=== PATIENT | female | born 1955 | race Two or more races ===

== ENCOUNTER → 2017-05-13 | Outpatient (CLI) | payer OTHER ==
--- NOTE | 2017-05-13 14:44 | CT ---
EXAMINATION TYPE: CT lumbar spine wo con DATE OF EXAM: 05/13/2017 COMPARISON: NONE HISTORY: 61-year-old female with low back pain TECHNIQUE: Contiguous axial scanning of the lumbar spine without IV contrast. Coronal and sagittal re constructions performed. CT DLP: 939.45 mGycm Automated exposure control for dose reduction was used. FINDINGS: Moderate atherosclerotic calcifications within the abdominal aorta and iliac arteries with a fusiform dilatations but no significant ectasia or aneurysm. No prevertebral or paravertebral soft tissue abn ormality. There is mild multilevel degenerative disc disease with mild disc space narrowing and bulging discs. Hypertrophic facet arthropathy mid to lower lumbar spine with trace grade 1 anterolisthesis at L3-L4. Otherwise, alignment is maintained and vertebral body heights are preserved. At T12-L1, there is broad-based posterior disc bulge with left-sided ligamentum flavum thickening and calcification. This causes indentation of the left dorsal thecal sac without significant spinal neymar l or foraminal stenosis. At L1-L2 there are similar changes but this time resulting in mild spinal canal stenosis. Mild inferi or left neural foraminal stenosis. At L2-L3, there is diffuse disc bulge with facet degenerative change. This results in mild spinal can al stenosis and minimal inferior narrowing of the bilateral neuroforamina. At L3-L4, there is hypertrophic facet arthropathy with bulging disc and trace grade 1 anterolisthesis . There may be mild spinal canal stenosis and mild left neuroforaminal stenosis. At L4-L5, mild diffuse disc bulge with facet arthropathy. Changes result in [id number] left and mild right neuroforaminal stenosis without significant spinal canal stenosis. At L5-S1, there is left paracentral disc osteophyte complex which abuts the traversing left S1 nerve root with slight mass effect. Hypertrophic facet arthropathy is also present with moderate right grea ter than left neuroforaminal stenosis. No spinal canal stenosis. IMPRESSION: 1. MILD MULTILEVEL DEGENERATIVE DISC DISEASE. LEFT PARACENTRAL DISC OSTEOPHYTE COMPLEX AT L5-S1 ABUTS THE TRAVERSING LEFT S1 NERVE ROOT WITH SLIGHT MASS EFFECT. 2. VARIABLE MILD TO MODERATE NEUROFORAMINAL STENOSES OUTLINED ABOVE, GREATEST ON THE RIGHT AT L5-S 1. 3. HYPERTROPHIC FACET ARTHROPATHY MID TO LOWER LUMBAR SPINE WITH TRACE GRADE 1 ANTEROLISTHESIS AT L3- L4. 4. CHANGES CAUSE MILD NARROWING OF THE SPINAL CANAL FROM L1 THROUGH L4 LEVELS. NO DONAVON CANAL COMPROM ISE.
--- NOTE | 2017-05-13 15:00 | CT ---
EXAMINATION TYPE: CT cervical spine wo con DATE OF EXAM: 05/13/2017 COMPARISON: 07/03/2016 HISTORY: 61-year-old female with neck pain, cervicalgia TECHNIQUE: Contiguous axial scanning of the cervical spine without IV contrast. Coronal and sagittal reconstructions performed. CT DLP: 485.5 mGycm Automated exposure control for dose reduction was used. FINDINGS: No craniocervical junction abnormality, predental space widening, or prevertebral soft tissue swellin g. Moderate disc/endplate degenerative change at C5-C7 levels with endplate spondylosis and some disc va cuum anteriorly. Posterior disc osteophyte complexes are also present, particularly at C5-C6 causing a mild left paracentral spinal canal stenosis. Scattered facet arthropathy particularly towards the left lung the upper cervical spine. Alignment is maintained. No acute fracture identified. At C2-C3, no significant canal or foraminal stenosis. At C3-C4, there is mild posterior disc bulge, ligamentum flavum thickening, and hypertrophic left-jose ed facet arthropathy. Changes result in moderate to severe left neuroforaminal stenosis and mild spin al canal stenosis. At C4-C5, facet and uncovertebral joint arthropathy causing mild right greater than left neuroforamin al stenosis without significant spinal canal stenosis. At C5-C6, a large left paracentral disc osteophyte complex with contiguous uncovertebral joint arthro horacio is noted. This results in moderate to severe left neuroforaminal stenosis with mild left parace ntral spinal canal stenosis. There is likely abutment and indentation of the left ventral cord at thi s level. At C6-C7, there is uncovertebral joint arthropathy causing moderate left neuroforaminal stenosis. At C7-T1, assessment of the spinal canal is limited due to artifact from the patient's shoulders. No significant neuroforaminal stenosis. IMPRESSION: 1. MODERATE DEGENERATIVE DISC DISEASE FROM C5-C7 LEVELS. IN PARTICULAR, A LEFT PARACENTRAL DISC OSTEO PHYTE COMPLEX AT C5-C6 CAUSES MILD SPINAL CANAL STENOSIS AND PROBABLY SLIGHTLY INDENTS THE CORD. EMELIA TIONAL MILD SPINAL CANAL STENOSIS AT C3-C4 AND C6-C7. 2. SCATTERED FACET AND UNCOVERTEBRAL JOINT ARTHROPATHY. THIS RESULTS IN MODERATE TO SEVERE NEURAL FOR AMINAL STENOSIS ON THE LEFT AT C3-C4 AND C5-C6.
== END | disposition home or self-care (01) ==
LOC: RADCTMAIN 13:09
PROVIDERS: ATTEND Psychiatry & Neurology Neurology
DX: M50.222 Other cervical disc displacement at C5-C6 level (principal); M51.36 Other intervertebral disc degeneration, lumbar region; M43.16 Spondylolisthesis, lumbar region; M48.02 Spinal stenosis, cervical region; M48.06 Spinal stenosis, lumbar region; M46.92 Unspecified inflammatory spondylopathy, cervical region; M99.71 Connective tissue and disc stenosis of intervertebral foramina of cervical region; M99.73 Connective tissue and disc stenosis of intervertebral foramina of lumbar region; M47.817 Spondylosis without myelopathy or radiculopathy, lumbosacral region; Z88.0 Allergy status to penicillin; Z88.1 Allergy status to other antibiotic agents; Z88.2 Allergy status to sulfonamides; Z88.6 Allergy status to analgesic agent; Z88.8 Allergy status to other drugs, medicaments and biological substances
CPT/HCPCS: 72125; 72131

== ENCOUNTER → 2017-11-20 | Outpatient (CLI) | payer OTHER ==
--- NOTE | 2017-11-20 14:12 | BD ---
EXAMINATION TYPE: MG DEXA axial skeleton. DATE OF EXAM: 11/20/2017 COMPARISON: NONE CLINICAL HISTORY: Height: 62 IN Weight: 191 LBS FRAX RISK QUESTIONS: Alcohol (3 or more units per day): NO Family History (Parent hip fracture): NO Glucocorticoids (More than 3mos): NO (Ex: prednisone, prednisolone, methylprednisolone, dexamethasone, and hydrocortisone). History of Fracture in Adulthood: NO Secondary Osteoporosis: 1. Type 1 Diabetes: NO 2. Hyperthyroidism: NO 3. Menopause before 45: NO AGE 54 4. Malnutrition: NO 5. Chronic liver disease: NO Rheumatoid Arthritis: YES Current Tobacco Use: YES RISK FACTORS HISTORY OF: Active: LIMITED Diet low in dairy products/other sources of calcium: YES Postmenopausal woman: AGE 54 Lost more than 2 inches in height since high school: YES 4" Poor Health: YES MEDICATIONS: Additional Medications: CALCIUM, VIT D,CENTRUM SILVER, BIOTIN, FOLIC ACID, ALLOPURINOL, AMITRIPTYLINE , BACLOFEN, CHANTIX, ECOTRIN,LOFIBRA, METAMUCIL LAXATIVE, LASIX, MEVACOR, MS CONTIN,KLOR-CON, REMERON , REQUIP,XANAX EXAM MEASUREMENTS: Bone mineral densitometry was performed using the [employer] System. Bone mineral density as measured about the Lumbar spine is: ----- L1-L4(G/cm2): 1.295 T Score Values are as follows: ----- L2: 1.5 ----- L3: 1.4 ----- L4: 1.0 ----- L1-L4: 1.0 Bone mineral density BASELINE PT HAD STROKE ON LEFT SIDE IN 1992. Bone mineral density about the R hip (g/cm2): 0.847 Bone mineral density about the L hip (g/cm2): 0.843 T Score values are as follows: -----R Neck: -1.4 -----L Neck: -1.4 -----R Total: -0.8 -----L Total: -1.0 Bone mineral density BASELINE IMPRESSION: Osteopenia (T Score between -2.5 and -1 as noted by T score values at femoral neck level in both hips . There is slightly increased risk of fracture and the patient may be considered for treatment. Danilo shetty 2-5 years. NOTE: T-SCORE=SD OF THE YOUNG ADULT MEAN.
== END | disposition home or self-care (01) ==
LOC: RADBDWWP 12:58
PROVIDERS: ATTEND Orthopaedic Surgery
DX: Z01.818 Encounter for other preprocedural examination (principal); M85.852 Other specified disorders of bone density and structure, left thigh; M85.851 Other specified disorders of bone density and structure, right thigh
CPT/HCPCS: 77080

== ENCOUNTER → 2017-11-26 | Outpatient (CLI) | payer OTHER ==
--- NOTE | 2017-11-26 16:00 | CT ---
EXAMINATION TYPE: CT thoracic spine wo con DATE OF EXAM: 11/26/2017 COMPARISON: NONE HISTORY: Thoracic pain. CT DLP: 1365 mGycm Automated exposure control for dose reduction was used. FINDINGS: There is slight exaggeration of the thoracic kyphosis. Vertebral body heights appear preserved. Disc heights have mild narrowing throughout the thoracic spine. Spondylosis is present. No spinal canal stenosis is evident. No cord compression or displacement is identified. Focal disc herniation is not identified. IMPRESSION: 1. THORACIC KYPHOSIS. 2. DIFFUSE DEGENERATIVE DISC CHANGES.
--- NOTE | 2017-11-26 17:48 | MR ---
EXAMINATION TYPE: MR cspine/tspine wo con DATE OF EXAM: 11/26/2017 COMPARISON: NONE HISTORY: Pain and headaches CONTRAST: Performed utilizing 0 mL intravenous Gadavist gadolinium contrast. TECHNIQUE: Multiplanar multiecho imaging on a 3.0 Billie magnet is performed through the cervical spin e. FINDINGS: The craniovertebral junction is normal. Vertebral body alignment is normal. C7-T1: No focal disc herniation or significant disc bulge is evident. No spinal canal stenosis or n eural foraminal stenosis is present. C6-7: Minimal disc bulge has anterior thecal sac contact. Some cord contact may be present. No AP spi nal canal stenosis is present. Uncovertebral joint hypertrophy is present with mild bilateral foramin al narrowing.. C5-6: Disc bulge is present with anterior thecal sac contact. This has some cord contact. This is mor e focal into the left paracentral region compatible with subligamentous disc herniation. Correlate wi th left radicular symptoms at this level. Findings are complicated by endplate spurring.. C4-5: Right uncovertebral joint hypertrophy is foraminal narrowing. Mild endplate spurring has anteri or thecal sac contact. No spinal canal stenosis is present. C3-4: No focal disc herniation or significant disc bulge is evident. No spinal canal stenosis or prisca ral foraminal stenosis is present. C2-3: No focal disc herniation or significant disc bulge is evident. No spinal canal stenosis or prisca ral foraminal stenosis is present. IMPRESSIONS: 1. Left paracentral subligamentous disc herniation associated with some endplate spurring at C5-6 is moderate anterior thecal sac compression and exiting nerve root contact. Correlate with radicular sym ptoms. 2. Mild disc bulging C6-7 with cord contact without deformity. 3. Uncovertebral joint hypertrophy present C4-5 on the right with mild foraminal narrowing, and C6-7 with mild bilateral foraminal narrowing. EXAMINATION TYPE: MR cspine/tspine wo con DATE OF EXAM: 11/26/2017 COMPARISON: NONE HISTORY: Pain and headaches CONTRAST: Performed utilizing 0 mL intravenous Gadavist gadolinium contrast. TECHNIQUE: Multiplanar, multiecho imaging on a 3.0 Billie magnet is performed through the thoracic spi ne. Spinal cord maintains normal signal through its visualized course. Vertebral body alignment is normal. Vertebral body heights are preserved. Disc heights are preserved. Mild disc desiccation is present throughout the thoracic spine. No spinal canal stenosis is evident. IMPRESSIONS: 1. Mild disc desiccation through the thoracic spine.
== END | disposition home or self-care (01) ==
LOC: RADMRIMAIN 13:15
PROVIDERS: ATTEND Orthopaedic Surgery
DX: Z01.818 Encounter for other preprocedural examination (principal); M40.204 Unspecified kyphosis, thoracic region; M99.71 Connective tissue and disc stenosis of intervertebral foramina of cervical region; M50.222 Other cervical disc displacement at C5-C6 level; M47.814 Spondylosis without myelopathy or radiculopathy, thoracic region
CPT/HCPCS: 72128; 72141; 72146

== ENCOUNTER 2018-02-13 00:54 | Inpatient (IN) | payer OTHER ==
[2018-02-13 01:03] LABS: Glucose,Whole Blood 122 mg/dL (75-99)
[2018-02-13] MEDS ORDERED: SODIUM CHLORIDE 0.9% 1,000 ML IV STA (01:05)
--- NOTE | 2018-02-13 01:12 | ED ---
General Adult HPI - General Chief complaint: Weakness Stated complaint: poss stroke Time Seen by Provider: 02/13/18 00:57 Source: patient, RN notes reviewed Mode of arrival: EMS Limitations: no limitations - History of Present Illness Initial comments: Patient is a pleasant [age]-year-old female presenting to the emergency Department with right arm weakness. Onset was around 6 or 7 PM. Symptoms have been persistent since that time. Patient is having problems coordinating her arm. Patient states there may be some leg weakness as well. Patient does have a history of multiple previous strokes with chronic left-sided deficits. 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 Patient states there is approximately 8 coils present. Patient is having some discomfort of her chest and left upper back over the past hour or so as well. - Related Data Home Medications Medication Instructions Recorded Confirmed Albuterol Sulfate [Ventolin HFA] 2 puff INHALATION RT-QID PRN 05/24/14 07/03/16 Fenofibrate 160 mg PO AC-SUPPER 05/24/14 07/03/16 Folic Acid 1 mg PO DAILY 05/24/14 07/03/16 Furosemide [Lasix] 20 mg PO DAILY 05/24/14 07/03/16 Lovastatin [Mevacor] 40 mg PO HS 05/24/14 07/03/16 Metoprolol Tartrate [Lopressor] 50 mg PO BID 05/24/14 07/03/16 Potassium Chloride [Potassium 20 meq PO DAILY@1800 05/24/14 07/03/16 Chloride ER] Allopurinol [Zyloprim] 100 mg PO DAILY@1200 04/04/16 07/03/16 Amitriptyline HCl [Elavil] 75 mg PO HS 04/04/16 07/03/16 Cholecalciferol [Vitamin D3] 3,000 unit PO TID 04/04/16 07/03/16 EPINEPHrine (Auto Inject) [Epipen] 0.3 mg IM ONCE PRN 04/04/16 07/03/16 Polyethylene Glycol 3350 [Miralax] 17 gm PO DAILY 04/04/16 07/03/16 Varenicline [Chantix Continuing 1 mg PO BID 04/04/16 07/03/16 Pack] ALPRAZolam [Xanax] 0.5 mg PO BID@0600,1800 07/03/16 07/03/16 ALPRAZolam [Xanax] 1 mg PO DAILY@1200 07/03/16 07/03/16 cloNIDine HCL [Catapres] 0.1 mg PO HS 07/03/16 07/03/16 Previous Rx's Medication Instructions Recorded Aspirin 81 mg PO DAILY #1 chewable 07/05/16 Baclofen [Lioresal] 5 mg PO TID #60 tablet 07/05/16 Cefuroxime [Ceftin] 250 mg PO BID #6 tab 07/05/16 Allergies Allergy/AdvReac Type Severity Reaction Status Date / Time acetaminophen Allergy Unknown Verified 04/10/16 09:16 [From Darvocet-N 100] aspirin Allergy Unknown Verified 04/10/16 09:16 cefaclor [From Ceclor] Allergy Unknown Verified 04/10/16 09:26 divalproex sodium Allergy Unknown Verified 04/10/16 09:26 [From Depakote] Iodine and Iodide Containing Allergy Rash/Hives Verified 02/13/18 01:55 Produc ketorolac tromethamine Allergy Unknown Verified 04/10/16 09:16 [From Toradol] naproxen Allergy Unknown Verified 04/10/16 09:16 orphenadrine citrate Allergy Unknown Verified 04/10/16 09:16 [From Norgesic] Penicillins Allergy Unknown Verified 04/10/16 09:16 phenytoin sodium Allergy Unknown Verified 04/10/16 09:26 [From Dilantin] phenytoin sodium extended Allergy Unknown Verified 04/10/16 09:26 [From Dilantin] pregabalin [From Lyrica] Allergy Unknown Verified 04/10/16 09:26 propoxyphene HCl Allergy Unknown Verified 04/10/16 09:26 [From Darvon] propoxyphene napsylate Allergy Unknown Verified 04/10/16 09:26 [From Darvocet-N 100] Sulfa (Sulfonamide Allergy Unknown Verified 04/10/16 09:26 Antibiotics) trazodone Allergy Unknown Verified 04/10/16 09:26 venom-honey bee Allergy Unknown Verified 04/10/16 09:16 [bee venom (honey bee)] adhesive AdvReac Rash/Hives Verified 04/10/16 09:26 Review of Systems ROS Statement: Those systems with pertinent positive or pertinent negative responses have been documented in the HPI. ROS Other: All systems not noted in ROS Statement are negative. Constitutional: Denies: fever Eyes: Denies: eye pain ENT: Denies: ear pain Respiratory: Denies: cough Cardiovascular: Reports: chest pain Endocrine: Denies: fatigue Gastrointestinal: Denies: abdominal pain Genitourinary: Denies: dysuria Musculoskeletal: Denies: back pain Skin: Denies: rash Neurological: Reports: weakness. Denies: headache, confusion Past Medical History Past Medical History: COPD, CVA/TIA, Fibromyalgia, Hyperlipidemia, Hypertension , Osteoarthritis (OA), Renal Disease, Rheumatoid Arthritis (RA) Additional Past Medical History / Comment(s): stroke, hx brain aneurysm basal tip, renal disease stage 3, constipation, hemorrhoids, gout, History of Any Multi-Drug Resistant Organisms: MRSA Date of last positivie culture/infection: April 2013 MDRO Source:: bladder Past Surgical History: Bowel Resection, Breast Surgery, Section, Orthopedic Surgery, Tonsillectomy, Tubal Ligation Additional Past Surgical History / Comment(s): d&c, brain aneursym repair Past Anesthesia/Blood Transfusion Reactions: No Reported Reaction Past Psychological History: Anxiety, Depression Smoking Status: Former smoker Past Alcohol Use History: None Reported Past Drug Use History: Marijuana - Past Family History Mother Family Medical History: No Reported History General Exam Limitations: no limitations General appearance: alert, in no apparent distress Head exam: Present: atraumatic Eye exam: Present: normal appearance, PERRL, EOMI. Absent: nystagmus ENT exam: Present: normal oropharynx Neck exam: Present: normal inspection Respiratory exam: Present: normal lung sounds bilaterally. Absent: chest wall tenderness Cardiovascular Exam: Present: regular rate, normal rhythm Expanded Peripheral pulses: 2+: Radial (R), Radial (L), Dorsalis Pedis (R), Dorsalis Pedis (L) GI/Abdominal exam: Present: soft. Absent: distended, tenderness Extremities exam: Present: normal inspection Back exam: Present: tenderness (Tenderness left parathoracic region approximately T3 through T5.) Neurological exam: Present: alert, CN II-XII intact (Except decreased sensation left face and difficulty lifting left shoulder) Expanded Speech: Present: fluid speech Cranial nerves: EOM's Intact: Normal, Facial Sensation: Abnormal Left Cerebellar function: Finger to Nose: Abnormal Right, Abnormal Left Sensory exam: Upper Extremity Light Touch: Abnormal Left (Patient states chronic ), Lower Extremity Light Touch: Abnormal Left (Patient states chronic) Motor strength exam: RUE: 4, LUE: 2/1 (Patient states chronic), RLE: 4, LLE: 3 ( Patient states chronic) Eye Response: (4) open spontaneously Motor Response: (6) obeys commands Verbal Response: (5) oriented Psychiatric exam: Present: normal affect, normal mood Skin exam: Present: normal color Course Vital Signs 02/13/18 02/13/18 00:57 01:58 Temperature 98.4 F Pulse Rate 72 63 Respiratory 19 19 Rate Blood Pressure 158/70 132/66 O2 Sat by Pulse 99 100 Oximetry - Reevaluation(s) Reevaluation #1: 02/13/18 03:09 Patient was reevaluated and resting comfortably in bed. Dr. rodriguez has been paged for admission for Dr. Underwood. Patient was loaded in stroke robot for neural interventional list to review. EKG Findings - EKG Comments: EKG Findings:: Normal sinus rhythm 72. TN 168. QRS 80. QT 396. QTc 433. Left axis. Normal QRS. No acute ST change. Medical Decision Making - Lab Data Result diagrams: 02/13/18 00:59 02/13/18 00:59 Lab Results 02/13/18 02/13/18 02/13/18 Range/Units 00:57 00:59 00:59 WBC 6.6 (3.8-10.6) k/uL RBC 4.22 (3.80-5.40) m/uL Hgb 12.6 (11.4-16.0) gm/dL Hct 39.1 (34.0-46.0) % MCV 92.6 (80.0-100.0) fL MCH 29.7 (25.0-35.0) pg MCHC 32.1 (31.0-37.0) g/dL RDW 13.2 (11.5-15.5) % Plt Count 212 (150-450) k/uL Neutrophils % 59 % Lymphocytes % 33 % Monocytes % 5 % Eosinophils % 0 % Basophils % 1 % Neutrophils # 3.9 (1.3-7.7) k/uL Lymphocytes # 2.2 (1.0-4.8) k/uL Monocytes # 0.4 (0-1.0) k/uL Eosinophils # 0.0 (0-0.7) k/uL Basophils # 0.0 (0-0.2) k/uL PT (9.0-12.0) sec INR (<1.2) APTT (22.0-30.0) sec Sodium (137-145) mmol/L Potassium (3.5-5.1) mmol/L Chloride (98-107) mmol/L Carbon Dioxide (22-30) mmol/L Anion Gap mmol/L BUN (7-17) mg/dL Creatinine (0.52-1.04) mg/dL Est GFR (CKD-EPI)AfAm (>60 ml/min/1.73 sqM) Est GFR (CKD-EPI)NonAf (>60 ml/min/1.73 sqM) Glucose (74-99) mg/dL POC Glucose (mg/dL) 122 H (75-99) mg/dL POC Glu [employer] Operator ID [place] Calcium (8.4-10.2) mg/dL Total Bilirubin (0.2-1.3) mg/dL AST (14-36) U/L ALT (9-52) U/L Alkaline Phosphatase (38-126) U/L Total Creatine Kinase 73 (30-135) U/L CK-MB (CK-2) 1.3 (0.0-2.4) ng/mL CK-MB (CK-2) Rel Index 1.8 Troponin I <0.012 (0.000-0.034) ng/mL Total Protein (6.3-8.2) g/dL Albumin (3.5-5.0) g/dL 02/13/18 02/13/18 Range/Units 00:59 00:59 WBC (3.8-10.6) k/uL RBC (3.80-5.40) m/uL Hgb (11.4-16.0) gm/dL Hct (34.0-46.0) % MCV (80.0-100.0) fL MCH (25.0-35.0) pg MCHC (31.0-37.0) g/dL RDW (11.5-15.5) % Plt Count (150-450) k/uL Neutrophils % % Lymphocytes % % Monocytes % % Eosinophils % % Basophils % % Neutrophils # (1.3-7.7) k/uL Lymphocytes # (1.0-4.8) k/uL Monocytes # (0-1.0) k/uL Eosinophils # (0-0.7) k/uL Basophils # (0-0.2) k/uL PT 10.1 (9.0-12.0) sec INR 1.0 (<1.2) APTT 22.7 (22.0-30.0) sec Sodium 145 (137-145) mmol/L Potassium 3.8 (3.5-5.1) mmol/L Chloride 102 (98-107) mmol/L Carbon Dioxide 30 (22-30) mmol/L Anion Gap 13 mmol/L BUN 20 H (7-17) mg/dL Creatinine 1.10 H (0.52-1.04) mg/dL Est GFR (CKD-EPI)AfAm 61 (>60 ml/min/1.73 sqM) Est GFR (CKD-EPI)NonAf 53 (>60 ml/min/1.73 sqM) Glucose 121 H (74-99) mg/dL POC Glucose (mg/dL) (75-99) mg/dL POC Glu [employer] Operator ID Calcium 9.6 (8.4-10.2) mg/dL Total Bilirubin 0.6 (0.2-1.3) mg/dL AST 27 (14-36) U/L ALT 25 (9-52) U/L Alkaline Phosphatase 70 (38-126) U/L Total Creatine Kinase (30-135) U/L CK-MB (CK-2) (0.0-2.4) ng/mL CK-MB (CK-2) Rel Index Troponin I (0.000-0.034) ng/mL Total Protein 6.6 (6.3-8.2) g/dL Albumin 4.0 (3.5-5.0) g/dL - Radiology Data Radiology results: image reviewed (Two-view chest x-ray shows no active cardiopulmonary disease. Computed tomography scan of the brain shows old right temporal lobe infarct. No acute intercranial abnormality. Small old infarct left occipital lobe. Metal artifact from surgical clip posterior the [place] of Chen. CT angiogram of the head and neck shows thoracic aorta with mild erythematous change. No evidence of aneurysm or dissection at the arch. 75% stenosis origin left internal carotid artery. 50% stenosis right internal carotid artery. Metal artifact from aneurysmal clip.) Disposition Clinical Impression: CVA (cerebral vascular accident) Disposition: ADMITTED IP TO THIS HOSP Referrals: Harsh Underwood DO [Primary Care Provider] - 1-2 days Decision Time: 03:10
[2018-02-13 01:15] LABS: Basophils % (A) 1 %; Eosinophils % (A) 0 %; HCT 39.1 % (34.0-46.0); HGB 12.6 gm/dL (11.4-16.0); Lymphocytes # (A) 2.2 k/uL (1.0-4.8); Lymphocytes % (A) 33 %; MCH 29.7 pg (25.0-35.0); MCHC 32.1 g/dL (31.0-37.0); MCV 92.6 fL (80.0-100.0); Monocytes # (A) 0.4 k/uL (0-1.0); Monocytes % (A) 5 %; Neutrophils # (A) 3.9 k/uL (1.3-7.7); Neutrophils % (A) 59 %; Platelet Count 212 k/uL (150-450); RBC 4.22 m/uL (3.80-5.40); RDW 13.2 % (11.5-15.5); WBC 6.6 k/uL (3.8-10.6)
[2018-02-13 01:24] LABS: Calcium 9.6 mg/dL (8.4-10.2); Potassium 3.8 mmol/L (3.5-5.1); Total Bilirubin 0.6 mg/dL (0.2-1.3); Total Protein 6.6 g/dL (6.3-8.2)
[2018-02-13 01:27] LABS: Partial Thromboplastin Time 22.7 sec (22.0-30.0); Prothrombin Time 10.1 sec (9.0-12.0)
[2018-02-13] MEDS ORDERED: RX INFO: IV CONTRAST WAS GIVEN 1 EACH MISC MISCELLANE PRN (01:32)
--- NOTE | 2018-02-13 01:32 | CT ---
EXAMINATION TYPE: CT brain wo con DATE OF EXAM: 02/13/2018 COMPARISON: 07/03/2016 HISTORY: Possible stroke/Neuro Deficits CT DLP: 1011.50 mGycm Automated exposure control for dose reduction was used. FINDINGS: There is metal artifact from surgical clip at the posterior [place] of [place]. There is hypodensity in the right temporal lobe consistent with old encephalomalacia. There is no mass effect nor midline sh ift. There is no sign of intracranial hemorrhage. The calvarium is intact. There is some hypodensity in the most posterior cortex of the left occipital lobe. IMPRESSION: OLD RIGHT TEMPORAL LOBE INFARCT. NO ACUTE INTRACRANIAL ABNORMALITY. SMALL OLD INFARCT IN THE LEFT OCC IPITAL LOBE.
[2018-02-13 01:35] LABS: Creatine Kinase 73 U/L (30-135)
--- NOTE | 2018-02-13 01:35 | XR ---
EXAMINATION TYPE: XR chest 2V DATE OF EXAM: 02/13/2018 COMPARISON: 07/03/2016 HISTORY: Altered mental status TECHNIQUE: Frontal and lateral views of the chest are obtained. FINDINGS: There is relative poor inspiration. There is thoracic kyphotic posture. The head obscures the right upper lobe. There is no heart failure. Lungs appear clear of consolidation. There is no sig n of pleural effusion. IMPRESSION: No active cardiopulmonary disease. No change in the heart and lungs compared to old exam .
[2018-02-13] MEDS ORDERED: diphenhydrAMINE 50 MG/ML 1 ML VIAL IVP STA (01:45)
[2018-02-13] MEDS ORDERED: FAMOTIDINE 20 MG/2 ML VIAL IV STA (01:45)
[2018-02-13] MEDS ORDERED: methylPREDNISolone SOD SUCCI 125 MG/2 ML VIAL IV STA (01:45)
[2018-02-13 01:48] LABS: Creatine Kinase MB 1.3 ng/mL (0.0-2.4); Troponin I <0.012 ng/mL (0.000-0.034)
--- NOTE | 2018-02-13 02:45 | CT ---
EXAMINATION TYPE: CT angio head neck DATE OF EXAM: 02/13/2018 HISTORY: CTA caratid for neuro deficits andattention proximal aorta for pt. is c/o upper chest pain a lso. COMPARISON: NONE CT DLP: 378.90 mGycm. Automated Exposure Control for Dose Reduction was Utilized. TECHNIQUE: CTA scan of the neck and brain is performed with IV Contrast, patient injected with 65 mL of Isovue 370, axial images are obtained, coronal and sagittal reformatted images are reviewed. Thre e-D reconstructed images are created on an independent workstation and reviewed. FINDINGS: Thoracic aorta shows mild atheromatous change. There is no evidence of aneurysm or dissection at the aortic arch. There is normal branching pattern of the great vessels on the aortic arch. There is bila teral arterial flow in the vertebral arteries. There is bilateral arterial flow in the common carotid arteries. There is significant calcified plaqu e at the left carotid artery bifurcation. There is a short segment of stenosis at the origin of the l eft internal carotid artery that is probably more than 75% lumen narrowing. There is estimated 50% st enosis at the origin of the right internal carotid artery. There is bilateral arterial flow in the in ternal carotid arteries. There is metal artifact from aneurysm clip at the posterior [place] of [place] at the tip of the basilar artery. Detail in the intracranial arterial circulation is limited at the [place] of [place]. There is bilateral arterial flow in the anterior middle and posterior cerebral arteries. The basilar artery fills from the left and right vertebral artery. There is no mass effect. There is no evidence of intracranial aneurysm or neovascularity. Detail of the proximal posterior cerebral arteries is marino ited. There is normal contrast opacification of the venous sinuses. There is no evidence of carotid d issection. CONCLUSION: Atherosclerotic vascular disease. There is approximate 75% stenosis at the origin of the left interna l carotid artery. There is approximate 50% stenosis at the origin of the right internal carotid arter y. Basilar arteries appear fairly normal. Metal artifact from aneurysm surgery. No evidence of intracranial aneurysm or neovascularity. No evid ence of intracranial stenosis.
[2018-02-13] MEDS: SODIUM CHLORIDE 0.9% 1,000 ML IV SCH ×3 (03:54→21:14)
[2018-02-13] MEDS ORDERED: METOPROLOL TARTRATE 25 MG TAB PO STA (04:41)
[2018-02-13 05:37] VITALS: BMI 33.5
[2018-02-13] MEDS ORDERED: NYSTATIN 100,000UNIT/GM CREAM 30 GM TUBE TOPICAL PRN (10:27)
[2018-02-13] MEDS ORDERED: NON-FORMULARY DRUG (Biotin [Biotin] 5 MG) PO SCH (12:00)
[2018-02-13] MEDS ORDERED: BACLOFEN 10 MG TAB PO SCH ×2 (12:00→18:00)
[2018-02-13] MEDS: POLYETHYLENE GLYCOL 3350 17 GM POWD.PACK PO SCH (12:40)
[2018-02-13] MEDS: MORPHINE SULFATE ER 15 MG TABLET PO SCH ×2 (12:41→23:05)
[2018-02-13] MEDS: ALPRAZolam 0.5 MG TAB PO SCH (12:41)
[2018-02-13] MEDS: ALLOPURINOL 100 MG TAB PO SCH (12:42)
[2018-02-13] MEDS: ASPIRIN 325 MG TAB PO SCH (12:42)
[2018-02-13] MEDS: CHOLECALCIFEROL 1,000 UNIT TAB PO SCH (12:43)
[2018-02-13] MEDS: PSYLLIUM HUSK 100% 6 GM PACKET PO SCH (12:43)
[2018-02-13] MEDS: NICOTINE 14MG/24HR PATCH TRANSDERM SCH (15:35)
[2018-02-13] MEDS: ALPRAZolam 1 MG TAB PO SCH (17:11)
[2018-02-13] MEDS: CALCIUM CARBONATE 500 MG CHEWABLE PO SCH (17:11)
[2018-02-13] MEDS: VARENICLINE 1 MG TAB PO SCH (17:11)
[2018-02-13] MEDS: FENOFIBRATE 160 MG TAB PO SCH (17:12)
[2018-02-13] MEDS: POTASSIUM CHLORIDE ER 20 MEQ TAB.ER PO SCH (17:12)
[2018-02-13] MEDS: MULTIVITAMINS, THERA 1 EACH TAB PO SCH (17:12)
[2018-02-13] MEDS: FOLIC ACID 1 MG TAB PO SCH (17:12)
[2018-02-13] MEDS: BACLOFEN 10 MG TAB PO PRN (17:21)
--- NOTE | 2018-02-13 17:38 | HP ---
HISTORY AND PHYSICAL DATE OF ADMISSION: February 13, 2018. PRESENTING COMPLAINT: Right arm weakness. HISTORY OF PRESENTING COMPLAINT: This is a 62-year-old patient of Dr. Underwood. Also follows with Dr. King, neurologist. Chronic stable medical conditions include COPD, left-sided weakness from prior stroke, fibromyalgia, hyperlipidemia, osteoarthritis, chronic kidney disease, restless leg syndrome. The patient normally uses a walker to get about. Yesterday, late afternoon patient woke up with the right arm and right leg being weak. Speech was not affected. Vision was not affected. No trouble swallowing. The patient admitted with a stroke diagnosis. Slight improvement in the right arm. The patient is still a smoker. REVIEW OF SYSTEMS: CONSTITUTIONAL: None. HEENT none. Respiratory: Baseline occasional cough. CARDIOVASCULAR: None. GASTROINTESTINAL: None. GENITOURINARY: Urinary incontinence. Dermatological and hematologic, lymphatic none. Psychiatry anxiety. Neurological as above. 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 PAST SURGICAL HISTORY: Past surgical history bowel resection, breast surgery, , orthopedic surgery, tonsillectomy, tubal ligation, brain aneurysm repair. PSYCH HISTORY: Anxiety, depression. SOCIAL HISTORY: The patient has smoked a pack a day now close to over 45 years, down to about 5 cigarettes a day. Lives by herself. Uses a walker. The patient also does use marijuana. FAMILY HISTORY: Reviewed, noncontributory to presentation. HOME MEDICATIONS: 1. Chantix 1 mg p.o. b.i.d. 2. Vitamin D3 3000 units p.o. daily. 3. Nystatin 100,000 units topical daily p.r.n. 4. Requip 3 mg p.o. q.h.s. 5. Metamucil 0.4 mg p.o. daily at noon. 6. MS Contin 50 mg p.o. b.i.d. 7. Mirtazapine 60 mg q.h.s. 8. Lasix 20 mg p.o. daily. 9. Folic acid 1 mg p.o. daily. 10.Tricor 160 mg p.o. daily. 11.Aspirin 325 p.o. daily at noon. 12.Centrum Silver tab 1 tab p.o. daily. 13.Calcium 600 mg p.o. daily at noon. 14.Biotin 5 mg p.o. daily. 15.Baclofen 10 mg p.o. b.i.d. 16.Baclofen 20 mg at 6 pm. 17.Xanax 0.5 mg p.o. b.i.d. and 1 mg at 6 pm. 18.Potassium 20 mEq a day. 19.MiraLAX 17 g p.o. daily. 20.Mevacor 40 mg q.h.s. 21.EpiPen p.r.n. 22.Elavil 75 mg q.h.s. 23.Allopurinol 100 mg p.o. daily. ALLERGIES: LIST IS LONG INCLUDING DARVOCET-N 100, ASPIRIN, WELLBUTRIN, CECLOR, DEPAKOTE, DOXYCYCLINE, IODINE, TORADOL, ATIVAN, NAPROXEN, NORGESIC, PENICILLIN, PHENYTOIN, LYRICA, PROPOXYPHENE, SULFUR, TRAZODONE, ADHESIVES. PHYSICAL EXAMINATION: Temperature 98.4, pulse 59, respiration 16, blood pressure 102/55, pulse ox 93% on room air. General appearance: Well built, BMI 33.6, sitting up, tired appearing. Eyes: Pupils are equal. Conjunctivae normal. HEENT external appearance of nose and ears normal. Oral cavity normal. Neck JVD not raised. Mass not palpable. Respiratory effort normal. LUNGS: Diminished breath sounds. Cardiovascular: 1st and 2nd sounds normal. No edema. ABDOMEN: Soft, nontender. Liver and spleen not palpable. Lymphatics: No lymph nodes palpable in the neck and axilla. Psychiatry: Alert and oriented times three. Mood and affect slightly anxious-appearing. Neurological: Pupils equal. Cranial nerves showing some weakness of the left side of the face. NEUROLOGICAL: Power on the right arm is 3/5, in the left arm is about 3/5. Right leg power is 4/5. Left leg power is 4/5. Sensation grossly preserved. INVESTIGATIONS: Potassium 3.8, BUN 20, creatinine 1.10, troponin negative. EKG normal sinus rhythm. CT scan of the brain, old right temporal lobe infarct and old infarct in the left occipital lobe. CT angio foot shows metal artifact from aneurysm surgery. Left internal carotid arteries 75% stenosis. ASSESSMENT: 1. Acute stroke in the left middle cerebral artery area affecting the right side of the body in a right-handed patient with 75% left internal carotid artery stenosis. 2. Chronic left-sided weakness from old stroke. 3. Chronic obstructive pulmonary disease in a current smoker. 4. Chronic fibromyalgia. 5. Hyperlipidemia. 6. Primary osteoarthritis in multiple joints bilateral. 7. Chronic kidney disease stage 4 probably from nephrosclerosis. 8. Restless legs syndrome. 9. Chronic insomnia. 10.Anxiety, not otherwise specified. 11.Chronic rheumatoid arthritis. 12.Brain aneurysm with basal artery with a clip in place. PLAN: Continue with the patient on aspirin. Home medications. We will also put the patient on Lipitor. Neurology was consulted. Neuro checks will be done. The patient has no trouble swallowing. Speech is normal. Consult PT/OT. Smoking cessation counseling was done with the patient. Will be given a nicotine patch. I did tell how this is making things worse. More than 3 minutes was spent for the smoke counseling. Copy to Dr. Underwood. JUSTYN / COLIN: [id number] /
[2018-02-13] MEDS: ENOXAPARIN 40 MG/0.4 ML SYRINGE SQ SCH (19:21)
--- NOTE | 2018-02-13 20:13 | P.CNNES ---
History of Present Illness Consult date: 02/13/18 Reason for Consult: Patient with right arm weakness and history of old strokes. History of Present Illness: This patient is a 62-year-old right-handed white female who apparently was having difficulty yesterday evening with symptoms of acute onset of right arm weakness and numbness. Patient was able to contact her son who was able to come and check on her yesterday evening. Apparently the patient told the ER physician Dr. Moseley that her symptoms started at about 6 PM yesterday evening. The main feature was weakness in her right arm. Her son came to assist her later in the evening and noted that she was having some slurring of her speech and difficulty with her words finding. Her son who was at bedside stated that he felt she also had some facial weakness. For these reasons he decided to take her to the emergency room for further evaluation last night. She was seen in the ER by Dr. Moseley. She has a complex past medical history having been diagnosed with a basilar artery aneurysm which was treated with multiple coiling procedures several years ago. Patient states she was seen by Dr. brandon. Who performed coiling procedure to the basilar artery requiring 8-9 coils. She is subtotally done well and has not had any further recurrence in terms of the basilar artery aneurysm. She does take one full adult aspirin on a daily basis. This was a clear change according to the family with the right arm weakness. She also did experience some facial weakness and slurring of her speech. For these recent she was admitted hospital for possibility of TIA versus stroke. ER physician Dr. Moseley did send her for a computed tomography scan of the brain as well as a CTA angiogram. Computed tomography scan of the brain revealed evidence of an old right temporal lobe infarct. There was a small old left occipital lobe infarct noted as well. No evidence of acute hemorrhage. She underwent a CTA angiogram of the head and neck. This result indicated 75% stenosis of the left internal carotid artery and 50% stenosis of the right internal carotid artery. Dr. Moseley did contact the neural interventionalists at [facility]. Apparently she was not a candidate for any TPA. She was admitted to hospital for further stroke evaluation. Patient states her last stroke occurred several years ago. She has been doing fairly well and has been able to do most fine motor skills with both hands. She does have history of carpal tunnel syndrome which causes difficulty with the use of her left hand and arm. Apparently she is being treated for this condition with Botox. The patient states she has otherwise been doing fairly well up until this episode last night. She is now been admitted and neurology has been consulted for further evaluation and recommendations. Review of Systems Constitutional: Denies chills, Denies fever Eyes: denies blurred vision, denies pain Ears, nose, mouth and throat: Denies headache, Denies sore throat Cardiovascular: Denies chest pain, Denies shortness of breath Respiratory: Denies cough Gastrointestinal: Denies abdominal pain, Denies diarrhea, Denies nausea, Denies vomiting Genitourinary: Denies dysuria, Denies hematuria Musculoskeletal: Denies myalgias Integumentary: Denies pruritus, Denies rash Neurological: Reports change in speech, Reports confusion, Reports motor disturbance, Reports paresthesias, Reports sensory deficit, Reports tingling, Denies numbness, Denies weakness Psychiatric: Denies anxiety, Denies depression Endocrine: Denies fatigue, Denies weight change Past Medical History Past Medical History: COPD, CVA/TIA, Fibromyalgia, Hyperlipidemia, Hypertension , Osteoarthritis (OA), Renal Disease, Rheumatoid Arthritis (RA) Additional Past Medical History / Comment(s): stroke, hx brain aneurysm basal tip, renal disease stage 3, constipation, hemorrhoids, gout, History of Any Multi-Drug Resistant Organisms: MRSA Date of last positivie culture/infection: April 2013 MDRO Source:: bladder Past Surgical History: Bowel Resection, Breast Surgery, Section, Orthopedic Surgery, Tonsillectomy, Tubal Ligation Additional Past Surgical History / Comment(s): d&c, brain aneursym repair Past Anesthesia/Blood Transfusion Reactions: No Reported Reaction Past Psychological History: Anxiety, Depression Smoking Status: Current every day smoker Past Alcohol Use History: None Reported Additional Past Alcohol Use History / Comment(s): smoked since age 16 1ppd, smokes currently 5 cigarettes a day, does use marijuana Past Drug Use History: Marijuana - Past Family History Mother Family Medical History: No Reported History Medications and Allergies Home Medications Medication Instructions Recorded Confirmed Type Fenofibrate 160 mg PO DAILY@1800 05/24/14 02/13/18 History Folic Acid 1 mg PO DAILY@1800 05/24/14 02/13/18 History Lovastatin [Mevacor] 40 mg PO HS 05/24/14 02/13/18 History Potassium Chloride [Potassium 20 meq PO DAILY@1800 05/24/14 02/13/18 History Chloride ER] Allopurinol [Zyloprim] 100 mg PO DAILY@1200 04/04/16 02/13/18 History Amitriptyline HCl [Elavil] 75 mg PO HS 04/04/16 02/13/18 History Cholecalciferol [Vitamin D3] 3,000 unit PO DAILY@1200 04/04/16 02/13/18 History EPINEPHrine (Auto Inject) [Epipen] 0.3 mg IM ONCE PRN 04/04/16 02/13/18 History Polyethylene Glycol 3350 [Miralax] 17 gm PO DAILY 04/04/16 02/13/18 History Varenicline [Chantix Continuing 1 mg PO BID@0600,1800 04/04/16 02/13/18 History Pack] ALPRAZolam [Xanax] 0.5 mg PO BID@0600,1200 07/03/16 02/13/18 History ALPRAZolam [Xanax] 1 mg PO DAILY@1800 07/03/16 02/13/18 History Aspirin EC [Ecotrin] 325 mg PO DAILY@1200 02/13/18 02/13/18 History Baclofen 20 mg PO DAILY@1800 02/13/18 02/13/18 History Baclofen [Lioresal] 10 mg PO BID@0600,1200 02/13/18 02/13/18 History Biotin 5 mg PO DAILY@1200 02/13/18 02/13/18 History Calcium Carbonate [Calcium] 600 mg PO DAILY@1800 02/13/18 02/13/18 History Furosemide [Lasix] 20 mg PO DAILY@0600 02/13/18 02/13/18 History Mirtazapine 60 mg PO HS 02/13/18 02/13/18 History Morphine Sulfate ER [Ms Contin 15 mg PO BID@0000,1200 02/13/18 02/13/18 History 15Mg] Multivit-Min/FA/Lycopen/Lutein 1 tab PO DAILY@1800 02/13/18 02/13/18 History [Centrum Silver Tablet] Nystatin 100,000Unit/gm Cream 1 applic TOPICAL DAILY PRN 02/13/18 02/13/18 History [Mycostatin Cream] Psyllium Husk [Metamucil] 0.4 gm PO DAILY@1200 02/13/18 02/13/18 History rOPINIRole HCL [Requip] 3 mg PO HS 02/13/18 02/13/18 History Allergies Allergy/AdvReac Type Severity Reaction Status Date / Time acetaminophen Allergy Unknown Verified 04/10/16 09:16 [From Darvocet-N 100] aspirin Allergy Unknown Verified 02/13/18 08:33 bupropion [From Wellbutrin] Allergy Unknown Verified 02/13/18 08:33 cefaclor [From Ceclor] Allergy Unknown Verified 02/13/18 08:33 divalproex sodium Allergy Unknown Verified 02/13/18 08:33 [From Depakote] doxycycline Allergy Unknown Verified 02/13/18 08:33 Iodine and Iodide Containing Allergy Rash/Hives Verified 02/13/18 01:55 Produc ketorolac tromethamine Allergy Unknown Verified 02/13/18 08:33 [From Toradol] lorazepam [From Ativan] Allergy Unknown Verified 02/13/18 08:33 naproxen Allergy Unknown Verified 04/10/16 09:16 orphenadrine citrate Allergy Unknown Verified 02/13/18 08:33 [From Norgesic] Penicillins Allergy Unknown Verified 04/10/16 09:16 phenytoin sodium Allergy Unknown Verified 02/13/18 08:33 [From Dilantin] phenytoin sodium extended Allergy Unknown Verified 02/13/18 08:33 [From Dilantin] pregabalin [From Lyrica] Allergy Unknown Verified 02/13/18 08:33 propoxyphene HCl Allergy Unknown Verified 02/13/18 08:33 [From Darvon] propoxyphene napsylate Allergy Unknown Verified 02/13/18 08:33 [From Darvocet-N 100] Sulfa (Sulfonamide Allergy Unknown Verified 02/13/18 08:33 Antibiotics) trazodone Allergy Unknown Verified 02/13/18 08:33 venom-honey bee Allergy Unknown Verified 02/13/18 08:33 [bee venom (honey bee)] venom-wasp Allergy Unknown Verified 02/13/18 08:33 adhesive AdvReac Rash/Hives Verified 04/10/16 09:26 Physical Examination - Vital Signs Vital Signs: Vital Signs Temp Pulse Pulse Resp BP BP Pulse Ox 02/13/18 16:00 96 F L 83 17 118/56 94 L 02/13/18 15:55 83 02/13/18 12:00 98.4 F 59 L 16 102/55 93 L 02/13/18 08:15 59 L 18 02/13/18 07:43 98.1 F 59 L 18 114/56 98 02/13/18 05:10 97.8 F 65 18 132/63 99 02/13/18 04:00 62 16 120/62 96 02/13/18 03:15 60 16 110/59 97 02/13/18 03:10 57 L 16 110/59 98 02/13/18 01:58 63 19 132/66 100 02/13/18 00:57 98.4 F 72 19 158/70 99 Intake and Output 02/13/18 02/13/18 02/13/18 06:59 14:59 22:59 Intake Total 498 Balance 498 Intake: Oral 498 Other: Voiding Method Toilet # Voids 1 Weight 91.5 kg - Constitutional General appearance: average body habitus, cooperative - EENT EENT: PERRL, mucous membranes moist - Respiratory Respiratory: lungs clear, normal breath sounds - Cardiovascular Cardiovascular: regular rate, normal S1, normal S2 Extremities: no peripheral edema bilaterally - Gastrointestinal Gastrointestinal: normoactive bowel sounds - Integumentary Integumentary: normal - Neurologic Cranial nerve examination: anosmic, PERRL, EOMI, VFF, V1/V2/V3 grossly intact, face symmetric, intact, intact gag reflex, intact corneal reflex, normal palatal elevation Speech examination: intact Sensorimotor examination: intact Motor examination - right side: 2/5: biceps, triceps, wrist flexion, wrist extension, mold carpenter, 3/5: hip flexors, knee extensors, dorsiflexion, toe extension ( EHL), plantarflexion Motor examination - left side: 4/5: biceps, triceps, wrist flexion, wrist extension, mold carpenter, hip flexors, knee extensors, dorsiflexion, toe extension (EHL) , plantarflexion Detailed sensory examination: intact Reflex and gait examination: intact Reflexes: 1+: ankle, bicep, knee, tricep - Musculoskeletal Musculoskeletal: no pain - Psychiatric Psychiatric: mood/affect appropriate, cooperative Results - Laboratory Findings CBC and BMP: 02/13/18 00:59 02/13/18 00:59 Abnormal Lab Findings: Abnormal Labs 02/13/18 02/13/18 00:57 00:59 BUN 20 H Creatinine 1.10 H Glucose 121 H POC Glucose (mg/dL) 122 H Assessment and Plan (1) Left acute arterial ischemic stroke, MCA (middle cerebral artery) Current Visit: Yes Status: Acute Code(s): I63.512 - CEREB INFRC D/T UNSP OCCLS OR STENOS OF LEFT MID CEREB ART SNOMED Code(s): 825852337 (2) CVA (cerebral vascular accident) Current Visit: Yes Status: Acute Code(s): I63.9 - CEREBRAL INFARCTION, UNSPECIFIED SNOMED Code(s): 463314879 (3) Basilar artery aneurysm Current Visit: Yes Status: Acute Code(s): I72.5 - ANEURYSM OF OTHER PRECEREBRAL ARTERIES SNOMED Code(s): 505422193 (4) Carotid artery stenosis with cerebral infarction Current Visit: Yes Status: Acute Code(s): I63.239 - CEREB INFRC DUE TO UNSP OCCLS OR STENOS OF UNSP CAROTID ART SNOMED Code(s): 60271012 Plan: This patient is a 62-year-old female who was brought into the emergency room yesterday evening for evaluation of possible TIA versus stroke. Patient does have history of multiple strokes in the past. She also has a history of a basilar tip aneurysm which is treated by neuro-interventional is Dr. Alrfedo. She had to undergo coiling procedure and has 8 coils in the basilar artery. She had been treated for this many years ago and has been doing fine up until yesterday. She came to the emergency room with symptoms of right hand weakness and numbness. She underwent a computed tomography scan of the brain results which are noted above. She underwent a CTA angiogram of the head and neck results of which are noted above. She does have left ICA stenosis of 75%. ER physician Dr. Moseley contacted neuro-analog ic design engineer. She was not a candidate for TPA. She was admitted to hospital for further stroke evaluation. Neurological examination reveals her to have evidence of right hemiparesis in the upper extremity. She has no obvious facial droop on exam. Her clinical history suggesting an acute left MCA stroke. We recommend she undergo a MRI of the brain for further evaluation. CT angiogram of the head and neck reveals 75 % stenosis of the left ICA. Recommend vascular surgery consultation for further evaluation. Patient is to continue on aspirin therapy for secondary stroke prevention. Overall prognosis at this time remains very guarded. Case was discussed at length with the patient as well as her son and daughter at bedside. All their questions were answered. They're aware of her guarded condition. We will continue close neurological follow-up with the patient during this admission. Time with Patient: Greater than 30
[2018-02-13] MEDS: AMITRIPTYLINE HCL 25 MG TAB PO SCH (21:07)
[2018-02-13] MEDS: MIRTAZAPINE 15 MG TAB PO SCH (21:07)
[2018-02-13] MEDS: BACLOFEN 10 MG TAB PO SCH (21:08)
[2018-02-13] MEDS: ATORVASTATIN 10 MG TAB PO SCH (21:08)
--- NOTE | 2018-02-13 21:41 | ECHOF ---
Referral Reason:Thrombus MEASUREMENTS -------- HEIGHT: 165.1 cm WEIGHT: 83.9 kg BP: 132/63 IVSd: 1.2 cm (0.6 - 1.1) LVIDd: 2.6 cm (3.9 - 5.3) LVPWd: 1.0 cm (0.6 - 1.1) IVSs: 1.8 cm LVIDs: 1.7 cm LVPWs: 1.4 cm MV EXCURSION: 8.330 mm (> 18.000) MV EF SLOPE: 51 mm/s (70 - 150) EPSS: 1.2 cm MV E Gene: 1.02 m/s MV DecT: 169 ms MV A Gene: 1.13 m/s MV E/A Ratio: 0.90 FINDINGS -------- Sinus rhythm. This was a technically difficult study with suboptimal views. The left ventricular size is normal. There is borderline concentric left ventricular hypertrophy. Overall left ventricular systolic function is normal with, an EF between 55 - 60 %. The right ventricle is normal in size and function. The left atrium is normal in size. The right atrium is normal in size. Lumason used The aortic valve is trileaflet, and appears structurally normal. No aortic stenosis or regurgitation. There is trace mitral regurgitation. Trace tricuspid regurgitation present. The right ventricular systolic pressure, as measured by Dopp ler, is {RVSP}. Pulmonic valve appears structurally normal. The aortic root size is normal. The pericardium is normal. CONCLUSIONS -------- 1. Sinus rhythm. 2. This was a technically difficult study with suboptimal views. 3. The left ventricular size is normal. 4. There is borderline concentric left ventricular hypertrophy. 5. Overall left ventricular systolic function is normal with, an EF between 55 - 60 %. 6. The right ventricle is normal in size and function. 7. The left atrium is normal in size. 8. The right atrium is normal in size. 9. Lumason used 10. The aortic valve is trileaflet, and appears structurally normal. No aortic stenosis or regurgitat ion. 11. There is trace mitral regurgitation. 12. Trace tricuspid regurgitation present. 13. The right ventricular systolic pressure, as measured by Doppler, is {RVSP}. 14. Pulmonic valve appears structurally normal. 15. The aortic root size is normal. 16. The pericardium is normal. FILM PROCESSOR: Sarah Morse RDCS
[2018-02-14] MEDS: FUROSEMIDE 20 MG TAB PO SCH (06:23)
[2018-02-14] MEDS: ALPRAZolam 0.5 MG TAB PO SCH ×2 (06:23→13:45)
[2018-02-14] MEDS: VARENICLINE 1 MG TAB PO SCH ×2 (06:23→17:39)
[2018-02-14 06:56] LABS: Cholesterol 138 mg/dL (<200); HDL Cholesterol 56 mg/dL (40-60); LDL Cholesterol,Calculated 57 mg/dL (0-99); Triglycerides 125 mg/dL (<150)
--- NOTE | 2018-02-14 09:52 | CONS ---
CONSULTATION This is a 62-year-old female. She came to the emergency room with history of acute onset of right arm weakness. This happened when she was home. She was brought into the emergency room. The patient had a stroke workup. It also affected her speech with recovery. The patient had a CT of the brain which showed old infarct. The patient had a CT of the carotid which showed left side 75% right side 50% stenosis. SURGICAL HISTORY: Patient had a artery coil embolization done at [facility] in the past. The patient also had a history of stroke that affected her left side in the past. MEDICAL HISTORY: Patient has history of COPD, sleep apnea, fibromyalgia, hyperlipidemia, hypertension, osteoarthritis, chronic renal disease, rheumatoid arthritis. PHYSICAL EXAMINATION: On examination, patient was seen in her room. NECK: Supple. CHEST: Clear to auscultation. The patient has a fixed stroke on the left arm and the patient also has marked weakness on the right arm. Speech is normal. IMPRESSION: 1. Cerebrovascular accident affecting right side. 2. Patient had a CT of the carotid, which showed left side 75% and right side 50% stenosis. CT of the brain showed old infarct. The patient is under care of Dr. King who sent her to [facility] for patient has a drop head syndrome and the patient was seen by Dr. Santana at [facility] and patient is scheduled to have some kind of surgery. The plan is patient is on antiplatelet therapy and start on physical therapy. We will discuss with the family and follow with you. MMMONIQUE / ARSENN: [id number] /
[2018-02-14] MEDS ORDERED: LORazepam 2 MG/ML INJ IV STA (11:01)
[2018-02-14] MEDS: NICOTINE 14MG/24HR PATCH TRANSDERM SCH (11:20)
[2018-02-14] MEDS: ENOXAPARIN 40 MG/0.4 ML SYRINGE SQ SCH (11:20)
[2018-02-14] MEDS: POLYETHYLENE GLYCOL 3350 17 GM POWD.PACK PO SCH (11:21)
[2018-02-14] MEDS: SODIUM CHLORIDE 0.9% 1,000 ML IV SCH ×2 (11:50→15:40)
[2018-02-14] MEDS: PSYLLIUM HUSK 100% 6 GM PACKET PO SCH (12:35)
[2018-02-14] MEDS: MORPHINE SULFATE ER 15 MG TABLET PO SCH ×2 (12:35→23:19)
[2018-02-14] MEDS: CHOLECALCIFEROL 1,000 UNIT TAB PO SCH (12:35)
[2018-02-14] MEDS: ALLOPURINOL 100 MG TAB PO SCH (12:36)
[2018-02-14] MEDS: ASPIRIN 325 MG TAB PO SCH (12:36)
[2018-02-14] MEDS: ALPRAZolam 1 MG TAB PO SCH (15:53)
[2018-02-14] MEDS: BACLOFEN 10 MG TAB PO PRN (15:53)
[2018-02-14] MEDS ORDERED: NICOTINE 14MG/24HR PATCH TRANSDERM STA (16:51)
--- NOTE | 2018-02-14 17:08 | MR ---
EXAMINATION TYPE: MR brain wo con DATE OF EXAM: 02/14/2018 COMPARISON: NONE HISTORY: Neuro deficits, poss CVA Standard multiplanar, multisequence MRI departmental protocol FINDINGS: There is a 3.5 cm area of increased signal on the T2 images in the right temporal lobe rela teresita to old encephalomalacia. The ventricles have fairly normal size. There is also abnormal increased signal in the right internal capsule related to old encephalomalacia. There is no midline shift. The re is no sign of intracranial hemorrhage. There are a few scattered foci of increased signal in the p eriventricular white matter that measure up to 5 mm. Total number is less than 10. There is a 3 x 1 s emiarid area of increased signal on the T2 and FLAIR images in the left occipital lobe convexity cons istent with old infarct. I see no evidence of an acute infarct. Corpus callosum appears fairly normal . Brainstem is intact. Sella turcica appears normal. IMPRESSION: Old infarcts involving the right temporal lobe and left occipital lobe. Scattered white matter high s ignal small foci probably due to mild chronic small vessel ischemia. No evidence of an acute infarct.
[2018-02-14] MEDS: MULTIVITAMINS, THERA 1 EACH TAB PO SCH (17:39)
[2018-02-14] MEDS: POTASSIUM CHLORIDE ER 20 MEQ TAB.ER PO SCH (17:39)
[2018-02-14] MEDS: FENOFIBRATE 160 MG TAB PO SCH (17:40)
[2018-02-14] MEDS: CALCIUM CARBONATE 500 MG CHEWABLE PO SCH (17:40)
[2018-02-14] MEDS: FOLIC ACID 1 MG TAB PO SCH (17:40)
--- NOTE | 2018-02-14 18:34 | P.PN ---
Subjective Progress Note Date: 02/14/18 This patient is s 62 year old female admitted yesterday with symptoms of acute right arm weakness and slurred speech. She was seen in Neurology consultation yesterday and she is undergoing evaluation for possible left hemispheric TIA vs. Stroke. 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 Alfredo. The patient was seen by Vascular Surgery today and they are reviewing her CTA angiogram of the head and neck. This study does show 75 % stenosid of the left ICA. Patient is scheduled for MRI Brain for [facility] stroke evaluation. MRI of the brain was completed today and results indicated old infarcts involving the right temporal lobe and left occipital lobe. Scattered white matter high signal was noted suggesting chronic small vessel ischemia. There was no evidence of acute infarct or stroke. The patient continues to have difficulty with the use of her right hand. Based on the MRI there is no evidence of acute stroke to explain this finding. She is being followed at [facility] and is scheduled to have some form of cervical neck surgery done by them. At this time we will await their further treatment plans. Exact nature of her right arm weakness still is undetermined. She may have some form of compressive neuropathy involving the radial nerve that may be contributing to this finding as well. We will continue close neurological follow-up for this patient. Her overall prognosis remains guarded. Objective - Vital Signs Vital signs: Vital Signs Temp 97.5 F L 02/14/18 07:35 Pulse 71 02/14/18 07:35 Resp 18 02/14/18 07:35 BP 111/54 02/14/18 07:35 Pulse Ox 99 02/14/18 07:35 Intake & Output 02/13/18 02/14/18 02/14/18 18:59 06:59 18:59 Intake Total 898 1500 222 Output Total 0 Balance 898 1500 222 Weight 91.6 kg Intake: Intake, IV Titration 1100 Amount Sodium Chloride 0.9% 1, 1100 000 ml @ 100 mls/hr IV . Q10H [facility] Rx#:[id number] Oral 898 400 222 Output: Urine 0 Other: Voiding Method Toilet Toilet # Voids 1 1 - Exam Physical Examination: PHYSICAL EXAMINATION: Patient is resting comfortably in bed. VITAL SIGNS: Blood pressure is [160/81]. Heart rate is [97]. Respiration is [16] . Temperature is [98.0]. HEENT: Head is atraumatic, neck is supple, there were no carotid bruits. CHEST: Lungs are clear to auscultation and percussion. CARDIAC: S1, S2 normal rate and rhythm. There is no murmur. ABDOMEN: Soft and nontender. Bowel sounds are present. EXTREMITIES: There is no pedal edema. Peripheral pulses are present. Neurological examination: Patient's neurological examination is unchanged from yesterday. She does appear to be slightly more alert and oriented today. She continues to have right hand weakness. - Labs CBC & Chem 7: 02/13/18 00:59 02/13/18 00:59 Assessment and Plan (1) Left acute arterial ischemic stroke, MCA (middle cerebral artery) Current Visit: Yes Status: Acute Code(s): I63.512 - CEREB INFRC D/T UNSP OCCLS OR STENOS OF LEFT MID CEREB ART SNOMED Code(s): 099229360 (2) CVA (cerebral vascular accident) Current Visit: Yes Status: Acute Code(s): I63.9 - CEREBRAL INFARCTION, UNSPECIFIED SNOMED Code(s): 363303910 (3) Basilar artery aneurysm Current Visit: Yes Status: Acute Code(s): I72.5 - ANEURYSM OF OTHER PRECEREBRAL ARTERIES SNOMED Code(s): 954940754 (4) Carotid artery stenosis with cerebral infarction Current Visit: Yes Status: Acute Code(s): I63.239 - CEREB INFRC DUE TO UNSP OCCLS OR STENOS OF UNSP CAROTID ART SNOMED Code(s): 93261962 Plan: Patient is being evaluated for left hemispheric stroke. We have recommended an MRI Brain to be done for evaluation of acute stroke. Vascular Surgery has seen the patient today and await their further reommendations for Left ICA stenosis. The patient was sent for MRI of the brain today. Results of the MRI as noted above. There is no evidence of acute stroke. Her right hand weakness may be more due to compressive neuropathy involving the radial nerve. At this time we will await further evaluation by her specialist at [facility] regarding possible cervical neck surgery as per the patient. We will continue close neurological follow-up with the patient her overall prognosis at this time remains guarded.
--- NOTE | 2018-02-14 19:25 | PN ---
PROGRESS NOTE DATE OF SERVICE: 02/14/18 PRESENTING COMPLAINT: Right arm weakness. INTERVAL HISTORY: This patient with multiple medical problems presented with acute right arm and left leg weakness. The patient did have MRI results which came back this afternoon, does not show any acute event. The patient definitely has a weakness on the right side. REVIEW OF SYSTEMS: Done for constitutional, cardiovascular, GI, pulmonary; relevant findings as above. CURRENT MEDICATIONS: Reviewed. EXAMINATION: Afebrile, pulse 81, respiratory 18, blood pressure 175/79, pulse ox 99% on room air. General appearance: Sitting up comfortable. Eyes pupils are equal. Conjunctivae normal. HEENT external appearance of nose and ears normal. Oral cavity normal. Neck JVD not raised. Mass not palpable. Respiratory effort normal. LUNGS: Diminished breath sounds. Cardiovascular: 1st and 2nd sounds normal. No edema. ABDOMEN: Soft and nontender. Liver and spleen not palpable. Psychiatry: Alert and oriented times three. Mood and affect normal. Neurological: Power on the right arm remains 3 x 5, left arm 3 x 5. Both the legs power also decreased. INVESTIGATIONS: MRI of the brain shows evidence of old infarct, nothing acute. ASSESSMENT: 1. Clinically acute stroke in the left middle cerebral artery affecting the right side of the body in a right-handed patient with left internal carotid artery stenosis. 2. Chronic left-sided weakness from old stroke. 3. Chronic obstructive pulmonary disease in a current smoker. 4. Chronic fibromyalgia. 5. Hyperlipidemia. 6. Primary osteoarthritis multiple joints bilateral. 7. Chronic kidney disease stage 4 probably from nephrosclerosis. 8. Restless leg syndrome. 9. Chronic insomnia. 10.Anxiety, not otherwise specified. 11.Chronic rheumatoid arthritis. 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 PLAN: Continue current medication and treatment plan. Await further input from Neurology. The patient's blood pressure is still somewhat uncontrolled. Will DC the normal saline that should bring it down and will introduce antihypertensive. MMODL / IJN: [id number] /
[2018-02-14] MEDS: LISINOPRIL-HCTZ 10-12.5 MG 1 EACH TAB PO SCH (19:55)
--- NOTE | 2018-02-14 20:25 | EEG ---
ELECTROENCEPHALOGRAM REPORT DATE OF EE02/14/2018. REFERRING PHYSICIAN: Dr. Ferrera. CONSULTING/INTERPRETING PHYSICIAN: Dr. Tonya Jacinto MD ELECTROENCEPHALOGRAPHIC EXAMINATION REPORT: INDICATION FOR EXAMINATION: This patient is a 62-year-old female being evaluated for right hand weakness and possible stroke. AGE: [age]. EEG FINDINGS: A routine 21 channel awake digital EEG recording was accomplished utilizing the 10-20 international system with bipolar and referential montages. The background activity in the most alert resting state consists of a low to medium amplitude, fairly well- developed and well sustained 7-8 Hz activity over the posterior head regions. This posterior rhythm attenuates to eye opening. There is a small amount of low amplitude 18-20 Hz beta activity seen maximally over the anterior head regions. Muscle and movement artifact was observed on a few occasions during the tracing. Hyperventilation was not performed. Photic stimulation at flash frequencies of 2-30 Hz produced a minimal occipital driving response. No epileptiform discharges were seen. IMPRESSION: This EEG is within normal limits for the patient's age. The EEG failed to reveal any focal, lateralized, or epileptiform abnormalities. Clinical correlation is recommended. MMODL / IJN: [id number] /
[2018-02-14] MEDS: AMITRIPTYLINE HCL 25 MG TAB PO SCH (20:33)
[2018-02-14] MEDS: MIRTAZAPINE 15 MG TAB PO SCH (20:34)
[2018-02-14] MEDS: ATORVASTATIN 10 MG TAB PO SCH (22:54)
[2018-02-14] MEDS: BACLOFEN 10 MG TAB PO SCH (23:19)
[2018-02-15] MEDS: ALPRAZolam 0.5 MG TAB PO SCH ×2 (05:43→12:33)
[2018-02-15] MEDS: VARENICLINE 1 MG TAB PO SCH ×2 (05:43→17:16)
[2018-02-15] MEDS: FUROSEMIDE 20 MG TAB PO SCH (05:43)
[2018-02-15 07:36] LABS: Calcium 9.6 mg/dL (8.4-10.2); Potassium 4.3 mmol/L (3.5-5.1)
[2018-02-15] MEDS: LISINOPRIL-HCTZ 10-12.5 MG 1 EACH TAB PO SCH (09:56)
[2018-02-15] MEDS: POLYETHYLENE GLYCOL 3350 17 GM POWD.PACK PO SCH (09:56)
[2018-02-15] MEDS: NICOTINE 14MG/24HR PATCH TRANSDERM SCH (09:56)
[2018-02-15] MEDS: ENOXAPARIN 40 MG/0.4 ML SYRINGE SQ SCH (09:56)
[2018-02-15] MEDS: BACLOFEN 10 MG TAB PO PRN ×2 (10:46→17:15)
--- NOTE | 2018-02-15 11:14 | PN ---
PROGRESS NOTE This is a 62-year-old pleasant female. She came with acute onset of weakness in right arm and lower extremity. The patient was seen yesterday and I have reviewed the CT of the carotids. Which showed 75% stenosis of the left side. The patient had a CT of the brain which was negative for infarct in for any intracranial bleed. The patient had MRI which showed chronic small-vessel disease. There was no evidence of acute infarct or stroke. The patient has history of CVA in the past which affected the left side with fixed stroke and patient also had some coil placed into the basilar artery in the past. PHYSICAL EXAMINATION: On examination, her vital signs are stable. Neck is supple. The patient still has residual weakness on the right arm. The patient has a right arm wrist drop. She cannot extend the wrist and finger movements are present. Reviewing the MRI of the brain which showed there is acute small-vessel disease, there is no evidence of any acute intracranial infarction. PLAN: Continue with antiplatelet therapy. Continue with physical therapy. We will follow with you. I will discuss this case with Dr. Jacinto and Dr. Ferrera. MMMONIQUE / COLIN: [id number] /
[2018-02-15] MEDS: MORPHINE SULFATE ER 15 MG TABLET PO SCH (12:33)
[2018-02-15] MEDS: CHOLECALCIFEROL 1,000 UNIT TAB PO SCH (12:35)
[2018-02-15] MEDS: ASPIRIN 325 MG TAB PO SCH (12:35)
[2018-02-15] MEDS: ALLOPURINOL 100 MG TAB PO SCH (12:35)
[2018-02-15] MEDS: PSYLLIUM HUSK 100% 6 GM PACKET PO SCH (12:36)
[2018-02-15 14:56] VITALS: PULSE 76; RESP 18; TEMP 98.2
--- NOTE | 2018-02-15 16:40 | P.PN ---
Subjective Progress Note Date: 02/15/18 This patient is s 62 year old female admitted yesterday with symptoms of acute right arm weakness and slurred speech. She was seen in Neurology consultation yesterday and she is undergoing evaluation for possible left hemispheric TIA vs. Stroke. 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 Alfredo. The patient was seen by Vascular Surgery today and they are reviewing her CTA angiogram of the head and neck. This study does show 75 % stenosid of the left ICA. Patient is scheduled for MRI Brain for [facility] stroke evaluation. MRI of the brain was completed today and results indicated old infarcts involving the right temporal lobe and left occipital lobe. Scattered white matter high signal was noted suggesting chronic small vessel ischemia. There was no evidence of acute infarct or stroke. The patient continues to have difficulty with the use of her right hand. Based on the MRI there is no evidence of acute stroke to explain this finding. She is being followed at [facility] and is scheduled to have some form of cervical neck surgery done by them. At this time we will await their further treatment plans. Exact nature of her right arm weakness still is undetermined. She may have some form of compressive neuropathy involving the radial nerve that may be contributing to this finding as well. We will continue close neurological follow-up for this patient. The patient has been using handball for the right hand today with some improvement. She still has significant distal hand weakness. We are recommending she follow up with the specialists at [facility] regarding this new finding. As noted her MRI of the brain fails to reveal any evidence of acute stroke. Vascular surgery is not seeing any indication for surgery for this patient at this time. She may be considered for discharge home with outpatient follow-up with neurosurgery at [facility]. Her overall prognosis remains guarded. Objective - Vital Signs Vital signs: Vital Signs Temp 98.2 F 02/15/18 14:55 Pulse 76 02/15/18 14:55 Resp 18 02/15/18 14:55 BP 89/53 02/15/18 14:55 Pulse Ox 93 L 02/15/18 14:55 Intake & Output 02/14/18 02/15/18 02/15/18 18:59 06:59 18:59 Intake Total 1502 1600 Output Total 1000 1000 Balance 502 1600 -1000 Intake: Intake, IV Titration 800 800 Amount Sodium Chloride 0.9% 1, 800 800 000 ml @ 100 mls/hr IV . Q10H [facility] Rx#:[id number] Oral 702 800 Output: Urine 1000 1000 Other: Voiding Method Toilet Toilet Toilet # Voids 3 1 1 # Bowel Movements 1 - Exam Physical Examination: PHYSICAL EXAMINATION: Patient is resting comfortably in bed. VITAL SIGNS: Blood pressure is [90/53]. Heart rate is [76]. Respiration is [18] . Temperature is [98.2]. HEENT: Head is atraumatic, neck is supple, there were no carotid bruits. CHEST: Lungs are clear to auscultation and percussion. CARDIAC: S1, S2 normal rate and rhythm. There is no murmur. ABDOMEN: Soft and nontender. Bowel sounds are present. EXTREMITIES: There is no pedal edema. Peripheral pulses are present. Neurological examination: Patient's neurological examination is unchanged from yesterday. She does appear to be slightly more alert and oriented today. She continues to have right hand weakness. - Labs CBC & Chem 7: 02/13/18 00:59 02/15/18 07:11 Labs: Abnormal Lab Results - Last 24 Hours (Table) 02/15/18 Range/Units 07:11 BUN 19 H (7-17) mg/dL Assessment and Plan (1) Left acute arterial ischemic stroke, MCA (middle cerebral artery) Current Visit: Yes Status: Acute Code(s): I63.512 - CEREB INFRC D/T UNSP OCCLS OR STENOS OF LEFT MID CEREB ART SNOMED Code(s): 055015265 (2) CVA (cerebral vascular accident) Current Visit: Yes Status: Acute Code(s): I63.9 - CEREBRAL INFARCTION, UNSPECIFIED SNOMED Code(s): 732240863 (3) Basilar artery aneurysm Current Visit: Yes Status: Acute Code(s): I72.5 - ANEURYSM OF OTHER PRECEREBRAL ARTERIES SNOMED Code(s): 044971851 (4) Carotid artery stenosis with cerebral infarction Current Visit: Yes Status: Acute Code(s): I63.239 - CEREB INFRC DUE TO UNSP OCCLS OR STENOS OF UNSP CAROTID ART SNOMED Code(s): 27676515 Plan: Patient is being evaluated for left hemispheric stroke. We have recommended an MRI Brain to be done for evaluation of acute stroke. Vascular Surgery has seen the patient today and await their further reommendations for Left ICA stenosis. The patient was sent for MRI of the brain today. Results of the MRI as noted above. There is no evidence of acute stroke. Her right hand weakness may be more due to compressive neuropathy involving the radial nerve. At this time we will await further evaluation by her specialist at [facility] regarding possible cervical neck surgery as per the patient. Patient has been able to work exercises for right hand today using a putty ball. We suggest she continue to work with physical therapy for some rehabilitation of the right hand weakness. She should follow up with neurosurgery and neurology at [facility] regarding her previous diagnosis of drop head syndrome. MRI of the brain results were once again discussed with the patient and is negative for any evidence of acute stroke. Vascular surgery is not considering any surgical intervention for this patient. She may be considered for discharge home and should follow-up with outpatient neurosurgery at [facility] as directed. We will continue close neurological follow-up for the patient during this admission. She is being considered for possible discharge home. Her overall prognosis at this time remains very guarded.
[2018-02-15 16:47] VITALS: BP 127/68
[2018-02-15] MEDS: ALPRAZolam 1 MG TAB PO SCH (17:13)
[2018-02-15] MEDS: CALCIUM CARBONATE 500 MG CHEWABLE PO SCH (17:14)
[2018-02-15] MEDS: MULTIVITAMINS, THERA 1 EACH TAB PO SCH (17:14)
[2018-02-15] MEDS: FOLIC ACID 1 MG TAB PO SCH (17:14)
[2018-02-15] MEDS: FENOFIBRATE 160 MG TAB PO SCH (17:15)
[2018-02-15] MEDS: POTASSIUM CHLORIDE ER 20 MEQ TAB.ER PO SCH (17:16)
--- NOTE | 2018-02-16 07:21 | DS ---
DISCHARGE SUMMARY DATE OF ADMISSION: 02/13/18. DATE OF DISCHARGE: 02/15/18. FINAL DIAGNOSES: 1. Acute right arm weakness, probably from radial nerve involvement. No acute stroke per Neurology and MRI. 2. Chronic obstructive pulmonary disease in a current smoker. 3. Chronic fibromyalgia. 4. Hyperlipidemia. 5. Primary osteoarthritis multiple joints bilateral. 6. Chronic kidney disease stage IV probably from nephrosclerosis. 7. Restless legs syndrome. 8. Chronic insomnia. 9. Anxiety, not otherwise specified. 10.Chronic rheumatoid arthritis. 11.Brain aneurysm with the basal artery with clip in place, history of. HOSPITAL COURSE: This patient presented with some right-sided weakness primarily felt to be radial nerve weakness per Dr. Jacinto. The patient's MRI of the brain did not show any acute manifestation. EEG does did not show any seizure activity. 2D echo showed preserved LV function. No thrombus was reported. The patient's left internal carotid artery has 70% stenosis, but because the diagnosis stroke is not felt to be present, there is no intervention to be done right now. CONSULTATION: 1. Dr. Jacinto from Neurology. 2. Dr. Jefferson Knapp from Vascular. The patient will be following up with [facility] for physical therapy. The patient does follow with Dr. King with whom patient should follow up. The patient also has appointment down at [facility] for her neck problems. HOME GO MEDICATIONS: 1. Tricor 160 mg a day. 2. Folic acid 1 mg a day. 3. Mevacor 40 mg q.h.s. 4. Potassium 20 mEq a day. 5. Allopurinol 100 mg a day. 6. Elavil 75 mg q.h.s. 7. Vitamin D3 3000 units p.o. daily. 8. EpiPen 0.3 mg once p.r.n. 9. MiraLAX 17 g p.o. daily. 10.Chantix 1 mg p.o. b.i.d. 11.Xanax 0.5 p.o. b.i.d. 12.Xanax 1 mg p.o. at 6 p.m. 13.Aspirin 325 p.o. daily. 14.Baclofen 20 mg at 6 p.m. and 10 mg at 6:00 a.m. and 12 noon. 15.Biotin 5 mg p.o. daily. 16.Calcium 600 mg p.o. daily. 17.Lasix 20 mg p.o. daily. 18.Mirtazapine 60 mg q.h.s. 19.MS Contin 50 mg b.i.d. 20.Centrum Silver 1 tab p.o. q.8 daily. 21.Mycostatin cream topical daily p.r.n. 22.Metamucil at noon. 23.Requip 0.3 mg q.h.s. 24.Zestoretic 08/29.5 one tab p.o. b.i.d. FOLLOW UP: With Dr. Harsh Underwood in 3 days. Follow up with Dr. King in 1 week. Patient to follow up at [facility] with her appointment. [facility] to follow. Care was discussed with the patient. Patient is reminded again to stop smoking. Discharge planning more than 35 minutes. MMODL / IJN: [id number] /
== END 2018-02-15 20:03 | disposition home health service (06) | DRG 74 ==
LOC: EC 00:54 → 6SEL 03:10 → 5MS5E 02-14 20:17
PROVIDERS: ADMIT Hospitalist; ATTEND Hospitalist
PROC: 5A09357 Assistance with Respiratory Ventilation, Less than 24 Consecutive Hours, Continuous Positive Airway Pressure (ICD-10-PCS; principal; 2018-02-13)
DX: G56.31 Lesion of radial nerve, right upper limb (principal); I69.354 Hemiplegia and hemiparesis following cerebral infarction affecting left non-dominant side; N18.4 Chronic kidney disease, stage 4 (severe); I67.1 Cerebral aneurysm, nonruptured; I65.23 Occlusion and stenosis of bilateral carotid arteries; E78.5 Hyperlipidemia, unspecified; F17.210 Nicotine dependence, cigarettes, uncomplicated; F41.9 Anxiety disorder, unspecified; F51.04 Psychophysiologic insomnia; G25.81 Restless legs syndrome; G47.30 Sleep apnea, unspecified; I12.9 Hypertensive chronic kidney disease with stage 1 through stage 4 chronic kidney disease, or unspecified chronic kidney disease; I69.998 Other sequelae following unspecified cerebrovascular disease; J44.9 Chronic obstructive pulmonary disease, unspecified; M06.9 Rheumatoid arthritis, unspecified; M15.9 Polyosteoarthritis, unspecified; M79.7 Fibromyalgia; F32.9 Major depressive disorder, single episode, unspecified; K64.9 Unspecified hemorrhoids; M10.9 Gout, unspecified; R47.81 Slurred speech; R29.810 Facial weakness; G56.02 Carpal tunnel syndrome, left upper limb; Z79.82 Long term (current) use of aspirin; Z79.899 Other long term (current) drug therapy; Z88.6 Allergy status to analgesic agent; Z88.1 Allergy status to other antibiotic agents; Z91.030 Bee allergy status; Z91.041 Radiographic dye allergy status; Z88.5 Allergy status to narcotic agent; Z88.0 Allergy status to penicillin; Z88.2 Allergy status to sulfonamides; Z88.8 Allergy status to other drugs, medicaments and biological substances; Z91.048 Other nonmedicinal substance allergy status; Z86.14 Personal history of Methicillin resistant Staphylococcus aureus infection; Z90.49 Acquired absence of other specified parts of digestive tract; Z98.51 Tubal ligation status
CPT/HCPCS: 36415; 70450; 70496; 70498; 70551; 71046; 80048; 80053; 80061; 82550; 82553; 83735; 84484; 85025; 85610; 85730; 93005; 93306; 94660; 94760; 95819; 96361; 96374; 96375; 99285

== ENCOUNTER 2018-02-28 14:57 | Inpatient (IN) | payer OTHER ==
[2018-02-28] MEDS ORDERED: SODIUM CHLORIDE 0.9% 500 ML IV STA ×2 (15:15→16:28)
[2018-02-28 15:43] LABS: Basophils % (A) 0 %; Eosinophils # (A) 0.1 k/uL (0-0.7); Eosinophils % (A) 1 %; HGB 13.3 gm/dL (11.4-16.0); Lymphocytes % (A) 10 %; MCH 30.7 pg (25.0-35.0); MCHC 33.2 g/dL (31.0-37.0); MCV 92.2 fL (80.0-100.0); Mean Platelet Volume 8.4; Monocytes # (A) 0.4 k/uL (0-1.0); Monocytes % (A) 4 %; Neutrophils # (A) 8.6 k/uL (1.3-7.7); Neutrophils % (A) 85 %; Platelet Count 306 k/uL (150-450); RBC 4.33 m/uL (3.80-5.40); WBC 10.1 k/uL (3.8-10.6)
[2018-02-28 15:59] LABS: INR 1.1 (<1.2); Partial Thromboplastin Time 22.1 sec (22.0-30.0); Prothrombin Time 10.4 sec (9.0-12.0)
[2018-02-28 16:11] LABS: Albumin 4.2 g/dL (3.5-5.0); Calcium 10.2 mg/dL (8.4-10.2); Magnesium 2.7 mg/dL (1.6-2.3); Potassium 5.4 mmol/L (3.5-5.1); Total Bilirubin 0.6 mg/dL (0.2-1.3); Total Protein 7.2 g/dL (6.3-8.2)
[2018-02-28 16:15] LABS: Creatine Kinase 135 U/L (30-135)
--- NOTE | 2018-02-28 16:16 | CT ---
EXAMINATION TYPE: CT brain azucena wo con DATE OF EXAM: 02/28/2018 COMPARISON: 02/13/2018 HISTORY: Fall from seated position, found on floor CT DLP: 1500.8 mGycm, Automated exposure control for dose reduction was used. CONTRAST: None CT of the brain is performed utilizing 3 mm thick sections through the posterior fossa and 3 mm thick sections through the remaining calvarium. Study is performed within 24 hours of arrival to the hospital. No abnormal hyperdensity is present to suggest an acute intracranial hemorrhage. No mass lesion is evident. No acute infarcts are evident. Metallic susceptibility artifact likely from prior aneurysm repair is present. There may be an old right parietal posterior infarct. Ventricles and sulci are appropriate for the patient age. Paranasal sinuses and mastoid air cells within the [id number] are clear. IMPRESSIONS: 1. No acute intracranial process. 2. Prior aneurysm repair with artifact. CT cervical spine. COMPARISON: None CT of the cervical spine is performed in the axial plane at 2 mm thick sections. Reconstructed image s in the coronal, and sagittal plane are reviewed on the computer. No acute fractures are evident. Vertebral body alignment is normal. Mild disc space narrowing may be present. Vertebral body heights are preserved. No spinal canal stenosis is evident. Endplate spurring is noted C3-4. Large spurs are present C5-6 in the left paracentral region. Left foraminal narrowing from uncovertebral joint hypertrophy and facet hypertrophy is present at the C3-4 level. Mild bilateral foraminal narrowing is present from uncovertebral joint hypertrophy at C4 -5. Foraminal narrowing at C5-6 on the left is present from uncovertebral joint hypertrophy. Moderate left foraminal stenosis at C6-7 is present from uncovertebral joint hypertrophy. IMPRESSIONS: 1. Chronic changes with mild to moderate foraminal stenosis from uncovertebral joint hypertrophy and facet hypertrophy. Posterior endplate spurring present C5-6.
[2018-02-28 16:26] LABS: Creatine Kinase MB 2.2 ng/mL (0.0-2.4); Phosphorus 6.3 mg/dL (2.5-4.5); Troponin I <0.012 ng/mL (0.000-0.034)
[2018-02-28] MEDS ORDERED: SODIUM CHLORIDE 0.9% 1,000 ML IV STA (16:28)
--- NOTE | 2018-02-28 16:28 | ED ---
General Adult HPI - General Chief complaint: Altered Mental Status Stated complaint: altered, found on floor Time Seen by Provider: 02/28/18 15:09 Source: patient, EMS, RN notes reviewed, old records reviewed Mode of arrival: EMS Limitations: altered mental status - History of Present Illness Initial comments: This is a 62-year-old female the ER for evaluation. Patient's poor strain secondary to unresponsiveness. Patient does have underlying altered mental state and dementia, but worse than normal. Patient sent in from [facility], history obtained from EMS and patient's record - Related Data Home Medications Medication Instructions Recorded Confirmed Fenofibrate 160 mg PO DAILY@1800 05/24/14 02/28/18 Folic Acid 1 mg PO DAILY@1800 05/24/14 02/28/18 Lovastatin [Mevacor] 40 mg PO 05/24/14 02/28/18 Potassium Chloride [Potassium 20 meq PO DAILY@1800 05/24/14 02/28/18 Chloride ER] Allopurinol [Zyloprim] 100 mg PO DAILY@1200 04/04/16 02/28/18 Amitriptyline HCl [Elavil] 75 mg PO HS 04/04/16 02/28/18 Cholecalciferol [Vitamin D3] 3,000 unit PO DAILY@1200 04/04/16 02/28/18 EPINEPHrine (Auto Inject) [Epipen] 0.3 mg IM ONCE PRN 04/04/16 02/28/18 Polyethylene Glycol 3350 [Miralax] 17 gm PO DAILY 04/04/16 02/28/18 Varenicline [Chantix Continuing 1 mg PO BID@0600,1800 04/04/16 02/28/18 Pack] ALPRAZolam [Xanax] 0.5 mg PO BID@0600,1200 07/03/16 02/28/18 ALPRAZolam [Xanax] 1 mg PO DAILY@1800 07/03/16 02/28/18 Aspirin EC [Ecotrin] 325 mg PO DAILY@1200 02/13/18 02/28/18 Baclofen 20 mg PO DAILY@1800 02/13/18 02/28/18 Baclofen [Lioresal] 10 mg PO BID@0600,1200 02/13/18 02/28/18 Biotin 5 mg PO DAILY@1200 02/13/18 02/28/18 Calcium Carbonate [Calcium] 600 mg PO DAILY@1800 02/13/18 02/28/18 Furosemide [Lasix] 20 mg PO DAILY@0600 02/13/18 02/28/18 Mirtazapine 60 mg PO HS 02/13/18 02/28/18 Morphine Sulfate ER [Ms Contin] 15 mg PO BID@0000,1200 02/13/18 02/28/18 Multivit-Min/FA/Lycopen/Lutein 1 tab PO DAILY@1800 02/13/18 02/28/18 [Centrum Silver Tablet] Nystatin 100,000Unit/gm Cream 1 applic TOPICAL DAILY PRN 02/13/18 02/28/18 [Mycostatin Cream] Psyllium Husk [Metamucil] 0.4 gm PO DAILY@1200 02/13/18 02/28/18 rOPINIRole HCL [Requip] 3 mg PO HS 02/13/18 02/28/18 Lisinopril-Hctz 10-12.5 mg 1 tab PO BID 02/28/18 02/28/18 [Zestoretic 10-12.5] Allergies Allergy/AdvReac Type Severity Reaction Status Date / Time acetaminophen Allergy Unknown Verified 02/28/18 15:16 [From Darvocet-N 100] aspirin Allergy Unknown Verified 02/28/18 15:16 bupropion [From Wellbutrin] Allergy Unknown Verified 02/28/18 15:16 cefaclor [From Ceclor] Allergy Unknown Verified 02/28/18 15:16 divalproex sodium Allergy Unknown Verified 02/28/18 15:16 [From Depakote] doxycycline Allergy Unknown Verified 02/28/18 15:16 Iodine and Iodide Containing Allergy Rash/Hives Verified 02/28/18 15:16 Produc ketorolac tromethamine Allergy Unknown Verified 02/28/18 15:16 [From Toradol] lorazepam [From Ativan] Allergy Unknown Verified 02/28/18 15:16 naproxen Allergy Unknown Verified 02/28/18 15:16 orphenadrine citrate Allergy Unknown Verified 02/28/18 15:16 [From Norgesic] Penicillins Allergy Unknown Verified 02/28/18 15:16 phenytoin sodium Allergy Unknown Verified 02/28/18 15:16 [From Dilantin] phenytoin sodium extended Allergy Unknown Verified 02/28/18 15:16 [From Dilantin] pregabalin [From Lyrica] Allergy Unknown Verified 02/28/18 15:16 propoxyphene HCl Allergy Unknown Verified 02/28/18 15:16 [From Darvon] propoxyphene napsylate Allergy Unknown Verified 02/28/18 15:16 [From Darvocet-N 100] Sulfa (Sulfonamide Allergy Unknown Verified 02/28/18 15:16 Antibiotics) trazodone Allergy Unknown Verified 02/28/18 15:16 venom-honey bee Allergy Unknown Verified 02/28/18 15:16 [bee venom (honey bee)] venom-wasp Allergy Unknown Verified 02/28/18 15:16 adhesive AdvReac Rash/Hives Verified 02/28/18 15:16 Review of Systems ROS Statement: Those systems with pertinent positive or pertinent negative responses have been documented in the HPI. ROS Other: All systems not noted in ROS Statement are negative. Past Medical History Past Medical History: COPD, CVA/TIA, Fibromyalgia, Hyperlipidemia, Hypertension , Osteoarthritis (OA), Renal Disease, Rheumatoid Arthritis (RA) Additional Past Medical History / Comment(s): stroke, hx brain aneurysm basal tip, renal disease stage 3, constipation, hemorrhoids, gout, History of Any Multi-Drug Resistant Organisms: MRSA Date of last positivie culture/infection: April 2013 MDRO Source:: bladder Past Surgical History: Bowel Resection, Breast Surgery, Section, Orthopedic Surgery, Tonsillectomy, Tubal Ligation Additional Past Surgical History / Comment(s): d&c, brain aneursym repair Past Anesthesia/Blood Transfusion Reactions: No Reported Reaction Past Psychological History: Anxiety, Depression Smoking Status: Current every day smoker Past Alcohol Use History: None Reported Past Drug Use History: Marijuana - Past Family History Mother Family Medical History: No Reported History General Exam Limitations: altered mental status General appearance: alert, in no apparent distress Head exam: Present: atraumatic, normocephalic, normal inspection Eye exam: Present: normal appearance, PERRL, EOMI. Absent: scleral icterus, conjunctival injection, periorbital swelling ENT exam: Present: normal exam, mucous membranes moist Neck exam: Present: normal inspection. Absent: tenderness, meningismus, lymphadenopathy Respiratory exam: Present: normal lung sounds bilaterally. Absent: respiratory distress, wheezes, rales, rhonchi, stridor Cardiovascular Exam: Present: regular rate, normal rhythm, normal heart sounds. Absent: systolic murmur, diastolic murmur, rubs, gallop, clicks GI/Abdominal exam: Present: soft, normal bowel sounds. Absent: distended, tenderness, guarding, rebound, rigid Extremities exam: Present: normal inspection, full ROM, normal capillary refill. Absent: tenderness, pedal edema, joint swelling, calf tenderness Back exam: Present: normal inspection Neurological exam: Present: alert, oriented X3, CN II-XII intact Psychiatric exam: Present: normal affect, normal mood Skin exam: Present: warm, dry, intact, normal color. Absent: rash Course Vital Signs 02/28/18 02/28/18 02/28/18 15:06 15:31 16:18 Temperature 98.7 F Pulse Rate 67 58 L 57 L Respiratory 16 15 15 Rate Blood Pressure 92/56 111/57 123/57 O2 Sat by Pulse 96 99 98 Oximetry EKG Findings - EKG Comments: EKG Findings:: EKG shows normal sinus rhythm rate of 71, WA 186, QRS 90, QTc 460 Medical Decision Making - Medical Decision Making 62 female the ER with altered mental status, patient mildly responsive in the ER , CT is negative. Patient with worsening renal function severe, creatinine 2.6 which is new. Will admit for rehydration, treatment of acute renal failure - Lab Data Result diagrams: 02/28/18 15:27 02/28/18 15:27 Lab Results 02/28/18 02/28/18 02/28/18 Range/Units 15:27 15:27 15:27 WBC 10.1 (3.8-10.6) k/uL RBC 4.33 (3.80-5.40) m/uL Hgb 13.3 (11.4-16.0) gm/dL Hct 40.0 (34.0-46.0) % MCV 92.2 (80.0-100.0) fL MCH 30.7 (25.0-35.0) pg MCHC 33.2 (31.0-37.0) g/dL RDW 13.0 (11.5-15.5) % Plt Count 306 (150-450) k/uL Neutrophils % 85 % Lymphocytes % 10 % Monocytes % 4 % Eosinophils % 1 % Basophils % 0 % Neutrophils # 8.6 H (1.3-7.7) k/uL Lymphocytes # 1.0 (1.0-4.8) k/uL Monocytes # 0.4 (0-1.0) k/uL Eosinophils # 0.1 (0-0.7) k/uL Basophils # 0.0 (0-0.2) k/uL PT (9.0-12.0) sec INR (<1.2) APTT (22.0-30.0) sec Sodium (137-145) mmol/L Potassium (3.5-5.1) mmol/L Chloride (98-107) mmol/L Carbon Dioxide (22-30) mmol/L Anion Gap mmol/L BUN (7-17) mg/dL Creatinine (0.52-1.04) mg/dL Est GFR (CKD-EPI)AfAm (>60 ml/min/1.73 sqM) Est GFR (CKD-EPI)NonAf (>60 ml/min/1.73 sqM) Glucose (74-99) mg/dL Plasma Lactic Acid Nabeel 1.0 (0.7-2.0) mmol/L Calcium (8.4-10.2) mg/dL Phosphorus (2.5-4.5) mg/dL Magnesium (1.6-2.3) mg/dL Total Bilirubin (0.2-1.3) mg/dL AST (14-36) U/L ALT (9-52) U/L Alkaline Phosphatase (38-126) U/L Ammonia 11 (<30) umol/L Total Creatine Kinase 135 (30-135) U/L CK-MB (CK-2) 2.2 (0.0-2.4) ng/mL CK-MB (CK-2) Rel Index 1.6 Troponin I <0.012 (0.000-0.034) ng/mL Total Protein (6.3-8.2) g/dL Albumin (3.5-5.0) g/dL TSH (0.465-4.680) mIU/L Urine Color Urine Appearance (Clear) Urine pH (5.0-8.0) Ur Specific Slade (1.001-1.035) Urine Protein (Negative) Urine Glucose (UA) (Negative) Urine Ketones (Negative) Urine Blood (Negative) Urine Nitrite (Negative) Urine Bilirubin (Negative) Urine Urobilinogen (<2.0) mg/dL Ur Leukocyte Esterase (Negative) 02/28/18 02/28/18 02/28/18 Range/Units 15:27 15:27 16:18 WBC (3.8-10.6) k/uL RBC (3.80-5.40) m/uL Hgb (11.4-16.0) gm/dL Hct (34.0-46.0) % MCV (80.0-100.0) fL MCH (25.0-35.0) pg MCHC (31.0-37.0) g/dL RDW (11.5-15.5) % Plt Count (150-450) k/uL Neutrophils % % Lymphocytes % % Monocytes % % Eosinophils % % Basophils % % Neutrophils # (1.3-7.7) k/uL Lymphocytes # (1.0-4.8) k/uL Monocytes # (0-1.0) k/uL Eosinophils # (0-0.7) k/uL Basophils # (0-0.2) k/uL PT 10.4 (9.0-12.0) sec INR 1.1 (<1.2) APTT 22.1 (22.0-30.0) sec Sodium 138 (137-145) mmol/L Potassium 5.4 H (3.5-5.1) mmol/L Chloride 98 (98-107) mmol/L Carbon Dioxide 23 (22-30) mmol/L Anion Gap 17 mmol/L BUN 75 H (7-17) mg/dL Creatinine 3.70 H (0.52-1.04) mg/dL Est GFR (CKD-EPI)AfAm 14 (>60 ml/min/1.73 sqM) Est GFR (CKD-EPI)NonAf 12 (>60 ml/min/1.73 sqM) Glucose 128 H (74-99) mg/dL Plasma Lactic Acid Nabeel (0.7-2.0) mmol/L Calcium 10.2 (8.4-10.2) mg/dL Phosphorus 6.3 H (2.5-4.5) mg/dL Magnesium 2.7 H (1.6-2.3) mg/dL Total Bilirubin 0.6 (0.2-1.3) mg/dL AST 40 H (14-36) U/L ALT 24 (9-52) U/L Alkaline Phosphatase 70 (38-126) U/L Ammonia (<30) umol/L Total Creatine Kinase (30-135) U/L CK-MB (CK-2) (0.0-2.4) ng/mL CK-MB (CK-2) Rel Index Troponin I (0.000-0.034) ng/mL Total Protein 7.2 (6.3-8.2) g/dL Albumin 4.2 (3.5-5.0) g/dL TSH 0.206 L (0.465-4.680) mIU/L Urine Color Yellow Urine Appearance Clear (Clear) Urine pH 5.0 (5.0-8.0) Ur Specific Slade 1.008 (1.001-1.035) Urine Protein Negative (Negative) Urine Glucose (UA) Negative (Negative) Urine Ketones Negative (Negative) Urine Blood Negative (Negative) Urine Nitrite Negative (Negative) Urine Bilirubin Negative (Negative) Urine Urobilinogen <2.0 (<2.0) mg/dL Ur Leukocyte Esterase Negative (Negative) - Radiology Data Radiology results: report reviewed (CT brain C-spine is negative), image reviewed Disposition Clinical Impression: Altered mental status, Weakness, Dehydration, Acute renal failure Disposition: ADMITTED IP TO THIS [facility] Condition: Fair Referrals: None,Stated [Primary Care Provider] - 1-2 days
[2018-02-28 16:32] LABS: Appearance,Urine Clear (Clear); Bilirubin,Urine Negative (Negative); Blood,Urine Negative (Negative); Color,Urine Yellow; Glucose,Urine (UA) Negative (Negative); Ketones,Urine Negative (Negative); Leukocyte Esterase,Urine Negative (Negative); Nitrite,Urine Negative (Negative); Protein,Urine Negative (Negative); Specific Gravity,Urine 1.008 (1.001-1.035); Urobilinogen,Urine <2.0 mg/dL (<2.0)
[2018-02-28] MEDS: SODIUM CHLORIDE 0.9% 1,000 ML IV STA ×2 (16:57→18:20)
--- NOTE | 2018-02-28 17:37 | XR ---
EXAMINATION TYPE: XR chest 1V DATE OF EXAM: 02/28/2018 COMPARISON: 02/13/2018 HISTORY: Weakness TECHNIQUE: Single frontal view of the chest is obtained. FINDINGS: There is a 5 cm patch of mild infiltrate in the lateral right upper lobe. There is no octaviano s heart failure. Heart appears enlarged. There are chest leads. There is relative poor inspiration. I see no definite pleural effusion. IMPRESSION: There is some right upper lobe pneumonia that is worse than last exam. No gross heart fa ilure.
[2018-02-28] MEDS ORDERED: NYSTATIN 100,000UNIT/GM CREAM 30 GM TUBE TOPICAL PRN (20:23)
[2018-02-28] MEDS ORDERED: EPINEPHrine (Auto Inject) 0.3 MG/0.3 ML SYRINGE IM PRN (20:23)
[2018-02-28] MEDS ORDERED: ALPRAZolam 0.5 MG TAB PO PRN (20:46)
[2018-02-28] MEDS ORDERED: MIRTAZAPINE 15 MG TAB PO SCH (21:00)
[2018-02-28] MEDS: SODIUM CHLORIDE 0.9% 1,000 ML IV SCH (21:49)
[2018-03-01] MEDS: ATORVASTATIN 10 MG TAB PO SCH ×2 (01:07→20:48)
[2018-03-01] MEDS: MORPHINE SULFATE ER 15 MG TABLET PO SCH ×2 (01:07→08:12)
[2018-03-01] MEDS: AMITRIPTYLINE HCL 25 MG TAB PO SCH ×2 (01:07→20:47)
[2018-03-01] MEDS ORDERED: VARENICLINE 1 MG TAB PO SCH ×2 (06:00→06:13)
[2018-03-01] MEDS: SODIUM CHLORIDE 0.9% 1,000 ML IV SCH ×3 (06:12→21:05)
[2018-03-01 06:38] LABS: HCT 42.6 % (34.0-46.0); MCH 30.8 pg (25.0-35.0); MCHC 32.8 g/dL (31.0-37.0); MCV 93.9 fL (80.0-100.0); Platelet Count 334 k/uL (150-450); RBC 4.54 m/uL (3.80-5.40); RDW 13.1 % (11.5-15.5); WBC 12.9 k/uL (3.8-10.6)
[2018-03-01 06:45] LABS: Calcium 9.9 mg/dL (8.4-10.2); Phosphorus 4.4 mg/dL (2.5-4.5); Potassium 4.7 mmol/L (3.5-5.1)
[2018-03-01] MEDS: POLYETHYLENE GLYCOL 3350 17 GM POWD.PACK PO SCH (08:03)
[2018-03-01] MEDS: VARENICLINE 1 MG TAB PO SCH ×2 (08:04→20:48)
[2018-03-01] MEDS: ASPIRIN 325 MG TAB PO SCH (08:10)
[2018-03-01] MEDS: CHOLECALCIFEROL 1,000 UNIT TAB PO SCH (08:11)
[2018-03-01] MEDS: PSYLLIUM HUSK 100% 6 GM PACKET PO SCH (11:24)
--- NOTE | 2018-03-01 14:47 | P.HPIM ---
History of Present Illness 62-year-old female was brought into hospital because she fell and was found unresponsive. Patient appeared to be overmedicated. Patient is on multiple medications including oral morphine for pain patient also found to be in acute renal failure because of which patient is admitted patient on IV fluids with improved creatinine patient baseline creatinine around 1 now around 3.5 patient is also on baclofen along with morphine, high dose of Xanax, mirtazapine. Patient is more awake today but still appears to be overmedicated. We'll cut down benzodiazepines as well as opiates. Patient does not have any focal weakness does have generalized weakness. Patient denied any fever chills area nausea vomiting cough runny nose. CAT scan of the head and neck did show some chronic degenerative changes in the cervical spine patient follows up with neurology as an outpatient for this Review of Systems REVIEW OF SYSTEMS: CONSTITUTIONAL: No fever, no malaise, no fatigue. HEENT: No recent visual problems or hearing problems. Denied any sore throat. CARDIOVASCULAR: No chest pain, orthopnea, PND, no palpitations, no syncope. PULMONARY: No shortness of breath, no cough, no hemoptysis. GASTROINTESTINAL: No diarrhea, no nausea, no vomiting, no abdominal pain. Normoactive bowel sounds. NEUROLOGICAL: No headaches, no weakness, no numbness. HEMATOLOGICAL: Denies any bleeding or petechiae. GENITOURINARY: Denies any burning micturition, frequency, or urgency. MUSCULOSKELETAL/RHEUMATOLOGICAL: Denies any joint pain, swelling, or any muscle pain. ENDOCRINE: Denies any polyuria or polydipsia. The rest of the 14-point review of systems is negative. Past Medical History Past Medical History: COPD, CVA/TIA, Fibromyalgia, Hyperlipidemia, Hypertension , Osteoarthritis (OA), Renal Disease, Rheumatoid Arthritis (RA) Additional Past Medical History / Comment(s): stroke, hx brain aneurysm basal tip, renal disease stage 3, constipation, hemorrhoids, gout, History of Any Multi-Drug Resistant Organisms: MRSA Date of last positivie culture/infection: April 2013 MDRO Source:: bladder Past Surgical History: Bowel Resection, Breast Surgery, Section, Orthopedic Surgery, Tonsillectomy, Tubal Ligation Additional Past Surgical History / Comment(s): d&c, brain aneursym repair Past Anesthesia/Blood Transfusion Reactions: No Reported Reaction Past Psychological History: Anxiety, Depression Smoking Status: Current every day smoker Past Alcohol Use History: None Reported Additional Past Alcohol Use History / Comment(s): smoked since age 16 1ppd, smokes currently 5 cigarettes a day, does use marijuana Past Drug Use History: Marijuana - Past Family History Mother Family Medical History: No Reported History Medications and Allergies Home Medications Medication Instructions Recorded Confirmed Type Fenofibrate 160 mg PO DAILY@1800 05/24/14 02/28/18 History Folic Acid 1 mg PO DAILY@1800 05/24/14 02/28/18 History Lovastatin [Mevacor] 40 mg PO HS 05/24/14 02/28/18 History Potassium Chloride [Potassium 20 meq PO DAILY@1800 05/24/14 02/28/18 History Chloride ER] Allopurinol [Zyloprim] 100 mg PO DAILY@1200 04/04/16 02/28/18 History Amitriptyline HCl [Elavil] 75 mg PO 04/04/16 02/28/18 History Cholecalciferol [Vitamin D3] 3,000 unit PO DAILY@1200 04/04/16 02/28/18 History EPINEPHrine (Auto Inject) [Epipen] 0.3 mg IM ONCE PRN 04/04/16 02/28/18 History Polyethylene Glycol 3350 [Miralax] 17 gm PO DAILY 04/04/16 02/28/18 History Varenicline [Chantix Continuing 1 mg PO BID@0600,1800 04/04/16 02/28/18 History Pack] ALPRAZolam [Xanax] 0.5 mg PO BID@0600,1200 07/03/16 02/28/18 History ALPRAZolam [Xanax] 1 mg PO DAILY@1800 07/03/16 02/28/18 History Aspirin EC [Ecotrin] 325 mg PO DAILY@1200 02/13/18 02/28/18 History Baclofen 20 mg PO DAILY@1800 02/13/18 02/28/18 History Baclofen [Lioresal] 10 mg PO BID@0600,1200 02/13/18 02/28/18 History Biotin 5 mg PO DAILY@1200 02/13/18 02/28/18 History Calcium Carbonate [Calcium] 600 mg PO DAILY@1800 02/13/18 02/28/18 History Furosemide [Lasix] 20 mg PO DAILY@0600 02/13/18 02/28/18 History Mirtazapine 60 mg PO HS 02/13/18 02/28/18 History Morphine Sulfate ER [Ms Contin] 15 mg PO BID@0000,1200 02/13/18 02/28/18 History Multivit-Min/FA/Lycopen/Lutein 1 tab PO DAILY@1800 02/13/18 02/28/18 History [Centrum Silver Tablet] Nystatin 100,000Unit/gm Cream 1 applic TOPICAL DAILY PRN 02/13/18 02/28/18 History [Mycostatin Cream] Psyllium Husk [Metamucil] 0.4 gm PO DAILY@1200 02/13/18 02/28/18 History rOPINIRole HCL [Requip] 3 mg PO HS 02/13/18 02/28/18 History Lisinopril-Hctz 10-12.5 mg 1 tab PO BID 02/28/18 02/28/18 History [Zestoretic 10-12.5] Allergies Allergy/AdvReac Type Severity Reaction Status Date / Time acetaminophen Allergy Unknown Verified 02/28/18 15:16 [From Darvocet-N 100] aspirin Allergy Unknown Verified 02/28/18 15:16 bupropion [From Wellbutrin] Allergy Unknown Verified 02/28/18 15:16 cefaclor [From Ceclor] Allergy Unknown Verified 02/28/18 15:16 divalproex sodium Allergy Unknown Verified 02/28/18 15:16 [From Depakote] doxycycline Allergy Unknown Verified 02/28/18 15:16 Iodine and Iodide Containing Allergy Rash/Hives Verified 02/28/18 15:16 Produc ketorolac tromethamine Allergy Unknown Verified 02/28/18 15:16 [From Toradol] lorazepam [From Ativan] Allergy Unknown Verified 02/28/18 15:16 naproxen Allergy Unknown Verified 02/28/18 15:16 orphenadrine citrate Allergy Unknown Verified 02/28/18 15:16 [From Norgesic] Penicillins Allergy Unknown Verified 02/28/18 15:16 phenytoin sodium Allergy Unknown Verified 02/28/18 15:16 [From Dilantin] phenytoin sodium extended Allergy Unknown Verified 02/28/18 15:16 [From Dilantin] pregabalin [From Lyrica] Allergy Unknown Verified 02/28/18 15:16 propoxyphene HCl Allergy Unknown Verified 02/28/18 15:16 [From Darvon] propoxyphene napsylate Allergy Unknown Verified 02/28/18 15:16 [From Darvocet-N 100] Sulfa (Sulfonamide Allergy Unknown Verified 02/28/18 15:16 Antibiotics) trazodone Allergy Unknown Verified 02/28/18 15:16 venom-honey bee Allergy Unknown Verified 02/28/18 15:16 [bee venom (honey bee)] venom-wasp Allergy Unknown Verified 02/28/18 15:16 adhesive AdvReac Rash/Hives Verified 02/28/18 15:16 Physical Exam Vitals: Vital Signs Temp Pulse Pulse Resp BP BP Pulse Ox 03/01/18 11:19 97.7 F 78 18 142/85 96 03/01/18 08:00 97.2 F L 88 18 123/73 99 03/01/18 04:30 76 17 03/01/18 04:00 97.0 F L 81 17 111/59 99 03/01/18 01:30 128/62 03/01/18 00:10 98.4 F 71 18 96/54 96 02/28/18 21:40 108/61 02/28/18 20:30 98.4 F 66 15 97/49 02/28/18 20:00 66 15 02/28/18 18:53 96.8 F L 62 18 113/61 95 02/28/18 18:51 62 18 02/28/18 17:38 96.8 F L 62 18 113/61 95 02/28/18 17:14 98 F 58 L 16 115/64 95 02/28/18 16:18 57 L 15 123/57 98 02/28/18 15:31 58 L 15 111/57 99 02/28/18 15:06 98.7 F 67 16 92/56 96 Intake and Output 02/28/18 03/01/18 03/01/18 22:59 06:59 14:59 Intake Total 440 940 0 Balance 440 940 0 Intake: Intake, IV Titration 200 700 Amount Sodium Chloride 0.9% 1, 700 000 ml @ 100 mls/hr IV . Q10H [facility] Rx#:[id number] Sodium Chloride 0.9% 1, 200 000 ml @ 100 mls/hr IV . Q10H [facility] Rx#:[id number] Oral 240 240 0 Other: Voiding Method Diaper Bedside Commode Bedside Commode # Voids 2 Weight 86.183 kg 86.5 kg PHYSICAL EXAMINATION: GENERAL: The patient is drowsy and oriented appears to be overmedicated, not in any acute distress. Well developed, well nourished. HEENT: Pupils are round and equally reacting to light. EOMI. No scleral icterus. No conjunctival pallor. Normocephalic, atraumatic. No pharyngeal erythema. No thyromegaly. CARDIOVASCULAR: S1 and S2 present. No murmurs, rubs, or gallops. PULMONARY: Chest is clear to auscultation, no wheezing or crackles. ABDOMEN: Soft, nontender, nondistended, normoactive bowel sounds. No palpable organomegaly. MUSCULOSKELETAL: No joint swelling or deformity. EXTREMITIES: No cyanosis, clubbing, or pedal edema. NEUROLOGICAL: Gross neurological examination did not reveal any focal deficits. Does have generalized weakness. SKIN: No rashes. Results CBC & Chem 7: 03/01/18 06:12 03/01/18 06:12 Labs: Abnormal Lab Results - Last 24 Hours (Table) 02/28/18 02/28/18 03/01/18 Range/Units 15:27 15:27 06:12 WBC 12.9 H (3.8-10.6) k/uL Neutrophils # 8.6 H (1.3-7.7) k/uL Potassium 5.4 H (3.5-5.1) mmol/L BUN 75 H (7-17) mg/dL Creatinine 3.70 H (0.52-1.04) mg/dL Glucose 128 H (74-99) mg/dL Phosphorus 6.3 H (2.5-4.5) mg/dL Magnesium 2.7 H (1.6-2.3) mg/dL AST 40 H (14-36) U/L TSH 0.206 L (0.465-4.680) mIU/L 03/01/18 Range/Units 06:12 WBC (3.8-10.6) k/uL Neutrophils # (1.3-7.7) k/uL Potassium (3.5-5.1) mmol/L BUN 63 H (7-17) mg/dL Creatinine 2.50 H (0.52-1.04) mg/dL Glucose 113 H (74-99) mg/dL Phosphorus (2.5-4.5) mg/dL Magnesium (1.6-2.3) mg/dL AST (14-36) U/L TSH (0.465-4.680) mIU/L Thrombosis Risk Factor Assmnt - Choose All That Apply Any of the Below Risk Factors Present?: Yes Each Factor Represents 1 point: Abnormal pulmonary function (COPD), Obesity ( BMI >25) Other Risk Factors: Yes Each Risk Factor Represents 2 Points: Age 61-74 years Other congenital or acquired thrombophilia - If yes, enter type in comment: No Thrombosis Risk Factor Assessment Total Risk Factor Score: 4 Thrombosis Risk Factor Assessment Level: Moderate Risk Assessment and Plan Plan: -Fall and unresponsiveness: 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 -Acute renal failure possibly prerenal azotemia from poor oral intake, patient is on IV fluids improved creatinine today continue with IV fluids. -Hyperlipidemia -Chronic back pain -History of CVA and stroke -Fibromyalgia -Hyperlipidemia -Restless leg syndrome for which patient is on high-dose of Requip which will be continued -Anxiety disorder -History of brain aneurysm with clips in place
[2018-03-01] MEDS: FENOFIBRATE 160 MG TAB PO SCH (18:26)
[2018-03-01] MEDS: CALCIUM CARBONATE 500 MG CHEWABLE PO SCH (18:26)
[2018-03-01] MEDS: MIRTAZAPINE 15 MG TAB PO SCH (20:47)
[2018-03-01] MEDS: MORPHINE SULFATE ER 15 MG TABLET PO PRN (20:48)
[2018-03-02 07:49] LABS: HCT 41.8 % (34.0-46.0); HGB 13.7 gm/dL (11.4-16.0); MCH 30.4 pg (25.0-35.0); MCHC 32.6 g/dL (31.0-37.0); MCV 93.3 fL (80.0-100.0); Mean Platelet Volume 8.6; Platelet Count 289 k/uL (150-450); RBC 4.49 m/uL (3.80-5.40); RDW 13.1 % (11.5-15.5); WBC 9.2 k/uL (3.8-10.6)
[2018-03-02 07:59] LABS: Calcium 9.5 mg/dL (8.4-10.2); Potassium 5.3 mmol/L (3.5-5.1)
[2018-03-02] MEDS: POLYETHYLENE GLYCOL 3350 17 GM POWD.PACK PO SCH (09:36)
[2018-03-02] MEDS: VARENICLINE 1 MG TAB PO SCH ×2 (09:36→22:00)
[2018-03-02] MEDS: ASPIRIN 325 MG TAB PO SCH (12:47)
[2018-03-02] MEDS: CHOLECALCIFEROL 1,000 UNIT TAB PO SCH (12:48)
[2018-03-02] MEDS: PSYLLIUM HUSK 100% 6 GM PACKET PO SCH (14:05)
--- NOTE | 2018-03-02 15:03 | P.PN ---
Subjective Patient came in unresponsive and altered mental status secondary to toxic encephalopathy from medications which were discussed new patient is feeling much better comparing of pain in the neck will use heat pad for that. Patient is much more responsive looks much better today. Constitutional: Denied any fatigue denied any fever. Cardio vascular: denied any chest pain, palpitations Gastrointestinal denied any nausea vomiting Pulmonary: Denied any shortness of breath cough Neurologic denied any new focal deficits Objective - Vital Signs Vital signs: Vital Signs Temp 97.9 F 03/02/18 08:30 Pulse 81 03/02/18 08:30 Resp 16 03/02/18 08:30 BP 145/80 03/02/18 08:30 Pulse Ox 100 03/02/18 08:30 Intake & Output 03/01/18 03/02/18 03/02/18 18:59 06:59 18:59 Intake Total 0 800 Output Total 250 Balance 0 800 -250 Intake: Intake, IV Titration 800 Amount Sodium Chloride 0.9% 1, 800 000 ml @ 100 mls/hr IV . Q10H [facility] Rx#:[id number] Oral 0 Output: Urine 250 Other: Voiding Method Bedside Commode Bedside Commode Bedside Commode # Voids 1 - Exam PHYSICAL EXAMINATION: GENERAL: The patient alert oriented 3, not in any acute distress. Well developed, well nourished. HEENT: Pupils are round and equally reacting to light. EOMI. No scleral icterus. No conjunctival pallor. Normocephalic, atraumatic. No pharyngeal erythema. No thyromegaly. CARDIOVASCULAR: S1 and S2 present. No murmurs, rubs, or gallops. PULMONARY: Chest is clear to auscultation, no wheezing or crackles. ABDOMEN: Soft, nontender, nondistended, normoactive bowel sounds. No palpable organomegaly. MUSCULOSKELETAL: No joint swelling or deformity. EXTREMITIES: No cyanosis, clubbing, or pedal edema. NEUROLOGICAL: Gross neurological examination did not reveal any focal deficits. Does have generalized weakness. SKIN: No rashes. - Labs CBC & Chem 7: 03/02/18 06:50 03/02/18 06:50 Labs: Abnormal Lab Results - Last 24 Hours (Table) 03/02/18 Range/Units 06:50 Potassium 5.3 H (3.5-5.1) mmol/L Carbon Dioxide 31 H (22-30) mmol/L BUN 34 H (7-17) mg/dL Creatinine 1.25 H (0.52-1.04) mg/dL Glucose 105 H (74-99) mg/dL Assessment and Plan Plan: -Fall and unresponsiveness, toxic encephalopathy from medications: Secondary to excessive sedatives improved now patient will need PT and OT evaluation. -Acute renal failure possibly prerenal azotemia from poor oral intake, patient is on IV fluids improved creatinine today continue with IV fluids. Repeat basic metabolic profile tomorrow -Hyperlipidemia -Chronic back pain -History of CVA and stroke -Fibromyalgia -Hyperlipidemia -Restless leg syndrome for which patient is on high-dose of Requip which will be continued -Anxiety disorder -History of brain aneurysm with clips in place
[2018-03-02] MEDS: CALCIUM CARBONATE 500 MG CHEWABLE PO SCH (19:14)
[2018-03-02] MEDS: FENOFIBRATE 160 MG TAB PO SCH (19:14)
[2018-03-02] MEDS: SODIUM CHLORIDE 0.9% 1,000 ML IV SCH (19:15)
[2018-03-02] MEDS: MORPHINE SULFATE ER 15 MG TABLET PO PRN (21:58)
[2018-03-02] MEDS: AMITRIPTYLINE HCL 25 MG TAB PO SCH (21:59)
[2018-03-02] MEDS: ATORVASTATIN 10 MG TAB PO SCH (22:00)
[2018-03-02] MEDS: MIRTAZAPINE 15 MG TAB PO SCH (22:27)
[2018-03-03] MEDS: SODIUM CHLORIDE 0.9% 1,000 ML IV SCH ×3 (05:41→20:27)
[2018-03-03 07:02] LABS: Calcium 9.3 mg/dL (8.4-10.2); Potassium 4.2 mmol/L (3.5-5.1)
[2018-03-03] MEDS: POLYETHYLENE GLYCOL 3350 17 GM POWD.PACK PO SCH (08:28)
[2018-03-03] MEDS: ASPIRIN 325 MG TAB PO SCH (08:29)
[2018-03-03] MEDS: CHOLECALCIFEROL 1,000 UNIT TAB PO SCH (08:30)
[2018-03-03] MEDS: ALPRAZolam 0.25 MG TAB PO PRN ×2 (10:49→21:16)
[2018-03-03] MEDS: MORPHINE SULFATE ER 15 MG TABLET PO PRN ×2 (10:49→21:16)
[2018-03-03] MEDS: VARENICLINE 1 MG TAB PO SCH ×2 (11:15→21:19)
[2018-03-03] MEDS: PSYLLIUM HUSK 100% 6 GM PACKET PO SCH (11:27)
[2018-03-03] MEDS: CALCIUM CARBONATE 500 MG CHEWABLE PO SCH (17:54)
[2018-03-03] MEDS: FENOFIBRATE 160 MG TAB PO SCH (17:54)
[2018-03-03] MEDS: AMITRIPTYLINE HCL 25 MG TAB PO SCH (20:27)
[2018-03-03] MEDS: MIRTAZAPINE 15 MG TAB PO SCH (20:27)
[2018-03-03] MEDS: ATORVASTATIN 10 MG TAB PO SCH (21:19)
--- NOTE | 2018-03-04 05:49 | PN ---
PROGRESS NOTE DATE OF SERVICE: 03/03/2018 PRESENTING COMPLAINT: Altered mental status. INTERVAL HISTORY: This patient was seen by me yesterday evening on 03/03/18. The patient presented with acute toxic encephalopathy from medications in a setting of acute renal failure. The patient is much more awake today when I saw this patient. The patient did tolerate some diet. Thought patient is having some hallucinations, she thought her son is at the window. The nurse reported have some similar symptoms. The patient has been eating better. PT, OT was consulted. REVIEW OF SYSTEMS: Review of systems done for constitutional, cardiovascular, GI, pulmonary, psych: relevant findings as above. CURRENT MEDICATIONS: Reviewed. PHYSICAL EXAMINATION: On examination, temperature 98.9, pulse 110, respiration 16, blood pressure 165/72, pulse ox 98% on 2 L. GENERAL APPEARANCE: Lying in bed, awake. EYES: Pupils equal. Conjunctivae normal. HENT: External appearance of nose and ears normal. Oral cavity normal. NECK: Head is still tilted to the left. CARDIOVASCULAR: First and second sounds normal. No edema. ABDOMEN: Soft, nontender. Liver and spleen not palpable. NEUROLOGICAL: The patient has got contracture of the left arm. PSYCH: The patient thinks her son is at the window. Otherwise, she knows she is at the hospital, knows the year. INVESTIGATIONS: Potassium 4.2. BUN 20, creatinine 1.0 down from 75/3.7. ASSESSMENT: 1. Acute toxic encephalopathy from medications. 2. Severe acute renal failure possibly prerenal from poor oral intake and patient being on Lasix and Zestoretic. 3. Hyperlipidemia. 4. Chronic fibromyalgia. 5. Restless legs syndrome. 6. History of brain aneurysm with clips in place. 7. Hallucinations. PLAN: Patient's Xanax was rightly discontinued. We will also stop patient's Elavil at night. Also the patient will be put back on a smaller dose of baclofen that is 5 mg 3 times a day for her muscle spasms. The patient is already on Metamucil. We will stop patient's MiraLAX and given that she is on MS Contin, will add Senokot S. PT, OT was seen. Will also consult Psychiatry. I do expect patient's symptoms to get better even better by tomorrow. We will see how patient does with PT, OT. I did speak at length with the patient's son over the phone and updated him. I did explain to him the importance of not adding further medications right now and keeping the patient off Xanax for example and the amitriptyline. We will seek further input from Psychiatry. JUSTYN / COLIN: [id number] /
[2018-03-04] MEDS: BACLOFEN 10 MG TAB PO SCH ×3 (09:06→19:59)
[2018-03-04] MEDS: SENNOSIDES-DOCUSATE SODIUM 1 EACH TAB PO SCH ×2 (09:06→20:11)
[2018-03-04] MEDS: VARENICLINE 1 MG TAB PO SCH ×2 (09:07→20:00)
[2018-03-04] MEDS: ASPIRIN 81 MG PO SCH (09:07)
[2018-03-04] MEDS: PSYLLIUM HUSK 100% 6 GM PACKET PO SCH (12:19)
--- NOTE | 2018-03-04 15:07 | P.CN ---
Psychiatric Consult - . Consult date: 03/04/18 Consult:: 03/04/18 14:51 Identification: Patient is a 62-year-old female who is admitted after she fell and was found unresponsive at home further details regarding this are unavailable as the patient is not able to give me a history. Reason for Consult: Hallucinations History of Present Illness: Patient's chart was reviewed, I spoke with staff and patient was seen and interviewed in her room no family members were present. Patient reported that she had been seeing Dr. Garza as an outpatient for her memory but was unable to tell me how long she had been seeing him or what medications he had been prescribing for her. When I asked the patient who had been prescribing Remeron and Elavil for the patient she reported that she thought one was Dr. Underwood and that the other medication been prescribed by her pain physician. Patient states that she's been on Xanax for 30 years and is currently taking 0.5 mg 4 times a day for a total dosage of 2 mg per day. Patient currently told me that she is not been sleeping well but has been eating here. Patient stated she has had no prior psychiatric admissions, but then stated that she was just here a week ago on the psychiatric unit. Patient was unable to give me a very complete history. Patient did not endorse any symptoms of depression, prior suicide attempts, he could not tell me why she was on Remeron and Elavil. Past Psychiatric History: Patient does see Dr. Garza and I ran a [facility] which confirmed that she has been receiving Xanax 0.5 mg numbers 120 Q month. I'm unable to confirm who has been prescribing her Remeron 60 mg at bedtime and Elavil 75 mg at bedtime but patient states that this was not been prescribed by Dr. Garza. Past Medical/Surgical History: Patient has a history of COPD, status post CVA, hyperlipidemia, hypertension, rheumatoid arthritis and is status post brain aneurysm. Family History: Patient denies any family history of psychiatric, alcohol drug use disorder Social History: Patient states she lives alone, but feels that she needs to live elsewhere after discharge. She states she has been in the past and is and has 3 children. 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 She states she is supported on Social Security. Substance Use History: Patient denies any current or prior alcohol, drug use Mental status: Appearance/Attitude: Patient is lying in a hospital bed, makes intermittent eye contact and is cooperative Behavior: Patient does not exhibit any psychomotor agitation but does exhibit some psychomotor retardation. Speech/Language: Patient's speech is slow, she is not spontaneous responding in brief sentences to my questions, she speaks in a soft voice and is coherent Thought Process: Patient responds to questions with brief sentences, she is not elaborative Thought Content: Patient denies auditory hallucinations but stated that she sees people that are onstage at the end of her bed and states that we are on a jet plane. Patient did not believe we are in the hospital and stated that she was on that psychiatric unit one week ago. Patient states she has been eating but has not been sleeping. Suicidal/Homicidal Ideation: patient denied feeling suicidal at this time Sensorium/Cognition: patient was awake but appeared confused, oriented to person , month and year further cognitive testing was not performed Mood/Affect: patient's mood is restricted and her affect is blunted Insight/Judgment: patient's insight and judgment are impaired Assessment: patient has been taking Xanax at a total dosage of 2 mg per day of years and is confirmed by looking at [facility], patient has also been receiving Elavil 75 mg at bedtime Remeron 60 mg at bedtime as well as opioid medication. Patient is currently having visual hallucinations and her sensorium is slightly altered and she is a poor historian, patient's as Xanax was dropped to 0.5 mg per day when she was admitted she received 2 doses since her admission on 02/28 and has since been discontinued. Patient's current visual hallucinations and altered sensorium are most likely due to the abrupt discontinuation of Xanax. Patient has also been on 2 antidepressants, Remeron at a dose of 60 mg and Elavil at a dose of 75 mg for unknown reasons. Patient has also been using morphine at home for pain. Diagnosis: delirium multiple etiologies Plan: as the patient has been taking Xanax 2 mg per day for a number of years, the patient's Xanax cannot be abruptly discontinued due to the potential for withdrawal seizures, her visual hallucinations are most likely related to Xanax withdrawal as well. Patient will be restarted on Xanax 0.5 mg 3 times a day and I suspect further taper from this will be unlikely given that the patient has been on 2 mg a day for a number of years. I will reduce the patient's mirtazapine to 15 mg a day, her Elavil has already been discontinued. Should the patient become agitated Risperdal 0.25 mg every 12 hours can be started, at this time the patient has been cooperative and is not agitated and will see how she responds to the restart of Xanax. I will follow the patient while she is in the hospital to further adjust her medications. 03/04/18 14:52 03/04/18 14:57
[2018-03-04] MEDS: ALPRAZolam 0.5 MG TAB PO SCH ×2 (15:24→20:00)
[2018-03-04] MEDS ORDERED: risperiDONE 0.25 MG TAB PO PRN (17:43)
[2018-03-04] MEDS: CALCIUM CARBONATE 500 MG CHEWABLE PO SCH (18:07)
[2018-03-04] MEDS: FENOFIBRATE 160 MG TAB PO SCH (18:07)
[2018-03-04] MEDS: ATORVASTATIN 10 MG TAB PO SCH (19:59)
[2018-03-04] MEDS: MIRTAZAPINE 15 MG TAB PO SCH (20:00)
[2018-03-05] MEDS ORDERED: LORazepam 2 MG/ML INJ ONE ×2 (04:28→04:30)
[2018-03-05] MEDS ORDERED: LORazepam 2 MG/ML INJ IM PRN (05:45)
[2018-03-05] MEDS: VARENICLINE 1 MG TAB PO SCH (07:22)
[2018-03-05] MEDS: SENNOSIDES-DOCUSATE SODIUM 1 EACH TAB PO SCH ×2 (07:22→20:19)
[2018-03-05] MEDS: ASPIRIN 81 MG PO SCH (07:27)
[2018-03-05] MEDS: BACLOFEN 10 MG TAB PO SCH ×3 (07:27→20:15)
[2018-03-05] MEDS: ALPRAZolam 0.5 MG TAB PO SCH ×2 (07:27→15:46)
--- NOTE | 2018-03-05 10:26 | P.PN ---
Progress Note - Text Progress Note Date: 03/05/18 Interval History: Patient is a 62-year-old female who was seen this morning after having a code sole called last evening when she became agitated. Patient was given Ativan at that time. Patient this morning was irritable, confused talking about events from the past, but they're affecting how she is doing now, she was picking at her gown. She denied that she was seeing things but again could not tell me where we were. Patient was more restless this morning than when I spoke with her yesterday. Mental Status: Patient is lying in a hospital bed, she appears restless and irritable, made only intermittent eye contact. Patient's responses to questions were coherent but not relevant. She was discussing incidents that occurred in the past that were affecting how she felt now, she was picking at her gown periodically during the interview. Patient was irritable, she could not tell me where we were this morning. With further questioning the patient became increasingly irritable and so the interview was cut short. Assessment: Patient had a code sole called last evening and she became agitated, I spoke with Dr. Garza who sees the patient as an outpatient and he reported that when the patient has been prescribed both Xanax and opioid medication she appears more lethargic and 1 she was only on Xanax without opiate medication she was much more alert, and was advised to not continue taking opioids or he would decrease her Xanax. Patient has been taking 0.5 mg twice a day and 1 mg at bedtime. Patient this morning appears more agitated and restless than when I saw her yesterday, she remains confused and was increasingly irritated with my questions. Her responses were coherent but not relevant. Patient was re-evaluated at 2:20pm , she had risperdal 0.5mg this am and remains confused, having visual hallucinations, stating her grandchildren were coming through the window, she knew were in a hospital but has not eaten today or had anything to drink, nor has she slept. she has been compliant with medication. Patient re-evaluated at 4:40pm with little change, she remains confused, talking to people who are not there, picking at her gown, has not eaten and is not drinking, she is not as irritable. Plan: Patient's Xanax will be increased to 0.5 mg twice a day and 1 mg at bedtime, her prior dose to treat the withdrawal that she is having from benzodiazepines, After re-evaluation will give risperdal 0.5mg stat as patient is not eating, drinking or resting, she continues with visual hallucinations and remains irritable. Will re-evaluate later this afternoon and adjust medication as indicated at that time. After re-evaluation this afternoon, will change risperdal to 1mg Mtab tonight at 6pm and re-evaluate in morning, risperdal 0.25mg bid prn ordered for agitation as patient continues to have VH and is not eating or drinking. Chantix was also discontinued. I would advise when the patient is discharged and during the hospital stay that opiate pain medication not be used as this will only contribute to her confusion and lethargy. Patient does not require inpatient psychiatric admission at this time.
[2018-03-05] MEDS ORDERED: risperiDONE 0.25 MG TAB PO SCH (10:30)
[2018-03-05] MEDS ORDERED: risperiDONE 0.5 MG TAB PO STA (14:22)
[2018-03-05] MEDS: PSYLLIUM HUSK 100% 6 GM PACKET PO SCH (15:45)
[2018-03-05] MEDS: FENOFIBRATE 160 MG TAB PO SCH (15:51)
[2018-03-05] MEDS: CALCIUM CARBONATE 500 MG CHEWABLE PO SCH (15:51)
[2018-03-05] MEDS: risperiDONE ODT 1 MG TAB PO SCH (18:21)
--- NOTE | 2018-03-05 19:24 | PN ---
PROGRESS NOTE DATE OF SERVICE: 03/05/18. PRESENTING COMPLAINT: Hallucinations. INTERVAL HISTORY: The patient presented with acute toxic encephalopathy from medications in the setting of acute renal failure, both of which improved. The patient last night again became more delirious. Had them call Dr. Clifton and the patient did receive some Haldol. The patient this morning is actually doing better. Lying in bed. Did tolerate some diet. Patient has a sitter in place. REVIEW OF SYSTEMS: Done for constitutional, cardiovascular, GI, pulmonary; relevant findings as above. CURRENT MEDICATIONS: Reviewed that include Xanax 0.5 three times a day and 1 mg at night, baclofen 5 mg 3 times a day, Remeron 50 mg q.h.s., MS Contin 50 mg b.i.d., Risperdal 1 mg at 6 pm and p.r.n. EXAMINATION: Afebrile, pulse 90, respiratory 18, blood pressure 135/85, pulse ox 95% on room air. GENERAL APPEARANCE: Lying in bed, comfortable, awake. EYES: Pupils equal. Conjunctivae normal. HEENT: External nose and ears normal. Oral cavity normal. NECK: Contracture left neck muscles. RESPIRATORY: Effort normal, lungs are clear. CARDIOVASCULAR: First and second sounds, no edema. ABDOMEN: Soft, nontender. Liver and spleen not palpable. PSYCHIATRY: Alert and oriented x3. Mood and affect normal. Currently no hallucinations. NEUROLOGICAL: Also contracture of the left arm. INVESTIGATIONS: Blood work pending. ASSESSMENT: 1. Acute toxic encephalopathy from medications. 2. Acute delirium multifactorial improving. 3. Severe acute renal failure prerenal from poor oral intake and patient being on Lasix and Zestoretic. 4. Hyperlipidemia. 5. Chronic fibromyalgia. 6. Restless legs syndrome. 7. History of brain aneurysm, clips in place. 8. Hallucinations. PLAN: Continue current medication and treatment plan. Follow up with Psychiatry and sitter. Sitter as per Psychiatry. Follow. MMODL / IJN: [id number] /
--- NOTE | 2018-03-05 19:24 | PN ---
PROGRESS NOTE DATE OF SERVICE: 03/04/18. PRESENTING COMPLAINT: Hallucinations. INTERVAL HISTORY: This patient is seen by me yesterday on 03/04/18. The computer system/[employer] was down. Could not dictate. The patient initially presented with acute toxic encephalopathy and acute renal failure, has actually got better. The patient was thinking today that a cat is in the room, though otherwise she is tolerating a diet. Late in the evening, the patient is having some more agitation. REVIEW OF SYSTEMS: Done for constitutional, cardiovascular, GI, pulmonary, psych; relevant findings above. CURRENT MEDICATIONS: Reviewed. EXAMINATION: Temperature 99.2, pulse 114, respiratory 18, blood pressure 136/84, pulse ox 97% on room air. GENERAL APPEARANCE: Lying in bed, awake, more comfortable today. EYES: Pupils equal. Conjunctivae normal. HEENT: External nose and ears normal. Oral cavity normal. NECK: Head is tilted to the left. CARDIOVASCULAR: First and second sounds, no edema. RESPIRATORY: Effort normal, lungs slightly decreased breath sounds. ABDOMEN: Soft, nontender. Liver and spleen not palpable. PSYCHIATRY: Today patient thinks that a cat is in the room. NEUROLOGICAL: Some contracture of the left arm. INVESTIGATIONS: No blood work from today. ASSESSMENT: 1. Acute toxic encephalopathy from medications. 2. Severe acute renal failure, possibly prerenal from poor oral intake. The patient is on Lasix, Zestoretic, now recovered. 3. Hyperlipidemia. 4. Chronic fibromyalgia. 5. Restless legs syndrome. 6. History of brain aneurysm with clips in place. 7. Hyperkalemia, improved. 8. Acute delirium with multiple etiologies. PLAN: Continue medication and treatment plan. Psychiatry was consulted to making some adjustments to the medications and reinstating a smaller dose of Xanax. I spoke to the patient's son at length. He was concerned about his mother. I did explain that the situation is a bit concerning of course, but that nurse specialist and psychiatrist have been consulted and I will be following her with her treatment plan on this aspect of the case. Otherwise medically the patient otherwise is better except the psychiatric condition and will have to give some time for the medications to work. Total time spent today was about 45 minutes with over 25 minutes of discussion. MMODL / IJN: [id number] /
[2018-03-05 19:38] LABS: Calcium 10.3 mg/dL (8.4-10.2); Potassium 3.5 mmol/L (3.5-5.1)
[2018-03-05] MEDS: MIRTAZAPINE 15 MG TAB PO SCH (20:14)
[2018-03-05] MEDS: ATORVASTATIN 10 MG TAB PO SCH (20:14)
[2018-03-05] MEDS: ALPRAZolam 1 MG TAB PO SCH (20:14)
[2018-03-05] MEDS ORDERED: ALPRAZolam 1 MG TAB PO SCH (21:00)
[2018-03-06 07:24] LABS: Calcium 9.8 mg/dL (8.4-10.2); Potassium 3.3 mmol/L (3.5-5.1)
[2018-03-06] MEDS: ALPRAZolam 0.5 MG TAB PO SCH ×2 (07:57→13:29)
[2018-03-06] MEDS ORDERED: risperiDONE ODT 1 MG TAB PO STA ×2 (08:02→11:26)
[2018-03-06] MEDS: risperiDONE 0.25 MG TAB PO PRN ×2 (10:40→19:35)
[2018-03-06] MEDS: ASPIRIN 81 MG PO SCH (11:50)
[2018-03-06] MEDS: BACLOFEN 10 MG TAB PO SCH ×3 (11:50→23:29)
[2018-03-06] MEDS: PSYLLIUM HUSK 100% 6 GM PACKET PO SCH (11:52)
[2018-03-06] MEDS: SENNOSIDES-DOCUSATE SODIUM 1 EACH TAB PO SCH ×2 (11:52→23:27)
[2018-03-06 15:17] VITALS: BMI 29.8
--- NOTE | 2018-03-06 15:47 | P.PN ---
Progress Note - Text Progress Note Date: 03/06/18 Interval History: Patient is a 62-year-old female who has been seen on multiple occasions today, earlier this morning she was agitated, not cooperating with staff, continued to respond to visual hallucinations. Patient was later seen in the afternoon and she continues to be responding to visual hallucinations but has been cooperative taking oral medication, she was drinking some water, she has not eaten. Patient is quieter, not as agitated. She continues to not allow staff to assist her with ADLs. Mental Status: Patient's sensorium is clouded, she is oriented to person only. Patient is responding to visual hallucinations, and at times was quite agitated not allowing staff to assist her with ADLs. Patient has not been eating, she has been sleeping for 1-1/2 hour spells intermittently and has been drinking water only occasionally. Assessment: Patient continues to have visual hallucinations, clouded sensorium secondary to a delirium from benzodiazepine withdrawal. Patient has been medicated with Risperdal 1 mg tabs today on 2 occasions last being at 1148 the first one being at 8 AM for agitation, not cooperating with staff. Patient also received Risperdal 0.25 mg at 1040 this morning. Patient this afternoon on assessment continues to have visual hallucinations and a clouded sensorium however she has been more cooperative with staff, has been taking her medications orally and was drinking water. Plan: Patient will continue on Xanax 0.5 mg twice a day and 1 mg at bedtime which has been her prior outpatient dose. Patient will receive Risperdal 1 mg at 6 PM tonight and continues to have Risperdal 0.25 mg twice a day when necessary. I will continue to evaluate the patient and monitor her response to the Risperdal and adjust the dose as needed. Patient is not appropriate for an inpatient psychiatric admission.
[2018-03-06] MEDS: risperiDONE ODT 1 MG TAB PO SCH (17:31)
[2018-03-06] MEDS: CALCIUM CARBONATE 500 MG CHEWABLE PO SCH (17:31)
[2018-03-06] MEDS: FENOFIBRATE 160 MG TAB PO SCH (17:32)
[2018-03-06] MEDS: MIRTAZAPINE 15 MG TAB PO SCH (19:34)
[2018-03-06] MEDS: ALPRAZolam 1 MG TAB PO SCH (19:34)
[2018-03-06] MEDS: ATORVASTATIN 10 MG TAB PO SCH (19:34)
--- NOTE | 2018-03-06 23:55 | PN ---
PROGRESS NOTE DATE OF SERVICE: 03/06/2018 PRESENTING COMPLAINT: Altered mental status. INTERVAL HISTORY: This patient initially presented with acute toxic encephalopathy from medications and acute renal failure, both of which resolved. The patient has been having hallucinations, delirium, being followed by psychiatrist Dr. Clifton, following her medications. Patient did not eat much today. Has a sitter. In bed. REVIEW OF SYSTEMS: Review of systems could not be done; patient not really answering questions. CURRENT MEDICATIONS: Reviewed. They include: 1. Xanax. 2. Mirtazapine. 3. Risperdal. 4. Requip. PHYSICAL EXAMINATION: Afebrile. Pulse 93, respiration 14, blood pressure 120/70, pulse ox 97% on room air. GENERAL APPEARANCE: Lying in bed, tired-appearing. EYES: Pupils equal. Conjunctivae normal. HEENT: External appearance of nose and ears normal. Oral cavity normal. NECK: Contraction on the left side. RESPIRATORY: Effort normal. Lungs are clear. CARDIOVASCULAR: First and second sounds normal. No edema. ABDOMEN: Soft, nontender. Liver and spleen not palpable. PSYCHIATRY: Currently lethargic but arousable. NEUROLOGICAL: Contracture in the left arm. INVESTIGATIONS: Potassium 3.3, BUN 21, creatinine 1.03. ASSESSMENT: 1. Acute toxic encephalopathy on admission from medication. 2. Acute delirium, multifactorial. 3. Severe acute renal failure from poor oral intake with patient being on Lasix and Zestoretic that improved. 4. Hyperlipidemia. 5. Chronic fibromyalgia. 6. Restless legs syndrome. 7. History of brain aneurysm with clips in place. 8. Hallucinations. PLAN: Continue medication as per Dr. Clifton. Medically patient is otherwise stable. Follow with her. MMODL / IJN: [id number] /
[2018-03-07] MEDS: ALPRAZolam 0.5 MG TAB PO SCH ×2 (08:54→11:02)
[2018-03-07] MEDS ORDERED: risperiDONE ODT 1 MG TAB PO SCH (09:00)
[2018-03-07] MEDS: BACLOFEN 10 MG TAB PO SCH ×3 (10:25→21:12)
[2018-03-07] MEDS: ASPIRIN 81 MG PO SCH (10:25)
[2018-03-07] MEDS: PSYLLIUM HUSK 100% 6 GM PACKET PO SCH (10:25)
[2018-03-07] MEDS: SENNOSIDES-DOCUSATE SODIUM 1 EACH TAB PO SCH ×2 (10:25→21:13)
[2018-03-07] MEDS: risperiDONE 0.25 MG TAB PO PRN (12:06)
--- NOTE | 2018-03-07 13:21 | P.PN ---
Progress Note - Text Progress Note Date: 03/07/18 Interval History: Patient is a 62-year-old female who was seen this afternoon, she had a more comfortable evening, today she is again taking at the air and responding to visual hallucinations, patient is refusing to eat or drink apparently though she was requesting Pepsi last evening. Patient is taking medications at times with some difficulty. Mental Status: Patient is lying in a bed, she is picking at the air and responding to visual hallucinations talking to her father, telling me that I needed to go to the kitchen with Sandy. Patient states that she doesn't want anything to drink or eat. Patient intermittently becomes more irritable but is not taking off her clothing. Patient responds to her name, her sensorium remains clouded. Assessment: Patient had a better evening, she was requesting something to drink and eat, she allowed them to change her clothing however this morning after having slept for an hour or so she has been more irritable and agitated, responding to visual hallucinations and picking at the air. She is refusing to eat or drink at this time. Patient appears to have done better after receiving 1 mg of Xanax in the evening combined with the Risperdal. Plan: Due to the patient doing better at night after having received 1 mg of Xanax will increase her Xanax to Xanax 1 mg 3 times a day combined with Risperdal 1 mg 3 times a day, patient continues to have symptoms of a delirium secondary to benzodiazepine withdrawal and may need to increase the dose of Xanax to control the symptoms. Patient has not been eating or drinking well and is sleeping for an hour or so at a time. She continues to have visual hallucinations, clouded sensorium with episodes of agitation. We will continue to follow the patient and assess her response to this combination of medications. I spoke with Dr. Ferrera regarding the patient not being appropriate for transfer to the inpatient psychiatric unit. We'll reevaluate the patient later in the afternoon after having received the milligram of Xanax and milligram of Risperdal at 2 in the afternoon to see if she is improving with this combination.
[2018-03-07] MEDS: ALPRAZolam 1 MG TAB PO SCH ×2 (14:40→21:14)
[2018-03-07] MEDS: risperiDONE ODT 1 MG TAB PO SCH ×2 (14:40→21:13)
[2018-03-07] MEDS: CALCIUM CARBONATE 500 MG CHEWABLE PO SCH (16:25)
[2018-03-07] MEDS: FENOFIBRATE 160 MG TAB PO SCH (16:25)
[2018-03-07] MEDS: ENOXAPARIN 40 MG/0.4 ML SYRINGE SQ SCH (18:33)
--- NOTE | 2018-03-07 18:44 | PN ---
PROGRESS NOTE DATE OF SERVICE: 03/07/2018 PRESENTING COMPLAINT: Hallucinating. INTERVAL HISTORY: Patient presented with acute toxic encephalopathy from medications and acute renal failure, both of which have resolved. The patient continues to have hallucinations, delirium and per Dr. Clifton, felt to be from Xanax withdrawal. The patient is not eating much. There is a sitter in place. Patient is picking at things in the air. REVIEW OF SYSTEMS: Review of systems really could not be done; patient hardly answers questions. CURRENT MEDICATIONS: Reviewed. They include: 1. Xanax. 2. Haldol. 3. Remeron. PHYSICAL EXAMINATION: Temperature 97.4, pulse 103, respiration 18, blood pressure 148/83, pulse ox 98% on room air. GENERAL APPEARANCE: Lying in bed, awake, delirious. EYES: Pupils equal. Conjunctivae normal. HEENT: External appearance of nose and ears normal. Oral cavity normal. NECK: Contractions on the left side. RESPIRATORY: Effort normal. LUNGS: Decreased breath sounds. CARDIOVASCULAR: First and second sounds normal. No edema. ABDOMEN: Soft, nontender. Liver and spleen not palpable. PSYCHIATRY: Patient is awake but delirious, picking at things in the air. NEUROLOGICAL: Contracture of the left arm. INVESTIGATIONS: No blood work from today. ASSESSMENT: 1. Acute toxic encephalopathy on admission from medications, resolved. 2. Acute delirium, multifactorial, felt to be Xanax withdrawal per Psychiatry. 3. Acute renal failure, prerenal, resolved. 4. Hyperlipidemia. 5. Chronic fibromyalgia. 6. Restless legs syndrome. 7. History of brain aneurysm, for which clips are in place. 8. Hallucinations. PLAN: Spoke to Dr. Clifton, as patient will be better served on the psychiatry unit. Per her, patient will be served better here. Hence will follow up with her medications. She is adjusting patient's Xanax and Risperdal. MMODL / IJN: [id number] /
[2018-03-07] MEDS: ATORVASTATIN 10 MG TAB PO SCH (21:12)
[2018-03-07] MEDS: MIRTAZAPINE 15 MG TAB PO SCH (21:12)
[2018-03-08] MEDS: BACLOFEN 10 MG TAB PO SCH ×3 (10:55→20:30)
[2018-03-08] MEDS: risperiDONE ODT 1 MG TAB PO SCH ×3 (10:55→20:30)
[2018-03-08] MEDS: ALPRAZolam 1 MG TAB PO SCH ×3 (10:55→20:30)
[2018-03-08] MEDS: ASPIRIN 81 MG PO SCH (10:56)
[2018-03-08] MEDS: SENNOSIDES-DOCUSATE SODIUM 1 EACH TAB PO SCH ×2 (15:05→20:31)
[2018-03-08] MEDS: PSYLLIUM HUSK 100% 6 GM PACKET PO SCH (15:06)
--- NOTE | 2018-03-08 16:33 | PN ---
PROGRESS NOTE DATE OF SERVICE: 03/08/18. PRESENTING COMPLAINT: Sleepy. INTERVAL HISTORY: This patient presented with acute toxic encephalopathy from medications and acute renal failure, which resolved. Subsequently patient has been having hallucinations, delirium. Dr. Clifton felt it to be Xanax withdrawal. The patient continues to have a sitter. Pretty much somnolent today, though arousable, sometimes still picking out in the air. REVIEW OF SYSTEMS: Cannot be done as patient is rather somnolent, but arousable. CURRENT MEDICATIONS: Reviewed. EXAMINATION: Temperature 97, pulse 80, respiration 15, blood pressure 111/63, pulse ox 94% on room air. GENERAL APPEARANCE: Somnolent, but arousable. EYES: Pupils equal. Conjunctivae normal. HEENT: External appearance of nose and ears normal. Oral cavity unable to assess. NECK: Contracture on the left side. RESPIRATORY: Effort normal, lungs decreased breath sounds. CARDIOVASCULAR: First and second sounds are normal, no edema. ABDOMEN: Soft, nontender. Liver and spleen not palpable. PSYCHIATRY: Somnolent but arousable. NEUROLOGICAL: Contractures of the left arm. INVESTIGATIONS: Potassium 3.3, BUN 21, creatinine 1.03. ASSESSMENT: 1. Acute toxic encephalopathy on admission from medication, resolved. 2. Acute delirium multifactorial now felt to be Xanax withdrawal per Psychiatry. 3. Acute renal failure, prerenal, resolved. 4. Hyperlipidemia. 5. Chronic fibromyalgia. 6. Restless legs syndrome. 7. History of brain aneurysm for which clips are in place. 8. Hallucinations. PLAN: The patient is not eating much. We will start the patient on IV fluids. Repeat labs in the morning. The sitter to continue. Medications per Psychiatry. MMODL / IJN: [id number] /
[2018-03-08] MEDS: ENOXAPARIN 40 MG/0.4 ML SYRINGE SQ SCH (17:39)
[2018-03-08] MEDS: MIRTAZAPINE 15 MG TAB PO SCH (20:30)
[2018-03-08] MEDS: ATORVASTATIN 10 MG TAB PO SCH (20:30)
[2018-03-08] MEDS: LACTATED RINGERS 1,000 ML IV SCH (20:31)
[2018-03-08] MEDS: CALCIUM CARBONATE 500 MG CHEWABLE PO SCH (20:31)
[2018-03-08] MEDS: FENOFIBRATE 160 MG TAB PO SCH (20:31)
[2018-03-09] MEDS: MORPHINE SULFATE ER 15 MG TABLET PO PRN ×2 (01:51→14:12)
[2018-03-09] MEDS ORDERED: EPINEPHrine (PF) 1 MG/ML AMP IM PRN (02:43)
[2018-03-09] MEDS: LACTATED RINGERS 1,000 ML IV SCH ×2 (03:21→11:50)
[2018-03-09 07:16] LABS: Basophils % (A) 0 %; Eosinophils % (A) 0 %; HCT 40.1 % (34.0-46.0); HGB 12.9 gm/dL (11.4-16.0); Lymphocytes # (A) 2.1 k/uL (1.0-4.8); Lymphocytes % (A) 22 %; MCH 29.8 pg (25.0-35.0); MCHC 32.2 g/dL (31.0-37.0); MCV 92.4 fL (80.0-100.0); Mean Platelet Volume 8.3; Monocytes # (A) 0.5 k/uL (0-1.0); Monocytes % (A) 6 %; Neutrophils # (A) 6.6 k/uL (1.3-7.7); Neutrophils % (A) 69 %; Platelet Count 310 k/uL (150-450); RBC 4.33 m/uL (3.80-5.40); RDW 13.3 % (11.5-15.5); WBC 9.5 k/uL (3.8-10.6)
[2018-03-09 07:42] LABS: Anion Gap 8 mmol/L; Blood Urea Nitrogen 19 mg/dL (7-17); Calcium 9.5 mg/dL (8.4-10.2); Carbon Dioxide 30 mmol/L (22-30); Chloride 107 mmol/L (98-107); Glucose 114 mg/dL (74-99); Potassium 3.5 mmol/L (3.5-5.1); Sodium 145 mmol/L (137-145)
[2018-03-09] MEDS: ASPIRIN 81 MG PO SCH (08:49)
[2018-03-09] MEDS: BACLOFEN 10 MG TAB PO SCH ×3 (08:49→23:42)
[2018-03-09] MEDS: ALPRAZolam 1 MG TAB PO SCH ×3 (08:50→23:43)
[2018-03-09] MEDS: risperiDONE ODT 1 MG TAB PO SCH ×3 (08:50→23:43)
[2018-03-09] MEDS: SENNOSIDES-DOCUSATE SODIUM 1 EACH TAB PO SCH (11:49)
[2018-03-09] MEDS: PSYLLIUM HUSK 100% 6 GM PACKET PO SCH (11:49)
--- NOTE | 2018-03-09 13:46 | PN ---
PROGRESS NOTE DATE OF SERVICE: March 09, 2018. PRESENT COMPLAINT: Awake. INTERVAL HISTORY: This patient presented with acute toxic encephalopathy from medications, acute renal failure and started having hallucination. The patient is rather delirious. Dr. Clifton felt this to be Xanax withdrawal as the patient on scheduled Xanax and Risperdal. The patient for last 2 days admitted somewhat barely eating. Again patient is very somnolent. Yesterday the nurse held off of medications. The patient is actually much awake today and talking, does not seem to be having any hallucinations appropriately answering questions. REVIEW OF SYSTEMS: Done for constitutional, cardiovascular, GI, pulmonary, psych, relevant findings as above. CURRENT MEDICATIONS: Reviewed that include Xanax 1 mg 3 times a day, Remeron 50 mg at night, Risperdal 1 mg 3 times a day. PHYSICAL EXAMINATION: Temperature 98.9, pulse 80, respiration 20, blood pressure 129/68, pulse ox 95% on room air. General appearance: Lying in bed awake, eyes pupils are equal. Conjunctivae normal. HEENT: External appearance of nose and ears normal. Oral cavity normal. Neck contraction on the left side. Respiratory effort lungs decreased breath sounds. Cardiovascular: First and second sounds normal. No edema. ABDOMEN: Soft, nontender. Liver and spleen not palpable. Psychiatry: Awake, answering questions appropriately. Able to carry on a simple conversation. INVESTIGATIONS: White count 9.5, potassium 3.5, BUN 19, creatinine 0.76. ASSESSMENT: 1. Acute toxic encephalopathy on admission from medications resolved. 2. Acute delirium multifactorial felt to be Xanax withdrawal per psychiatry. 3. Patient was very somnolent, nurse did hold her medications yesterday, especially Xanax, Risperdal and the patient is actually awake today. 4. Hyperlipidemia. 5. Chronic fibromyalgia. 6. Restless legs syndrome. 7. History of brain aneurysm, for which clips are in place. 8. Hallucinations, resolved. PLAN: I did call doctor to the psych floor to have the on-call psychiatrist see the patient. I did not see a note from yesterday. I also did speak to the nurse to give them a call. Follow. Just to make a note: The patient did not get afternoon dose of Xanax and Risperdal yesterday. I did get the evening dose and a dose this morning. We will also D/C the IV fluids. MMODL / IJN: [id number] /
[2018-03-09] MEDS: FENOFIBRATE 160 MG TAB PO SCH (18:30)
[2018-03-09] MEDS: CALCIUM CARBONATE 500 MG CHEWABLE PO SCH (18:30)
[2018-03-09] MEDS: ENOXAPARIN 40 MG/0.4 ML SYRINGE SQ SCH (18:30)
--- NOTE | 2018-03-09 20:33 | P.PN ---
Progress Note - Text Progress Note Date: 03/09/18 Interval history: Patient is seen today in psychiatric follow-up. She was found lying in bed with eyes closed. She did awaken with name-calling. She was able to maintain alertness. Says she's feeling better today. She feels that her mood is doing well. She does not seem to voice any adverse psychotropic medication side effects. She makes reference to feeling like she is ready to go home. Mental status exam: She is initially found lying in bed with her eyes closed. She awakens to name-calling and is able to maintain alertness. She describes her mood is doing well. She denies any thoughts of harm to self or others. She denies any hallucinations. She does not show any agitation. Plan: Maintain current psychotropic medications as prescribed. Continue to monitor for any medication side effects. Psychiatry will continue to follow.
[2018-03-09] MEDS: ATORVASTATIN 10 MG TAB PO SCH (23:43)
[2018-03-09] MEDS: MIRTAZAPINE 15 MG TAB PO SCH (23:43)
[2018-03-10] MEDS: SENNOSIDES-DOCUSATE SODIUM 1 EACH TAB PO SCH ×3 (00:36→21:00)
[2018-03-10 07:40] LABS: Anion Gap 8 mmol/L; Blood Urea Nitrogen 18 mg/dL (7-17); Calcium 9.1 mg/dL (8.4-10.2); Carbon Dioxide 29 mmol/L (22-30); Chloride 104 mmol/L (98-107); Glucose 103 mg/dL (74-99); Potassium 3.5 mmol/L (3.5-5.1); Sodium 141 mmol/L (137-145)
[2018-03-10] MEDS: ALPRAZolam 1 MG TAB PO SCH ×3 (08:04→21:00)
[2018-03-10] MEDS: BACLOFEN 10 MG TAB PO SCH ×3 (08:05→21:01)
[2018-03-10] MEDS: ASPIRIN 81 MG PO SCH (08:05)
[2018-03-10] MEDS: risperiDONE ODT 1 MG TAB PO SCH ×2 (08:07→15:27)
[2018-03-10] MEDS: PSYLLIUM HUSK 100% 6 GM PACKET PO SCH (13:30)
--- NOTE | 2018-03-10 15:25 | P.PN ---
Progress Note - Text Progress Note Date: 03/10/18 Patient is a 62-year-old female who went to see this afternoon and she is sleeping again and not easily aroused. I spoke with nursing staff who have held at my request the Risperdal both this morning and this afternoon due to the patient's being sedated. Patient has continued to take her Xanax however. Patient has been eating, going to the bathroom and is been appropriate and cooperative with staff. Patient has a IV in place and has not been agitated and per staff has not been responding to visual hallucinations. We will discontinue the Risperdal 1 mg 3 times a day and continue Xanax 1 mg 3 times a day. Patient also will continue to have the Risperdal 0.25 mg twice a day on an as-needed basis for agitation. We will continue to follow the patient and adjust her Xanax if she continues to be overly sedated back to her prior dose which was 0.5 mg twice a day and 1 mg at bedtime.
[2018-03-10] MEDS: CALCIUM CARBONATE 500 MG CHEWABLE PO SCH (16:32)
[2018-03-10] MEDS: ENOXAPARIN 40 MG/0.4 ML SYRINGE SQ SCH (16:32)
[2018-03-10] MEDS: FENOFIBRATE 160 MG TAB PO SCH (16:32)
--- NOTE | 2018-03-10 19:11 | PN ---
PROGRESS NOTE DATE OF SERVICE: March 09, 2018. PRESENTING COMPLAINT: Tired. INTERVAL HISTORY: This is a patient with acute toxic encephalopathy from medications, acute renal failure, subsequently started having hallucinations felt by Psychiatry to be from Xanax withdrawal. The patient is put on Xanax, Risperdal. The patient again is very lethargic today and Dr. Clifton did back off on the Risperdal and Xanax is maintained. The patient did tolerate all her breakfast. REVIEW OF SYSTEMS: Done for constitutional, cardiovascular, GI, pulmonary; relevant findings as above. No current hallucinations. CURRENT MEDICATIONS: Reviewed that include Xanax 1 mg 3 times a day, and Risperdal has been changed to 0.25 twice a day p.r.n. for agitation. PHYSICAL EXAMINATION: Temperature 97.5, pulse 76, respiration 16, blood pressure 109/66, pulse ox 95% on room air. General appearance: Sitting up. More comfortable. Eyes pupils are equal. Conjunctivae normal. HEENT external appearance of nose and ears normal. Oral cavity normal. Neck: Contraction on the left side. Respiratory effort normal. Lungs decreased breath sounds. Cardiovascular: First and second sounds normal. No edema. ABDOMEN: Soft, nontender. Liver and spleen not palpable. Psychiatry: Awake, answering questions appropriately. INVESTIGATIONS: Potassium 3.5, BUN 18, creatinine 0.79. ASSESSMENT: 1. Acute toxic encephalopathy on admission from medications, resolved. 2. Acute delirium multifactorial felt to be Xanax withdrawal per Psychiatry. The patient was somnolent. Dr. Clifton today has backed off on the dose of Risperdal, only has been changed to p.r.n. today. Xanax is maintained. 3. Hyperlipidemia. 4. Chronic fibromyalgia. 5. Restless legs syndrome. 6. History of brain aneurysm, for which clips are in place. 7. Hallucinations, improved, resolved. PLAN: Continue current medication and treatment plan. We will see how patient does for at least for 24 hours. Stable on medications before she is discharged. MMODL / IJN: [id number] /
[2018-03-10] MEDS: ATORVASTATIN 10 MG TAB PO SCH (21:00)
[2018-03-10] MEDS: MIRTAZAPINE 15 MG TAB PO SCH (21:00)
[2018-03-11] MEDS: BACLOFEN 10 MG TAB PO SCH ×3 (07:37→20:09)
[2018-03-11] MEDS: SENNOSIDES-DOCUSATE SODIUM 1 EACH TAB PO SCH (07:37)
[2018-03-11] MEDS: ALPRAZolam 1 MG TAB PO SCH ×3 (07:37→20:09)
[2018-03-11] MEDS: ASPIRIN 81 MG PO SCH (07:37)
[2018-03-11] MEDS: PSYLLIUM HUSK 100% 6 GM PACKET PO SCH (07:38)
[2018-03-11 07:59] LABS: Calcium 9.1 mg/dL (8.4-10.2)
--- NOTE | 2018-03-11 10:12 | P.PN ---
Progress Note - Text Progress Note Date: 03/11/18 Interval History: Patient is a 62-year-old female who was seen today, patient is sitting up in a recliner watching television. Patient reported to me that she is no longer having visual hallucinations, she states that she just wants to go home to see her cat. Patient states that she's been eating well and states that she had done 2 laps around the unit with physical therapy. Patient reports that she slept on and off last night but she was sleeping during the day yesterday. Patient states that she is more alert today and not feeling as drowsy. Patient was tearful at times stating that she misses her cat. Mental Status: Appearance/Attitude: Patient is sitting up in a recliner, she made good eye contact and was cooperative. Behavior: Patient did not exhibit any psychomotor agitation or retardation Speech/Language: Patient's speech was spontaneous and normal volume and rhythm and she was coherent Thought Process: Patient was goal-directed there is no evidence of loose associations or flight of ideas Thought Content: Patient denied any auditory or visual hallucinations and no delusions or paranoid ideation were elicited. Patient reports that she's feeling sad because she misses her cat and she would like to go home. She states that she slept on and off last night but patient was sleeping through the day yesterday. She reports that she is eating well and has a good appetite. Suicidal/Homicidal Ideation: Patient denied any current suicidal or homicidal ideation Sensorium/Cognition: Patient is alert and oriented to person, month, year and situation her recent and remote memory were not formally tested Mood/Affect: Patient's mood was tearful at times and her affect was appropriate to her mood Insight/Judgment: Patient's insight and judgment are fair Assessment: Patient is alert, sitting up in a recliner watching television and reports no further visual hallucinations. She was oriented to month and year as well as situation and person. She discussed that she wishes to return to her home because she misses her cat. Patient states that she was feeling tearful about that and did begin to cry. Patient and I reviewed her medications at home. Patient states that she is not currently feeling anxious. Per Dr. Garza when the patient was off of opiate medication her mentation was much clearer, patient has been on benzodiazepines for a number of years and states that nothing else has helped with her anxiety. Patient reported that she was eating well and had a good appetite her sleep was on and off last evening but patient had been sleeping during the day. Plan: Will continue Xanax 1 mg 3 times a day, will increase her Remeron to 30 mg at bedtime, will not restart Elavil and would recommend that if opiate pain medication can be avoided it would be beneficial as the patient is on benzodiazepines and the combination can cause confusion, lethargy. Patient will follow-up with Dr. Garza as an outpatient when she is discharged to further address her psychotropic medication. I will sign off the case at this time as the patient's delirium has resolved.
[2018-03-11] MEDS: CALCIUM CARBONATE 500 MG CHEWABLE PO SCH (17:03)
[2018-03-11] MEDS: FENOFIBRATE 160 MG TAB PO SCH (17:03)
[2018-03-11] MEDS: ENOXAPARIN 40 MG/0.4 ML SYRINGE SQ SCH (17:04)
[2018-03-11] MEDS: ATORVASTATIN 10 MG TAB PO SCH (20:07)
[2018-03-11 20:24] VITALS: BP 101/63; PULSE 89; RESP 18; TEMP 98.2
[2018-03-11] MEDS ORDERED: MIRTAZAPINE 15 MG TAB PO SCH (21:00)
--- NOTE | 2018-03-12 07:59 | DS ---
DISCHARGE SUMMARY DATE OF ADMISSION: February 28, 2018. DATE OF DISCHARGE: March 11, 2018. FINAL DIAGNOSES: 1. Acute toxic metabolic encephalopathy on admission from medications, resolved. 2. Acute delirium multifactorial including that from Xanax withdrawal. 3. Hyperlipidemia. 4. Chronic fibromyalgia. 5. Restless legs syndrome. 6. History of brain aneurysm, for which patient clips are in place. 7. Hallucinations, improved. 8. Acute renal failure likely prerenal present on admission, resolved. HOSPITAL COURSE: This patient presented with toxic encephalopathy. The creatinine up to 3.7. The patient was aggressively hydrated and patient did turn around and started doing much better. The patient's following medications were discontinued including MS Contin. She was not using the same, Lasix, high dose of baclofen, Xanax and Elavil, MiraLAX and potassium. The patient's creatinine by the time of discharge was 0.81. Also patient was not using MS Contin hence this was discontinued too. The patient is cheerful, eating, doing much better at the time of discharge. The patient was left on the current dose of Xanax to which she is doing really well. I did call the son and give an update and also did talk with the patient. On examination, lungs decreased breath sounds. Cardiovascular: First and second sounds normal. Patient up to the bathroom. Discussion and discharge planning more than 35 minutes. DISCHARGE MEDICATIONS: 1. Tricor 160 mg a day. 2. Folic acid 1 mg a day. 3. Mevacor 40 mg at bedtime. 4. Allopurinol 100 mg a day. 5. Vitamin D3 3000 units p.o. daily. 6. EpiPen p.r.n. 7. Chantix 1 mg b.i.d. 8. mg p.o. daily. 9. Calcium 600 mg p.o. daily. 10.Centrum Silver 1 tab p.o. daily. 11.Mycostatin topical daily p.r.n. 12.Metamucil 0.4 g at noon. 13.Requip 3 mg q.h.s. 14.Zestoretic 08/29.5 one tab p.o. b.i.d. 15.Xanax 1 mg p.o. t.i.d. 16.Aspirin 81 mg daily. 17.Baclofen 5 mg t.i.d. 18.Mirtazapine 30 mg q.h.s. 19.Senokot-S 2 tablets p.o. b.i.d. Follow up with Dr. Underwood in 1 week. Follow up with Dr. Garza in 1 week. The patient discontinued medications include potassium 20, Elavil 75, Xanax 0.5 b.i.d., baclofen 10 mg b.i.d., Lasix 20 mg daily and MS Contin 15 mg b.i.d. Copy to Dr. Underwood. JUSTYN / ARSENN: [id number] /
== END 2018-03-11 20:31 | disposition home health service (06) | DRG 92 ==
LOC: EC 14:57 → 6SEL 16:49 → 3SUR 03-01 15:59
PROVIDERS: ADMIT Hospitalist; ATTEND Hospitalist
DX: G92 Toxic encephalopathy (principal); N17.9 Acute kidney failure, unspecified; F03.90 Unspecified dementia, unspecified severity, without behavioral disturbance, psychotic disturbance, mood disturbance, and anxiety; N18.3 Chronic kidney disease, stage 3 (moderate); F13.239 Sedative, hypnotic or anxiolytic dependence with withdrawal, unspecified; R41.0 Disorientation, unspecified; E86.0 Dehydration; M50.30 Other cervical disc degeneration, unspecified cervical region; E78.5 Hyperlipidemia, unspecified; E87.5 Hyperkalemia; G25.81 Restless legs syndrome; M79.7 Fibromyalgia; T42.4X5A Adverse effect of benzodiazepines, initial encounter; F12.90 Cannabis use, unspecified, uncomplicated; I12.9 Hypertensive chronic kidney disease with stage 1 through stage 4 chronic kidney disease, or unspecified chronic kidney disease; M10.9 Gout, unspecified; F17.210 Nicotine dependence, cigarettes, uncomplicated; F32.9 Major depressive disorder, single episode, unspecified; F41.9 Anxiety disorder, unspecified; G89.29 Other chronic pain; M54.9 Dorsalgia, unspecified; I10 Essential (primary) hypertension; J44.9 Chronic obstructive pulmonary disease, unspecified; M06.9 Rheumatoid arthritis, unspecified; M19.90 Unspecified osteoarthritis, unspecified site; M47.812 Spondylosis without myelopathy or radiculopathy, cervical region; T50.905A Adverse effect of unspecified drugs, medicaments and biological substances, initial encounter; Z86.14 Personal history of Methicillin resistant Staphylococcus aureus infection; Z98.51 Tubal ligation status; Z79.82 Long term (current) use of aspirin; Z79.899 Other long term (current) drug therapy; Z79.891 Long term (current) use of opiate analgesic; Z88.5 Allergy status to narcotic agent; Z88.0 Allergy status to penicillin; Z88.2 Allergy status to sulfonamides; Z88.8 Allergy status to other drugs, medicaments and biological substances; Z88.1 Allergy status to other antibiotic agents; Z91.030 Bee allergy status; Z86.73 Personal history of transient ischemic attack (TIA), and cerebral infarction without residual deficits; T50.995A Adverse effect of other drugs, medicaments and biological substances, initial encounter
CPT/HCPCS: 36415; 70450; 71045; 72125; 80048; 80053; 81003; 82140; 82550; 82553; 83605; 83735; 84100; 84443; 84484; 85025; 85027; 85610; 85730; 93005; 94760; 96360; 99285

== ENCOUNTER → 2018-04-11 | Outpatient (CLI) | payer OTHER ==
[2018-04-11 14:31] LABS: Calcium 10.1 mg/dL (8.4-10.2); Potassium 4.7 mmol/L (3.5-5.1)
== END | disposition home or self-care (01) ==
LOC: LABWHC1 13:59
PROVIDERS: ATTEND Surgery Vascular Surgery
DX: I65.23 Occlusion and stenosis of bilateral carotid arteries (principal)
CPT/HCPCS: 36415; 80048

== ENCOUNTER → 2018-04-22 | Outpatient (CLI) | payer OTHER ==
--- NOTE | 2018-04-22 13:23 | MM ---
Reason for exam: clinical finding. Last mammogram was performed 1 year and 10 months ago. History: Patient is postmenopausal and has history of colon cancer at age 52. Family history of premenopausal breast cancer in sister at age 28, breast cancer in father at age 57, breast cancer in sister, and breast cancer in brother at age 22. Benign excisional biopsy of the left breast, March 07, 2002. Physical Findings: Nurse did not find any significant physical abnormalities on exam. MG 3D Diag Mammo W/Cad TISH Bilateral CC and MLO view(s) were taken. Prior study comparison: June 21, 2016, bilateral MG screening mammo w CAD. June 15, 2015, bilateral MG screening mammo w CAD. There are scattered fibroglandular densities. No significant new findings when compared with previous films. These results were verbally communicated with the patient and result sheet given to the patient on 04/22/18. ASSESSMENT: Benign, BI-RAD 2 RECOMMENDATION: Routine screening mammogram of both breasts in 1 year.
== END | disposition home or self-care (01) ==
LOC: RADMAMWWP 11:53
PROVIDERS: ATTEND Family Medicine
DX: N64.4 Mastodynia (principal)
CPT/HCPCS: 77066; G0279; 77062

== ENCOUNTER → 2018-07-18 | Outpatient (CLI) | payer OTHER ==
[2018-07-18 15:58] LABS: Basophils % (A) 1 %; Eosinophils % (A) 0 %; Lymphocytes # (A) 1.8 k/uL (1.0-4.8); Lymphocytes % (A) 22 %; MCH 29.5 pg (25.0-35.0); MCV 92.4 fL (80.0-100.0); Mean Platelet Volume 7.6; Monocytes # (A) 0.4 k/uL (0-1.0); Monocytes % (A) 5 %; Neutrophils # (A) 5.6 k/uL (1.3-7.7); Neutrophils % (A) 71 %; Platelet Count 229 k/uL (150-450); RBC 4.76 m/uL (3.80-5.40); RDW 13.2 % (11.5-15.5); WBC 7.9 k/uL (3.8-10.6)
[2018-07-18 16:01] LABS: Appearance,Urine Clear (Clear); Bilirubin,Urine Negative (Negative); Blood,Urine Negative (Negative); Color,Urine Colorless; Glucose,Urine (UA) Negative (Negative); Ketones,Urine Negative (Negative); Leukocyte Esterase,Urine Negative (Negative); Nitrite,Urine Negative (Negative); Protein,Urine Negative (Negative); Specific Gravity,Urine 1.003 (1.001-1.035); Urobilinogen,Urine <2.0 mg/dL (<2.0)
[2018-07-18 16:27] LABS: Anion Gap 10 mmol/L; Blood Urea Nitrogen 15 mg/dL (7-17); Carbon Dioxide 25 mmol/L (22-30); Chloride 105 mmol/L (98-107); Glucose 113 mg/dL (74-99); Magnesium 1.5 mg/dL (1.6-2.3); Phosphorus 3.9 mg/dL (2.5-4.5); Potassium 4.2 mmol/L (3.5-5.1); Sodium 140 mmol/L (137-145)
[2018-07-19 01:52] LABS: Iron Saturation 16.44 (12.00-45.00)
[2018-07-19 01:56] LABS: Parathyroid Hormone Intact 27.2 pg/mL (14.0-72.0)
[2018-07-19 02:00] LABS: Vitamin D 25 Hydroxy 17.1 ng/mL (30.0-100.0)
== END | disposition home or self-care (01) ==
LOC: LABWHC1 14:59
PROVIDERS: ATTEND Internal Medicine Nephrology
DX: N17.9 Acute kidney failure, unspecified (principal); D64.9 Anemia, unspecified; E55.9 Vitamin D deficiency, unspecified; E21.3 Hyperparathyroidism, unspecified; M10.9 Gout, unspecified
CPT/HCPCS: 36415; 80048; 81003; 82306; 82728; 83540; 83550; 83735; 83970; 84100; 84550; 85025

== ENCOUNTER 2018-08-13 08:25 | Day surgery (SDC) | payer OTHER ==
[2018-08-11 18:22] VITALS: BMI 33.5
[~2018-08-13 08:25] MED LIST: HYDROmorphone 0.5 MG/0.5 ML SYRINGE IVP PRN; LACTATED RINGERS 1,000 ML IV SCH; LIDOCAINE 1% 20 ML VIAL (10MG/ML) FOR IV START INTRADERMA PRN
[2018-08-13] MEDS ORDERED: PROPOFOL 10 MG/ML 20 ML VIAL IV ONE (08:55)
[2018-08-13 09:04] VITALS: RESP 18; TEMP 96.4
--- NOTE | 2018-08-13 09:11 | P.GSHP ---
History of Present Illness H&P Date: 08/13/18 Chief Complaint: History of colon polyps This is a 62-year-old female who has history of colon polyps. Patient rents today for colonoscopy. Past Medical History Past Medical History: COPD, CVA/TIA, Fibromyalgia, Hyperlipidemia, Hypertension , Osteoarthritis (OA), Renal Disease, Rheumatoid Arthritis (RA), Sleep Apnea/ CPAP/BIPAP Additional Past Medical History / Comment(s): CVA (1992 & JANUARY 2018), RT ARM WEAKNESS. HX BRAIN ANEURYSM. DROPPED HEAD SYNDROME-HEAD CROOKED, CONSTANT MORALES, GETTING INJ. HX RUPTURED BOWEL. KIDNEY DISEASE STAGE 3. HEMORRHOIDS. GOUT. NOT USING C-PAP MACHINE. HX OF COLON POLYPS. BACK PAIN, GOT 2 INJ TODAY. USES WHEELED WALKER. History of Any Multi-Drug Resistant Organisms: MRSA Date of last positivie culture/infection: 06/05/13 MDRO Source:: BLADDER Past Surgical History: Bowel Resection, Breast Surgery, Section, Orthopedic Surgery, Tonsillectomy, Tubal Ligation Additional Past Surgical History / Comment(s): ARTIFICIAL LT FOOT TENDON CHILD; LATER HAD TENDONS ON LT FOOT CUT. D & C, BRAIN ANEURYSM REPAIR WITH COILS, LT BREAST LUMPECTOMY, LT EYE SURGERY. Past Anesthesia/Blood Transfusion Reactions: Previous Problems w/ Anesthesia Additional Past Anesthesia/Blood Transfusion Reaction / Comment(s): ETHER CAUSED PONV Smoking Status: Former smoker - Past Family History Mother Family Medical History: CVA/TIA Father Family Medical History: Cancer Additional Family Medical History / Comment(s): BREAST CA. Sister(s) Family Medical History: Cancer Additional Family Medical History / Comment(s): LUNG CA Medications and Allergies Home Medications Medication Instructions Recorded Confirmed Type Fenofibrate 160 mg PO W/SUPPER 05/24/14 08/13/18 History Folic Acid 1 mg PO DAILY 05/24/14 08/13/18 History Lovastatin [Mevacor] 40 mg PO HS 05/24/14 08/13/18 History Allopurinol [Zyloprim] 100 mg PO W/LUNCH 04/04/16 08/13/18 History Cholecalciferol [Vitamin D3] 3,000 unit PO BID 04/04/16 08/13/18 History EPINEPHrine (Auto Inject) [Epipen] 0.3 mg IM ONCE PRN 04/04/16 08/13/18 History Varenicline [Chantix Continuing 1 mg PO BID 04/04/16 08/13/18 History Pack] Biotin 5 mg PO DAILY 02/13/18 08/13/18 History Multivit-Min/FA/Lycopen/Lutein 1 tab PO DAILY 02/13/18 08/13/18 History [Centrum Silver Tablet] Psyllium Husk [Metamucil] 0.4 gm PO WESA 02/13/18 08/13/18 History rOPINIRole HCL [Requip] 3 mg PO HS 02/13/18 08/13/18 History ALPRAZolam [Xanax] 0.5 mg PO QID 05/09/18 08/13/18 History Ascorbic Acid [Vitamin C] 6,000 mg PO DAILY 05/09/18 08/13/18 History Aspirin EC [Ecotrin] 325 mg PO DAILY 05/09/18 08/13/18 History Baclofen 10 mg PO QID 05/09/18 08/13/18 History Mirtazapine [Remeron] 45 mg PO HS 05/09/18 08/13/18 History Sennosides-Docusate Sodium 1 tab PO DAILY PRN 05/09/18 08/13/18 History [Senokot-S] Amitriptyline HCl [Elavil] 100 mg PO HS 08/11/18 08/13/18 History Magnesium 400 mg PO DAILY 08/11/18 08/13/18 History Metoprolol Succinate [Toprol XL] 25 mg PO HS 08/11/18 08/13/18 History Allergies Allergy/AdvReac Type Severity Reaction Status Date / Time morphine Allergy Unknown Hallucinati Verified 08/13/18 08:46 ons acetaminophen Allergy Unknown Verified 08/13/18 08:46 [From Darvocet-N 100] bupropion [From Wellbutrin] Allergy Unknown Verified 08/13/18 08:46 caffeine [From Norgesic] Allergy Anaphylaxis Verified 08/13/18 08:46 cefaclor [From Ceclor] Allergy Unknown Verified 08/13/18 08:46 divalproex sodium Allergy Unknown Verified 08/13/18 08:46 [From Depakote] doxycycline Allergy Unknown Verified 08/13/18 08:46 Iodine and Iodide Containing Allergy Rash/Hives Verified 08/13/18 08:46 Produc ketorolac tromethamine Allergy Unknown Verified 08/13/18 08:46 [From Toradol] lorazepam [From Ativan] Allergy Rash/Hives Verified 08/13/18 08:46 naproxen Allergy Unknown Verified 08/13/18 08:46 orphenadrine [From Norgesic] Allergy Anaphylaxis Verified 08/13/18 08:46 orphenadrine citrate Allergy Unknown Verified 08/13/18 08:46 [From Norgesic] Penicillins Allergy Unknown Verified 08/13/18 08:46 phenytoin sodium Allergy Unknown Verified 08/13/18 08:46 [From Dilantin] phenytoin sodium extended Allergy Unknown Verified 08/13/18 08:46 [From Dilantin] pregabalin [From Lyrica] Allergy Unknown Verified 08/13/18 08:46 propoxyphene HCl Allergy Unknown Verified 08/13/18 08:46 [From Darvon] propoxyphene napsylate Allergy Unknown Verified 08/13/18 08:46 [From Darvocet-N 100] Sulfa (Sulfonamide Allergy Unknown Verified 08/13/18 08:46 Antibiotics) trazodone Allergy Unknown Verified 08/13/18 08:46 venom-honey bee Allergy Unknown Verified 08/13/18 08:46 [bee venom (honey bee)] venom-wasp Allergy Anaphylaxis Verified 08/13/18 08:46 adhesive AdvReac Rash/Hives Verified 08/13/18 08:46 UNCOATED ASPIRIN AdvReac Unknown Uncoded 08/13/18 08:46 Surgical - Exam Vital Signs Temp Pulse Resp BP Pulse Ox 96.4 F L 90 18 190/88 93 L 08/13/18 08:54 08/13/18 08:54 08/13/18 08:54 08/13/18 08:54 08/13/18 08:54 - General well developed, no distress - Eyes PERRL - ENT normal pinna - Neck no masses - Respiratory normal expansion - Cardiovascular Rhythm: regular - Abdomen Abdomen: soft, non tender Assessment and Plan Assessment: Surgical polyps. We'll perform colonoscopy.
--- NOTE | 2018-08-13 09:28 | P.OP ---
Date of Procedure: 08/13/18 Preoperative Diagnosis: History: Polyps Postoperative Diagnosis: Rectal polyp, transverse colon polyp Procedure(s) Performed: Colonoscopy Anesthesia: MAC Surgeon: Joel Richardson Pathology: other (Transverse colon polyp, rectal polyp) Condition: stable Disposition: PACU Description of Procedure: Patient's placed on the endoscopy table in the lateral position. She received IV sedation. Digital rectal exam was performed which revealed no abnormalities. The colonoscope was then placed patient anus and passed throughout the entire colon. The patient appeared to have a previous ileocolonic anastomosis. The remaining right colon appeared normal. In the transverse colon there was a small polyp seen this removed the cold forcep. Scope was brought back and the remainder of the transverse colon and descending colon appeared normal. The sigmoid colon appeared normal. Scope was brought back the rectum and a small polyp seen this removed the cold forcep. The scope was then withdrawn for patient.
[2018-08-13 09:49] VITALS: BP 160/80; PULSE 70
== END 2018-08-13 10:03 | disposition home or self-care (01) ==
LOC: ORWHC2ENDO 08:25
PROVIDERS: ATTEND Surgery
DX: Z12.11 Encounter for screening for malignant neoplasm of colon (principal); D12.3 Benign neoplasm of transverse colon; K62.1 Rectal polyp; Z86.010 Personal history of colon polyps; Z98.0 Intestinal bypass and anastomosis status; Z90.49 Acquired absence of other specified parts of digestive tract; K57.90 Diverticulosis of intestine, part unspecified, without perforation or abscess without bleeding; J44.9 Chronic obstructive pulmonary disease, unspecified; M79.7 Fibromyalgia; E78.5 Hyperlipidemia, unspecified; M19.90 Unspecified osteoarthritis, unspecified site; M06.9 Rheumatoid arthritis, unspecified; G47.33 Obstructive sleep apnea (adult) (pediatric); I69.331 Monoplegia of upper limb following cerebral infarction affecting right dominant side; R51 Headache; I12.9 Hypertensive chronic kidney disease with stage 1 through stage 4 chronic kidney disease, or unspecified chronic kidney disease; N18.3 Chronic kidney disease, stage 3 (moderate); F39 Unspecified mood [affective] disorder; M10.9 Gout, unspecified; M54.9 Dorsalgia, unspecified; Z91.19 Patient's noncompliance with other medical treatment and regimen; Z99.89 Dependence on other enabling machines and devices; Z79.82 Long term (current) use of aspirin; Z79.899 Other long term (current) drug therapy; Z88.6 Allergy status to analgesic agent; Z88.1 Allergy status to other antibiotic agents; Z91.030 Bee allergy status; Z88.5 Allergy status to narcotic agent; Z88.0 Allergy status to penicillin; Z88.2 Allergy status to sulfonamides; Z88.8 Allergy status to other drugs, medicaments and biological substances; Z91.09 Other allergy status, other than to drugs and biological substances; Z98.51 Tubal ligation status; Z86.14 Personal history of Methicillin resistant Staphylococcus aureus infection; Z87.891 Personal history of nicotine dependence
CPT/HCPCS: 88305; 45380; J2704

== ENCOUNTER → 2018-09-30 | Outpatient (CLI) | payer MEDICARE, OTHER ==
[2018-09-30 17:45] LABS: Basophils % (A) 0 %; Eosinophils # (A) 0.1 k/uL (0-0.7); Eosinophils % (A) 1 %; HCT 44.3 % (34.0-46.0); HGB 13.9 gm/dL (11.4-16.0); Lymphocytes # (A) 2.7 k/uL (1.0-4.8); Lymphocytes % (A) 22 %; MCH 29.5 pg (25.0-35.0); MCHC 31.5 g/dL (31.0-37.0); MCV 93.8 fL (80.0-100.0); Mean Platelet Volume 6.7; Monocytes # (A) 0.6 k/uL (0-1.0); Monocytes % (A) 5 %; Neutrophils # (A) 8.7 k/uL (1.3-7.7); Neutrophils % (A) 70 %; Platelet Count 302 k/uL (150-450); RBC 4.72 m/uL (3.80-5.40); RDW 13.5 % (11.5-15.5); WBC 12.4 k/uL (3.8-10.6)
[2018-09-30 17:50] LABS: Appearance,Urine Clear (Clear); Bilirubin,Urine Negative (Negative); Blood,Urine Negative (Negative); Color,Urine Light Yellow; Glucose,Urine (UA) Negative (Negative); Ketones,Urine Negative (Negative); Leukocyte Esterase,Urine Negative (Negative); Nitrite,Urine Negative (Negative); Protein,Urine Negative (Negative); Specific Gravity,Urine 1.005 (1.001-1.035); Urobilinogen,Urine <2.0 mg/dL (<2.0)
[2018-10-01 05:49] LABS: Magnesium 1.6 mg/dL (1.5-2.4); Phosphorus 4.3 mg/dL (2.4-5.1)
[2018-10-01 06:18] LABS: Parathyroid Hormone Intact 32.6 pg/mL (14.0-72.0)
[2018-10-01 09:49] LABS: Iron Saturation 21.75 (12.00-45.00)
[2018-10-01 13:44] LABS: Anion Gap 9.6 mmol/L (4.00-12.00); Calcium 9.4 mg/dL (8.7-10.3); Carbon Dioxide 23.4 mmol/L (21.6-31.8); Uric Acid 4.4 mg/dL (2.9-7.7)
== END ==
LOC: LABWHC1 17:17
PROVIDERS: ATTEND Nurse Practitioner Family
DX: N18.2 Chronic kidney disease, stage 2 (mild) (principal); E55.9 Vitamin D deficiency, unspecified; D63.1 Anemia in chronic kidney disease; N39.0 Urinary tract infection, site not specified
CPT/HCPCS: 36415; 80048; 81003; 82728; 83540; 83550; 83735; 83970; 84100; 84550; 85025

== ENCOUNTER → 2018-11-25 | Outpatient (CLI) | payer MEDICARE, OTHER ==
[2018-11-25 14:33] LABS: Basophils % (A) 0 %; Eosinophils # (A) 0.1 k/uL (0-0.7); Eosinophils % (A) 1 %; HCT 43.4 % (34.0-46.0); HGB 14.6 gm/dL (11.4-16.0); Lymphocytes # (A) 1.9 k/uL (1.0-4.8); Lymphocytes % (A) 20 %; MCH 30.5 pg (25.0-35.0); MCHC 33.5 g/dL (31.0-37.0); Mean Platelet Volume 7.6; Monocytes # (A) 0.4 k/uL (0-1.0); Monocytes % (A) 4 %; Neutrophils # (A) 6.6 k/uL (1.3-7.7); Neutrophils % (A) 73 %; Platelet Count 317 k/uL (150-450); RBC 4.77 m/uL (3.80-5.40); RDW 13.8 % (11.5-15.5); WBC 9.1 k/uL (3.8-10.6)
[2018-11-25 14:41] LABS: Appearance,Urine Clear (Clear); Bilirubin,Urine Negative (Negative); Blood,Urine Trace (Negative); Color,Urine Light Yellow; Glucose,Urine (UA) Negative (Negative); Ketones,Urine Negative (Negative); Leukocyte Esterase,Urine Negative (Negative); Mucus,Urine Rare /hpf; Nitrite,Urine Negative (Negative); PH, Urine 5.5 (5.0-8.0); Protein,Urine Negative (Negative); RBC,Urine 1 /hpf (0-5); Specific Gravity,Urine 1.006 (1.001-1.035); Squamous Epithelial Cell,Urine 2 /hpf (0-4); Urobilinogen,Urine <2.0 mg/dL (<2.0); WBC,Urine 1 /hpf (0-5)
[2018-11-25 20:47] LABS: Parathyroid Hormone Intact 21.8 pg/mL (14.0-72.0)
[2018-11-25 21:45] LABS: Iron Saturation 24.44 (12.00-45.00)
[2018-11-25 21:53] LABS: Vitamin D 25 Hydroxy 27.4 ng/mL (30.0-100.0)
[2018-11-25 22:00] LABS: Anion Gap 13.3 mmol/L (4.00-12.00); Calcium 10.3 mg/dL (8.7-10.3); Carbon Dioxide 23.7 mmol/L (21.6-31.8); Magnesium 1.6 mg/dL (1.5-2.4); Phosphorus 3.6 mg/dL (2.4-5.1); Potassium 4.1 mmol/L (3.5-5.5); Uric Acid 3.6 mg/dL (2.9-7.7)
== END ==
LOC: LABWHC1 13:52
PROVIDERS: ATTEND Nurse Practitioner Family
DX: N39.0 Urinary tract infection, site not specified (principal); M10.9 Gout, unspecified; D63.1 Anemia in chronic kidney disease; N18.2 Chronic kidney disease, stage 2 (mild); E55.9 Vitamin D deficiency, unspecified; E83.42 Hypomagnesemia
CPT/HCPCS: 36415; 80048; 81001; 82306; 82728; 83540; 83550; 83735; 83970; 84100; 84550; 85025

== ENCOUNTER → 2019-01-20 | Outpatient (CLI) | payer MEDICARE, OTHER ==
[2019-01-20 13:36] LABS: Basophils # (A) 0.1 k/uL (0-0.2); Basophils % (A) 1 %; Eosinophils % (A) 0 %; HCT 40.7 % (34.0-46.0); HGB 12.8 gm/dL (11.4-16.0); Lymphocytes # (A) 1.3 k/uL (1.0-4.8); Lymphocytes % (A) 18 %; MCH 30.4 pg (25.0-35.0); MCHC 31.3 g/dL (31.0-37.0); Monocytes # (A) 0.5 k/uL (0-1.0); Monocytes % (A) 7 %; Neutrophils # (A) 5.4 k/uL (1.3-7.7); Neutrophils % (A) 72 %; Platelet Count 266 k/uL (150-450); RBC 4.19 m/uL (3.80-5.40); RDW 13.8 % (11.5-15.5); WBC 7.5 k/uL (3.8-10.6)
[2019-01-20 13:48] LABS: MCV 97.1 fL (80.0-100.0)
[2019-01-20 13:56] LABS: Appearance,Urine Clear (Clear); Bilirubin,Urine Negative (Negative); Blood,Urine Negative (Negative); Color,Urine Yellow; Glucose,Urine (UA) Negative (Negative); Ketones,Urine Negative (Negative); Leukocyte Esterase,Urine Negative (Negative); Nitrite,Urine Negative (Negative); PH, Urine 5.5 (5.0-8.0); Protein,Urine Negative (Negative); Specific Gravity,Urine 1.016 (1.001-1.035); Urobilinogen,Urine <2.0 mg/dL (<2.0)
== END | disposition home or self-care (01) ==
LOC: LABWHC1 12:17
PROVIDERS: ATTEND Psychiatry & Neurology Pain Medicine
DX: R44.3 Hallucinations, unspecified (principal); R41.82 Altered mental status, unspecified
CPT/HCPCS: 36415; 81003; 85025; 87086

== ENCOUNTER → 2019-03-27 | Outpatient (CLI) | payer MEDICARE, OTHER ==
[2019-03-27 10:34] LABS: Basophils % (A) 1 %; Eosinophils % (A) 0 %; HCT 41.2 % (34.0-46.0); HGB 13.3 gm/dL (11.4-16.0); Lymphocytes # (A) 1.8 k/uL (1.0-4.8); Lymphocytes % (A) 31 %; MCH 29.7 pg (25.0-35.0); MCHC 32.3 g/dL (31.0-37.0); Mean Platelet Volume 7.6; Monocytes # (A) 0.4 k/uL (0-1.0); Monocytes % (A) 7 %; Neutrophils # (A) 3.3 k/uL (1.3-7.7); Neutrophils % (A) 57 %; Platelet Count 311 k/uL (150-450); RBC 4.48 m/uL (3.80-5.40); RDW 13.3 % (11.5-15.5); WBC 5.8 k/uL (3.8-10.6)
[2019-03-27 10:35] LABS: MCV 92.1 fL (80.0-100.0)
[2019-03-27 10:43] LABS: Appearance,Urine Clear (Clear); Bilirubin,Urine Negative (Negative); Blood,Urine Negative (Negative); Color,Urine Yellow; Glucose,Urine (UA) Negative (Negative); Ketones,Urine Negative (Negative); Leukocyte Esterase,Urine Trace (Negative); Mucus,Urine Rare /hpf; Nitrite,Urine Negative (Negative); Protein,Urine Negative (Negative); Specific Gravity,Urine 1.017 (1.001-1.035); Squamous Epithelial Cell,Urine 1 /hpf (0-4); Urobilinogen,Urine <2.0 mg/dL (<2.0); WBC,Urine 3 /hpf (0-5)
[2019-03-27 16:41] LABS: Iron Saturation 17.17 (12.00-45.00)
[2019-03-27 17:17] LABS: Parathyroid Hormone Intact 27.5 pg/mL (14.0-72.0)
[2019-03-27 19:11] LABS: Anion Gap 6.4 mmol/L (4.00-12.00); Calcium 9.4 mg/dL (8.7-10.3); Carbon Dioxide 29.6 mmol/L (21.6-31.8); Magnesium 1.8 mg/dL (1.5-2.4); Phosphorus 3.6 mg/dL (2.4-5.1); Potassium 4.2 mmol/L (3.5-5.5); Uric Acid 3.9 mg/dL (2.9-7.7)
== END ==
LOC: LABWHC1 09:20
PROVIDERS: ATTEND Nurse Practitioner Family
DX: E55.9 Vitamin D deficiency, unspecified (principal); E83.42 Hypomagnesemia; M10.9 Gout, unspecified; N39.0 Urinary tract infection, site not specified; N18.2 Chronic kidney disease, stage 2 (mild); D63.1 Anemia in chronic kidney disease
CPT/HCPCS: 36415; 80048; 81001; 82728; 83540; 83550; 83735; 83970; 84100; 84550; 85025

== ENCOUNTER 2019-07-21 12:23 | Inpatient (IN) | payer MEDICARE, OTHER ==
[2019-07-21] MEDS ORDERED: SODIUM CHLORIDE 0.9% 1,000 ML IV ONE (12:51)
--- NOTE | 2019-07-21 12:58 | ED ---
Altered Mental Status HPI - General Chief Complaint: Altered Mental Status Stated Complaint: Altered Mental Status Time Seen by Provider: 07/21/19 12:51 Source: EMS, RN notes reviewed, old records reviewed Mode of arrival: EMS Limitations: altered mental status, physical limitation - History of Present Illness Initial Comments: This is a 63-year-old female the ER for evaluation patient's brought in by family member for evaluation of altered mental status. Patient's poor strain currently able to answer and anal for she is just complaining of not feeling well and headache. Patient was found to be weak today. Patient was unable to actively around the house which is normally no problems for her, she kept falling onto her bed friend but she was just unable get up he is complaining only admitted for tight when she realized that she was very weak. At that point and she called the ambulance to bring patient to the ER patient denies any prior history of feeling similar to that she does not family states the patient was seen yesterday night and was acting appropriately MD Complaint: altered mental status, confusion, weakness -: unknown Severity: moderate Consistency of Symptoms: getting worse Context: history of similar presentation, other (psychiatric illness) Associated Symptoms: weakness, difficulty walking - Related Data Home Medications Medication Instructions Recorded Confirmed Fenofibrate 160 mg PO W/SUPPER 05/24/14 07/21/19 Folic Acid 1 mg PO DAILY 05/24/14 07/21/19 Lovastatin [Mevacor] 40 mg PO HS 05/24/14 07/21/19 Allopurinol [Zyloprim] 100 mg PO W/LUNCH 04/04/16 07/21/19 Cholecalciferol [Vitamin D3 (25 2,000 unit PO DAILY 04/04/16 07/21/19 Mcg = 1000 Iu)] EPINEPHrine (Auto Inject) [Epipen] 0.3 mg IM ONCE PRN 04/04/16 07/21/19 rOPINIRole HCL [Requip] 3 mg PO HS 02/13/18 07/21/19 Aspirin EC [Ecotrin] 325 mg PO DAILY 05/09/18 07/21/19 Baclofen 10 mg PO TID 05/09/18 07/21/19 Mirtazapine [Remeron] 45 mg PO HS 05/09/18 07/21/19 Amitriptyline HCl [Elavil] 100 mg PO HS 08/11/18 07/21/19 Metoprolol Succinate [Toprol XL] 25 mg PO HS 08/11/18 07/21/19 Albuterol Inhaler [Ventolin Hfa 1 - 2 puff INHALATION RT-Q6H PRN 07/21/19 07/21/19 Inhaler] Dilaudid Pain Pump 1 dose SQ CONTINUOUS 07/21/19 07/21/19 Magnesium Oxide [Mag-Ox] 400 mg PO DAILY 07/21/19 07/21/19 Naloxegol Oxalate [Movantik] 12.5 mg PO DAILY 07/21/19 07/21/19 busPIRone HCL 15 mg PO BID 07/21/19 07/21/19 Allergies Allergy/AdvReac Type Severity Reaction Status Date / Time morphine Allergy Unknown Hallucinati Verified 07/21/19 13:52 ons acetaminophen Allergy Unknown Verified 07/21/19 13:52 [From Darvocet-N 100] bupropion [From Wellbutrin] Allergy Unknown Verified 07/21/19 13:52 caffeine [From Norgesic] Allergy Anaphylaxis Verified 07/21/19 13:52 cefaclor [From Ceclor] Allergy Unknown Verified 07/21/19 13:52 divalproex sodium Allergy Unknown Verified 07/21/19 13:52 [From Depakote] doxycycline Allergy Unknown Verified 07/21/19 13:52 Iodine and Iodide Containing Allergy Rash/Hives Verified 07/21/19 13:52 Produc ketorolac tromethamine Allergy Unknown Verified 07/21/19 13:52 [From Toradol] lorazepam [From Ativan] Allergy Rash/Hives Verified 07/21/19 13:52 naproxen Allergy Unknown Verified 07/21/19 13:52 orphenadrine [From Norgesic] Allergy Anaphylaxis Verified 07/21/19 13:52 orphenadrine citrate Allergy Unknown Verified 07/21/19 13:52 [From Norgesic] Penicillins Allergy Unknown Verified 07/21/19 13:52 phenytoin sodium Allergy Unknown Verified 07/21/19 13:52 [From Dilantin] phenytoin sodium extended Allergy Unknown Verified 07/21/19 13:52 [From Dilantin] pregabalin [From Lyrica] Allergy Unknown Verified 07/21/19 13:52 propoxyphene HCl Allergy Unknown Verified 07/21/19 13:52 [From Darvon] propoxyphene napsylate Allergy Unknown Verified 07/21/19 13:52 [From Darvocet-N 100] Sulfa (Sulfonamide Allergy Unknown Verified 07/21/19 13:52 Antibiotics) trazodone Allergy Unknown Verified 07/21/19 13:52 venom-honey bee Allergy Unknown Verified 07/21/19 13:52 [bee venom (honey bee)] venom-wasp Allergy Anaphylaxis Verified 07/21/19 13:52 adhesive AdvReac Rash/Hives Verified 07/21/19 13:52 UNCOATED ASPIRIN AdvReac Unknown Uncoded 08/13/18 08:46 Review of Systems ROS Statement: Those systems with pertinent positive or pertinent negative responses have been documented in the HPI. ROS Other: All systems not noted in ROS Statement are negative. Past Medical History Past Medical History: COPD, CVA/TIA, Fibromyalgia, Hyperlipidemia, Hypertension, Osteoarthritis (OA), Renal Disease, Rheumatoid Arthritis (RA), Sleep Apnea/CPAP/BIPAP Additional Past Medical History / Comment(s): CVA (1992 & JANUARY 2018), RT ARM WEAKNESS. HX BRAIN ANEURYSM. DROPPED HEAD SYNDROME-HEAD CROOKED, CONSTANT MORALES, GETTING INJ. HX RUPTURED BOWEL. KIDNEY DISEASE STAGE 3. HEMORRHOIDS. GOUT. NOT USING C-PAP MACHINE. HX OF COLON POLYPS. BACK PAIN, GOT 2 INJ TODAY. USES WHEELED WALKER. History of Any Multi-Drug Resistant Organisms: None Reported, MRSA Date of last positivie culture/infection: 06/05/13 MDRO Source:: BLADDER Past Surgical History: Bowel Resection, Breast Surgery, Section, Orthopedic Surgery, Tonsillectomy, Tubal Ligation Additional Past Surgical History / Comment(s): ARTIFICIAL LT FOOT TENDON CHILD; LATER HAD TENDONS ON LT FOOT CUT. D & C, BRAIN ANEURYSM REPAIR WITH COILS, LT BREAST LUMPECTOMY, LT EYE SURGERY. Past Anesthesia/Blood Transfusion Reactions: Previous Problems w/ Anesthesia Additional Past Anesthesia/Blood Transfusion Reaction / Comment(s): ETHER CAUSED PONV Past Psychological History: Anxiety, Depression Smoking Status: Former smoker Past Alcohol Use History: None Reported Past Drug Use History: None Reported - Past Family History Mother Family Medical History: CVA/TIA Father Family Medical History: Cancer Additional Family Medical History / Comment(s): BREAST CA. Sister(s) Family Medical History: Cancer Additional Family Medical History / Comment(s): LUNG CA General Exam Limitations: altered mental status, physical limitation General appearance: alert, in no apparent distress Head exam: Present: atraumatic, normocephalic, normal inspection Eye exam: Present: normal appearance, PERRL, EOMI. Absent: scleral icterus, conjunctival injection, periorbital swelling ENT exam: Present: normal exam, mucous membranes moist Neck exam: Present: normal inspection. Absent: tenderness, meningismus, lymphadenopathy Respiratory exam: Present: normal lung sounds bilaterally. Absent: respiratory distress, wheezes, rales, rhonchi, stridor Cardiovascular Exam: Present: normal rhythm, tachycardia, normal heart sounds. Absent: systolic murmur, diastolic murmur, rubs, gallop, clicks GI/Abdominal exam: Present: soft, normal bowel sounds. Absent: distended, tenderness, guarding, rebound, rigid Extremities exam: Present: normal inspection, full ROM, normal capillary refill. Absent: tenderness, pedal edema, joint swelling, calf tenderness Back exam: Present: normal inspection Neurological exam: Present: alert, oriented X3, CN II-XII intact Psychiatric exam: Present: normal affect, normal mood Skin exam: Present: warm, dry, intact, normal color. Absent: rash Course Vital Signs 07/21/19 07/21/19 07/21/19 12:31 12:53 14:02 Temperature 98.6 F Pulse Rate 125 H 122 H 89 Respiratory 24 18 Rate Blood Pressure 180/113 168/122 178/98 O2 Sat by Pulse 95 Oximetry 07/21/19 07/21/19 07/21/19 15:23 16:03 17:15 Temperature 99.4 F Pulse Rate 91 99 Respiratory 18 18 Rate Blood Pressure 196/105 182/91 O2 Sat by Pulse 97 96 Oximetry 07/21/19 17:56 Temperature Pulse Rate 104 H Respiratory 18 Rate Blood Pressure 176/90 O2 Sat by Pulse Oximetry - Reevaluation(s) Reevaluation #1: 07/21/19 13:29 Medical record reviewed Reevaluation #2: 07/21/19 13:29 Patient nonfocal at this point for neurology, no stroke symptoms noted on exam Reevaluation #3: 07/21/19 18:21 Spoke with radiology regarding computed tomography scan pneumocephalus, itself finding, history of prior aneurysmal surgery. Reevaluation #4: 07/21/19 18:22 At this point patient does appear to be medication overdose, patient currently mildly altered but directable answering questions appropriately. We'll admit for psychiatric evaluation and management management of overdose Medical Decision Making - Medical Decision Making 63 female the ER for evaluation presents today for evaluation regards to altered mental status. We will admit patient for neurology, psychiatry, further evaluation - Lab Data Result diagrams: 07/21/19 15:13 07/21/19 13:52 Lab Results 07/21/19 07/21/19 07/21/19 Range/Units 12:44 13:52 13:52 WBC (3.8-10.6) k/uL RBC (3.80-5.40) m/uL Hgb (11.4-16.0) gm/dL Hct (34.0-46.0) % MCV (80.0-100.0) fL MCH (25.0-35.0) pg MCHC (31.0-37.0) g/dL RDW (11.5-15.5) % Plt Count (150-450) k/uL Neutrophils % % Lymphocytes % % Monocytes % % Eosinophils % % Basophils % % Neutrophils # (1.3-7.7) k/uL Lymphocytes # (1.0-4.8) k/uL Monocytes # (0-1.0) k/uL Eosinophils # (0-0.7) k/uL Basophils # (0-0.2) k/uL PT (9.0-12.0) sec INR (<1.2) APTT (22.0-30.0) sec Sodium 139 (137-145) mmol/L Potassium 3.3 L (3.5-5.1) mmol/L Chloride 105 (98-107) mmol/L Carbon Dioxide 20 L (22-30) mmol/L Anion Gap 14 mmol/L BUN 15 (7-17) mg/dL Creatinine 0.97 (0.52-1.04) mg/dL Est GFR (CKD-EPI)AfAm 71 (>60 ml/min/1.73 sqM) Est GFR (CKD-EPI)NonAf 62 (>60 ml/min/1.73 sqM) Glucose 155 H (74-99) mg/dL POC Glucose (mg/dL) 172 H (75-99) mg/dL POC Glu Cnc Mechanic ID Nu Toney Plasma Lactic Acid Nabeel (0.7-2.0) mmol/L Calcium 9.6 (8.4-10.2) mg/dL Total Bilirubin 1.1 (0.2-1.3) mg/dL AST 35 (14-36) U/L ALT 27 (9-52) U/L Alkaline Phosphatase 107 (38-126) U/L Ammonia 28 (<30) umol/L Creatine Kinase 123 (30-135) U/L Troponin I (0.000-0.034) ng/mL Total Protein 7.8 (6.3-8.2) g/dL Albumin 4.2 (3.5-5.0) g/dL Urine Color Urine Appearance (Clear) Urine pH (5.0-8.0) Ur Specific [place] (1.001-1.035) Urine Protein (Negative) Urine Glucose (UA) (Negative) Urine Ketones (Negative) Urine Blood (Negative) Urine Nitrite (Negative) Urine Bilirubin (Negative) Urine Urobilinogen (<2.0) mg/dL Ur Leukocyte Esterase (Negative) Urine RBC (0-5) /hpf Urine WBC (0-5) /hpf Urine Opiates Screen (NotDetected) Ur Oxycodone Screen (NotDetected) Urine Methadone Screen (NotDetected) Ur Propoxyphene Screen (NotDetected) Ur Barbiturates Screen (NotDetected) U Tricyclic Antidepress (NotDetected) Ur Phencyclidine Scrn (NotDetected) Ur Amphetamines Screen (NotDetected) U Methamphetamines Scrn (NotDetected) U Benzodiazepines Scrn (NotDetected) Urine Cocaine Screen (NotDetected) U Marijuana (THC) Screen (NotDetected) 07/21/19 07/21/19 07/21/19 Range/Units 13:52 13:52 15:13 WBC 19.4 H (3.8-10.6) k/uL RBC 6.12 H (3.80-5.40) m/uL Hgb 18.1 H (11.4-16.0) gm/dL Hct 56.1 H (34.0-46.0) % MCV 91.7 (80.0-100.0) fL MCH 29.6 (25.0-35.0) pg MCHC 32.3 (31.0-37.0) g/dL RDW 15.4 (11.5-15.5) % Plt Count 311 (150-450) k/uL Neutrophils % 87 % Lymphocytes % 9 % Monocytes % 3 % Eosinophils % 1 % Basophils % 0 % Neutrophils # 16.9 H (1.3-7.7) k/uL Lymphocytes # 1.7 (1.0-4.8) k/uL Monocytes # 0.5 (0-1.0) k/uL Eosinophils # 0.2 (0-0.7) k/uL Basophils # 0.1 (0-0.2) k/uL PT (9.0-12.0) sec INR (<1.2) APTT (22.0-30.0) sec Sodium (137-145) mmol/L Potassium (3.5-5.1) mmol/L Chloride (98-107) mmol/L Carbon Dioxide (22-30) mmol/L Anion Gap mmol/L BUN (7-17) mg/dL Creatinine (0.52-1.04) mg/dL Est GFR (CKD-EPI)AfAm (>60 ml/min/1.73 sqM) Est GFR (CKD-EPI)NonAf (>60 ml/min/1.73 sqM) Glucose (74-99) mg/dL POC Glucose (mg/dL) (75-99) mg/dL POC Glu Cnc Mechanic ID Plasma Lactic Acid Nabeel (0.7-2.0) mmol/L Calcium (8.4-10.2) mg/dL Total Bilirubin (0.2-1.3) mg/dL AST (14-36) U/L ALT (9-52) U/L Alkaline Phosphatase (38-126) U/L Ammonia (<30) umol/L Creatine Kinase (30-135) U/L Troponin I 0.099 H* (0.000-0.034) ng/mL Total Protein (6.3-8.2) g/dL Albumin (3.5-5.0) g/dL Urine Color Yellow Urine Appearance Clear (Clear) Urine pH 7.0 (5.0-8.0) Ur Specific [place] 1.013 (1.001-1.035) Urine Protein 1+ H (Negative) Urine Glucose (UA) Negative (Negative) Urine Ketones Negative (Negative) Urine Blood Trace H (Negative) Urine Nitrite Negative (Negative) Urine Bilirubin Negative (Negative) Urine Urobilinogen <2.0 (<2.0) mg/dL Ur Leukocyte Esterase Negative (Negative) Urine RBC 2 (0-5) /hpf Urine WBC <1 (0-5) /hpf Urine Opiates Screen Not Detected (NotDetected) Ur Oxycodone Screen Not Detected (NotDetected) Urine Methadone Screen Not Detected (NotDetected) Ur Propoxyphene Screen Not Detected (NotDetected) Ur Barbiturates Screen Not Detected (NotDetected) U Tricyclic Antidepress Detected H (NotDetected) Ur Phencyclidine Scrn Not Detected (NotDetected) Ur Amphetamines Screen Not Detected (NotDetected) U Methamphetamines Scrn Not Detected (NotDetected) U Benzodiazepines Scrn Not Detected (NotDetected) Urine Cocaine Screen Not Detected (NotDetected) U Marijuana (THC) Screen Detected H (NotDetected) 07/21/19 07/21/19 Range/Units 15:22 15:58 WBC (3.8-10.6) k/uL RBC (3.80-5.40) m/uL Hgb (11.4-16.0) gm/dL Hct (34.0-46.0) % MCV (80.0-100.0) fL MCH (25.0-35.0) pg MCHC (31.0-37.0) g/dL RDW (11.5-15.5) % Plt Count (150-450) k/uL Neutrophils % % Lymphocytes % % Monocytes % % Eosinophils % % Basophils % % Neutrophils # (1.3-7.7) k/uL Lymphocytes # (1.0-4.8) k/uL Monocytes # (0-1.0) k/uL Eosinophils # (0-0.7) k/uL Basophils # (0-0.2) k/uL PT 10.8 (9.0-12.0) sec INR 1.0 (<1.2) APTT 22.2 (22.0-30.0) sec Sodium (137-145) mmol/L Potassium (3.5-5.1) mmol/L Chloride (98-107) mmol/L Carbon Dioxide (22-30) mmol/L Anion Gap mmol/L BUN (7-17) mg/dL Creatinine (0.52-1.04) mg/dL Est GFR (CKD-EPI)AfAm (>60 ml/min/1.73 sqM) Est GFR (CKD-EPI)NonAf (>60 ml/min/1.73 sqM) Glucose (74-99) mg/dL POC Glucose (mg/dL) (75-99) mg/dL POC Glu Cnc Mechanic ID Plasma Lactic Acid Nabeel 1.5 (0.7-2.0) mmol/L Calcium (8.4-10.2) mg/dL Total Bilirubin (0.2-1.3) mg/dL AST (14-36) U/L ALT (9-52) U/L Alkaline Phosphatase (38-126) U/L Ammonia (<30) umol/L Creatine Kinase (30-135) U/L Troponin I (0.000-0.034) ng/mL Total Protein (6.3-8.2) g/dL Albumin (3.5-5.0) g/dL Urine Color Urine Appearance (Clear) Urine pH (5.0-8.0) Ur Specific [place] (1.001-1.035) Urine Protein (Negative) Urine Glucose (UA) (Negative) Urine Ketones (Negative) Urine Blood (Negative) Urine Nitrite (Negative) Urine Bilirubin (Negative) Urine Urobilinogen (<2.0) mg/dL Ur Leukocyte Esterase (Negative) Urine RBC (0-5) /hpf Urine WBC (0-5) /hpf Urine Opiates Screen (NotDetected) Ur Oxycodone Screen (NotDetected) Urine Methadone Screen (NotDetected) Ur Propoxyphene Screen (NotDetected) Ur Barbiturates Screen (NotDetected) U Tricyclic Antidepress (NotDetected) Ur Phencyclidine Scrn (NotDetected) Ur Amphetamines Screen (NotDetected) U Methamphetamines Scrn (NotDetected) U Benzodiazepines Scrn (NotDetected) Urine Cocaine Screen (NotDetected) U Marijuana (THC) Screen (NotDetected) - EKG Data -: EKG Interpreted by Me (EKG shows sinus tachycardia rate of 101, SC 136, QRS 80, QTC 503) - Radiology Data Radiology results: report reviewed (CT brain CTA had not chest x-ray shows postsurgical changes does have small pneumocephalus incidental), image reviewed Disposition Clinical Impression: Delirium due to general medical condition, Drug overdose, Weakness, Malaise and fatigue, Altered mental status Disposition: ADMITTED IP TO THIS [facility] Condition: Fair Is patient prescribed a controlled substance at d/c from ED?: No Referrals: Harsh Underwood DO [Primary Care Provider] - 1-2 days
[2019-07-21 13:03] LABS: Glucose,Whole Blood 172 mg/dL (75-99)
[2019-07-21] MEDS: methylPREDNISolone SOD SUCCI 125 MG/2 ML VIAL IV STA ×2 (13:12→14:13)
[2019-07-21] MEDS: diphenhydrAMINE 50 MG/ML 1 ML VIAL IVP STA ×2 (13:12→14:10)
[2019-07-21] MEDS: FAMOTIDINE 20 MG/2 ML VIAL IV STA ×2 (13:12→14:13)
--- NOTE | 2019-07-21 13:45 | CT ---
EXAMINATION TYPE: CT brain wo con DATE OF EXAM: 07/21/2019 COMPARISON: 02/28/2018 CT brain and MRI brain dated 02/14/2018. HISTORY: Mental status changes CT DLP: 1260.4 mGycm Automated exposure control for dose reduction was used. TECHNIQUE: CT scan of the head is performed without contrast. FINDINGS: There is no acute intracranial hemorrhage or midline shift identified. Encephalomalacia i n the right temporal lobe and encephalomalacia measurable less well appreciated in the occipital lobe represent known infarcts seen on the prior MRI of 02/14/2018. There is ex vacuo dilatation of the ant erior and lateral horn of the right lateral ventricle. Aneurysm coils near the suprasellar cistern cr eate extensive spray artifact limiting evaluation. Incidentally noted intraventricular focus of air. There is diffuse ventricular and sulcal prominence consistent with diffuse age-related cerebral atrop hy. There is are a few patchy areas of low-attenuation in the periventricular white matter consisten t with chronic small vessel ischemic change. The globes are intact and the visualized sinuses are cl ear. IMPRESSION: 1. Punctate focus of intraventricular pneumocephalus within the anterior horn of the left lateral alexandra tricle. Correlate with any recent trauma, procedures, or surgical intervention. 2. Encephalomalacia from prior infarcts in the right temporal and left occipital lobes as seen on the prior MRI of 02/14/2018. 2. No acute intracranial hemorrhage or midline shift. Diffuse age-related cerebral atrophy and mild b urden chronic small vessel ischemic.
[2019-07-21 14:27] LABS: Appearance,Urine Clear (Clear); Bilirubin,Urine Negative (Negative); Blood,Urine Trace (Negative); Color,Urine Yellow; Glucose,Urine (UA) Negative (Negative); Ketones,Urine Negative (Negative); Leukocyte Esterase,Urine Negative (Negative); Nitrite,Urine Negative (Negative); Protein,Urine 1+ (Negative); RBC,Urine 2 /hpf (0-5); Specific Gravity,Urine 1.013 (1.001-1.035); Urobilinogen,Urine <2.0 mg/dL (<2.0); WBC,Urine <1 /hpf (0-5)
[2019-07-21 14:34] LABS: Urn Cannabinoid Scrn Detected (NotDetected)
[2019-07-21 14:35] LABS: Amphetamine Screen,Urine Not Detected (NotDetected); Barbiturate Screen,Urine Not Detected (NotDetected); Benzodiazepines Screen,Urine Not Detected (NotDetected); Cocaine Screen,Urine Not Detected (NotDetected); Methadone Screen, Urine Not Detected (NotDetected); Opiate Screen,Urine Not Detected (NotDetected); Oxycodone Screen, Urine Not Detected (NotDetected); Phencyclidine Screen,Urine Not Detected (NotDetected); Tricyclic Antidepressant,Urine Detected (NotDetected)
[2019-07-21 14:42] LABS: Potassium 3.3 mmol/L (3.5-5.1)
[2019-07-21 14:43] LABS: Albumin 4.2 g/dL (3.5-5.0); Calcium 9.6 mg/dL (8.4-10.2); Total Bilirubin 1.1 mg/dL (0.2-1.3); Total Protein 7.8 g/dL (6.3-8.2)
[2019-07-21 15:30] LABS: Basophils # (A) 0.1 k/uL (0-0.2); Basophils % (A) 0 %; Eosinophils # (A) 0.2 k/uL (0-0.7); Eosinophils % (A) 1 %; HGB 18.1 gm/dL (11.4-16.0); Lymphocytes # (A) 1.7 k/uL (1.0-4.8); Lymphocytes % (A) 9 %; MCH 29.6 pg (25.0-35.0); MCHC 32.3 g/dL (31.0-37.0); MCV 91.7 fL (80.0-100.0); Monocytes # (A) 0.5 k/uL (0-1.0); Monocytes % (A) 3 %; Neutrophils # (A) 16.9 k/uL (1.3-7.7); Neutrophils % (A) 87 %; Platelet Count 311 k/uL (150-450); RBC 6.12 m/uL (3.80-5.40); RDW 15.4 % (11.5-15.5); WBC 19.4 k/uL (3.8-10.6)
[2019-07-21 15:32] LABS: HCT 56.1 % (34.0-46.0)
[2019-07-21] MEDS ORDERED: SODIUM CHLORIDE 0.9% 1,000 ML IV STA ×2 (15:55)
[2019-07-21] MEDS ORDERED: SODIUM CHLORIDE 0.9% 500 ML 500 ML IV STA (15:55)
[2019-07-21] MEDS ORDERED: POTASSIUM CHLORIDE 20 MEQ in WATER FOR INJECTION 1 100ML.BAG IVPB STA (15:57)
[2019-07-21 16:22] LABS: Partial Thromboplastin Time 22.2 sec (22.0-30.0); Prothrombin Time 10.8 sec (9.0-12.0)
[2019-07-21] MEDS ORDERED: LORazepam 2 MG/ML INJ IV STA (16:29)
--- NOTE | 2019-07-21 16:39 | CT ---
EXAMINATION TYPE: CT angio head neck DATE OF EXAM: 07/21/2019 COMPARISON: 02/13/2018 HISTORY: 63-year-old female CONFUSION TECHNIQUE: Contiguous axial scanning of the head and neck performed with IV Contrast, patient injecte d with 50 mL of Isovue 370. Coronal/sagittal MIP reconstructions performed. 3-D reconstructions gener ated on a dedicated independent workstation. CT DLP: 551.9 mGycm Automated exposure control for dose reduction was used. FINDINGS: NECK: Dense consolidation right upper lobe. Mild to moderate atherosclerotic arch calcifications with conventional arch vessel branching anatomy. The vertebral arteries are codominant and patent throughout their course. The right common carotid artery is patent with mild to moderate at this chronic calcifications at the bifurcation with mild, less than 50% stenosis at the carotid bulb. The left common carotid artery is patent. More moderate at the scarring change at the left bifurcatio n with moderate, approximately 50% stenosis at the left carotid bulb. Refer to the rotational 3-D rec onstruction. HEAD: The vertebral and basilar arteries are patent though the basilar top is not assessed due to prominent artifacts from aneurysm clip. Bilateral posterior cerebral arteries are visualized. Scattered mild atherosclerotic calcifications within the carotid siphons. No significant stenosis or aneurysmal changes identified. Trace pneumocephalus nondependent within the frontal horn of the left lateral ventricle redemonstrate d. IMPRESSION: HEAD: 1. UNABLE TO ASSESS THE DISTAL BASILAR ARTERY DUE TO METAL CLIP ARTIFACT. THE REMAINDER OF THE ANTERI OR AND POSTERIOR CIRCULATION APPEARS PATENT WITHOUT SIGNIFICANT STENOSIS. NO LARGE VESSEL INTRACRANIA L ARTERIAL OCCLUSION OR ANEURYSMAL CHANGES SEEN. 2. REDEMONSTRATED SMALL FOCUS OF PNEUMOCEPHALUS IN THE LEFT FRONTAL HORN. NECK: 1. ATHEROSCLEROTIC CHANGE AT THE LEFT GREATER THAN RIGHT BIFURCATION WITH A MODERATE, APPROXIMATELY 5 0% STENOSIS IN THE LEFT CAROTID BULB AND MILD, LESS THAN 50% STENOSIS IN THE RIGHT CAROTID BULB. 2. CLINICALLY CORRELATE FOR THE DENSE CONSOLIDATION SEEN IN THE RIGHT UPPER LOBE. NEOPLASM AND PNEUMO MIHAI ARE BOTH DIFFERENTIAL CONSIDERATIONS.
--- NOTE | 2019-07-21 17:19 | XR ---
EXAMINATION: XR chest 1V portable DATE AND TIME: 07/21/2019 5:00 PM CLINICAL INDICATION: PHH; Pain TECHNIQUE: AP upright portable COMPARISON: 02/28/2018 AP upright portable FINDINGS: The left lung is well-expanded and clear. The right lung shows a horizontal band of consolidative opacity in the right midlung zone and in the right infrahilar position, not seen on the prior study. Recommend follow-up PA and lateral radiograph s in 6 weeks to prove resolution of the findings. There is no pulmonary edema. The pleural spaces are negative. The cardiac silhouette appears mildly enlarged, similar to the prior study. The remainder of the mediastinal silhouette is unremarkable. The skeletal structures and soft tissues are negative for acute findings. IMPRESSION: 2 right-sided pulmonary consolidative opacities for which six-week follow-up PA and lateral chest rad iographs is recommended as above.
[2019-07-21] MEDS: SODIUM CHLORIDE 0.9% 1,000 ML IV SCH (18:35)
--- NOTE | 2019-07-21 22:13 | P.HPIM ---
History of Present Illness H&P Date: 07/21/19 Chief Complaint: Weakness confusion History of presenting complaint: This is a 63-year-old patient of Dr. Underwood. Chronic stable medical conditions include history of brain aneurysm that was clipped, restless leg syndrome, chronic fibromyalgia, hyperlipidemia. Patient had admission in February of last year and patient that time had toxic metabolic encephalopathy from medications and also had delirium felt to be from withdrawal from Xanax. Patient now presents as what is described by the ER notes and the ER physician has been patient with feeling weak and tired. Lethargic. I came 20 with the patient patient is rather sleepy and just about arousable. According to nurse patient did carry out a conversation slowly but and she would then off and often start mumbling and does off-again. There were no fever and chills reported. No headaches or head injury. No photophobia or neck stiffness. Was reported. Review of systems cannot be done as patient rather lethargic. relevant finding as above Past medical history: Hyperlipidemia, chronic fibromyalgia, restless leg syndrome, history of brain aneurysm for which patient clips are present. Also noted in the electronic chart Praveen COPD, TIA, fibromyalgia, hyperlipidemia, hypertension, rheumatoid arthritis, sleep apnea, stroke in and January 2018, dropped head syndrome,, hemorrhoids, gout, does not use CPAP machine chronic back pain for which she got 2 injections today. Patient does use a wheeled walker Social history: Stop smoking and March 2018. Smoked a pack since the age of 16 looked like she smoked a pack every 5 days. Does use medical marijuana. Family history: cancer and stroke Physical examination: VITAL SIGNS: 98.6, 120 5 repeat 89, 24, 1 68 x 1 22, 95% on room air upon admission GENERAL: BMI 25.8, laying in bed arousable lethargic. EYES: Pupils equal. Conjunctiva normal. HEENT: External appearance of nose and ears normal, oral cavity grossly normal. NECK: JVD not raised; masses not palpable. HEART: First and second heart sounds are normal; no edema. LUNGS: Respiratory rate normal; decreased breath sounds. ABDOMEN: Soft, nontender, liver spleen not palpable, no masses palpable. PSYCH: Lethargic but arousablel. NEUROLOGICAL: Cranial nerves grossly intact; no facial asymmetry, moving all 4 limbs. LYMPHATICS: No lymph nodes palpable in the axilla and neck INVESTIGATIONS, reviewed in the clinical context: White count 19.4, hemoglobin 11.8, platelets 311, potassium 3.3, creatinine 0.97 Troponin 0.099 Urine drug screen positive for tricyclic antidepressants and marijuana EKG tracing personally reviewed by me shows normal sinus rhythm Chest x-ray-film personally reviewed by me-shows some infiltrates/consolidation on the right side CT angios of the chest nonspecific. No critical stenosis of the carotid CT brain-punctate focus of intraventricular pneumocephalus but the ventilator on the left ventricle. Encephalomalacia from prior infarcts in the right temporal left occipital lobe as seen before in the MRI of January 2018 Assessment: -This is a patient comes in nose mentation is fluctuating as per the nurse able to answer questions then dozes off but mumbles picture is more compatible with metabolic encephalopathy. Not that the patient has a pain pump and is guarded significant medications that'll decrease her mentation to include 45 mg of Remeron, 10 mg 4 times a day of baclofen and 100 mg of Elavil. There are no focal signs. -Hyperlipidemia -Chronic fibromyalgia -History of brain aneurysm for which patient had clipping -COPD in an ex-smoker -Essential hypertension -Chronic pain -Chronic gait dysfunction uses a wheeled walker Plan: -Dr. Boo Roldan called from the ER and did tell him to inform psychiatry and neurology of the admission. At this point we'll hold of patient's BuSpar Remeron and Elavil and baclofen. Give Lovenox for DVT prophylaxis. Neuro Checks will be carried out. Await input from neurology. Past Medical History Past Medical History: COPD, CVA/TIA, Fibromyalgia, Hyperlipidemia, Hypertension, Osteoarthritis (OA), Renal Disease, Rheumatoid Arthritis (RA), Sleep Apnea/CPAP/BIPAP Additional Past Medical History / Comment(s): CVA (1992 & JANUARY 2018), RT ARM WEAKNESS. HX BRAIN ANEURYSM. DROPPED HEAD SYNDROME-HEAD CROOKED, CONSTANT MORALES, GETTING INJ. HX RUPTURED BOWEL. KIDNEY DISEASE STAGE 3. HEMORRHOIDS. GOUT. NOT USING C-PAP MACHINE. HX OF COLON POLYPS. BACK PAIN, GOT 2 INJ TODAY. USES WHEELED WALKER. History of Any Multi-Drug Resistant Organisms: None Reported, MRSA Date of last positivie culture/infection: 06/05/13 MDRO Source:: BLADDER Past Surgical History: Bowel Resection, Breast Surgery, Section, Orthopedic Surgery, Tonsillectomy, Tubal Ligation Additional Past Surgical History / Comment(s): ARTIFICIAL LT FOOT TENDON CHILD; LATER HAD TENDONS ON LT FOOT CUT. D & C, BRAIN ANEURYSM REPAIR WITH COILS, LT BREAST LUMPECTOMY, LT EYE SURGERY. Past Anesthesia/Blood Transfusion Reactions: Previous Problems w/ Anesthesia Additional Past Anesthesia/Blood Transfusion Reaction / Comment(s): ETHER CAUSED PONV Past Psychological History: Anxiety, Depression Smoking Status: Former smoker Past Alcohol Use History: None Reported Past Drug Use History: None Reported - Past Family History Mother Family Medical History: CVA/TIA Father Family Medical History: Cancer Additional Family Medical History / Comment(s): BREAST CA. Sister(s) Family Medical History: Cancer Additional Family Medical History / Comment(s): LUNG CA Medications and Allergies Home Medications Medication Instructions Recorded Confirmed Type Fenofibrate 160 mg PO W/SUPPER 05/24/14 07/21/19 History Folic Acid 1 mg PO DAILY 05/24/14 07/21/19 History Lovastatin [Mevacor] 40 mg PO HS 05/24/14 07/21/19 History Allopurinol [Zyloprim] 100 mg PO W/LUNCH 04/04/16 07/21/19 History Cholecalciferol [Vitamin D3 (25 2,000 unit PO DAILY 04/04/16 07/21/19 History Mcg = 1000 Iu)] EPINEPHrine (Auto Inject) [Epipen] 0.3 mg IM ONCE PRN 04/04/16 07/21/19 History rOPINIRole HCL [Requip] 3 mg PO HS 02/13/18 07/21/19 History Aspirin EC [Ecotrin] 325 mg PO DAILY 05/09/18 07/21/19 History Baclofen 10 mg PO TID 05/09/18 07/21/19 History Mirtazapine [Remeron] 45 mg PO HS 05/09/18 07/21/19 History Amitriptyline HCl [Elavil] 100 mg PO HS 08/11/18 07/21/19 History Metoprolol Succinate [Toprol XL] 25 mg PO HS 08/11/18 07/21/19 History Albuterol Inhaler [Ventolin Hfa 1 - 2 puff INHALATION RT-Q6H PRN 07/21/19 07/21/19 History Inhaler] Dilaudid Pain Pump 1 dose SQ CONTINUOUS 07/21/19 07/21/19 History Magnesium Oxide [Mag-Ox] 400 mg PO DAILY 07/21/19 07/21/19 History Naloxegol Oxalate [Movantik] 12.5 mg PO DAILY 07/21/19 07/21/19 History busPIRone HCL 15 mg PO BID 07/21/19 07/21/19 History Allergies Allergy/AdvReac Type Severity Reaction Status Date / Time morphine Allergy Unknown Hallucinati Verified 07/21/19 13:52 ons acetaminophen Allergy Unknown Verified 07/21/19 13:52 [From Darvocet-N 100] bupropion [From Wellbutrin] Allergy Unknown Verified 07/21/19 13:52 caffeine [From Norgesic] Allergy Anaphylaxis Verified 07/21/19 13:52 cefaclor [From Ceclor] Allergy Unknown Verified 07/21/19 13:52 divalproex sodium Allergy Unknown Verified 07/21/19 13:52 [From Depakote] doxycycline Allergy Unknown Verified 07/21/19 13:52 Iodine and Iodide Containing Allergy Rash/Hives Verified 07/21/19 13:52 Produc ketorolac tromethamine Allergy Unknown Verified 07/21/19 13:52 [From Toradol] lorazepam [From Ativan] Allergy Rash/Hives Verified 07/21/19 13:52 naproxen Allergy Unknown Verified 07/21/19 13:52 orphenadrine [From Norgesic] Allergy Anaphylaxis Verified 07/21/19 13:52 orphenadrine citrate Allergy Unknown Verified 07/21/19 13:52 [From Norgesic] Penicillins Allergy Unknown Verified 07/21/19 13:52 phenytoin sodium Allergy Unknown Verified 07/21/19 13:52 [From Dilantin] phenytoin sodium extended Allergy Unknown Verified 07/21/19 13:52 [From Dilantin] pregabalin [From Lyrica] Allergy Unknown Verified 07/21/19 13:52 propoxyphene HCl Allergy Unknown Verified 07/21/19 13:52 [From Darvon] propoxyphene napsylate Allergy Unknown Verified 07/21/19 13:52 [From Darvocet-N 100] Sulfa (Sulfonamide Allergy Unknown Verified 07/21/19 13:52 Antibiotics) trazodone Allergy Unknown Verified 07/21/19 13:52 venom-honey bee Allergy Unknown Verified 07/21/19 13:52 [bee venom (honey bee)] venom-wasp Allergy Anaphylaxis Verified 07/21/19 13:52 adhesive AdvReac Rash/Hives Verified 07/21/19 13:52 UNCOATED ASPIRIN AdvReac Unknown Uncoded 08/13/18 08:46 Physical Exam Vitals: Vital Signs Temp Pulse Resp BP Pulse Ox 07/21/19 20:20 98.6 F 97 18 135/97 96 07/21/19 17:56 104 H 18 176/90 07/21/19 17:15 99 18 182/91 96 07/21/19 16:03 99.4 F 07/21/19 15:23 91 18 196/105 97 07/21/19 14:02 89 18 178/98 07/21/19 12:53 122 H 168/122 07/21/19 12:31 98.6 F 125 H 24 180/113 95 Intake and Output 07/21/19 07/21/19 07/21/19 06:59 14:59 22:59 Other: Weight 72.575 kg Results CBC & Chem 7: 07/21/19 15:13 07/21/19 13:52 Labs: Abnormal Lab Results - Last 24 Hours (Table) 07/21/19 07/21/19 07/21/19 Range/Units 12:44 13:52 13:52 WBC (3.8-10.6) k/uL RBC (3.80-5.40) m/uL Hgb (11.4-16.0) gm/dL Hct (34.0-46.0) % Neutrophils # (1.3-7.7) k/uL Potassium 3.3 L (3.5-5.1) mmol/L Carbon Dioxide 20 L (22-30) mmol/L Glucose 155 H (74-99) mg/dL POC Glucose (mg/dL) 172 H (75-99) mg/dL Troponin I 0.099 H* (0.000-0.034) ng/mL Urine Protein (Negative) Urine Blood (Negative) U Tricyclic Antidepress (NotDetected) U Marijuana (THC) Screen (NotDetected) 07/21/19 07/21/19 Range/Units 13:52 15:13 WBC 19.4 H (3.8-10.6) k/uL RBC 6.12 H (3.80-5.40) m/uL Hgb 18.1 H (11.4-16.0) gm/dL Hct 56.1 H (34.0-46.0) % Neutrophils # 16.9 H (1.3-7.7) k/uL Potassium (3.5-5.1) mmol/L Carbon Dioxide (22-30) mmol/L Glucose (74-99) mg/dL POC Glucose (mg/dL) (75-99) mg/dL Troponin I (0.000-0.034) ng/mL Urine Protein 1+ H (Negative) Urine Blood Trace H (Negative) U Tricyclic Antidepress Detected H (NotDetected) U Marijuana (THC) Screen Detected H (NotDetected) Microbiology - Last 24 Hours (Table) 07/21/19 13:52 Urine Culture - Preliminary Urine,Catheterized
[2019-07-21 22:33] LABS: Glucose,Whole Blood 150 mg/dL (75-99)
[2019-07-21 22:41] LABS: Acetaminophen <10.0 ug/mL; Magnesium 1.8 mg/dL (1.6-2.3); Phosphorus 3.8 mg/dL (2.5-4.5); Salicylate <1.0 mg/dL
[2019-07-21 22:53] LABS: Creatine Kinase MB 1.8 ng/mL (0.0-2.4)
[2019-07-21 23:04] LABS: Troponin I 0.126 ng/mL (0.000-0.034)
[2019-07-22 03:28] VITALS: BMI 20.5
[2019-07-22] MEDS: METOPROLOL SUCCINATE (ER) 25 MG TAB.ER.24H PO SCH ×2 (03:30→21:03)
[2019-07-22] MEDS: ATORVASTATIN 10 MG TAB PO SCH ×2 (03:30→21:02)
[2019-07-22] MEDS: busPIRone HCl 5 MG TAB PO SCH ×3 (03:30→21:01)
[2019-07-22 04:08] LABS: Cholesterol 205 mg/dL (<200); HDL Cholesterol 53 mg/dL (40-60); LDL Cholesterol,Calculated 121 mg/dL (0-99); Triglycerides 155 mg/dL (<150)
[2019-07-22 07:14] LABS: HCT 46.8 % (34.0-46.0); HGB 15.6 gm/dL (11.4-16.0); MCH 30.6 pg (25.0-35.0); MCHC 33.3 g/dL (31.0-37.0); MCV 91.7 fL (80.0-100.0); Mean Platelet Volume 7.4; Platelet Count 271 k/uL (150-450); RDW 14.1 % (11.5-15.5); WBC 11.7 k/uL (3.8-10.6)
[2019-07-22 07:28] LABS: Calcium 8.9 mg/dL (8.4-10.2); Potassium 4.3 mmol/L (3.5-5.1)
[2019-07-22] MEDS: ALLOPURINOL 100 MG TAB PO SCH (09:32)
[2019-07-22] MEDS: FOLIC ACID 1 MG TAB PO SCH (09:32)
[2019-07-22] MEDS: ENOXAPARIN 40 MG/0.4 ML SYRINGE SQ SCH (09:32)
--- NOTE | 2019-07-22 14:46 | P.CNNES ---
History of Present Illness Consult date: 07/22/19 Reason for Consult: Altered mental status Chief complaint: Speech difficulty History of Present Illness: REFERRING PHYSICIAN: Dr. Ferrera HISTORY OF PRESENT ILLNESS: Thank you for allowing me to evaluate Ms. Kirti Kelsey. Ms. Kelsey is a 63 year-old right-handed woman with PMhx of COPD, TIA, fibromyalgia, hyperlipidemia, hypertension, osteoarthritis, rheumatoid arthritis, sleep apnea, stroke in 1992 in 2017 from brain aneurysm status post clipping, history of ruptured bowel, PT stage III, gout, back pain, history of colon polyps, anxiety and depression presenting with a fall from her bed, consulted neurology for altered mental status. Patient states that yesterday mo rning, patient was getting out of her bed. Usually, her room is very dark, so she needs to turn her lamp on. Patient was reaching for her lamp and she fell out of her bed. Patient denies any headache, dizziness, nausea or vomiting at the time. Patient denies any loss of consciousness. Her niece was trying to get to her to see how she was doing, but her door is bolted, and she couldn't get to the door to open door for her niece. Patient also states that she couldn't find the right words during a time. Her speech came back to baseline last night after she came to the hospital. Patient with no complaints at this time. Denies any headache, nausea, vomiting, double/blurry vision, one-sided weakness/numbness/tingling. No recent sickness. PAST MEDICAL HISTORY: COPD, TIA, fibromyalgia, hyperlipidemia, hypertension, osteoarthritis, rheumatoid arthritis, sleep apnea, stroke in 1992 in 2017 from brain aneurysm status post clipping, history of ruptured bowel, PT stage III, gout, back pain, history of colon polyps, anxiety and depression PAST SURGICAL HISTORY: Bowel resection, , tonsillectomy, tubal ligation, brain aneurysm repair with coils, left breast lumpectomy, left eye surgery HOME MEDICATIONS: Febofibrate 160 mg with supper, lovastatin 40 mm daily at bedtime, folic acid 1 mg daily, vitamin D, allopurinol, ropinirole, aspirin 325, mirtazapine, baclofen, amitriptyline, metoprolol, Dilaudid pain pump, buspirone, magnesium oxide, Movantik ALLERGIES: Morphine, acetaminophen, bupropion, caffeine, Depakote, doxycycline, iodine, ketorolac, Ativan, naproxen, penicillins, Dilantin, Lyrica, Darvocet, sulfa, trazodone, BUN, adhesives, uncoated aspirin SOCIAL HISTORY: Former smoker. FAMILY HISTORY: Mother with stroke. Father with breast cancer. Sr. with lung cancer REVIEW OF SYSTEMS: The 14 systems are reviewed and no additional points are identified compared to the review of systems documented history and physical PHYSICAL EXAMINATION: VITAL SIGNS: Temperature 97.5, pulse rate 79, respiratory rate 17, blood pressure 123/69, O2 saturation 95% on room air GEN.: NAD, pleasant and cooperative HEENT: NCAT, sclera without icterus NECK: Supple SKIN AND EXTREMITIES: Warm to touch, no edema NEURO: MENTAL STATUS: Patient alert and oriented to self, place,. Able to name the current president. Speech fluent, able to name and repeat, following all commands readily. No right and left disorientation, neglect. CRANIAL NERVES II THROUGH XII: II: Pupils are equal and reactive to light symmetrically. No afferent pupillary defect. Visual hicks are intact. III, I V, : No ptosis. Extraocular movements full. No nystagmus. V: Facial sensation intact from V1-3. VII. No clear facial asymmetry. VIII: Hearing intact to finger rub bilaterally. IX, X: Symmetric palate elevation. XI: Shoulder shrug intact. XII: Tongue midline without fasciculation or atrophy. MOTOR: Normal bulk/tone. No pronator drift or tremor. Strength is 5/5 throughout all 4 extremities. SENSORY: Intact to light touch in all 4 extremities. REFLEXES: 1+ throughout. Left toes are very sensitive. Patient states that it's from having some artificial tendon after an accident many years ago. COORDINATION: Finger to nose intact. No dysmetria. GAIT: Narrow-based for walking with much caution. DIAGNOSTIC TESTING: LABORATORY: WBC 11.7 hemoglobin 15.6 platelets 271 PT 10.8 INR 1.0 sodium 139 potassium 4.3 chloride 108 bicarb 23 BUN 17 creatinine 0.84 glucose 136 troponin 0.0126 total cholesterol 205 triglycerides 155 LDL 121 HDL 53 IMAGING: CT head without contrast 07/21/2019: 1. Pocket focus of intraventricular pneumocephalus within the anterior horn of the left lateral ventricle. 2. Encephalomalacia from prior infarcts in the right temporal and left occipital lobes as seen on the prior MRI in January 2018. 3. No acute intracranial hemorrhage or midline shift. Diffuse age-related cerebral atrophy and mild burden chronic small vessel ischemic disease CTA head and neck with contrast 07/21/2019: Head: Unable to assess the distal basilar artery due to metal clip artifact. The remainder of the anterior and posterior circulation appears patent without significant stenosis. No large vessel intracranial artery occlusion or aneurysm changes seen. We demonstrate a small focus of pneumocephalus in the left frontal horn. Neck: Atherosclerotic change at the left greater than right bifurcation with a moderate approximately 50% stenosis in the left carotid bulb and mild less than 50% stenosis in the right carotid bulb. Echocardiogram from January 2018: Technically difficult study. LV/RV/LA/RA sizes are normal. Borderline concentric left ventricle hypertrophy. EF 55-60%. MRI brain without contrast 02/14/2018: Old infarcts involving the right temporal lobe and left occipital lobe. Scattered white matter high signal small foci probably due to mild chronic small vessel ischemia. No evidence of an acute infarct. ASSESSMENT/RECOMMENDATIONS: Ms. Kelsey is a 63 year-old woman with PMhx of COPD, stroke, fibromyalgia, hyperlipidemia, hypertension, osteoarthritis, rheumatoid arthritis, sleep apnea, stroke in 1993 in 2018 from brain aneurysm status post clipping (aneurysm never bled), history of ruptured bowel, PT stage III, gout, back pain, history of colon polyps, anxiety and depression presenting with a fall from her bed, con [facility] neurology for altered mental status. Patient she states that she had more of a stuttering speech along with word finding difficulty for about 20 minutes. Patient with old MRI finding in 2018 showing old infarct in the right temporal lobe and left occipital lobe. Patient's symptom of word finding difficulty could've been a result of recrudescence of patient's previous stroke. CTA head and neck unremarkable for any large vessel occlusion or significant atherosclerosis. Patient is already on aspirin and statin. However patient is on aspirin 325 mg daily. From neuro perspective, patient should be on aspirin 81 mg daily as patient requires higher doses for other reasons. Patient needs an outpatient neurology appointment within 2-3 weeks of discharge for MRI brain without contrast as outpatient. Discussed with patient about stroke prevention guidelines. Medication compliance, hypertension/diabetes control, lifestyle changes including no smoking, drinking in moderation, losing weight, exercising, eating better. No additional imaging recommended at this time while the patient is inpatient. Neurology will sign off at this time. Please feel free to contact Neurology again if with additional questions or concerns. Past Medical History Past Medical History: COPD, CVA/TIA, Fibromyalgia, Hyperlipidemia, Hypertension, Osteoarthritis (OA), Renal Disease, Rheumatoid Arthritis (RA), Sleep Apnea/CPAP/BIPAP Additional Past Medical History / Comment(s): CVA (1992 & JANUARY 2018), RT ARM WEAKNESS. HX BRAIN ANEURYSM. DROPPED HEAD SYNDROME-HEAD CROOKED, CONSTANT MORALES, GETTING INJ. HX RUPTURED BOWEL. KIDNEY DISEASE STAGE 3. HEMORRHOIDS. GOUT. NOT USING C-PAP MACHINE. HX OF COLON POLYPS. BACK PAIN, GOT 2 INJ TODAY. USES WHEELED WALKER. History of Any Multi-Drug Resistant Organisms: None Reported, MRSA Date of last positivie culture/infection: 06/05/13 MDRO Source:: BLADDER Past Surgical History: Bowel Resection, Breast Surgery, Section, Orthopedic Surgery, Tonsillectomy, Tubal Ligation Additional Past Surgical History / Comment(s): ARTIFICIAL LT FOOT TENDON CHILD; LATER HAD TENDONS ON LT FOOT CUT. D & C, BRAIN ANEURYSM REPAIR WITH COILS, LT BREAST LUMPECTOMY, LT EYE SURGERY. Past Anesthesia/Blood Transfusion Reactions: Previous Problems w/ Anesthesia Additional Past Anesthesia/Blood Transfusion Reaction / Comment(s): ETHER CAUSED PONV Past Psychological History: Anxiety, Depression Smoking Status: Former smoker Past Alcohol Use History: None Reported Additional Past Alcohol Use History / Comment(s): QUIT SMOKING 04/06/18, SMOKED 1 PACK EVERY 5 DAYS. SMOKED SINCE AGE 16. Past Drug Use History: None Reported Additional Drug Use History / Comment(s): STATES CURRENT MARIJUANA USE FOR PAIN, 2X PER DAY OR LESS. - Past Family History Mother Family Medical History: CVA/TIA Father Family Medical History: Cancer Additional Family Medical History / Comment(s): BREAST CA. Sister(s) Family Medical History: Cancer Additional Family Medical History / Comment(s): LUNG CA Medications and Allergies Home Medications Medication Instructions Recorded Confirmed Type Fenofibrate 160 mg PO W/SUPPER 05/24/14 07/21/19 History Folic Acid 1 mg PO DAILY 05/24/14 07/21/19 History Lovastatin [Mevacor] 40 mg PO HS 05/24/14 07/21/19 History Allopurinol [Zyloprim] 100 mg PO W/LUNCH 04/04/16 07/21/19 History Cholecalciferol [Vitamin D3 (25 2,000 unit PO DAILY 04/04/16 07/21/19 History Mcg = 1000 Iu)] EPINEPHrine (Auto Inject) [Epipen] 0.3 mg IM ONCE PRN 04/04/16 07/21/19 History rOPINIRole HCL [Requip] 3 mg PO HS 02/13/18 07/21/19 History Aspirin EC [Ecotrin] 325 mg PO DAILY 05/09/18 07/21/19 History Baclofen 10 mg PO TID 05/09/18 07/21/19 History Mirtazapine [Remeron] 45 mg PO HS 05/09/18 07/21/19 History Amitriptyline HCl [Elavil] 100 mg PO HS 08/11/18 07/21/19 History Metoprolol Succinate [Toprol XL] 25 mg PO HS 08/11/18 07/21/19 History Albuterol Inhaler [Ventolin Hfa 1 - 2 puff INHALATION RT-Q6H PRN 07/21/19 07/21/19 History Inhaler] Dilaudid Pain Pump 1 dose SQ CONTINUOUS 07/21/19 07/21/19 History Magnesium Oxide [Mag-Ox] 400 mg PO DAILY 07/21/19 07/21/19 History Naloxegol Oxalate [Movantik] 12.5 mg PO DAILY 07/21/19 07/21/19 History busPIRone HCL 15 mg PO BID 07/21/19 07/21/19 History Allergies Allergy/AdvReac Type Severity Reaction Status Date / Time morphine Allergy Unknown Hallucinati Verified 07/21/19 13:52 ons acetaminophen Allergy Unknown Verified 07/21/19 13:52 [From Darvocet-N 100] bupropion [From Wellbutrin] Allergy Unknown Verified 07/21/19 13:52 caffeine [From Norgesic] Allergy Anaphylaxis Verified 07/21/19 13:52 cefaclor [From Ceclor] Allergy Unknown Verified 07/21/19 13:52 divalproex sodium Allergy Unknown Verified 07/21/19 13:52 [From Depakote] doxycycline Allergy Unknown Verified 07/21/19 13:52 Iodine and Iodide Containing Allergy Rash/Hives Verified 07/21/19 13:52 Produc ketorolac tromethamine Allergy Unknown Verified 07/21/19 13:52 [From Toradol] lorazepam [From Ativan] Allergy Rash/Hives Verified 07/21/19 13:52 naproxen Allergy Unknown Verified 07/21/19 13:52 orphenadrine [From Norgesic] Allergy Anaphylaxis Verified 07/21/19 13:52 orphenadrine citrate Allergy Unknown Verified 07/21/19 13:52 [From Norgesic] Penicillins Allergy Unknown Verified 07/21/19 13:52 phenytoin sodium Allergy Unknown Verified 07/21/19 13:52 [From Dilantin] phenytoin sodium extended Allergy Unknown Verified 07/21/19 13:52 [From Dilantin] pregabalin [From Lyrica] Allergy Unknown Verified 07/21/19 13:52 propoxyphene HCl Allergy Unknown Verified 07/21/19 13:52 [From Darvon] propoxyphene napsylate Allergy Unknown Verified 07/21/19 13:52 [From Darvocet-N 100] Sulfa (Sulfonamide Allergy Unknown Verified 07/21/19 13:52 Antibiotics) trazodone Allergy Unknown Verified 07/21/19 13:52 venom-honey bee Allergy Unknown Verified 07/21/19 13:52 [bee venom (honey bee)] venom-wasp Allergy Anaphylaxis Verified 07/21/19 13:52 adhesive AdvReac Rash/Hives Verified 07/21/19 13:52 UNCOATED ASPIRIN AdvReac Unknown Uncoded 08/13/18 08:46 Physical Examination - Vital Signs Vital Signs: Vital Signs Temp Pulse Pulse Resp BP BP Pulse Ox 07/22/19 04:00 97.5 F L 79 17 123/69 95 07/22/19 00:00 97.9 F 81 18 130/65 96 07/21/19 21:54 96 07/21/19 20:20 98.6 F 97 18 135/97 96 07/21/19 19:33 97.6 F 90 18 142/75 98 07/21/19 17:56 104 H 18 176/90 07/21/19 17:15 99 18 182/91 96 07/21/19 16:03 99.4 F 07/21/19 15:23 91 18 196/105 97 07/21/19 14:02 89 18 178/98 07/21/19 12:53 122 H 168/122 07/21/19 12:31 98.6 F 125 H 24 180/113 95 Intake and Output 07/21/19 07/22/19 07/22/19 22:59 06:59 14:59 Intake Total 700 0 Balance 700 0 Intake: IV 700 Sodium Chloride 0.9% 1, 700 000 ml @ 100 mls/hr IV . Q10H EVANGELINA Rx#:[id number] Oral 0 Other: Voiding Method Diaper Weight 57.5 kg Results - Laboratory Findings CBC and BMP: 07/22/19 06:30 07/22/19 06:30 Abnormal Lab Findings: Abnormal Labs 07/21/19 07/21/19 07/21/19 12:44 13:52 13:52 WBC RBC Hgb Hct Neutrophils # Potassium 3.3 L Chloride Carbon Dioxide 20 L Glucose 155 H POC Glucose (mg/dL) 172 H Troponin I 0.099 H* Triglycerides Cholesterol LDL Cholesterol, Calc Urine Protein Urine Blood U Tricyclic Antidepress U Marijuana (THC) Screen 07/21/19 07/21/19 07/21/19 13:52 15:13 22:05 WBC 19.4 H RBC 6.12 H Hgb 18.1 H Hct 56.1 H Neutrophils # 16.9 H Potassium Chloride Carbon Dioxide Glucose POC Glucose (mg/dL) Troponin I 0.126 H* Triglycerides Cholesterol LDL Cholesterol, Calc Urine Protein 1+ H Urine Blood Trace H U Tricyclic Antidepress Detected H U Marijuana (THC) Screen Detected H 07/21/19 07/21/19 07/22/19 22:05 22:32 06:30 WBC 11.7 H RBC Hgb Hct 46.8 H Neutrophils # Potassium Chloride Carbon Dioxide Glucose POC Glucose (mg/dL) 150 H Troponin I Triglycerides 155 H Cholesterol 205 H LDL Cholesterol, Calc 121 H Urine Protein Urine Blood U Tricyclic Antidepress U Marijuana (THC) Screen 07/22/19 06:30 WBC RBC Hgb Hct Neutrophils # Potassium Chloride 108 H Carbon Dioxide Glucose 136 H POC Glucose (mg/dL) Troponin I Triglycerides Cholesterol LDL Cholesterol, Calc Urine Protein Urine Blood U Tricyclic Antidepress U Marijuana (THC) Screen
--- NOTE | 2019-07-22 15:40 | P.CN ---
Psychiatric Consult - . Consult date: 07/22/19 Consult:: 07/22/19 15:09 Identifying Data: Patient is a 63 yo female with a hx of multiple comorbities who lives in an apartment, is and has 2 kids, currently supports herself on SSI HPI: Patient was brought into the hospital late last night for weakness and altered mental status. As per ED note there was concern for patient overdosing on medications or having a medication interaction. PAtient was last hospitalized in February of last year with a similar complaint of AMS. Patient was UDS positive for TCAs, THC and had an increase in her troponins. Psychiatry was consulted for AMS and was seen today at the bedside. Patient had her neice in the room and was agreeable to speak to play writer and was calm and cooperative. Patient states that last night she took a newer medication which she buys on the internet "Lumiday" to help her with sleep and claims that she usually takes it 2 hrs earlier than her normal nighttime meds however this night took it at the same times as them and states that after that she felt confused, lethargic and fell off her bed. SHe state that she is feeling much better now and has improved cognition and is alert and orientedX3, has good fund of knowledge, fair insight and judgment and can spell "WORLD" backwards. PAtient denies the drug interaction being a suicide attempt and denies any depression at this time. SHe denies any manic sx and states that her sleep is poor. She denies any Ah or VH and denies any current Si or HI. Patient is not endorsing any paranoia or delusions. Past psych hx: Patient has been seen in the past for similar complaints of AMS and Delirium. Last was seen by Dr. Clifton in 02/2018 on CL. Patient has been on multiple medications including xanax, remeron, elavil and buspar. Patient denies any previous psych hospitalizations. admits to one previous suicide attempt in the past at the age of 24 when she OD. Patient currently follows up with Dr. Garza for outpt psychiatry. PMhx: brain aneursym with clip, RLS, fibromyalgia, HLP, COPD, HTN Family Hx: Mother and sister have bipolar disorder Subatance use hx: Admits to using cannabis occasionally, claims she quit smoking cigarettes in 2018. She denies any other recreational drug use including Etoh. Social Hx: Patient states that she was born in [place], [place] and moved to [place]. She states that she graduated highschool and did some college for business. She states that she worked multiple jobs in the past including working for the [employer] and [employer]. Patient currently lives in apartment alone, is has 2 kids and collects SSI Mental status Exam: Assessment: Delirium multiple etiologies Plan: -At this time patient does NOT meet criteria for inpatient psychiatric hospitalization. -Liekly culprit was oversedation and combination of elavil and Lumiday (which contains [facility]. Carreno warts) Baclofen and remeron. It was explained to the patient that she should be very careful with purchasing over the counter medications and meds off the internet and to always consult her doctor prior to doing so to prevent further drug-drug interactions. -Please discontinue Elavil due to its anti-Cholinergic effects. Limit CLEARING HOUSE CLERK depressants along with A-Chol medications. -Will restart Remeron at lower dose 15mg qhs for mood and insomnia. Will also start melatonin 3mg nightly for insomnia. Cant continue with Buspar 15mg bid for anxiety. -Will continue to follow along. Thank you for the consult 07/22/19 15:17 07/22/19 15:34
[2019-07-22] MEDS: FENOFIBRATE 160 MG TAB PO SCH (17:11)
--- NOTE | 2019-07-22 20:33 | P.PN ---
Progress Note - Text Progress Note Date: 07/22/19 H&P Date: 07/21/19 Chief Complaint: Weakness confusion Interval history: This is a 63-year-old patient of Dr. Underwood. Chronic stable medical conditions include history of brain aneurysm that was clipped, restless leg syndrome, chronic fibromyalgia, hyperlipidemia. Patient had admission in February of last year and patient that time had toxic metabolic encephalopathy from medications and also had delirium felt to be from withdrawal from Xanax. Patient now presents as what is described by the ER notes and the ER physician has been patient with feeling weak and tired. Lethargic. I came 20 with the patient patient is rather sleepy and just about arousable. According to nurse patient did carry out a conversation slowly but and she would then off and often start mumbling and does off-again. There were no fever and chills reported. No headaches or head injury. No photophobia or neck stiffness. Was reported. It was felt to be metabolic encephalopathy. Medication induced. Several medications were held including Remeron, baclofen, Elavil. Today-patient is awake talkative. Doing much better. Does use a walker at home. It is felt at this time patient was falling at home because of medication side effects. Review of systems: Was done for constitutional, cardiovascular, GI, pulmonary. relevant finding as above Active Medications Allopurinol (Zyloprim) 100 mg PO W/LUNCH [facility] Last Admin: 07/22/19 09:32 Dose: 100 mg Documented by: Atorvastatin Calcium (Lipitor) 10 mg PO HS [facility] Last Admin: 07/22/19 03:30 Dose: Not Given Documented by: Buspirone HCl (Buspar) 15 mg PO BID [facility] Last Admin: 07/22/19 09:32 Dose: 15 mg Documented by: Enoxaparin Sodium (Lovenox) 40 mg SQ DAILY [facility] Last Admin: 07/22/19 09:32 Dose: 40 mg Documented by: Fenofibrate (Lofibra) 160 mg PO W/SUPPER [facility] Last Admin: 07/22/19 17:11 Dose: 160 mg Documented by: Folic Acid (Folic Acid) 1 mg PO DAILY [facility] Last Admin: 07/22/19 09:32 Dose: 1 mg Documented by: Sodium Chloride (Saline 0.9%) 1,000 mls @ 100 mls/hr IV .Q10H [facility] Last Admin: 07/21/19 18:35 Dose: Not Given Documented by: Melatonin (Melatonin) 3 mg PO HS [facility] Metoprolol Succinate (Toprol Xl) 25 mg PO HS [facility] Last Admin: 07/22/19 03:30 Dose: Not Given Documented by: Mirtazapine (Remeron) 15 mg PO HS [facility] Ropinirole HCl (Requip) 3 mg PO [facility] Last Admin: 07/22/19 03:30 Dose: Not Given Documented by: Physical examination: VITAL SIGNS: 97.5, 79, 17, 1 23 x 69, 95% room air GENERAL: Sitting up, affect talking. EYES: Pupils equal. Conjunctiva normal. HEENT: External appearance of nose and ears normal, oral cavity grossly normal. NECK: JVD not raised; masses not palpable. HEART: First and second heart sounds are normal; no edema. LUNGS: Respiratory rate normal; decreased breath sounds. ABDOMEN: Soft, nontender, liver spleen not palpable, no masses palpable. PSYCH: Her 3, mood and affect are normal NEUROLOGICAL: Cranial nerves grossly intact; no facial asymmetry, moving all 4 limbs. INVESTIGATIONS, reviewed in the clinical context: White count 11.7 hemoglobin 50.6 potassium 4.3 creatinine 0.84 Admission testing: White count 19.4, hemoglobin 11.8, platelets 311, potassium 3.3, creatinine 0.97 Troponin 0.099 Urine drug screen positive for tricyclic antidepressants and marijuana EKG tracing personally reviewed by me shows normal sinus rhythm Chest x-ray-film personally reviewed by me-shows some infiltrates/consolidation on the right side CT angios of the chest nonspecific. No critical stenosis of the carotid CT brain-punctate focus of intraventricular pneumocephalus but the ventilator on the left ventricle. Encephalomalacia from prior infarcts in the right temporal left occipital lobe as seen before in the MRI of January 2018 Assessment: -Acute metabolic encephalopathy medication improved. Greatly improved.. -Hyperlipidemia -Chronic fibromyalgia -History of brain aneurysm for which patient had clipping -COPD in an ex-smoker -Essential hypertension -Chronic pain -Chronic gait dysfunction uses a wheeled walker Plan: Care was discussed with psychiatrist Dr. Osman he will adjust medications.. Patient also takes [place] day. Keep last to start Remeron at a lower dose and melatonin. Continue the BuSpar. Elavil, baclofen, has been stopped. We'll see how the patient does overnight. PTOT to see the patient. Care also discussed with the senior case manager. And the patient in detail. Total time spent was 40 minutes with over 25 minutes in discussion
[2019-07-22] MEDS ORDERED: MIRTAZAPINE 15 MG TAB PO SCH (21:00)
[2019-07-22] MEDS ORDERED: MELATONIN 3 MG TABLET PO SCH (21:00)
[2019-07-22] MEDS: SODIUM CHLORIDE 0.9% 1,000 ML IV SCH ×3 (21:04→21:07)
[2019-07-23 06:29] LABS: HGB 12.7 gm/dL (11.4-16.0); MCH 31.6 pg (25.0-35.0); MCHC 33.5 g/dL (31.0-37.0); MCV 94.2 fL (80.0-100.0); Mean Platelet Volume 7.9; Platelet Count 212 k/uL (150-450); RBC 4.03 m/uL (3.80-5.40); WBC 9.7 k/uL (3.8-10.6)
[2019-07-23 06:47] LABS: Calcium 8.6 mg/dL (8.4-10.2); Potassium 3.6 mmol/L (3.5-5.1)
[2019-07-23] MEDS: busPIRone HCl 5 MG TAB PO SCH (07:43)
[2019-07-23] MEDS: ENOXAPARIN 40 MG/0.4 ML SYRINGE SQ SCH (07:44)
[2019-07-23] MEDS: FOLIC ACID 1 MG TAB PO SCH (07:44)
[2019-07-23] MEDS: ALLOPURINOL 100 MG TAB PO SCH (11:54)
[2019-07-23] MEDS: FENOFIBRATE 160 MG TAB PO SCH (11:54)
[2019-07-23 12:06] VITALS: BP 125/66; PULSE 73; RESP 15; TEMP 98.2
--- NOTE | 2019-07-25 22:24 | P.DS ---
Providers Date of admission: 07/21/19 18:28 Expected date of discharge: 07/23/19 Attending physician: Abdirizak Ferrera Consults: 07/21/19 18:28 Consult Physician Routine Consulting Provider: Joan Presley Consult Reason/Comments: ams Do you want consulting provider notified?: Yes 07/21/19 18:29 Consult Physician Routine Consulting Provider: Ac Osman Consult Reason/Comments: ams Do you want consulting provider notified?: Yes Primary care physician: Harsh Underwood [place] Course: Interval history: This is a 63-year-old patient of Dr. Underwood. Chronic stable medical conditions include history of brain aneurysm that was clipped, restless syndrome, chronic fibromyalgia, hyperlipidemia. Patient had admission in February of last year and patient that time had toxic metabolic encephalopathy from medications and also had delirium felt to be from withdrawal from Xanax. Patient now presents as what is described by the ER notes and the ER physician has been patient with f eeling weak and tired. Lethargic. I came 20 with the patient patient is rather sleepy and just about arousable. According to nurse patient did carry out a conversation slowly but and she would then off and often start mumbling and does off-again. There were no fever and chills reported. No headaches or head injury. No photophobia or neck stiffness. Was reported. It was felt to be metabolic encephalopathy. Medication induced. Several medications were held including Remeron, baclofen, Elavil. Computed tomography scan of the brain and CT angios were both negative. Patient doing much better and back to baseline before discharge. Dose of Remeron was decreased. Consultation: Dr. Presley from neurology Dr. Osman from psychiatry Physical examination: VITAL SIGNS: 98.2, 73, 15, 1 25 x 66, 95% room air GENERAL: Sitting up, comfortable. EYES: Pupils equal. Conjunctiva normal. HEENT: External appearance of nose and ears normal, oral cavity grossly normal. NECK: JVD not raised; masses not palpable. HEART: First and second heart sounds are normal; no edema. LUNGS: Respiratory rate normal; decreased breath sounds. ABDOMEN: Soft, nontender, liver spleen not palpable, no masses palpable. PSYCH: AAO 3, mood and affect are normal NEUROLOGICAL: Cranial nerves grossly intact; no facial asymmetry, moving all 4 limbs. INVESTIGATIONS, reviewed in the clinical context: White count 9.7 hemoglobin 12.7 creatinine 0.9 to Admission testing: White count 19.4, hemoglobin 11.8, platelets 311, potassium 3.3, creatinine 0.97 Troponin 0.099 Urine drug screen positive for tricyclic antidepressants and marijuana EKG tracing personally reviewed by me shows normal sinus rhythm Chest x-ray-film personally reviewed by me-shows some infiltrates/consolidation on the right CT angios of the chest nonspecific. No critical stenosis of the carotid CT brain-punctate focus of intraventricular pneumocephalus but the ventilator on the left ventricle. Encephalomalacia from prior infarcts in the right temporal left occipital lobe as seen before in the MRI of January 2018 Assessment: -Acute metabolic encephalopathy medication induced -Hyperlipidemia -Chronic fibromyalgia -History of brain aneurysm for which patient had clipping -COPD in an ex-smoker -Essential hypertension -Chronic pain -Chronic gait dysfunction uses a wheeled walker -Troponin leak probably from hemodynamic dispatch Disposition: Home Plan - Discharge Summary New Discharge Prescriptions: New Aspirin 81 mg PO DAILY #1 chewable Baclofen 5 mg PO Q8H PRN #30 tablet PRN Reason: Spasms Melatonin 3 mg PO HS tablet Mirtazapine [Remeron] 15 mg PO HS #30 tab Continue Fenofibrate 160 mg PO W/SUPPER Lovastatin [Mevacor] 40 mg PO HS Folic Acid 1 mg PO DAILY Cholecalciferol [Vitamin D3 (25 Mcg = 1000 Iu)] 2,000 unit PO DAILY EPINEPHrine (Auto Inject) [Epipen] 0.3 mg IM ONCE PRN PRN Reason: Allergic Reaction Allopurinol [Zyloprim] 100 mg PO W/LUNCH rOPINIRole HCL [Requip] 3 mg PO HS Metoprolol Succinate [Toprol XL] 25 mg PO HS Dilaudid Pain Pump 1 dose SQ CONTINUOUS Albuterol Inhaler [Ventolin Hfa Inhaler] 1 - 2 puff INHALATION RT-Q6H PRN PRN Reason: Shortness Of Breath busPIRone HCL 15 mg PO BID Magnesium Oxide [Mag-Ox] 400 mg PO DAILY Naloxegol Oxalate [Movantik] 12.5 mg PO DAILY Discontinued Baclofen 10 mg PO TID Aspirin EC [Ecotrin] 325 mg PO DAILY Mirtazapine [Remeron] 45 mg PO HS Amitriptyline HCl [Elavil] 100 mg PO HS Discharge Medication List Fenofibrate 160 mg PO W/SUPPER 05/24/14 [History] Folic Acid 1 mg PO DAILY 05/24/14 [History] Lovastatin [Mevacor] 40 mg PO HS 05/24/14 [History] Allopurinol [Zyloprim] 100 mg PO W/LUNCH 04/04/16 [History] Cholecalciferol [Vitamin D3 (25 Mcg = 1000 Iu)] 2,000 unit PO DAILY 04/04/16 [History] EPINEPHrine (Auto Inject) [Epipen] 0.3 mg IM ONCE PRN 04/04/16 [History] rOPINIRole HCL [Requip] 3 mg PO HS 02/13/18 [History] Metoprolol Succinate [Toprol XL] 25 mg PO HS 08/11/18 [History] Albuterol Inhaler [Ventolin Hfa Inhaler] 1 - 2 puff INHALATION RT-Q6H PRN 02/03 [History] Dilaudid Pain Pump 1 dose SQ CONTINUOUS 07/21/19 [History] Magnesium Oxide [Mag-Ox] 400 mg PO DAILY 07/21/19 [History] Naloxegol Oxalate [Movantik] 12.5 mg PO DAILY 07/21/19 [History] busPIRone HCL 15 mg PO BID 07/21/19 [History] Aspirin 81 mg PO DAILY #1 chewable 07/23/19 [Rx] Baclofen 5 mg PO Q8H PRN #30 tablet 07/23/19 [Rx] Melatonin 3 mg PO HS tablet 07/23/19 [Rx] Mirtazapine [Remeron] 15 mg PO HS #30 tab 07/23/19 [Rx] Follow up Appointment(s)/Referral(s): psychiatristdr [Other] - 1 Week (please call to schedule appointment) pain-specialistdr [Other] - 1 Week (please call to schedule appointment) [facility], [NON-STAFF] - Harsh Underwood DO [Primary Care Provider] - 07/28/19 1:30 pm (With Edgardo GARAY) Patient Instructions/Handouts: Altered Mental Status (ED) Discharge Disposition: HOME SELF-CARE
== END 2019-07-23 16:59 | disposition home health service (06) | DRG 92 ==
LOC: EC 12:23 → 3SCARD 18:28
PROVIDERS: ADMIT Hospitalist; ATTEND Hospitalist
DX: G92 Toxic encephalopathy (principal); F05 Delirium due to known physiological condition; E78.5 Hyperlipidemia, unspecified; F32.9 Major depressive disorder, single episode, unspecified; F41.9 Anxiety disorder, unspecified; G25.81 Restless legs syndrome; G47.30 Sleep apnea, unspecified; G89.29 Other chronic pain; I10 Essential (primary) hypertension; J44.9 Chronic obstructive pulmonary disease, unspecified; M06.9 Rheumatoid arthritis, unspecified; M79.7 Fibromyalgia; T50.995A Adverse effect of other drugs, medicaments and biological substances, initial encounter; W06.XXXA Fall from bed, initial encounter; Z88.4 Allergy status to anesthetic agent; Z88.1 Allergy status to other antibiotic agents; Z91.030 Bee allergy status; Z91.041 Radiographic dye allergy status; Z88.5 Allergy status to narcotic agent; Z88.0 Allergy status to penicillin; Z88.8 Allergy status to other drugs, medicaments and biological substances; Z91.018 Allergy to other foods; Y92.003 Bedroom of unspecified non-institutional (private) residence as the place of occurrence of the external cause; Z79.82 Long term (current) use of aspirin; Z80.1 Family history of malignant neoplasm of trachea, bronchus and lung; Z80.3 Family history of malignant neoplasm of breast; Z82.3 Family history of stroke; Z86.010 Personal history of colon polyps; Z86.73 Personal history of transient ischemic attack (TIA), and cerebral infarction without residual deficits; Z87.891 Personal history of nicotine dependence; Z99.89 Dependence on other enabling machines and devices; Z98.891 History of uterine scar from previous surgery; Z98.890 Other specified postprocedural states; Z98.51 Tubal ligation status
CPT/HCPCS: 36415; 70450; 70496; 70498; 71045; 80048; 80053; 80061; 80306; 80329; 81001; 82140; 82550; 82553; 83520; 83605; 83735; 84100; 84484; 85025; 85027; 85610; 85730; 87040; 87086; 93005; 94760; 96361; 96365; 96366; 96375; 99285

== ENCOUNTER → 2019-11-26 | Outpatient (CLI) | payer MEDICARE, OTHER ==
--- NOTE | 2019-11-26 18:57 | XR ---
EXAMINATION TYPE: XR chest 2V DATE OF EXAM: 11/26/2019 COMPARISON: 07/21/2019 INDICATION: R 91.1 TECHNIQUE: Frontal and lateral views of the chest are obtained. Patient is rotated to the right. FINDINGS: The heart size is normal. The pulmonary vasculature is normal. There is interval development of a right apical lung opacity. Atelectasis should be considered. There is some tracheal deviation towards the right. Previous right midlung infiltrate is not identified.. IMPRESSION: 1. Right apical infiltrate most likely atelectasis. Follow-up to clearing is recommended. Underlying masses would be difficult to exclude.
== END | disposition home or self-care (01) ==
LOC: RADXRMAIN 16:53
PROVIDERS: ATTEND Family Medicine
DX: R91.8 Other nonspecific abnormal finding of lung field (principal)
CPT/HCPCS: 71046

== ENCOUNTER → 2020-02-02 | Outpatient (CLI) | payer MEDICARE, OTHER ==
--- NOTE | 2020-02-02 11:57 | MM ---
Reason for exam: screening (asymptomatic). Last mammogram was performed 1 year and 9 months ago. History: Patient is postmenopausal and has history of colon cancer at age 52. Family history of premenopausal breast cancer in sister at age 28, breast cancer in father at age 57, breast cancer in sister, and breast cancer in brother at age 22. Benign excisional biopsy of the left breast, March 07, 2002. Physical Findings: A clinical breast exam by your physician is recommended on an annual basis and results should be correlated with mammographic findings. MG Screening Mammo w CAD Bilateral CC and MLO view(s) were taken. Prior study comparison: April 22, 2018, bilateral MG 3d diag mammo w/cad [facility]. June 21, 2016, bilateral MG screening mammo w CAD. The breast tissue is heterogeneously dense. This may lower the sensitivity of mammography. There are benign appearing round vascular calcifications bilaterally. There is no discrete abnormality. ASSESSMENT: Benign, BI-RAD 2 RECOMMENDATION: Routine screening mammogram of both breasts in 1 year.
== END | disposition home or self-care (01) ==
LOC: RADMAMWWP 09:52
PROVIDERS: ATTEND Family Medicine
DX: Z12.31 Encounter for screening mammogram for malignant neoplasm of breast (principal)
CPT/HCPCS: 77067

== ENCOUNTER → 2020-04-19 | Outpatient (CLI) | payer MEDICARE, OTHER ==
--- NOTE | 2020-04-19 12:58 | CT ---
EXAMINATION TYPE: CT chest w con DATE OF EXAM: 04/19/2020 COMPARISON: Chest x-ray 11/26/2019 HISTORY: abnormal lung findings CT DLP: 222.2 mGycm, Automated exposure control for dose reduction was used. CONTRAST: Performed injected with 100 mL of Isovue 300. TECHNIQUE: Axial images were obtained at 5 mm thick sections. Reconstructed images are reviewed on [employer] computer in the coronal plane. FINDINGS: Portion of the thyroid visualized is normal. There is a band of thickening within the right upper lobe extending towards the right hilum. This may has some retraction of the mediastinum to the right. Additional workup for mass is recommended. PET/ CT is recommended for additional evaluation. There may be a 1.1 cm right hilar node present. A 0.9 cm pretracheal lymph node is present. The ascen ding aorta diameter at the level of the main pulmonary artery is 3.0 cm. The main pulmonary artery d iameter at the bifurcation is 3.[address] sections are obtained through the upper abdomen. Abdomen is essentially unremarkable. IMPRESSIONS: 1. Streak opacity at the right apex measures 5.6 x 2.2 cm. PET/CT is recommended for additional evalu ation. 2. A 1.1 cm right hilar lymph node
== END | disposition home or self-care (01) ==
LOC: RADCTMAIN 10:31
PROVIDERS: ATTEND Family Medicine
DX: R91.8 Other nonspecific abnormal finding of lung field (principal); Z13.9 Encounter for screening, unspecified
CPT/HCPCS: 82565; 84520; 71260; 36415; Q9967

== ENCOUNTER → 2020-09-26 | Outpatient (CLI) | payer MEDICARE, OTHER ==
[2020-09-26 16:59] LABS: Basophils # (A) 0.1 k/uL (0-0.2); Basophils % (A) 1 %; Eosinophils % (A) 0 %; HCT 41.1 % (34.0-46.0); HGB 13.3 gm/dL (11.4-16.0); Lymphocytes # (A) 2.8 k/uL (1.0-4.8); Lymphocytes % (A) 29 %; MCHC 32.3 g/dL (31.0-37.0); MCV 92.9 fL (80.0-100.0); Mean Platelet Volume 7.8; Monocytes # (A) 0.6 k/uL (0-1.0); Monocytes % (A) 6 %; Neutrophils % (A) 62 %; Platelet Count 332 k/uL (150-450); RBC 4.43 m/uL (3.80-5.40); RDW 13.3 % (11.5-15.5); WBC 9.7 k/uL (3.8-10.6)
[2020-09-27 03:05] LABS: % Iron Saturation 8.88 (12.00-45.00); African American GFR (CKD) 60.2 (60.0-200.0); Albumin 3.5 g/dL (3.80-4.90); Anion Gap 9.3 mmol/L (4.00-12.00); BUN/Creat Ratio 10.91 Ratio (12.00-20.00); Calcium 9.8 mg/dL (8.7-10.3); Carbon Dioxide 30.7 mmol/L (21.6-31.8); Ferritin 91.3 ng/mL (10.0-291.0); Magnesium 1.8 mg/dL (1.5-2.4); Non-African American GFR(CKD) 51.9 (60.0-200.0); Phosphorus 3.2 mg/dL (2.4-5.1); Uric Acid 4.9 mg/dL (2.9-7.7)
[2020-09-27 03:32] LABS: Anti-DNA, DS unit <1.0 IU/mL; DNA Double-Stranded NEGATIVE (NEGATIVE)
[2020-09-27 04:10] LABS: Hepatitis B Surface AB- Quant 3.9 mIU/mL; Hepatitis B Surface Antibody Non-Reactive (Non-Reactive); Hepatitis B Surface Antigen Non-Reactive (Non-Reactive); Hepatitis C IgG Antibody Non-Reactive (Non-Reactive)
[2020-09-27 08:48] LABS: Free Kappa Lt Chain Qnt, Serum 8.18 mg/dL (0.33-1.94)
== END | disposition home or self-care (01) ==
LOC: LABWHC1 14:22
PROVIDERS: ATTEND Nurse Practitioner Family
DX: N18.2 Chronic kidney disease, stage 2 (mild) (principal); R80.9 Proteinuria, unspecified; R53.83 Other fatigue
CPT/HCPCS: 36415; 80048; 82040; 82306; 82728; 83516; 83540; 83550; 83735; 83883; 83970; 84100; 84550; 85025; 86038; 86160; 86162; 86225; 86255; 86334; 86706; 86803; 87340

== ENCOUNTER 2020-11-21 14:49 | Inpatient (IN) | payer MEDICARE, OTHER ==
[2020-11-21] MEDS ORDERED: ONDANSETRON 4 MG/2 ML VIAL IVP STA (15:38)
[2020-11-21] MEDS ORDERED: SODIUM CHLORIDE 0.9% 1,000 ML IV STA (15:38)
[2020-11-21] MEDS ORDERED: PANTOPRAZOLE 40 MG/10 ML VIAL IVP STA (15:38)
--- NOTE | 2020-11-21 15:42 | ED ---
General Adult HPI - General Chief complaint: Weakness Stated complaint: general weakness Time Seen by Provider: 11/21/20 15:00 Source: patient, family, EMS, RN notes reviewed Mode of arrival: EMS Limitations: no limitations - History of Present Illness Initial comments: Patient is a pleasant 65-year-old female presenting to the emergency department and complaining of general weakness. Symptoms have progressed over the past days to weeks. Patient does have cough with little bit of shortness of breath. Patient has occasional coughing up some mild bloody sputum. No abdominal pain. Patient feels fatigued and generally weak all over. Patient has had dark tarry stools starting just today. No blood thinners. - Related Data Home Medications Medication Instructions Recorded Confirmed Fenofibrate 160 mg PO W/SUPPER 05/24/14 07/21/19 Folic Acid 1 mg PO DAILY 05/24/14 07/21/19 Lovastatin [Mevacor] 40 mg PO HS 05/24/14 07/21/19 Cholecalciferol [Vitamin D3 (25 2,000 unit PO DAILY 04/04/16 07/21/19 Mcg = 1000 Iu)] EPINEPHrine (Auto Inject) [Epipen] 0.3 mg IM ONCE PRN 04/04/16 07/21/19 allopurinoL [Zyloprim] 100 mg PO W/LUNCH 04/04/16 07/21/19 rOPINIRole HCL [Requip] 3 mg PO HS 02/13/18 07/21/19 Metoprolol Succinate [Toprol XL] 25 mg PO HS 08/11/18 07/21/19 Albuterol Inhaler (Mhu) [Ventolin 1 - 2 puff INHALATION RT-Q6H PRN 07/21/19 07/21/19 Hfa Inhaler (Mhu)] Dilaudid Pain Pump 1 dose SQ CONTINUOUS 07/21/19 07/21/19 Magnesium Oxide [Mag-Ox] 400 mg PO DAILY 07/21/19 07/21/19 Naloxegol Oxalate [Movantik] 12.5 mg PO DAILY 07/21/19 07/21/19 busPIRone HCL 15 mg PO BID 07/21/19 07/21/19 Previous Rx's Medication Instructions Recorded Aspirin 81 mg PO DAILY #1 chewable 07/23/19 Baclofen 5 mg PO Q8H PRN #30 tablet 07/23/19 Melatonin 3 mg PO HS tablet 07/23/19 Mirtazapine [Remeron] 15 mg PO HS #30 tab 07/23/19 Allergies Allergy/AdvReac Type Severity Reaction Status Date / Time morphine Allergy Unknown Hallucinati Verified 07/21/19 13:52 ons acetaminophen Allergy Unknown Verified 07/21/19 13:52 [From Darvocet-N 100] bupropion [From Wellbutrin] Allergy Unknown Verified 07/21/19 13:52 caffeine [From Norgesic] Allergy Anaphylaxis Verified 07/21/19 13:52 cefaclor [From Ceclor] Allergy Unknown Verified 07/21/19 13:52 divalproex sodium Allergy Unknown Verified 07/21/19 13:52 [From Depakote] doxycycline Allergy Unknown Verified 07/21/19 13:52 Iodine and Iodide Containing Allergy Rash/Hives Verified 07/21/19 13:52 Produc ketorolac tromethamine Allergy Unknown Verified 07/21/19 13:52 [From Toradol] lorazepam [From Ativan] Allergy Rash/Hives Verified 07/21/19 13:52 naproxen Allergy Unknown Verified 07/21/19 13:52 orphenadrine [From Norgesic] Allergy Anaphylaxis Verified 07/21/19 13:52 orphenadrine citrate Allergy Unknown Verified 07/21/19 13:52 [From Norgesic] Penicillins Allergy Unknown Verified 07/21/19 13:52 phenytoin sodium Allergy Unknown Verified 07/21/19 13:52 [From Dilantin] phenytoin sodium extended Allergy Unknown Verified 07/21/19 13:52 [From Dilantin] pregabalin [From Lyrica] Allergy Unknown Verified 07/21/19 13:52 propoxyphene HCl Allergy Unknown Verified 07/21/19 13:52 [From Darvon] propoxyphene napsylate Allergy Unknown Verified 07/21/19 13:52 [From Darvocet-N 100] Sulfa (Sulfonamide Allergy Unknown Verified 07/21/19 13:52 Antibiotics) trazodone Allergy Unknown Verified 07/21/19 13:52 venom-honey bee Allergy Unknown Verified 07/21/19 13:52 [bee venom (honey bee)] venom-wasp Allergy Anaphylaxis Verified 07/21/19 13:52 adhesive AdvReac Rash/Hives Verified 07/21/19 13:52 UNCOATED ASPIRIN AdvReac Unknown Uncoded 08/13/18 08:46 Review of Systems ROS Statement: Those systems with pertinent positive or pertinent negative responses have been documented in the HPI. ROS Other: All systems not noted in ROS Statement are negative. Constitutional: Denies: fever, chills Eyes: Denies: eye pain ENT: Denies: ear pain Respiratory: Reports: cough, hemoptysis Cardiovascular: Denies: chest pain Endocrine: Reports: fatigue Gastrointestinal: Reports: melena. Denies: abdominal pain Genitourinary: Denies: dysuria Musculoskeletal: Denies: back pain Skin: Denies: rash Neurological: Denies: headache Past Medical History Past Medical History: COPD, CVA/TIA, Fibromyalgia, Hyperlipidemia, Hypertension, Osteoarthritis (OA), Renal Disease, Rheumatoid Arthritis (RA), Sleep Apnea/CPAP/BIPAP Additional Past Medical History / Comment(s): CVA (1992 & JANUARY 2018), RT ARM WEAKNESS. HX BRAIN ANEURYSM. DROPPED HEAD SYNDROME-HEAD CROOKED, CONSTANT MORALES, GETTING INJ. HX RUPTURED BOWEL. KIDNEY DISEASE STAGE 3. HEMORRHOIDS. GOUT. NOT USING C-PAP MACHINE. HX OF COLON POLYPS. BACK PAIN, GOT 2 INJ TODAY. USES WHEELED WALKER. History of Any Multi-Drug Resistant Organisms: MRSA Date of last positivie culture/infection: 06/05/13 MDRO Source:: BLADDER Past Surgical History: Bowel Resection, Breast Surgery, Section, Orthopedic Surgery, Tonsillectomy, Tubal Ligation Additional Past Surgical History / Comment(s): ARTIFICIAL LT FOOT TENDON CHILD; LATER HAD TENDONS ON LT FOOT CUT. D & C, BRAIN ANEURYSM REPAIR WITH COILS, LT BREAST LUMPECTOMY, LT EYE SURGERY. Past Anesthesia/Blood Transfusion Reactions: Previous Problems w/ Anesthesia Additional Past Anesthesia/Blood Transfusion Reaction / Comment(s): ETHER CAUSED PONV Past Psychological History: Anxiety, Depression Smoking Status: Current some day smoker Past Alcohol Use History: None Reported Past Drug Use History: None Reported - Past Family History Mother Family Medical History: CVA/TIA Father Family Medical History: Cancer Additional Family Medical History / Comment(s): BREAST CA. Sister(s) Family Medical History: Cancer Additional Family Medical History / Comment(s): LUNG CA General Exam Limitations: no limitations General appearance: alert, in no apparent distress Head exam: Present: normocephalic Eye exam: Present: normal appearance Neck exam: Present: normal inspection Respiratory exam: Present: normal lung sounds bilaterally Cardiovascular Exam: Present: regular rate, normal rhythm GI/Abdominal exam: Present: soft. Absent: distended, tenderness Rectal exam: Present: black stool Extremities exam: Present: normal inspection Neurological exam: Present: alert Psychiatric exam: Present: normal affect, normal mood Skin exam: Present: normal color Course Vital Signs 11/21/20 11/21/20 11/21/20 14:51 17:06 18:26 Temperature 98.9 F Pulse Rate 99 94 92 Respiratory 16 16 16 Rate Blood Pressure 107/49 100/53 104/54 O2 Sat by Pulse 99 95 98 Oximetry - Reevaluation(s) Reevaluation #1: 11/21/20 18:54 There is concern for possible pneumonia with sepsis, diagnosed at 1850. Blood culture and lactic acid and IV antibiotic's will be ordered. EKG Findings - EKG Comments: EKG Findings:: Sinus rhythm at 96. [place] 154. QRS 76. QT 346. QTc or 37. Normal axis. Normal QRS. No acute ST change.. Her To present. Medical Decision Making - Medical Decision Making Patient reevaluated and updated. Patient does have evidence of GI bleed with decreasing hemoglobin. Dr. Ferrera has been paged for admission, covering for Dr. Underwood. Case was discussed with Dr. Ferrera, who will admit. Consult will be placed for GI and pulmonary - Lab Data Result diagrams: 11/21/20 15:40 11/21/20 15:40 Lab Results 11/21/20 11/21/20 11/21/20 Range/Units 15:40 15:40 15:40 WBC 11.8 H (3.8-10.6) k/uL RBC 2.42 L (3.80-5.40) m/uL Hgb 7.1 L D (11.4-16.0) gm/dL Hct 21.4 L (34.0-46.0) % MCV 88.3 (80.0-100.0) fL MCH 29.4 (25.0-35.0) pg MCHC 33.3 (31.0-37.0) g/dL RDW 13.1 (11.5-15.5) % Plt Count 463 H (150-450) k/uL MPV 7.4 Neutrophils % 85 % Lymphocytes % 10 % Monocytes % 3 % Eosinophils % 0 % Basophils % 0 % Neutrophils # 10.0 H (1.3-7.7) k/uL Lymphocytes # 1.2 (1.0-4.8) k/uL Monocytes # 0.4 (0-1.0) k/uL Eosinophils # 0.0 (0-0.7) k/uL Basophils # 0.0 (0-0.2) k/uL PT 11.8 (9.0-12.0) sec INR 1.1 (<1.2) APTT 20.7 L (22.0-30.0) sec D-Dimer 1.12 H (<0.60) mg/L FEU Sodium 135 L (137-145) mmol/L Potassium 4.4 (3.5-5.1) mmol/L Chloride 102 (98-107) mmol/L Carbon Dioxide 30 (22-30) mmol/L Anion Gap 3 mmol/L BUN 55 H (7-17) mg/dL Creatinine 0.86 (0.52-1.04) mg/dL Est GFR (CKD-EPI)AfAm 82 (>60 ml/min/1.73 sqM) Est GFR (CKD-EPI)NonAf 71 (>60 ml/min/1.73 sqM) Glucose 126 H (74-99) mg/dL Calcium 8.9 (8.4-10.2) mg/dL Total Bilirubin 0.4 (0.2-1.3) mg/dL AST 23 (14-36) U/L ALT 11 (4-34) U/L Alkaline Phosphatase 77 (38-126) U/L Troponin I (0.000-0.034) ng/mL Total Protein 5.2 L (6.3-8.2) g/dL Albumin 2.4 L (3.5-5.0) g/dL Stool Occult Blood (Negative) 11/21/20 11/21/20 Range/Units 15:40 15:41 WBC (3.8-10.6) k/uL RBC (3.80-5.40) m/uL Hgb (11.4-16.0) gm/dL Hct (34.0-46.0) % MCV (80.0-100.0) fL MCH (25.0-35.0) pg MCHC (31.0-37.0) g/dL RDW (11.5-15.5) % Plt Count (150-450) k/uL MPV Neutrophils % % Lymphocytes % % Monocytes % % Eosinophils % % Basophils % % Neutrophils # (1.3-7.7) k/uL Lymphocytes # (1.0-4.8) k/uL Monocytes # (0-1.0) k/uL Eosinophils # (0-0.7) k/uL Basophils # (0-0.2) k/uL PT (9.0-12.0) sec INR (<1.2) APTT (22.0-30.0) sec D-Dimer (<0.60) mg/L FEU Sodium (137-145) mmol/L Potassium (3.5-5.1) mmol/L Chloride (98-107) mmol/L Carbon Dioxide (22-30) mmol/L Anion Gap mmol/L BUN (7-17) mg/dL Creatinine (0.52-1.04) mg/dL Est GFR (CKD-EPI)AfAm (>60 ml/min/1.73 sqM) Est GFR (CKD-EPI)NonAf (>60 ml/min/1.73 sqM) Glucose (74-99) mg/dL Calcium (8.4-10.2) mg/dL Total Bilirubin (0.2-1.3) mg/dL AST (14-36) U/L ALT (4-34) U/L Alkaline Phosphatase (38-126) U/L Troponin I <0.012 (0.000-0.034) ng/mL Total Protein (6.3-8.2) g/dL Albumin (3.5-5.0) g/dL Stool Occult Blood Positive H (Negative) - Radiology Data Radiology results: report reviewed (CT angios negative for pulmonary embolism. Masslike consolidation right upper lobe), image reviewed (Chest x-ray shows chronic changes. Right sided parenchymal changes) Critical Care Time Critical Care Time: Yes Total Critical Care Time: 32 Disposition Clinical Impression: GI hemorrhage, Pneumonia, Sepsis Disposition: ADMITTED IP TO THIS [facility] Condition: Serious Is patient prescribed a controlled substance at d/c from ED?: No Referrals: Harsh Underwood DO [Primary Care Provider] - 1-2 days Decision Time: 18:55
[2020-11-21 15:47] LABS: Basophils % (A) 0 %; Eosinophils % (A) 0 %; HCT 21.4 % (34.0-46.0); Lymphocytes # (A) 1.2 k/uL (1.0-4.8); Lymphocytes % (A) 10 %; MCH 29.4 pg (25.0-35.0); MCHC 33.3 g/dL (31.0-37.0); MCV 88.3 fL (80.0-100.0); Mean Platelet Volume 7.4; Monocytes # (A) 0.4 k/uL (0-1.0); Monocytes % (A) 3 %; Neutrophils % (A) 85 %; Platelet Count 463 k/uL (150-450); RBC 2.42 m/uL (3.80-5.40); RDW 13.1 % (11.5-15.5); WBC 11.8 k/uL (3.8-10.6)
[2020-11-21 15:52] LABS: HGB 7.1 gm/dL (11.4-16.0)
[2020-11-21 15:55] LABS: Albumin 2.4 g/dL (3.5-5.0); Calcium 8.9 mg/dL (8.4-10.2); Potassium 4.4 mmol/L (3.5-5.1); Total Bilirubin 0.4 mg/dL (0.2-1.3); Total Protein 5.2 g/dL (6.3-8.2)
--- NOTE | 2020-11-21 16:04 | XR ---
EXAMINATION TYPE: XR chest 2V DATE OF EXAM: 11/21/2020 COMPARISON: Chest CT April 19, 2020 and chest x-ray November 26, 2019 HISTORY: Cough and weakness. Hemoptysis. TECHNIQUE: Frontal and lateral views of the chest are obtained. FINDINGS: There is chronic parenchymal change with right-sided volume loss redemonstrated. Hyperexp anded clear left lung again seen. The cardiac silhouette size is stable and within normal limits. T he osseous structures remain demineralized. Partial visualization of prominent stomach with air-fluid level. IMPRESSION: Chronic changes without new acute pulmonary process.
[2020-11-21 16:23] LABS: INR 1.1 (<1.2); Prothrombin Time 11.8 sec (9.0-12.0)
[2020-11-21 16:28] LABS: D-Dimer 1.12 mg/L FEU (<0.60); Partial Thromboplastin Time 20.7 sec (22.0-30.0)
[2020-11-21] MEDS ORDERED: methylPREDNISolone SOD SUCCI 125 MG/2 ML VIAL IV STA (17:09)
[2020-11-21] MEDS ORDERED: diphenhydrAMINE 50 MG/ML 1 ML VIAL IVP STA (17:09)
[2020-11-21] MEDS ORDERED: FAMOTIDINE 20 MG/2 ML VIAL IV STA (17:09)
--- NOTE | 2020-11-21 18:43 | CT ---
EXAMINATION TYPE: CT angio chest DATE OF EXAM: 11/21/2020 COMPARISON: April 19, 2020 CT chest HISTORY: Hemoptysis CT DLP: 195.4 mGycm Automated exposure control for dose reduction was used. CONTRAST: Performed with IV Contrast, patient injected with 100 mL of Isovue 370. There are 3-D post processed images. There is masslike infiltrate anterior to the right perihilum into the right upper lobe with volume lo ss. Trachea is deviated to the right side. This area measures approximately 5 x 4 cm. There is narrow ing of the right upper lobe bronchus. Thoracic aorta is intact. There is no aneurysm or dissection. There is atheromatous change in the tho racic aorta. I see no filling defects in the pulmonary arteries. There is normal contrast opacificati on of the pulmonary arteries. There is some patchy nodular infiltrates in the right lung in the right mid and lower lung field. The se measure up to 1.5 cm. The left lung is clear. Thoracic spine is intact. There is no compression fracture. IMPRESSION: No evidence of pulmonary embolism. Masslike consolidation anterior aspect right upper lobe with volume loss that has progressed compared to old CT scan and consistent with treated tumor. Consolidation increased. Progression of tumor is p robably present. There is some nodular patchy infiltrate right lower lobe increased compared to old exam.
[2020-11-21] MEDS ORDERED: PNEUMONIA PROTOCOL UTILIZED 1 EACH MISC PO PRN (18:56)
[2020-11-21] MEDS ORDERED: AZITHROMYCIN 500 MG in SODIUM CHLORIDE 0.9% 250 ML IVPB STA (18:56)
[2020-11-21] MEDS ORDERED: LEVOFLOXACIN 750MG-D5W PMX 750 MG in DEXTROSE/WATER 1 150ML.BAG IVPB STA (18:59)
[2020-11-21] MEDS ORDERED: NALOXONE 0.4 MG/ML 1 ML VIAL IV PRN (19:01)
[2020-11-21] MEDS: PANTOPRAZOLE 40 MG/10 ML VIAL IV SCH (20:12)
[2020-11-21] MEDS: SODIUM CHLORIDE 0.9% 1,000 ML IV SCH (20:15)
[2020-11-21] MEDS: NON FORMULARY DRUG (Dilaudid Pain Pump 1 DOSE) MISCELLANE SCH (22:54)
[2020-11-21] MEDS: ATORVASTATIN 10 MG TAB PO SCH (23:07)
[2020-11-21] MEDS: AMITRIPTYLINE HCL 50 MG TAB PO SCH (23:07)
[2020-11-21] MEDS: BACLOFEN 10 MG TAB PO SCH (23:07)
[2020-11-21] MEDS: carvediloL 3.125 MG TAB PO SCH (23:08)
[2020-11-21] MEDS: MIRTAZAPINE 15 MG TAB PO SCH (23:08)
[2020-11-22] MEDS: SODIUM CHLORIDE 0.9% 1,000 ML IV SCH ×2 (06:02→19:36)
[2020-11-22] MEDS: BACLOFEN 10 MG TAB PO SCH ×4 (06:02→23:04)
[2020-11-22] MEDS: MAGNESIUM OXIDE 400 MG TAB PO SCH (06:02)
[2020-11-22] MEDS: FOLIC ACID 1 MG TAB PO SCH (06:02)
[2020-11-22] MEDS: FUROSEMIDE 20 MG TAB PO SCH (06:02)
[2020-11-22] MEDS: NALOXEGOL OXALATE 12.5 MG PO SCH (06:03)
--- NOTE | 2020-11-22 08:21 | XR ---
EXAMINATION TYPE: XR chest 2V DATE OF EXAM: 11/22/2020 COMPARISON: 11/21/2020 HISTORY: 65-year-old female pneumonia TECHNIQUE: AP and lateral views FINDINGS: The patient is rotated towards the right, obliqued, and the patient's chin obscures the right upper l rosetta and medial left apex. A portion of the right upper lobe consolidation is obscured. Mild hyperinfl ation. No pleural effusion. IMPRESSION: Limited by patient positioning. COPD. A portion of the right upper lung is obscured by the patient's chin. Right upper lobe consolidation persists.
[2020-11-22 08:33] LABS: Basophils % (A) 0 %; Eosinophils % (A) 0 %; HCT 21.8 % (34.0-46.0); HGB 7.2 gm/dL (11.4-16.0); Hypochromasia Slight; Lymphocytes # (A) 1.1 k/uL (1.0-4.8); Lymphocytes % (A) 7 %; MCH 30.1 pg (25.0-35.0); Mean Platelet Volume 7.3; Monocytes # (A) 0.4 k/uL (0-1.0); Monocytes % (A) 2 %; Neutrophils # (A) 14.7 k/uL (1.3-7.7); Neutrophils % (A) 90 %; Platelet Count 465 k/uL (150-450); Poikilocytosis Slight; RDW 13.7 % (11.5-15.5); WBC 16.3 k/uL (3.8-10.6)
[2020-11-22] MEDS ORDERED: ASPIRIN 81 MG PO SCH (12:00)
[2020-11-22] MEDS: PANTOPRAZOLE 40 MG/10 ML VIAL IV SCH (12:27)
[2020-11-22] MEDS: SENNOSIDES 8.6 MG TAB PO SCH (12:30)
[2020-11-22] MEDS: CHOLECALCIFEROL 1,000 UNIT TAB PO SCH (12:30)
[2020-11-22] MEDS: allopurinoL 100 MG TAB PO SCH (12:30)
[2020-11-22] MEDS: carvediloL 3.125 MG TAB PO SCH ×2 (12:31→23:04)
[2020-11-22] MEDS ORDERED: PEG 3350-NA SULF,BICARB,CL/KCL 4,000 ML BOTTLE PO ONE (12:42)
[2020-11-22] MEDS: LACTATED RINGERS 1,000 ML IV SCH ×2 (13:50→19:35)
--- NOTE | 2020-11-22 14:07 | P.GSCN ---
History of Present Illness Consult date: 11/22/20 History of present illness: CHIEF COMPLAINT: Generalized weakness HISTORY OF PRESENT ILLNESS: This is a 65-year-old female with a known history of perforated bowel status post right colectomy, colon polyps, COPD, hyperlipidemia, hypertension, rheumatoid arthritis, brain aneurysm repair, TIA and chronic kidney disease stage III. Patient presents to the emergency room with complaints of generalized weakness over the last week. Patient has been having bright red blood per rectum as well as dark tarry stools that started today. Her last colonoscopy was in July 2018 which had revealed rectal and transverse colon polyps. Patient presented with a hemoglobin of 7.1 she did receive 1 unit of packed red blood cells hemoglobin has gone up to 7.2. She's scheduled for another unit of blood. Fecal occult blood was positive. She is also being followed by pulmonary service in regards to a lung mass in the right upper lobe and is scheduled for bronchoscopy tomorrow. Patient has been hypotensive and has been receiving IV fluid boluses. She also reports about 100 pound weight loss. Initially she had been trying to lose weight with Keto diet. But she has been off the keto diet for about 6 months. Patient denies any abdominal pain. Denies any nausea or vomiting. Denies any fever or chills or sweats. PAST MEDICAL HISTORY: See list. PAST SURGICAL HISTORY: See list. MEDICATIONS: See list. ALLERGIES: See list. SOCIAL HISTORY: No illicit drug use. REVIEW OF SYSTEMS: CONSTITUTIONAL: Denies fever or chills. HEENT: Denies blurred vision, vision changes, or eye pain. Denies hemoptysis CARDIOVASCULAR: Denies chest pain or pressure. RESPIRATORY: No shortness of breath. GASTROINTESTINAL: See HPI for pertinent findings HEMATOLOGIC: Denies bleeding disorders. GENITOURINARY: Denies any blood in urine or increased urinary frequency. SKIN: Denies pruitis. Denies rash. PHYSICAL EXAM: VITAL SIGNS: Reviewed GENERAL: Well-developed in no acute distress. HEENT: No sclera icterus. Extraocular movements grossly intact. Moist buccal mucosa. Head is atraumatic, normocephalic. No nasal drainage. ABDOMEN: Soft. Nondistended. Nontender NEUROLOGIC: Alert and oriented. Cranial nerves II through XII grossly intact. LABORATORY DATA: WBC has gone from 11.8-16.3 hemoglobin 7.1 up to 7.2 lactate 0.9 creatinine 0.86 BUN 55 LFTs are normal troponin negative. Occult blood positive. Covid not detected IMAGING: CTA no evidence of pulmonary embolism. Masslike consolidation anterior aspect right upper lobe with volume loss that has progressed compared to old CT scanning consistent with treated tumor. Consolidation increased. Progression of tumor is probably present. There is some nodular patchy infiltrate right lower lobe increased compared to old exam. ASSESSMENT: 1. Acute GI bleed: patient has had both bright red blood per rectum as well as black tarry stools 2. Acute blood loss anemia secondary to GI bleed 3. Hypotension 4. Right Lung mass followed by pulmonary service and scheduled for bronchoscopy tomorrow 5. Weight loss PLAN: -Patient scheduled for EGD and colonoscopy tomorrow 11/23/[address] Richardson -Start GoLYTELY prep -Okay for clear liquids today and then nothing by mouth after midnight -Continue to monitor hemoglobin -Discontinue aspirin -1 L lactate ringer fluid bolus ordered Thank you for this consultation Physician Plush Weaver note has been reviewed by physician. Signing provider agrees with the documented findings, assessment, and plan of care. Past Medical History Past Medical History: COPD, CVA/TIA, Fibromyalgia, Hyperlipidemia, Hypertension, Osteoarthritis (OA), Renal Disease, Rheumatoid Arthritis (RA), Sleep Apnea/CPAP/BIPAP Additional Past Medical History / Comment(s): CVA (1992 & JANUARY 2018), Lt ARM WEAKNESS. HX BRAIN ANEURYSM. DROPPED HEAD SYNDROME-HEAD CROOKED, CONSTANT MORALES, GETTING INJ. HX RUPTURED BOWEL. KIDNEY DISEASE STAGE 3. HEMORRHOIDS. GOUT. NOT USING C-PAP MACHINE. HX OF COLON POLYPS. BACK PAIN: pain pump USES WHEELED WALKER. Right lung mass History of Any Multi-Drug Resistant Organisms: MRSA Year Discovered:: 06/05/13 MDRO Source:: BLADDER Past Surgical History: Bowel Resection, Breast Surgery, Section, Orthopedic Surgery, Tonsillectomy, Tubal Ligation Additional Past Surgical History / Comment(s): ARTIFICIAL LT FOOT TENDON CHILD; LATER HAD TENDONS ON LT FOOT CUT. D & C, BRAIN ANEURYSM REPAIR WITH COILS, LT BREAST LUMPECTOMY, LT EYE SURGERY. Past Anesthesia/Blood Transfusion Reactions: No Reported Reaction Additional Past Anesthesia/Blood Transfusion Reaction / Comm: ETHER CAUSED PONV Past Psychological History: Anxiety, Depression Smoking Status: Light tobacco smoker Past Alcohol Use History: None Reported Past Drug Use History: None Reported Additional Drug Use History / Comment(s): STATES CURRENT MARIJUANA USE FOR PAIN, 2X PER DAY OR LESS. - Past Family History Mother Family Medical History: CVA/TIA Father Family Medical History: Cancer Additional Family Medical History / Comment(s): BREAST CA. Sister(s) Family Medical History: Cancer Additional Family Medical History / Comment(s): LUNG CA Medications and Allergies Home Medications Medication Instructions Recorded Confirmed Type Fenofibrate 160 mg PO DAILY@1800 05/24/14 11/21/20 History Folic Acid 1 mg PO DAILY@0600 05/24/14 11/21/20 History Lovastatin [Mevacor] 40 mg PO HS@0000 05/24/14 11/21/20 History Cholecalciferol [Vitamin D3 (25 2,000 unit PO DAILY@119904/04/16 11/21/20 History Mcg = 1000 Iu)] EPINEPHrine (Auto Inject) [Epipen] 0.3 mg IM ONCE PRN 04/04/16 11/21/20 History allopurinoL [Zyloprim] 100 mg PO DAILY@1200 04/04/16 11/21/20 History rOPINIRole HCL [Requip] 3 mg PO HS@0000 02/13/18 11/21/20 History Dilaudid Pain Pump 1 dose INTRATHECA DIRECTED 07/21/19 11/21/20 History Magnesium Oxide [Mag-Ox] 400 mg PO DAILY@0607/21/19 11/21/20 History Naloxegol Oxalate [Movantik] 12.5 mg PO DAILY@0607/21/19 11/21/20 History Albuterol Sulfate [Proair Hfa] 1 - 2 puff INHALATION RT-Q4H PRN 11/21/20 11/21/20 History Amitriptyline HCl [Elavil] 100 mg PO HS@0000 11/21/20 11/21/20 History Aspirin EC [Ecotrin Low Dose] 81 mg PO DAILY@119911/21/20 11/21/20 History Baclofen [Lioresal] 10 mg PO QID@00,06,12,18 11/21/20 11/21/20 History Biotin 10,000 mcg PO DAILY@0600 11/21/20 11/21/20 History Calcium Polycarbophil [Fiber-Lax] 625 mg PO DAILY@1200 11/21/20 11/21/20 History Carvedilol [Coreg] 3.125 mg PO BID@0000,1200 11/21/20 11/21/20 History Mirtazapine [Remeron] 15 mg PO HS@0000 11/21/20 11/21/20 History Mirtazapine [Remeron] 15 mg PO HS@0000 11/21/20 11/21/20 History Multivit-Min/Iron/Folic/Lutein 1 tab PO DAILY@1800 11/21/20 11/21/20 History [Centrum Silver Women Tablet] Sennosides [Senna] 8.6 mg PO DAILY@1200 11/21/20 11/21/20 History Allergies Allergy/AdvReac Type Severity Reaction Status Date / Time morphine Allergy Unknown Hallucinati Verified 11/21/20 19:15 ons acetaminophen Allergy Unknown Verified 11/21/20 19:15 [From Darvocet-N 100] bupropion [From Wellbutrin] Allergy Unknown Verified 11/21/20 19:15 caffeine [From Norgesic] Allergy Anaphylaxis Verified 11/21/20 19:15 cefaclor [From Ceclor] Allergy Unknown Verified 11/21/20 19:15 divalproex sodium Allergy Unknown Verified 11/21/20 19:15 [From Depakote] doxycycline Allergy Unknown Verified 11/21/20 19:15 Iodine and Iodide Containing Allergy Rash/Hives Verified 11/21/20 19:15 Produc ketorolac tromethamine Allergy Unknown Verified 11/21/20 19:15 [From Toradol] lorazepam [From Ativan] Allergy Rash/Hives Verified 11/21/20 19:15 naproxen Allergy Unknown Verified 11/21/20 19:15 orphenadrine [From Norgesic] Allergy Anaphylaxis Verified 11/21/20 19:15 orphenadrine citrate Allergy Unknown Verified 11/21/20 19:15 [From Norgesic] Penicillins Allergy Unknown Verified 11/21/20 19:15 phenytoin sodium Allergy Unknown Verified 11/21/20 19:15 [From Dilantin] phenytoin sodium extended Allergy Unknown Verified 11/21/20 19:15 [From Dilantin] pregabalin [From Lyrica] Allergy Unknown Verified 11/21/20 19:15 propoxyphene HCl Allergy Unknown Verified 11/21/20 19:15 [From Darvon] propoxyphene napsylate Allergy Unknown Verified 11/21/20 19:15 [From Darvocet-N 100] Sulfa (Sulfonamide Allergy Unknown Verified 11/21/20 19:15 Antibiotics) trazodone Allergy Unknown Verified 11/21/20 19:15 venom-honey bee Allergy Unknown Verified 11/21/20 19:15 [bee venom (honey bee)] venom-wasp Allergy Anaphylaxis Verified 11/21/20 19:15 adhesive AdvReac "rips off Verified 11/21/20 19:15 skin" adhesive tape AdvReac "rips off Verified 11/21/20 19:15 skin" ketorolac [From Toradol] AdvReac Unknown Verified 11/21/20 19:15 phenytoin [From Dilantin] AdvReac Unknown Verified 11/21/20 19:15 propoxyphene [From Darvon] AdvReac Unknown Verified 11/21/20 19:15 tramadol AdvReac Unknown Verified 11/21/20 19:15 UNCOATED ASPIRIN AdvReac Unknown Uncoded 11/21/20 19:15 Surgical - Exam Vital Signs Temp Pulse Resp BP Pulse Ox 98.9 F 99 16 107/49 99 11/21/20 14:51 11/21/20 14:51 11/21/20 14:51 11/21/20 14:51 11/21/20 14:51 Results - Labs 11/22/20 07:52 11/21/20 15:40 Abnormal Lab Results - Last 24 Hours (Table) 11/21/20 11/21/20 11/21/20 Range/Units 15:40 15:40 15:40 WBC 11.8 H (3.8-10.6) k/uL RBC 2.42 L (3.80-5.40) m/uL Hgb 7.1 L D (11.4-16.0) gm/dL Hct 21.4 L (34.0-46.0) % Plt Count 463 H (150-450) k/uL Neutrophils # 10.0 H (1.3-7.7) k/uL APTT 20.7 L (22.0-30.0) sec D-Dimer 1.12 H (<0.60) mg/L FEU Sodium 135 L (137-145) mmol/L BUN 55 H (7-17) mg/dL Glucose 126 H (74-99) mg/dL Total Protein 5.2 L (6.3-8.2) g/dL Albumin 2.4 L (3.5-5.0) g/dL Stool Occult Blood (Negative) Crossmatch 11/21/20 11/21/20 11/22/20 Range/Units 15:40 15:41 07:52 WBC 16.3 H (3.8-10.6) k/uL RBC 2.40 L (3.80-5.40) m/uL Hgb 7.2 L (11.4-16.0) gm/dL Hct 21.8 L (34.0-46.0) % Plt Count 465 H (150-450) k/uL Neutrophils # 14.7 H (1.3-7.7) k/uL APTT (22.0-30.0) sec D-Dimer (<0.60) mg/L FEU Sodium (137-145) mmol/L BUN (7-17) mg/dL Glucose (74-99) mg/dL Total Protein (6.3-8.2) g/dL Albumin (3.5-5.0) g/dL Stool Occult Blood Positive H (Negative) Crossmatch See Detail Diabetes panel 11/21/20 Range/Units 15:40 Sodium 135 L (137-145) mmol/L Potassium 4.4 (3.5-5.1) mmol/L Chloride 102 (98-107) mmol/L Carbon Dioxide 30 (22-30) mmol/L BUN 55 H (7-17) mg/dL Creatinine 0.86 (0.52-1.04) mg/dL Glucose 126 H (74-99) mg/dL Calcium 8.9 (8.4-10.2) mg/dL AST 23 (14-36) U/L ALT 11 (4-34) U/L Alkaline Phosphatase 77 (38-126) U/L Total Protein 5.2 L (6.3-8.2) g/dL Albumin 2.4 L (3.5-5.0) g/dL Calcium panel 11/21/20 Range/Units 15:40 Calcium 8.9 (8.4-10.2) mg/dL Albumin 2.4 L (3.5-5.0) g/dL Pituitary panel 11/21/20 Range/Units 15:40 Sodium 135 L (137-145) mmol/L Potassium 4.4 (3.5-5.1) mmol/L Chloride 102 (98-107) mmol/L Carbon Dioxide 30 (22-30) mmol/L BUN 55 H (7-17) mg/dL Creatinine 0.86 (0.52-1.04) mg/dL Glucose 126 H (74-99) mg/dL Calcium 8.9 (8.4-10.2) mg/dL Adrenal panel 11/21/20 Range/Units 15:40 Sodium 135 L (137-145) mmol/L Potassium 4.4 (3.5-5.1) mmol/L Chloride 102 (98-107) mmol/L Carbon Dioxide 30 (22-30) mmol/L BUN 55 H (7-17) mg/dL Creatinine 0.86 (0.52-1.04) mg/dL Glucose 126 H (74-99) mg/dL Calcium 8.9 (8.4-10.2) mg/dL Total Bilirubin 0.4 (0.2-1.3) mg/dL AST 23 (14-36) U/L ALT 11 (4-34) U/L Alkaline Phosphatase 77 (38-126) U/L Total Protein 5.2 L (6.3-8.2) g/dL Albumin 2.4 L (3.5-5.0) g/dL
--- NOTE | 2020-11-22 15:34 | P.CNPUL ---
History of Present Illness Consult date: 11/22/20 Reason for consult: other (Lung mass and hemoptysis) Chief complaint: Generalized weakness History of present illness: This is a 65-year-old female, at least a 32-kbha-bhul smoker, patient is primarily a patient of Dr. Ayers, presented to the ER yesterday with at least one month history of generalized weakness, over 100 pound weight loss, and intermittent episodes of cough with blood-tinged sputum. Patient was also complaining of dark tarry stools started just the day of presentation to the ER hemoglobin on presentation was noted to be 7.1. WBC count was 11.8. Electrolytes are normal, renal profile is normal. She had positive stool occult bloods. She had negative PCR for covid 19. And she had a CT of the chest showing a large masslike consolidation in the anterior aspect of the right upper lobe with volume loss that apparently has progressed compared to old CT of the chest. Previous CT of the chest was in April of 2020. The findings on the CT of the chest are highly suspicious for bronchogenic carcinoma. After evaluating the patient, I felt that the patient should have bronchoscopy and transbronchial biopsy which will be arranged for and it will be done tomorrow. In the meantime the patient is being followed by other consultants for her positive Hemoccult stools, and she may require EGD and/or colonoscopy. Supposedly her last colonoscopy was in 2018, and she was found to have rectal and transverse colon polyps. Review of Systems CONSTITUTIONAL: Denies fever or chills. Had at least 100 pound weight loss over the last few months HEENT: Denies blurred vision, vision changes, or eye pain. CARDIOVASCULAR: Denies chest pain or pressure. RESPIRATORY: Shortness of breath, cough, and hemoptysis. GASTROINTESTINAL: Black tarry stools. HEMATOLOGIC: No history of clotting bleeding or bruising. GENITOURINARY: No dysuria frequency urgency or hematuria. SKIN: Denies pruitis. Denies rash. Psychiatric: Denies any symptoms of depression. Neurologic: Denies any headache blurred vision or dizziness. Past Medical History Past Medical History: COPD, CVA/TIA, Fibromyalgia, Hyperlipidemia, Hypertension, Osteoarthritis (OA), Renal Disease, Rheumatoid Arthritis (RA), Sleep Apnea/CPAP/BIPAP Additional Past Medical History / Comment(s): CVA (1992 & JANUARY 2018), Lt ARM WEAKNESS. HX BRAIN ANEURYSM. DROPPED HEAD SYNDROME-HEAD CROOKED, CONSTANT MORALES, GETTING INJ. HX RUPTURED BOWEL. KIDNEY DISEASE STAGE 3. HEMORRHOIDS. GOUT. NOT USING C-PAP MACHINE. HX OF COLON POLYPS. BACK PAIN: pain pump USES WHEELED WALKER. Right lung mass History of Any Multi-Drug Resistant Organisms: MRSA Date of last positivie culture/infection: 06/05/13 MDRO Source:: BLADDER Past Surgical History: Bowel Resection, Breast Surgery, Section, Orthopedic Surgery, Tonsillectomy, Tubal Ligation Additional Past Surgical History / Comment(s): ARTIFICIAL LT FOOT TENDON CHILD; LATER HAD TENDONS ON LT FOOT CUT. D & C, BRAIN ANEURYSM REPAIR WITH COILS, LT BREAST LUMPECTOMY, LT EYE SURGERY. Past Anesthesia/Blood Transfusion Reactions: No Reported Reaction Additional Past Anesthesia/Blood Transfusion Reaction / Comment(s): ETHER CAUSED PONV Past Psychological History: Anxiety, Depression Smoking Status: Light tobacco smoker Past Alcohol Use History: None Reported Past Drug Use History: None Reported Additional Drug Use History / Comment(s): STATES CURRENT MARIJUANA USE FOR PAIN, 2X PER DAY OR LESS. - Past Family History Mother Family Medical History: CVA/TIA Father Family Medical History: Cancer Additional Family Medical History / Comment(s): BREAST CA. Sister(s) Family Medical History: Cancer Additional Family Medical History / Comment(s): LUNG CA Medications and Allergies Home Medications Medication Instructions Recorded Confirmed Type Fenofibrate 160 mg PO DAILY@1800 05/24/14 11/21/20 History Folic Acid 1 mg PO DAILY@0600 05/24/14 11/21/20 History Lovastatin [Mevacor] 40 mg PO HS@0000 05/24/14 11/21/20 History Cholecalciferol [Vitamin D3 (25 2,000 unit PO DAILY@1200 04/04/16 11/21/20 History Mcg = 1000 Iu)] EPINEPHrine (Auto Inject) [Epipen] 0.3 mg IM ONCE PRN 04/04/16 11/21/20 History allopurinoL [Zyloprim] 100 mg PO DAILY@1200 04/04/16 11/21/20 History rOPINIRole HCL [Requip] 3 mg PO HS@0000 02/13/18 11/21/20 History Dilaudid Pain Pump 1 dose INTRATHECA DIRECTED 07/21/19 11/21/20 History Magnesium Oxide [Mag-Ox] 400 mg PO DAILY@0600 07/21/19 11/21/20 History Naloxegol Oxalate [Movantik] 12.5 mg PO DAILY@0600 07/21/19 11/21/20 History Albuterol Sulfate [Proair Hfa] 1 - 2 puff INHALATION RT-Q4H PRN 11/21/20 11/21/20 History Amitriptyline HCl [Elavil] 100 mg PO HS@0000 11/21/20 11/21/20 History Aspirin EC [Ecotrin Low Dose] 81 mg PO DAILY@1200 11/21/20 11/21/20 History Baclofen [Lioresal] 10 mg PO QID@00,06,12,18 11/21/20 11/21/20 History Biotin 10,000 mcg PO DAILY@0600 11/21/20 11/21/20 History Calcium Polycarbophil [Fiber-Lax] 625 mg PO DAILY@1200 11/21/20 11/21/20 History Carvedilol [Coreg] 3.125 mg PO BID@0000,1200 11/21/20 11/21/20 History Mirtazapine [Remeron] 15 mg PO HS@0000 11/21/20 11/21/20 History Mirtazapine [Remeron] 15 mg PO HS@0000 11/21/20 11/21/20 History Multivit-Min/Iron/Folic/Lutein 1 tab PO DAILY@1800 11/21/20 11/21/20 History [Centrum Silver Women Tablet] Sennosides [Senna] 8.6 mg PO DAILY@1200 11/21/20 11/21/20 History Allergies Allergy/AdvReac Type Severity Reaction Status Date / Time morphine Allergy Unknown Hallucinati Verified 11/21/20 19:15 ons acetaminophen Allergy Unknown Verified 11/21/20 19:15 [From Darvocet-N 100] bupropion [From Wellbutrin] Allergy Unknown Verified 11/21/20 19:15 caffeine [From Norgesic] Allergy Anaphylaxis Verified 11/21/20 19:15 cefaclor [From Ceclor] Allergy Unknown Verified 11/21/20 19:15 divalproex sodium Allergy Unknown Verified 11/21/20 19:15 [From Depakote] doxycycline Allergy Unknown Verified 11/21/20 19:15 Iodine and Iodide Containing Allergy Rash/Hives Verified 11/21/20 19:15 Produc ketorolac tromethamine Allergy Unknown Verified 11/21/20 19:15 [From Toradol] lorazepam [From Ativan] Allergy Rash/Hives Verified 11/21/20 19:15 naproxen Allergy Unknown Verified 11/21/20 19:15 orphenadrine [From Norgesic] Allergy Anaphylaxis Verified 11/21/20 19:15 orphenadrine citrate Allergy Unknown Verified 11/21/20 19:15 [From Norgesic] Penicillins Allergy Unknown Verified 11/21/20 19:15 phenytoin sodium Allergy Unknown Verified 11/21/20 19:15 [From Dilantin] phenytoin sodium extended Allergy Unknown Verified 11/21/20 19:15 [From Dilantin] pregabalin [From Lyrica] Allergy Unknown Verified 11/21/20 19:15 propoxyphene HCl Allergy Unknown Verified 11/21/20 19:15 [From Darvon] propoxyphene napsylate Allergy Unknown Verified 11/21/20 19:15 [From Darvocet-N 100] Sulfa (Sulfonamide Allergy Unknown Verified 11/21/20 19:15 Antibiotics) trazodone Allergy Unknown Verified 11/21/20 19:15 venom-honey bee Allergy Unknown Verified 11/21/20 19:15 [bee venom (honey bee)] venom-wasp Allergy Anaphylaxis Verified 11/21/20 19:15 adhesive AdvReac "rips off Verified 11/21/20 19:15 skin" adhesive tape AdvReac "rips off Verified 11/21/20 19:15 skin" ketorolac [From Toradol] AdvReac Unknown Verified 11/21/20 19:15 phenytoin [From Dilantin] AdvReac Unknown Verified 11/21/20 19:15 propoxyphene [From Darvon] AdvReac Unknown Verified 11/21/20 19:15 tramadol AdvReac Unknown Verified 11/21/20 19:15 UNCOATED ASPIRIN AdvReac Unknown Uncoded 11/21/20 19:15 Physical Exam Vitals: Vital Signs Temp Pulse Pulse Resp BP BP Pulse Ox 11/22/20 15:07 77 18 92/50 96 11/22/20 14:57 98.1 F 75 18 90/41 95 11/22/20 12:00 81 16 86/42 95 11/22/20 08:00 98.1 F 81 16 92/54 98 11/22/20 04:00 82 16 102/58 98 11/22/20 02:00 92 16 11/22/20 01:27 86 16 110/55 98 11/22/20 00:00 98.2 F 92 16 94/59 98 11/21/20 23:25 98.2 F 94 18 99/54 11/21/20 22:55 98 F 92 16 93/46 11/21/20 22:45 98.1 F 95 18 91/53 11/21/20 20:15 89 18 105/54 97 11/21/20 19:40 98.2 F 88 18 100/56 100 11/21/20 19:20 98.8 F 91 16 102/77 97 11/21/20 18:26 92 16 104/54 98 11/21/20 17:06 94 16 100/53 95 Intake and Output 11/22/20 11/22/20 11/22/20 06:59 14:59 22:59 Intake Total 310 1600 Output Total 200 Balance 110 1600 Intake: Intake, IV Titration 1500 Amount Lactated Ringers 1,000 ml 1000 @ 999 mls/hr IV .Q1H1M EVANGELINA Rx#:[id number] Sodium Chloride 0.9% 1, 500 000 ml @ 125 mls/hr IV . Q8H EVANGELINA Rx#:[id number] Oral 100 Blood Product 310 0 Rc As-1 Unit 0 [id number] Rc As-1 Unit 310 [id number] Output: Urine 200 Other: Voiding Method Bedpan # Voids 1 Weight 52.5 kg 52.5 kg General appearance: Revealed a 65-year-old female, looks frail and chronically ill, in no distress. Head exam: Atraumatic, normocephalic. Eye exam: PERRLA, EOMI, nonicteric. Pale conjunctivae. Neck exam: No neck masses no JVD no stridor. Respiratory exam: Diminished breath sound bilaterally no crackles or rhonchi or wheezes. Symmetrical chest expansion. Cardiovascular Exam: Distant S1 and S2, no S3 gallop. GI/Abdominal exam: Soft nontender no megaly no rebound no guarding. Rectal exam: Not performed Extremities exam: No clubbing edema or cyanosis. Neurological exam: Alert and oriented 3 no gross focal neurologic deficits. Psychiatric exam: Normal mood, affect and normal mental status examination Skin exam: No cyanosis, no rashes Results - Laboratory Findings CBC and BMP: 11/22/20 07:52 11/21/20 15:40 PT/INR, D-dimer PT 11.8 sec (9.0-12.0) 11/21/20 15:40 INR 1.1 (<1.2) 11/21/20 15:40 D-Dimer 1.12 mg/L FEU (<0.60) H 11/21/20 15:40 Abnormal lab findings: Abnormal Labs 11/21/20 11/21/20 11/21/20 15:40 15:40 15:40 WBC 11.8 H RBC 2.42 L Hgb 7.1 L D Hct 21.4 L Plt Count 463 H Neutrophils # 10.0 H APTT 20.7 L D-Dimer 1.12 H Sodium 135 L BUN 55 H Glucose 126 H Total Protein 5.2 L Albumin 2.4 L Stool Occult Blood Crossmatch 11/21/20 11/21/20 11/22/20 15:40 15:41 07:52 WBC 16.3 H RBC 2.40 L Hgb 7.2 L Hct 21.8 L Plt Count 465 H Neutrophils # 14.7 H APTT D-Dimer Sodium BUN Glucose Total Protein Albumin Stool Occult Blood Positive H Crossmatch See Detail - Diagnostic Findings CT scan - chest: image reviewed (As noted in HPI.) Assessment and Plan Assessment: Impression: Hemoptysis secondary to right upper lobe mass, most likely secondary to bronchogenic carcinoma unless proven otherwise. Severe weight loss secondary to underlying malignancy unless for otherwise. Right upper lobe mass, considered malignant unless for otherwise. Acute blood loss anemia secondary to GI bleeding, being addressed by surgery on the case. Tobacco dependence syndrome. History of underlying COPD. History of fibromyalgia. Dyslipidemia. History of rheumatoid arthritis. History of obstructive sleep apnea syndrome. History of colonic polyps. Recommendation: Continue present supportive care measures. We will arrange for bronchoscopy and transbronchial biopsy of the anterior segment of the right upper lobe tomorrow. This will be done with fluoroscopy, and we will likely have it done with the patient fully intubated by [employer]. Transfuse for low hemoglobin today since her hemoglobin is only 7.1. We'll continue to follow. Prognosis is definitely poor and guarded. Time with Patient: Greater than 30
[2020-11-22] MEDS ORDERED: AZITHROMYCIN 500 MG TAB PO SCH (18:58)
[2020-11-22] MEDS: FENOFIBRATE 160 MG TAB PO SCH (19:53)
--- NOTE | 2020-11-22 20:03 | P.HPIM ---
History of Present Illness H&P Date: 11/22/20 Chief Complaint: Black tarry stool History of presenting complaint: This is a 65-year-old patient of Dr. Underwood. Chronic stable medical conditions include history of brain aneurysm that was clipped, restless leg syndrome, chronic fibromyalgia, hyperlipidemia, COPD. Uses a pain pump for chronic low back pain. Does use a Rollator to get about. Patient been having hemoptysis for some time for close to a year and is due to follow-up with pulmonary. Patient now presents 1 day of black tarry stools. Has lost close to 100 pounds over the course of 1 year. Does feel tired and rundown. Denies any abdominal pain. No nausea vomiting. Review of systems: GEN.: [ Tired] EYES: [None] HEENT: [None] NECK: [None] RESPIRATORY: [Some shortness of breath] CARDIOVASCULAR: [None] GASTROINTESTINAL: [As above] GENITOURINARY: [None] MUSCULOSKELETAL: [Chronic low back pain] LYMPHATICS: [None] HEMATOLOGICAL: [None] PSYCHIATRY: [None] NEUROLOGICAL: [Difficulty walking] Past medical history: Hyperlipidemia, chronic fibromyalgia, restless leg syndrome, history of brain aneurysm for which patient clips are present. COPD, TIA, fibromyalgia, hyperlipidemia, hypertension, rheumatoid arthritis, sleep apnea, stroke in and January 2018, dropped head syndrome,, hemorrhoids, gout, does not use CPAP machine, Patient does use a wheeled walker Social history: Stop smoking and March 2018. Smoked 2 packs a day for most of her life. Now down to 1 pack a month.. Does use medical marijuana. Physical examination: VITAL SIGNS: 98.9, 99, 16, 107/49, 99% room air upon presentation GENERAL: BMI 18.7, laying in bed, tired EYES: Pupils equal. Conjunctiva pale HEENT: External appearance of nose and ears normal, oral cavity grossly normal. NECK: JVD not raised; masses not palpable. HEART: First and second heart sounds are normal; no edema. LUNGS: Respiratory rate increased; decreased breath sounds. ABDOMEN: Soft, nontender, liver spleen not palpable, no masses palpable. Pain pump PSYCH: AO 3, mood and affect a bit low NEUROLOGICAL: Cranial nerves grossly intact; no facial asymmetry, moving all 4 limbs. LYMPHATICS: No lymph nodes palpable in the axilla and neck INVESTIGATIONS, reviewed in the clinical context: White count 11.8 hemoglobin 7.1 platelets 463 potassium 4.4 creatinine 0.86 Stool occult blood positive Coronavirus is PCR-negative Chest x-ray film personally reviewed by me-right upper lung mass EKG tracing personally reviewed by me shows-normal sinus rhythm Chest CTA-masslike consolidation anterior aspect right upper lobe with volume loss increased compared to previous study Assessment: -Acute GI bleed with black tarry stools of one day duration. -Intermittent hemoptysis for one year and patient was due to see a viscose department worker for a right lung mass which seems to progressed -Hyperlipidemia -Chronic fibromyalgia -History of brain aneurysm for which patient had clipping -COPD in an current smoker -Essential hypertension -Chronic pain, for which patient has a pain pump -Chronic gait dysfunction uses a wheeled walker -Dropped head syndrome Plan: Patient being transfused blood. H&H will be followed. Consultation both to pulmonary and Dr. Richardosn is being done. Home medications resumed. Bronchoscopy is being planned by pulmonary. Patient also been scheduled for endoscopy. Past Medical History Past Medical History: COPD, CVA/TIA, Fibromyalgia, Hyperlipidemia, Hypertension, Osteoarthritis (OA), Renal Disease, Rheumatoid Arthritis (RA), Sleep Apnea/CPAP/BIPAP Additional Past Medical History / Comment(s): CVA (1992 & JANUARY 2018), Lt ARM WEAKNESS. HX BRAIN ANEURYSM. DROPPED HEAD SYNDROME-HEAD CROOKED, CONSTANT MORALES, GETTING INJ. HX RUPTURED BOWEL. KIDNEY DISEASE STAGE 3. HEMORRHOIDS. GOUT. NOT USING C-PAP MACHINE. HX OF COLON POLYPS. BACK PAIN: pain pump USES WHEELED WALKER. Right lung mass History of Any Multi-Drug Resistant Organisms: MRSA Date of last positivie culture/infection: 06/05/13 MDRO Source:: BLADDER Past Surgical History: Bowel Resection, Breast Surgery, Section, Orthopedic Surgery, Tonsillectomy, Tubal Ligation Additional Past Surgical History / Comment(s): ARTIFICIAL LT FOOT TENDON CHILD; LATER HAD TENDONS ON LT FOOT CUT. D & C, BRAIN ANEURYSM REPAIR WITH COILS, LT BREAST LUMPECTOMY, LT EYE SURGERY. Past Anesthesia/Blood Transfusion Reactions: No Reported Reaction Additional Past Anesthesia/Blood Transfusion Reaction / Comment(s): ETHER CAUSED PONV Past Psychological History: Anxiety, Depression Smoking Status: Light tobacco smoker Past Alcohol Use History: None Reported Past Drug Use History: None Reported Additional Drug Use History / Comment(s): STATES CURRENT MARIJUANA USE FOR PAIN, 2X PER DAY OR LESS. - Past Family History Mother Family Medical History: CVA/TIA Father Family Medical History: Cancer Additional Family Medical History / Comment(s): BREAST CA. Sister(s) Family Medical History: Cancer Additional Family Medical History / Comment(s): LUNG CA Medications and Allergies Home Medications Medication Instructions Recorded Confirmed Type Fenofibrate 160 mg PO DAILY@1800 05/24/14 11/21/20 History Folic Acid 1 mg PO DAILY@0600 05/24/14 11/21/20 History Lovastatin [Mevacor] 40 mg PO HS@0000 05/24/14 11/21/20 History Cholecalciferol [Vitamin D3 (25 2,000 unit PO DAILY@119904/04/16 11/21/20 History Mcg = 1000 Iu)] EPINEPHrine (Auto Inject) [Epipen] 0.3 mg IM ONCE PRN 04/04/16 11/21/20 History allopurinoL [Zyloprim] 100 mg PO DAILY@1200 04/04/16 11/21/20 History rOPINIRole HCL [Requip] 3 mg PO HS@0000 02/13/18 11/21/20 History Dilaudid Pain Pump 1 dose INTRATHECA DIRECTED 07/21/19 11/21/20 History Magnesium Oxide [Mag-Ox] 400 mg PO DAILY@0600 07/21/19 11/21/20 History Naloxegol Oxalate [Movantik] 12.5 mg PO DAILY@0607/21/19 11/21/20 History Albuterol Sulfate [Proair Hfa] 1 - 2 puff INHALATION RT-Q4H PRN 11/21/20 11/21/20 History Amitriptyline HCl [Elavil] 100 mg PO HS@0000 11/21/20 11/21/20 History Aspirin EC [Ecotrin Low Dose] 81 mg PO DAILY@119911/21/20 11/21/20 History Baclofen [Lioresal] 10 mg PO QID@00,06,12,18 11/21/20 11/21/20 History Biotin 10,000 mcg PO DAILY@0600 11/21/20 11/21/20 History Calcium Polycarbophil [Fiber-Lax] 625 mg PO DAILY@1200 11/21/20 11/21/20 History Carvedilol [Coreg] 3.125 mg PO BID@0000,1200 11/21/20 11/21/20 History Mirtazapine [Remeron] 15 mg PO HS@0000 11/21/20 11/21/20 History Mirtazapine [Remeron] 15 mg PO HS@0000 11/21/20 11/21/20 History Multivit-Min/Iron/Folic/Lutein 1 tab PO DAILY@1800 11/21/20 11/21/20 History [Centrum Silver Women Tablet] Sennosides [Senna] 8.6 mg PO DAILY@1200 11/21/20 11/21/20 History Allergies Allergy/AdvReac Type Severity Reaction Status Date / Time morphine Allergy Unknown Hallucinati Verified 11/21/20 19:15 ons acetaminophen Allergy Unknown Verified 11/21/20 19:15 [From Darvocet-N 100] bupropion [From Wellbutrin] Allergy Unknown Verified 11/21/20 19:15 caffeine [From Norgesic] Allergy Anaphylaxis Verified 11/21/20 19:15 cefaclor [From Ceclor] Allergy Unknown Verified 11/21/20 19:15 divalproex sodium Allergy Unknown Verified 11/21/20 19:15 [From Depakote] doxycycline Allergy Unknown Verified 11/21/20 19:15 Iodine and Iodide Containing Allergy Rash/Hives Verified 11/21/20 19:15 Produc ketorolac tromethamine Allergy Unknown Verified 11/21/20 19:15 [From Toradol] lorazepam [From Ativan] Allergy Rash/Hives Verified 11/21/20 19:15 naproxen Allergy Unknown Verified 11/21/20 19:15 orphenadrine [From Norgesic] Allergy Anaphylaxis Verified 11/21/20 19:15 orphenadrine citrate Allergy Unknown Verified 11/21/20 19:15 [From Norgesic] Penicillins Allergy Unknown Verified 11/21/20 19:15 phenytoin sodium Allergy Unknown Verified 11/21/20 19:15 [From Dilantin] phenytoin sodium extended Allergy Unknown Verified 11/21/20 19:15 [From Dilantin] pregabalin [From Lyrica] Allergy Unknown Verified 11/21/20 19:15 propoxyphene HCl Allergy Unknown Verified 11/21/20 19:15 [From Darvon] propoxyphene napsylate Allergy Unknown Verified 11/21/20 19:15 [From Darvocet-N 100] Sulfa (Sulfonamide Allergy Unknown Verified 11/21/20 19:15 Antibiotics) trazodone Allergy Unknown Verified 11/21/20 19:15 venom-honey bee Allergy Unknown Verified 11/21/20 19:15 [bee venom (honey bee)] venom-wasp Allergy Anaphylaxis Verified 11/21/20 19:15 adhesive AdvReac "rips off Verified 11/21/20 19:15 skin" adhesive tape AdvReac "rips off Verified 11/21/20 19:15 skin" ketorolac [From Toradol] AdvReac Unknown Verified 11/21/20 19:15 phenytoin [From Dilantin] AdvReac Unknown Verified 11/21/20 19:15 propoxyphene [From Darvon] AdvReac Unknown Verified 11/21/20 19:15 tramadol AdvReac Unknown Verified 11/21/20 19:15 UNCOATED ASPIRIN AdvReac Unknown Uncoded 11/21/20 19:15 Physical Exam Vitals: Vital Signs Temp Pulse Pulse Resp BP BP Pulse Ox 11/22/20 04:00 82 16 102/58 98 11/22/20 02:00 92 16 11/22/20 01:27 86 16 110/55 98 11/22/20 00:00 98.2 F 92 16 94/59 98 11/21/20 23:25 98.2 F 94 18 99/54 11/21/20 22:55 98 F 92 16 93/46 11/21/20 22:45 98.1 F 95 18 91/53 11/21/20 20:15 89 18 105/54 97 11/21/20 19:40 98.2 F 88 18 100/56 100 11/21/20 19:20 98.8 F 91 16 102/77 97 11/21/20 18:26 92 16 104/54 98 11/21/20 17:06 94 16 100/53 95 11/21/20 14:51 98.9 F 99 16 107/49 99 Intake and Output 11/21/20 11/22/20 11/22/20 22:59 06:59 14:59 Intake Total 0 310 100 Output Total 200 Balance 0 110 100 Intake: Oral 100 Blood Product 0 310 Rc As-1 Unit 0 310 [id number] Output: Urine 200 Other: Voiding Method Bedpan # Voids 1 1 Weight 49.442 kg 52.5 kg Results CBC & Chem 7: 11/22/20 07:52 11/21/20 15:40 Labs: Abnormal Lab Results - Last 24 Hours (Table) 11/21/20 11/21/20 11/21/20 Range/Units 15:40 15:40 15:40 WBC 11.8 H (3.8-10.6) k/uL RBC 2.42 L (3.80-5.40) m/uL Hgb 7.1 L D (11.4-16.0) gm/dL Hct 21.4 L (34.0-46.0) % Plt Count 463 H (150-450) k/uL Neutrophils # 10.0 H (1.3-7.7) k/uL APTT 20.7 L (22.0-30.0) sec D-Dimer 1.12 H (<0.60) mg/L FEU Sodium 135 L (137-145) mmol/L BUN 55 H (7-17) mg/dL Glucose 126 H (74-99) mg/dL Total Protein 5.2 L (6.3-8.2) g/dL Albumin 2.4 L (3.5-5.0) g/dL Stool Occult Blood (Negative) Crossmatch 11/21/20 11/21/20 11/22/20 Range/Units 15:40 15:41 07:52 WBC 16.3 H (3.8-10.6) k/uL RBC 2.40 L (3.80-5.40) m/uL Hgb 7.2 L (11.4-16.0) gm/dL Hct 21.8 L (34.0-46.0) % Plt Count 465 H (150-450) k/uL Neutrophils # 14.7 H (1.3-7.7) k/uL APTT (22.0-30.0) sec D-Dimer (<0.60) mg/L FEU Sodium (137-145) mmol/L BUN (7-17) mg/dL Glucose (74-99) mg/dL Total Protein (6.3-8.2) g/dL Albumin (3.5-5.0) g/dL Stool Occult Blood Positive H (Negative) Crossmatch See Detail Thrombosis Risk Factor Assmnt - Choose All That Apply Each Factor Represents 1 point: Abnormal pulmonary function (COPD) Other Risk Factors: Yes Each Risk Factor Represents 2 Points: Age 61-74 years Other congenital or acquired thrombophilia - If yes, enter type in comment: No Thrombosis Risk Factor Assessment Total Risk Factor Score: 3 Thrombosis Risk Factor Assessment Level: Moderate Risk
--- NOTE | 2020-11-22 20:25 | CONS ---
CONSULTATION DATE OF DICTATION: 11/22/2020 REASON FOR CONSULTATION: Acute GI bleed. HISTORY OF PRESENT ILLNESS: The patient is a 65-year-old pleasant white female with a prior history of hypertension, hyperlipidemia, rheumatoid arthritis and chronic kidney disease, stage 3. She presents to the hospital with generalized weakness and fatigue for the last one- week duration. She also had black tarry stools that happened yesterday and twice this morning. Hemoglobin of 7.1 and received one unit of PRBC transfusion. She also is complaining of some epigastric and lower abdominal pain. No prior history of peptic ulcer disease or recent NSAID use. She was seen by Dr. Richardson in the past and underwent right colectomy for perforated colon about 5 or 6 years ago. Subsequently she did have a colonoscopy by Dr. Richardson in 2014 and 2018 and was noted to have multiple colon polyps. She denies any recent NSAID use. No prior history of peptic ulcer disease. PAST MEDICAL HISTORY: Her past medical history is significant for hypertension, hyperlipidemia, degenerative joint disease, fibromyalgia, history of CVA in the past, rheumatoid arthritis, chronic kidney disease. PAST SURGICAL HISTORY: , breast surgery, right colon resection, tubal ligation, tonsillectomy, left foot tendon repair, lumpectomy, D and C and brain aneurysm clip SOCIAL HISTORY: Chronic smoker. No alcohol use. FAMILY HISTORY: Mother had CVA. Father had breast cancer. Sister has lung cancer. MEDICATIONS: Medications at home include fenofibrate, folic acid, Mevacor, vitamin D3, EpiPen, Requip, Zyloprim, Dilaudid pain pump, magnesium oxide, Movantik, ProAir, Elavil, Lioresal, Ecotrin, biotin, Fiber-Lax, Coreg, Remeron, a multivitamin and Senna. ALLERGIES: MORPHINE, ACETAMINOPHEN, DILANTIN, LYRICA, DARVOCET, DARVON, TRAZODONE, ADHESIVE TAPE, TORADOL, DILANTIN, WELLBUTRIN, NORGESIC, CECLOR, DEPAKOTE, TORADOL. REVIEW OF SYSTEMS: CARDIOPULMONARY: No chest pain or shortness of breath. GENITOURINARY: No dysuria or hematuria. MUSCULOSKELETAL: Severe chronic back pain, for which she has a pain pump. NEUROLOGY: Unremarkable. PSYCHIATRY: History of anxiety, depression. ENT/VISION: Unremarkable. CONSTITUTIONAL: No recent weight loss. No fever, chills, night sweats. HEMATOLOGY: Severe anemia. ENDOCRINE: Unremarkable. PHYSICAL EXAMINATION: She appears comfortable. No apparent distress. Vital signs are stable. Blood pressure 86/42, pulse rate 81, temperature 98.1. HEENT examination unremarkable. Conjunctivae pale. Sclerae anicteric. Oral cavity no lesions. NECK: No JVD or lymph node enlargement. CHEST: Clear to auscultation. HEART: Regular rate and rhythm. ABDOMEN: Soft. There was tenderness in the suprapubic area. Pain pump was in the left lower quadrant area. EXTREMITIES: No pedal edema. SKIN: No rashes. NEUROLOGIC: Alert and oriented x3. No focal deficits. LABS: WBC 11.8, hemoglobin 7.1, platelets 403. Repeat hemoglobin after one unit of blood transfusion was 7.2, and hence receiving second unit of PRBC transfusion. BUN is elevated at 55, creatinine 0.58. Stool occult blood positive. Coronavirus PCR negative. IMPRESSION: 1. This is a lady with diffuse abdominal pain who presents to the hospital with black tarry stools for the last 2 days' duration. She had two episodes yesterday and one this morning. She came in with a hemoglobin of 7.1, received one unit of PRBC transfusion, and repeat hemoglobin today was 7.2. She is receiving her second unit of PRBC transfusion. She is scheduled for an upper endoscopy and colonoscopy by Dr. Richardson tomorrow. 2. Chronic pain syndrome and fibromyalgia, status post pain pump placement a few years ago. 3. Hemoptysis. The patient had a chest CTA done last night that showed masslike consolidation in the aspect of the right upper lobe, for which Dr. Yang is following the patient closely. 4. Progressive weight loss. 5. History of hypertension and hyperlipidemia. RECOMMENDATIONS: 1. Agree with proceeding with EGD and colonoscopy tomorrow by Dr. Richardson. 2. Monitor CBC on a daily basis. 3. Continue Protonix 40 mg twice daily. 4. Monitor labs. 5. Will follow with you closely. Thank you for this consultation. MMODL / IJN: [id number] /
[2020-11-22] MEDS: LEVOFLOXACIN 750MG-D5W PMX 750 MG in DEXTROSE/WATER 1 150ML.BAG IVPB SCH (21:01)
[2020-11-22] MEDS: NON FORMULARY DRUG (Dilaudid Pain Pump 1 DOSE) MISCELLANE SCH (21:01)
[2020-11-22] MEDS: ATORVASTATIN 10 MG TAB PO SCH (23:04)
[2020-11-22] MEDS: MIRTAZAPINE 15 MG TAB PO SCH (23:04)
[2020-11-22] MEDS: AMITRIPTYLINE HCL 50 MG TAB PO SCH (23:04)
[2020-11-23 02:18] LABS: HGB 7.8 gm/dL (11.4-16.0); Hypochromasia Slight; MCHC 32.6 g/dL (31.0-37.0); Platelet Count 362 k/uL (150-450); Poikilocytosis Slight; RBC 2.61 m/uL (3.80-5.40); RDW 14.4 % (11.5-15.5)
[2020-11-23 02:46] LABS: African American GFR (CKD) >90 (>60 ml/min/1.73 sqM); Anion Gap 0 mmol/L; Blood Urea Nitrogen 36 mg/dL (7-17); Calcium 8.2 mg/dL (8.4-10.2); Carbon Dioxide 30 mmol/L (22-30); Chloride 102 mmol/L (98-107); Glucose 99 mg/dL (74-99); Non-African American GFR(CKD) >90 (>60 ml/min/1.73 sqM); Potassium 3.7 mmol/L (3.5-5.1); Sodium 132 mmol/L (137-145)
[2020-11-23] MEDS: FUROSEMIDE 20 MG TAB PO SCH (05:05)
[2020-11-23] MEDS: FOLIC ACID 1 MG TAB PO SCH (05:05)
[2020-11-23] MEDS: MAGNESIUM OXIDE 400 MG TAB PO SCH (05:05)
[2020-11-23] MEDS: NALOXEGOL OXALATE 12.5 MG PO SCH (05:05)
[2020-11-23] MEDS: BACLOFEN 10 MG TAB PO SCH ×4 (05:05→23:09)
[2020-11-23] MEDS ORDERED: DEXAMETHASONE SOD PHOSPHATE 4 MG/ML 1 ML VIAL IV ONE (06:17)
[2020-11-23] MEDS ORDERED: ONDANSETRON 4 MG/2 ML VIAL IVP ONE (06:17)
[2020-11-23] MEDS ORDERED: MAGNESIUM CITRATE 296 ML BOTTLE PO ONE (07:54)
[2020-11-23] MEDS: SENNOSIDES 8.6 MG TAB PO SCH (08:33)
[2020-11-23] MEDS: CHOLECALCIFEROL 1,000 UNIT TAB PO SCH (08:33)
[2020-11-23] MEDS: allopurinoL 100 MG TAB PO SCH (08:33)
--- NOTE | 2020-11-23 12:47 | P.PN ---
Subjective Progress Note Date: 11/23/20 Principal diagnosis: Lung mass, hemoptysis This is a 65-year-old female, at least a 96-lysq-ywik smoker, patient is primarily a patient of Dr. Ayers, presented to the ER yesterday with at least one month history of generalized weakness, over 100 pound weight loss, and intermittent episodes of cough with blood-tinged sputum. Patient was also complaining of dark tarry stools started just the day of presentation to the ER hemoglobin on presentation was noted to be 7.1. WBC count was 11.8. Electrolytes are normal, renal profile is normal. She had positive stool occult bloods. She had negative PCR for covid 19. And she had a CT of the chest showing a large masslike consolidation in the anterior aspect of the right upper lobe with volume loss that apparently has progressed compared to old CT of the chest. Previous CT of the chest was in April of 2020. The findings on the CT of the chest are highly suspicious for bronchogenic carcinoma. After evaluating the patient, I felt that the patient should have bronchoscopy and transbronchial biopsy which will be arranged for and it will be done tomorrow. In the meantime the patient is being followed by other consultants for her positive Hemoccult stools, and she may require EGD and/or colonoscopy. Supposedly her last colonoscopy was in 2018, and she was found to have rectal and transverse colon polyps. The patient is seen today 11/23/2020 in follow-up on the selective care unit. She is currently awake and alert resting fairly comfortably in bed. She is drinking a colon prep currently. She was to undergo bronchoscopy with BAL and biopsies this morning. Now we will push it back in keep her nothing by mouth. She is maintaining good O2 saturations in the mid 90s on room air. She's been afebrile. Hemodynamically stable. She has received 2 units of packed red blood cells. Current hemoglobin 7.8. White count 14.0. Sodium 132. Potassium 3.7. Creatinine 0.64. Saavedra virus not detected. Objective - Vital Signs Vital signs: Vital Signs Temp 97.6 F 11/22/20 20:00 Pulse 78 11/23/20 04:00 Resp 18 11/23/20 04:00 BP 94/72 11/23/20 04:00 Pulse Ox 94 L 11/23/20 04:00 Intake & Output 11/22/20 11/23/20 11/23/20 18:59 06:59 18:59 Intake Total 2035 0 Output Total 200 500 Balance 2035 -200 -500 Weight 52.5 kg 55.5 kg Intake: Intake, IV Titration 1500 Amount Lactated Ringers 1,000 ml 1000 @ 999 mls/hr IV .Q1H1M EVANGELINA Rx#:[id number] Sodium Chloride 0.9% 1, 500 000 ml @ 125 mls/hr IV . Q8H EVANGELINA Rx#:[id number] Oral 225 0 Blood Product 310 Rc As-1 Unit 310 [id number] Output: Urine 200 500 Other: Voiding Method Bedpan # Voids 1 0 # Bowel Movements 0 - Exam General appearance: Revealed a pleasant 65-year-old female, looks frail and chronically ill, on room air, in no distress. Head exam: Atraumatic, normocephalic. Eye exam: PERRLA, EOMI, nonicteric. Pale conjunctivae. Neck exam: No neck masses no JVD no stridor. Respiratory exam: Diminished breath sound bilaterally no crackles or rhonchi or wheezes. Symmetrical chest expansion. Cardiovascular Exam: Distant S1 and S2, no S3 gallop. GI/Abdominal exam: Soft nontender no megaly no rebound no guarding. Rectal exam: Not performed Extremities exam: No clubbing edema or cyanosis. Neurological exam: Alert and oriented 3 no gross focal neurologic deficits. Psychiatric exam: Normal mood, affect and normal mental status examination Skin exam: No cyanosis, no rashes - Labs CBC & Chem 7: 11/23/20 02:02 11/23/20 02:02 Labs: Abnormal Lab Results - Last 24 Hours (Table) 11/21/20 11/23/20 11/23/20 Range/Units 15:40 02:02 02:02 WBC 14.0 H (3.8-10.6) k/uL RBC 2.61 L (3.80-5.40) m/uL Hgb 7.8 L (11.4-16.0) gm/dL Hct 24.0 L (34.0-46.0) % Sodium 132 L (137-145) mmol/L BUN 36 H (7-17) mg/dL Calcium 8.2 L (8.4-10.2) mg/dL Crossmatch See Detail Assessment and Plan Assessment: Hemoptysis secondary to right upper lobe mass, most likely secondary to bronchogenic carcinoma unless proven otherwise. Severe weight loss secondary to underlying malignancy unless for otherwise. Right upper lobe mass, considered malignant unless for otherwise. Acute blood loss anemia secondary to GI bleeding, being addressed by surgery on the case. Status post 2 units packed red blood cells, current hemoglobin 7.8 Tobacco dependence syndrome. History of underlying COPD. History of fibromyalgia. Dyslipidemia. History of rheumatoid arthritis. History of obstructive sleep apnea syndrome. History of colonic polyps. Plan: The patient was seen and evaluated by Dr. Yang To be kept nothing by mouth for bronchoscopy with BAL and biopsies today Hemoglobin stable Plan is for EGD/colonoscopy as well We will continue to follow and make further recommendations based on her clinical status I, the cosigning physician, performed a history & physical examination of the patient. Lungs sounds are clear, diminished Maintaining good O2 saturations in the 90s on room air. I discussed the assessment and plan of care with my nurse practitioner, Laina Watts. I attest to the above note as dictated by her.
[2020-11-23] MEDS ORDERED: PROPOFOL 10 MG/ML 20 ML VIAL IV ONE (15:35)
[2020-11-23] MEDS ORDERED: LIDOCAINE 1% INJ 10MG/ML (20 ML MDV) ONE (15:35)
[2020-11-23] MEDS ORDERED: ETOMIDATE 2 MG/ML 10 ML VIAL ONE (15:35)
[2020-11-23] MEDS ORDERED: IV FLUID CONTINUATION 1,000 ML IV ONE (15:37)
--- NOTE | 2020-11-23 16:33 | P.PN ---
Subjective Progress Note Date: 11/23/20 Principal diagnosis: Acute GI bleed This is a 65-year-old pleasant white female patient presented to the hospital with generalized weakness and fatigue for the last 1-2 days duration. She also had reported black tarry stools that happened over the past 2 days. She had initial hemoglobin of 7.1 and received 1 unit of PRBC transfusion. She was with complaints of epigastric pain, she still states she is having epigastric discomfort. She is denying any nausea or vomiting. She is scheduled today for an EGD and colonoscopy with , however failed to finish her prep. Denies any bowel movements today. Objective - Vital Signs Vital signs: Vital Signs Temp 97.6 F 11/22/20 20:00 Pulse 78 11/23/20 04:00 Resp 18 11/23/20 04:00 BP 94/72 11/23/20 04:00 Pulse Ox 94 L 11/23/20 04:00 Intake & Output 11/22/20 11/23/20 11/23/20 18:59 06:59 18:59 Intake Total 2035 0 Output Total 200 Balance 2035 -200 0 Weight 52.5 kg 55.5 kg Intake: Intake, IV Titration 1500 Amount Lactated Ringers 1,000 ml 1000 @ 999 mls/hr IV .Q1H1M [facility]ANGELINA Rx#:[id number] Sodium Chloride 0.9% 1, 500 000 ml @ 125 mls/hr IV . Q8H EVANGELINA Rx#:[id number] Oral 225 0 Blood Product 310 Rc As-1 Unit 310 [id number] Output: Urine 200 Other: Voiding Method Bedpan # Voids 1 0 # Bowel Movements 0 - Exam General appearance: The patient is alert, oriented, in no acute distress. Thin. HET: Head is normocephalic and atraumatic. Conjunctiva pink. Sclera andicteric. Neck: Supple without lymphadenopathy. Abdomen: Soft, gastric tenderness, nondistended with bowel sounds. No guarding or rigidity. Extremities: Normal skin color and turgor. No pedal edema Neurological: No focal deficits. Alert and oriented 3. - Labs CBC & Chem 7: 11/23/20 02:02 11/23/20 02:02 Labs: Abnormal Lab Results - Last 24 Hours (Table) 11/21/20 11/23/20 11/23/20 Range/Units 15:40 02:02 02:02 WBC 14.0 H (3.8-10.6) k/uL RBC 2.61 L (3.80-5.40) m/uL Hgb 7.8 L (11.4-16.0) gm/dL Hct 24.0 L (34.0-46.0) % Sodium 132 L (137-145) mmol/L BUN 36 H (7-17) mg/dL Calcium 8.2 L (8.4-10.2) mg/dL Crossmatch See Detail Assessment and Plan (1) GI bleed Narrative/Plan: The lady with diffuse abdominal pain who presents to the hospital with black tarry stools for last 2 days duration. She had 2 episodes prior to coming into the hospital and one yesterday. She came in with a hemoglobin of 7.1 received 2 unit of PRBC transfusion and her repeat hemoglobin today is 7.8. She is scheduled for an upper endoscopy and colonoscopy by today. Current Visit: Yes Status: Acute Code(s): K92.2 - GASTROINTESTINAL HEMORRHAGE, UNSPECIFIED SNOMED Code(s): 51922132 (2) Abdominal pain Narrative/Plan: And has also had abdominal pain with progressive weight loss. She also has a history of chronic pain syndrome and fibromyalgia, status post pain pump placement a few years ago Current Visit: Yes Status: Acute Code(s): R10.9 - UNSPECIFIED ABDOMINAL PAIN SNOMED Code(s): 94245803 (3) Hemoptysis Narrative/Plan: Patient had a chest CTA done that showed masslike consolidation in the aspect of the right upper lobe, for which Dr. Yang is following the patient closely Current Visit: Yes Status: Acute Code(s): R04.2 - HEMOPTYSIS SNOMED Code(s): 75398287 (4) Weakness Current Visit: No Status: Acute Code(s): R53.1 - WEAKNESS SNOMED Code(s): 50084122 Plan: 1. Supportive care 2. Agree with proceeding with EGD and colonoscopy with 3. Monitor CBC daily 4. Continue Protonix 40 mg twice daily Thank you for this consultation we will sign off at this time. Dr. Bandar Khan I agree with the dictator's note, documented as a scribe by Brittney Mcclain
[2020-11-23] MEDS: carvediloL 3.125 MG TAB PO SCH ×2 (17:16→23:14)
[2020-11-23] MEDS: PANTOPRAZOLE 40 MG/10 ML VIAL IV SCH (17:16)
[2020-11-23] MEDS: FENOFIBRATE 160 MG TAB PO SCH (17:48)
[2020-11-23] MEDS: LEVOFLOXACIN 750MG-D5W PMX 750 MG in DEXTROSE/WATER 1 150ML.BAG IVPB SCH (20:15)
[2020-11-23] MEDS: NON FORMULARY DRUG (Dilaudid Pain Pump 1 DOSE) MISCELLANE SCH (22:57)
[2020-11-23] MEDS: MIRTAZAPINE 15 MG TAB PO SCH (23:09)
[2020-11-23] MEDS: AMITRIPTYLINE HCL 50 MG TAB PO SCH (23:09)
[2020-11-23] MEDS: ATORVASTATIN 10 MG TAB PO SCH (23:09)
[2020-11-23] MEDS: LACTATED RINGERS 1,000 ML IV SCH (23:16)
--- NOTE | 2020-11-23 23:29 | P.PN ---
Progress Note - Text Progress Note Date: 11/23/20 Chief Complaint: Black tarry stool History of presenting complaint: This is a 65-year-old patient of Dr. Underwood. Chronic stable medical conditions include history of brain aneurysm that was clipped, restless leg syndrome, chronic fibromyalgia, hyperlipidemia, COPD. Uses a pain pump for chronic low back pain. Does use a Rollator to get about. Patient been having hemoptysis for some time for close to a year and is due to follow-up with pulmonary. Patient now presents 1 day of black tarry stools. Has lost close to 100 pounds over the course of 1 year. Does feel tired and rundown. Denies any abdominal pain. No nausea vomiting. today-laying in bed. No discomfort.tired Review of systems: Was done for constitutional, cardiovascular, GI, pulmonary. relevant finding as above Active Medications Allopurinol (Allopurinol 100 Mg Tab) 100 mg PO DAILY@1200 [facility] Last Admin: 11/23/20 08:33 Dose: 100 mg Documented by: Amitriptyline HCl (Amitriptyline Hcl 50 Mg Tab) 100 mg PO HS@0000 [facility] Last Admin: 11/23/20 23:09 Dose: 100 mg Documented by: Atorvastatin Calcium (Atorvastatin 10 Mg Tab) 10 mg PO HS@0000 [facility] Last Admin: 11/23/20 23:09 Dose: 10 mg Documented by: Baclofen (Baclofen 10 Mg Tab) 10 mg PO QID@00,06,12,18 [facility] Last Admin: 11/23/20 23:09 Dose: 10 mg Documented by: Calcium Polycarbophil (Calcium Polycarbophil 625 Mg Tab) 625 mg PO DAILY@1200 [facility] Last Admin: 11/23/20 08:34 Dose: 625 mg Documented by: Carvedilol (Carvedilol 3.125 Mg Tab) 3.125 mg PO BID@0000,1200 [facility] Last Admin: 11/23/20 23:14 Dose: 3.125 mg Documented by: Cholecalciferol (Cholecalciferol 1,000 Unit Tab) 2,000 unit PO DAILY@1200 [facility] Last Admin: 11/23/20 08:33 Dose: 2,000 unit Documented by: Fenofibrate (Fenofibrate 160 Mg Tab) 160 mg PO DAILY@1800 [facility] Last Admin: 11/23/20 17:48 Dose: 160 mg Documented by: Folic Acid (Folic Acid 1 Mg Tab) 1 mg PO DAILY@0600 [facility] Last Admin: 11/23/20 05:05 Dose: Not Given Documented by: Furosemide (Furosemide 20 Mg Tab) 20 mg PO DAILY@0600 [facility] Last Admin: 11/23/20 05:05 Dose: Not Given Documented by: Levofloxacin 750 mg/ IV (Solution) 150 mls @ 100 mls/hr IVPB Q24H [facility] Last Admin: 11/23/20 20:15 Dose: 100 mls/hr Documented by: Lactated Ringer's (Lactated Ringers) 1,000 mls @ 20 mls/hr IV .Q24H [facility] Lactated Ringer's (Lactated Ringers) 1,000 mls @ 20 mls/hr IV .Q24H [facility] Last Admin: 11/23/20 23:16 Dose: 20 mls/hr Documented by: Magnesium Oxide (Magnesium Oxide 400 Mg Tab) 400 mg PO DAILY@0600 [facility] Last Admin: 11/23/20 05:05 Dose: Not Given Documented by: Mirtazapine (Mirtazapine 15 Mg Tab) 15 mg PO HS@0000 [facility] Last Admin: 11/23/20 23:09 Dose: 15 mg Documented by: Miscellaneous Information (Pneumonia Protocol Utilized 1 Each Misc) 1 each PO ONCE PRN PRN Reason: Per Protocol Naloxone HCl (Naloxone 0.4 Mg/Ml 1 Ml Vial) 0.2 mg IV Q2M PRN PRN Reason: Opioid Reversal Non-Formulary Medication (Dilaudid Pain Pump) 1 dose MISCELLANE DIRECTED [facility] Last Admin: 11/23/20 22:57 Dose: Not Given Documented by: Non-Formulary Medication (Naloxegol Oxalate [Movantik]) 12.5 mg PO DAILY@0600 [facility] Last Admin: 11/23/20 05:05 Dose: Not Given Documented by: Pantoprazole Sodium (Pantoprazole 40 Mg/10 Ml Vial) 40 mg IV DAILY [facility] Last Admin: 11/23/20 17:16 Dose: Not Given Documented by: Ropinirole HCl (Ropinirole Hcl 1 Mg Tab) 3 mg PO HS@0000 [facility] Last Admin: 11/23/20 23:09 Dose: 3 mg Documented by: Senna (Sennosides 8.6 Mg Tab) 8.6 mg PO DAILY@1200 [facility] Last Admin: 11/23/20 08:33 Dose: 8.6 mg Documented by: Physical examination: VITAL SIGNS: 78, 18, 94/72, 94% room air GENERAL: laying in bed, tired EYES: Pupils equal. Conjunctiva pale HEENT: External appearance of nose and ears normal, oral cavity grossly normal. NECK: JVD not raised; masses not palpable. HEART: First and second heart sounds are normal; no edema. LUNGS: Respiratory rate increased; decreased breath sounds. ABDOMEN: Soft, nontender, liver spleen not palpable, no masses palpable. Pain pump PSYCH: AO 3, mood and affect a bit low INVESTIGATIONS, reviewed in the clinical context: White count 11.8 hemoglobin 7.1 platelets 463 potassium 4.4 creatinine 0.86 Stool occult blood positive Coronavirus is PCR-negative Chest x-ray film personally reviewed by me-right upper lung mass EKG tracing personally reviewed by me shows-normal sinus rhythm Chest CTA-masslike consolidation anterior aspect right upper lobe with volume loss increased compared to previous study Assessment: -Acute GI bleed with black tarry stools of one day duration. -Intermittent hemoptysis for one year and patient was due to see a stripping shovel operator for a right lung mass which seems to progressed -Hyperlipidemia -Chronic fibromyalgia -History of brain aneurysm for which patient had clipping -COPD in an current smoker -Essential hypertension -Chronic pain, for which patient has a pain pump -Chronic gait dysfunction uses a wheeled walker -Dropped head syndrome -Acute anemia-blood loss from GI bleed-receive 2 units of blood Plan: patient's pending bronchoscopy and GI endoscopy. Having trouble drinking the preparation for the same. Other medications to continue. prognosis guarded
--- NOTE | 2020-11-24 10:56 | P.PN ---
Subjective Progress Note Date: 11/24/20 CHIEF COMPLAINT: Generalized weakness HISTORY OF PRESENT ILLNESS: Patient is being followed for an acute GI bleed with anemia. She does report having bowel movement today with no blood or black stools present. She did have a EGD with biopsy completed. She is scheduled for bronchoscopy today for evaluation of the lung mass. She's afebrile. CBC pending. She is complaining of some abdominal pain. Denies any nausea vomiting. Colonoscopy was not completed due to patient unable to complete the GoLYTELY prep. PHYSICAL EXAM: VITAL SIGNS: Reviewed. GENERAL: Well-developed in no acute distress. HEENT: No sclera icterus. Extraocular movements grossly intact. Moist buccal mucosa. Head is atraumatic, normocephalic. ABDOMEN: Soft. Nondistended. Mild diffuse tenderness NEUROLOGIC: Alert and oriented. Cranial nerves II through XII grossly intact. ASSESSMENT: 1. Acute GI bleed: patient has had both bright red blood per rectum as well as black tarry stools. Patient is status post EGD that showed gastritis 2. Acute blood loss anemia secondary to GI bleed 3. Hypotension 4. Right Lung mass followed by pulmonary service and scheduled for bronchoscopy today 5. Weight loss PLAN: -Continue supportive care -Continue to monitor hemoglobin -Continue Protonix -Patient will need a colonoscopy at a later time Physician Hospital Supervisor note has been reviewed by physician. Signing provider agrees with the documented findings, assessment, and plan of care. Objective - Vital Signs Vital signs: Vital Signs Temp 98.0 F 11/24/20 04:00 Pulse 74 11/24/20 04:00 Resp 17 11/24/20 04:00 BP 126/60 11/24/20 04:00 Pulse Ox 96 11/24/20 04:00 Intake & Output 11/23/20 11/24/20 11/24/20 18:59 06:59 18:59 Intake Total 100 Output Total 500 Balance -400 Weight 54.5 kg Intake: IV 100 Intake, IV Titration 0 Amount Sodium Chloride 0.9% 1, 0 000 ml @ 125 mls/hr IV . Q8H [facility] Rx#:[id number] Oral 0 Output: Urine 500 Other: Voiding Method Bedpan # Voids 2 1 # Bowel Movements 0 0 1 - Labs CBC & Chem 7: 11/24/20 11:09 11/23/20 02:02 Labs: Microbiology - Last 24 Hours (Table) 11/21/20 18:59 Blood Culture - Preliminary Blood No Growth after 24 hours
[2020-11-24 12:13] LABS: Basophils % (A) 0 %; Eosinophils % (A) 0 %; HCT 24.9 % (34.0-46.0); Lymphocytes # (A) 2.1 k/uL (1.0-4.8); Lymphocytes % (A) 16 %; MCH 29.5 pg (25.0-35.0); MCHC 32.1 g/dL (31.0-37.0); MCV 91.8 fL (80.0-100.0); Mean Platelet Volume 8.4; Monocytes # (A) 0.5 k/uL (0-1.0); Monocytes % (A) 4 %; Neutrophils # (A) 10.1 k/uL (1.3-7.7); Neutrophils % (A) 78 %; Platelet Count 509 k/uL (150-450); Poikilocytosis Slight; RBC 2.71 m/uL (3.80-5.40); WBC 12.9 k/uL (3.8-10.6)
--- NOTE | 2020-11-24 13:46 | P.PN ---
Subjective Progress Note Date: 11/24/20 Principal diagnosis: Lung mass, hemoptysis This is a 65-year-old female, at least a [id number] smoker, patient is primarily a patient of Dr. Ayers, presented to the ER yesterday with at least one month history of generalized weakness, over 100 pound weight loss, and intermittent episodes of cough with blood-tinged sputum. Patient was also complaining of dark tarry stools started just the day of presentation to the ER hemoglobin on presentation was noted to be 7.1. WBC count was 11.8. Electrolytes are normal, renal profile is normal. She had positive stool occult bloods. She had negative PCR for covid 19. And she had a CT of the chest showing a large masslike consolidation in the anterior aspect of the right upper lobe with volume loss that apparently has progressed compared to old CT of the chest. Previous CT of the chest was in April of 2020. The findings on the CT of the chest are highly suspicious for bronchogenic carcinoma. After evaluating the patient, I felt that the patient should have bronchoscopy and transbronchial biopsy which will be arranged for and it will be done tomorrow. In the meantime the patient is being followed by other consultants for her positive Hemoccult stools, and she may require EGD and/or colonoscopy. Supposedly her last colonoscopy was in 2018, and she was found to have rectal and transverse colon polyps. The patient is seen today 11/23/2020 in follow-up on the selective care unit. She is currently awake and alert resting fairly comfortably in bed. She is drinking a colon prep currently. She was to undergo bronchoscopy with BAL and biopsies this morning. Now we will push it back in keep her nothing by mouth. She is maintaining good O2 saturations in the mid 90s on room air. She's been afebrile. Hemodynamically stable. She has received 2 units of packed red blood cells. Current hemoglobin 7.8. White count 14.0. Sodium 132. Potassium 3.7. Creatinine 0.64. Saavedra virus not detected. The patient is seen today 11/24/2020 in follow-up on the selective care unit. She is awake and alert in no acute distress. Denies any worsening shortness of breath, cough or congestion. Maintaining O2 saturations in the mid 90s on room air. She's afebrile. Hemodynamically stable. Yesterday she did undergo EGD with biopsy, attempted colonoscopy. EGD revealed evidence of gastritis. No active bleeding. Colonoscopy was not completed due to incomplete prep. Plan is for bronchoscopy with biopsy of a large masslike consolidation in the anterior aspect of the right upper lobe. She is status post 2 units of packed red blood cells this admission. Current hemoglobin 8.0. White count 12.9. Remains on Levaquin. IV Protonix. Objective - Vital Signs Vital signs: Vital Signs Temp 97.8 F 11/24/20 08:00 Pulse 74 11/24/20 08:00 Resp 18 11/24/20 08:00 BP 116/55 11/24/20 08:00 Pulse Ox 96 11/24/20 08:00 Intake & Output 11/23/20 11/24/20 11/24/20 18:59 06:59 18:59 Intake Total 100 Output Total 500 Balance -400 Weight 54.5 kg Intake: IV 100 Intake, IV Titration 0 Amount Sodium Chloride 0.9% 1, 0 000 ml @ 125 mls/hr IV . Q8H [facility] Rx#:[id number] Oral 0 Output: Urine 500 Other: Voiding Method Bedpan Bedpan # Voids 2 1 # Bowel Movements 0 0 1 - Exam General appearance: Revealed a pleasant 65-year-old female, looks frail and chronically ill, on room air, in no distress. Head exam: Atraumatic, normocephalic. Eye exam: PERRLA, EOMI, nonicteric. Pale conjunctivae. Neck exam: No neck masses no JVD no stridor. Respiratory exam: Diminished breath sound bilaterally no crackles or rhonchi or wheezes. Symmetrical chest expansion. Cardiovascular Exam: Distant S1 and S2, no S3 gallop. GI/Abdominal exam: Soft nontender no megaly no rebound no guarding. Rectal exam: Not performed Extremities exam: No clubbing edema or cyanosis. Neurological exam: Alert and oriented 3 no gross focal neurologic deficits. Psychiatric exam: Normal mood, affect and normal mental status examination Skin exam: No cyanosis, no rashes - Labs CBC & Chem 7: 11/24/20 11:09 11/23/20 02:02 Labs: Abnormal Lab Results - Last 24 Hours (Table) 11/24/20 Range/Units 11:09 WBC 12.9 H (3.8-10.6) k/uL RBC 2.71 L (3.80-5.40) m/uL Hgb 8.0 L (11.4-16.0) gm/dL Hct 24.9 L (34.0-46.0) % RDW 16.0 H (11.5-15.5) % Plt Count 509 H (150-450) k/uL Neutrophils # 10.1 H (1.3-7.7) k/uL Microbiology - Last 24 Hours (Table) 11/21/20 18:59 Blood Culture - Preliminary Blood No Growth after 24 hours Assessment and Plan Assessment: 1 Hemoptysis secondary to right upper lobe mass, most likely secondary to bronchogenic carcinoma unless proven otherwise. 2 Severe weight loss secondary to underlying malignancy unless proven otherwise. 3 Right upper lobe mass, considered malignant unless for otherwise. 4 Acute blood loss anemia secondary to GI bleeding, being addressed by surgery on the case. Status post 2 units packed red blood cells, current hemoglobin 8.0 5 Tobacco dependence syndrome. 6 History of underlying COPD. 7 History of fibromyalgia. 8 Dyslipidemia. 9 History of rheumatoid arthritis. 10 History of obstructive sleep apnea syndrome. 11 History of colonic polyps. Plan: The patient was seen and evaluated by Dr. Yang To be kept nothing by mouth for bronchoscopy with BAL and biopsies today Hemoglobin stable, on a Protonix current hemoglobin 8.0. EGD revealed mild gastritis. Colonoscopy not completed due to poor prep Remains on Levaquin. We will continue to follow and make further recommendations based on her clinical status I, the cosigning physician, performed a history & physical examination of the patient. Lungs sounds are clear, diminished Maintaining good O2 saturations in the 90s on room air. I discussed the assessment and plan of care with my nurse practitioner, Laina Watts. I attest to the above note as dictated by her.
[2020-11-24] MEDS ORDERED: SUCCINYLCHOLINE CHLORIDE 100 MG/5 ML SYR IV ONE (13:47)
[2020-11-24] MEDS ORDERED: LIDOCAINE 1% INJ 10MG/ML (20 ML MDV) ONE (13:47)
[2020-11-24] MEDS ORDERED: PROPOFOL 10 MG/ML 20 ML VIAL IV ONE (13:47)
[2020-11-24] MEDS ORDERED: IV FLUID CONTINUATION 400 ML IV ONE (14:38)
--- NOTE | 2020-11-24 16:20 | FL ---
EXAMINATION TYPE: FL bronchoscopy DATE OF EXAM: 11/24/2020 FLUOROSCOPY Fluoroscopy time of seconds was used during right upper lobe bronchoscopy washings, and biopsies. 1 image/s document/s the procedure.
[2020-11-24] MEDS: carvediloL 3.125 MG TAB PO SCH (18:17)
[2020-11-24] MEDS: allopurinoL 100 MG TAB PO SCH (18:18)
[2020-11-24] MEDS: BACLOFEN 10 MG TAB PO SCH ×2 (18:18)
[2020-11-24] MEDS: CHOLECALCIFEROL 1,000 UNIT TAB PO SCH (18:18)
[2020-11-24] MEDS: FENOFIBRATE 160 MG TAB PO SCH (18:18)
[2020-11-24] MEDS: SENNOSIDES 8.6 MG TAB PO SCH (18:19)
[2020-11-24] MEDS: LACTATED RINGERS 1,000 ML IV SCH ×2 (18:19→21:26)
[2020-11-24] MEDS: MAGNESIUM OXIDE 400 MG TAB PO SCH (18:20)
[2020-11-24] MEDS: FUROSEMIDE 20 MG TAB PO SCH (18:20)
[2020-11-24] MEDS: NALOXEGOL OXALATE 12.5 MG PO SCH (18:20)
[2020-11-24] MEDS: FOLIC ACID 1 MG TAB PO SCH (18:20)
[2020-11-24] MEDS: PANTOPRAZOLE 40 MG/10 ML VIAL IV SCH (18:26)
--- NOTE | 2020-11-24 20:55 | PCN ---
PROCEDURE NOTE PROCEDURE PERFORMED: Bronchoscopy, endobronchial biopsies of the right upper lobe, brushings from the right upper lobe, and washings and lavage of the right upper lobe. PREOPERATIVE DIAGNOSES: Lung mass, hemoptysis, consistent with bronchogenic carcinoma. POSTOPERATIVE DIAGNOSES: Lung mass, hemoptysis, consistent with bronchogenic carcinoma. ANESTHESIA: The patient received general anesthesia, she was intubated and mechanically ventilated during. PROCEDURE DETAILS: The patient was placed in the supine position, the patient was intubated by FIELD SERVICE ANALYST, and she was connected to mechanical ventilation. The bronchoscope was advanced through the endotracheal tube, in the meantime, we were monitoring her O2 saturation continuously, blood pressure was intermittently monitored, and cardiac rhythm was continuously monitored. The bronchoscope was advanced down to the distal trachea, and as the distal trachea was visualized, there was clearly evidence of significant abnormal tissue involving the right upper lobe bronchus and to some extent the right mainstem bronchus as well as the right middle lobe. The mucosa was noted to be extremely irregular, friable, and there was a slight oozing of blood on the mucosa from the right upper lobe. The whole right upper lobe different segments are tortuous in appearance, and extremely friable with again minimal oozing noted in the mucosa. Multiple endobronchial biopsies were done from the right upper lobe bronchus, involving the right anterior segment, apical segment and posterior segment. The biopsies were done from different segments, and brushings were also done. Lavage was also done of the right upper lobe. The specimen was sent for different diagnostic studies. Fluoroscopy was utilized, but there was no need for transbronchial biopsies considering the findings with the bronchoscope. Again, procedure was well tolerated, no evidence of any immediate complications, minimal blood loss less than 10 mL total from the biopsies and from the right upper lobe biopsies. Procedure was well tolerated. No evidence of any immediate complications. MMODL / IJN: [id number] /
[2020-11-24] MEDS: LEVOFLOXACIN 750MG-D5W PMX 750 MG in DEXTROSE/WATER 1 150ML.BAG IVPB SCH (21:12)
--- NOTE | 2020-11-24 21:23 | P.PN ---
Progress Note - Text Progress Note Date: 11/24/20 Chief Complaint: Black tarry stool History of presenting complaint: This is a 65-year-old patient of Dr. Underwood. Chronic stable medical conditions include history of brain aneurysm that was clipped, restless leg syndrome, chronic fibromyalgia, hyperlipidemia, COPD. Uses a pain pump for chronic low back pain. Does use a Rollator to get about. Patient been having hemoptysis for some time for close to a year and is due to follow-up with pulmonary. Patient now presents 1 day of black tarry stools. Has lost close to 100 pounds over the course of 1 year. Does feel tired and rundown. Denies any abdominal pain. No nausea vomiting. today-underwent EGD earlier today. Patient was due for a bronchoscopy later this afternoon. Tired. Some shortness of breath. Review of systems: Was done for constitutional, cardiovascular, GI, pulmonary. relevant finding as above Active Medications Allopurinol (Allopurinol 100 Mg Tab) 100 mg PO DAILY@1200 [facility] Last Admin: 11/24/20 18:18 Dose: 100 mg Documented by: Amitriptyline HCl (Amitriptyline Hcl 50 Mg Tab) 100 mg PO HS@0000 [facility] Last Admin: 11/23/20 23:09 Dose: 100 mg Documented by: Atorvastatin Calcium (Atorvastatin 10 Mg Tab) 10 mg PO HS@0000 [facility] Last Admin: 11/23/20 23:09 Dose: 10 mg Documented by: Baclofen (Baclofen 10 Mg Tab) 10 mg PO QID@00,06,12,18 [facility] Last Admin: 11/24/20 18:18 Dose: 10 mg Documented by: Calcium Polycarbophil (Calcium Polycarbophil 625 Mg Tab) 625 mg PO DAILY@1200 [facility] Last Admin: 11/24/20 18:17 Dose: 625 mg Documented by: Carvedilol (Carvedilol 3.125 Mg Tab) 3.125 mg PO BID@0000,1200 [facility] Last Admin: 11/24/20 18:17 Dose: 3.125 mg Documented by: Cholecalciferol (Cholecalciferol 1,000 Unit Tab) 2,000 unit PO DAILY@1200 [facility] Last Admin: 11/24/20 18:18 Dose: 2,000 unit Documented by: Fenofibrate (Fenofibrate 160 Mg Tab) 160 mg PO DAILY@1800 [facility] Last Admin: 11/24/20 18:18 Dose: 160 mg Documented by: Folic Acid (Folic Acid 1 Mg Tab) 1 mg PO DAILY@0600 [facility] Last Admin: 11/24/20 18:20 Dose: Not Given Documented by: Furosemide (Furosemide 20 Mg Tab) 20 mg PO DAILY@0600 [facility] Last Admin: 11/24/20 18:20 Dose: Not Given Documented by: Levofloxacin 750 mg/ IV (Solution) 150 mls @ 100 mls/hr IVPB Q24H [facility] Last Admin: 11/24/20 21:12 Dose: 100 mls/hr Documented by: Lactated Ringer's (Lactated Ringers) 1,000 mls @ 20 mls/hr IV .Q24H [facility] Last Admin: 11/24/20 18:19 Dose: Not Given Documented by: Lactated Ringer's (Lactated Ringers) 1,000 mls @ 20 mls/hr IV .Q24H [facility] Last Admin: 11/23/20 23:16 Dose: 20 mls/hr Documented by: Magnesium Oxide (Magnesium Oxide 400 Mg Tab) 400 mg PO DAILY@0600 [facility] Last Admin: 11/24/20 18:20 Dose: Not Given Documented by: Mirtazapine (Mirtazapine 15 Mg Tab) 15 mg PO HS@0000 [facility] Last Admin: 11/23/20 23:09 Dose: 15 mg Documented by: Miscellaneous Information (Pneumonia Protocol Utilized 1 Each [facility]) 1 each PO ONCE PRN PRN Reason: Per Protocol Naloxone HCl (Naloxone 0.4 Mg/Ml 1 Ml Vial) 0.2 mg IV Q2M PRN PRN Reason: Opioid Reversal Non-Formulary Medication (Dilaudid Pain Pump) 1 dose MISCELLANE DIRECTED [facility] Last Admin: 11/23/20 22:57 Dose: Not Given Documented by: Non-Formulary Medication (Naloxegol Oxalate [Movantik]) 12.5 mg PO DAILY@0600 [facility] Last Admin: 11/24/20 18:20 Dose: Not Given Documented by: Pantoprazole Sodium (Pantoprazole 40 Mg/10 Ml Vial) 40 mg IV DAILY [facility] Last Admin: 11/24/20 18:26 Dose: 40 mg Documented by: Ropinirole HCl (Ropinirole Hcl 1 Mg Tab) 3 mg PO HS@0000 [facility] Last Admin: 11/23/20 23:09 Dose: 3 mg Documented by: Jasmyn (Sennosides 8.6 Mg Tab) 8.6 mg PO DAILY@1200 [facility] Last Admin: 11/24/20 18:19 Dose: 8.6 mg Documented by: Physical examination: VITAL SIGNS: 97.8, 74, 18, 116/55, 96% room air GENERAL: laying in bed, tired EYES: Pupils equal. Conjunctiva pale HEENT: External appearance of nose and ears normal, oral cavity grossly normal. NECK: JVD not raised; masses not palpable. HEART: First and second heart sounds are normal; no edema. LUNGS: Respiratory rate increased; decreased breath sounds. ABDOMEN: Soft, nontender, liver spleen not palpable, no masses palpable. Pain pump PSYCH: AO 3, mood and affect a bit low INVESTIGATIONS, reviewed in the clinical context: November 24: White count 12.9 hemoglobin 8 White count 11.8 hemoglobin 7.1 platelets 463 potassium 4.4 creatinine 0.86 Stool occult blood positive Coronavirus is PCR-negative Chest x-ray film personally reviewed by me-right upper lung mass EKG tracing personally reviewed by me shows-normal sinus rhythm Chest CTA-masslike consolidation anterior aspect right upper lobe with volume loss increased compared to previous study Assessment: -Acute GI bleed with black tarry stools of one day duration. -EGD done today-formal results pending -Status post bronchoscopy-right upper lobe lung mass noted. Bronchial brushings and on. -Intermittent hemoptysis for one year and patient was due to see a medical sales specialist for a right lung mass which seems to progressed -Hyperlipidemia -Chronic fibromyalgia -History of brain aneurysm for which patient had clipping -COPD in an current smoker -Essential hypertension -Chronic pain, for which patient has a pain pump -Chronic gait dysfunction uses a wheeled walker -Dropped head syndrome -Acute anemia-blood loss from GI bleed-receive 2 units of blood Plan: Continue current medication treatment plan. Discussed with the patient. Follow with surgery and pulmonology
[2020-11-24] MEDS: NON FORMULARY DRUG (Dilaudid Pain Pump 1 DOSE) MISCELLANE SCH (22:57)
[2020-11-25] MEDS: MIRTAZAPINE 15 MG TAB PO SCH ×2 (00:16→23:20)
[2020-11-25] MEDS: ATORVASTATIN 10 MG TAB PO SCH ×2 (00:16→23:19)
[2020-11-25] MEDS: AMITRIPTYLINE HCL 50 MG TAB PO SCH ×2 (00:16→23:20)
[2020-11-25] MEDS: carvediloL 3.125 MG TAB PO SCH ×3 (00:16→23:19)
[2020-11-25] MEDS: BACLOFEN 10 MG TAB PO SCH ×5 (00:19→23:20)
[2020-11-25] MEDS: FUROSEMIDE 20 MG TAB PO SCH (05:42)
[2020-11-25] MEDS: FOLIC ACID 1 MG TAB PO SCH (05:42)
[2020-11-25] MEDS: NALOXEGOL OXALATE 12.5 MG PO SCH (05:42)
[2020-11-25] MEDS: MAGNESIUM OXIDE 400 MG TAB PO SCH (05:42)
[2020-11-25] MEDS: LACTATED RINGERS 1,000 ML IV SCH ×2 (05:44→22:12)
[2020-11-25 08:01] LABS: Basophils % (A) 0 %; Eosinophils % (A) 0 %; HCT 22.6 % (34.0-46.0); HGB 7.8 gm/dL (11.4-16.0); Lymphocytes # (A) 1.7 k/uL (1.0-4.8); Lymphocytes % (A) 18 %; MCH 31.3 pg (25.0-35.0); MCHC 34.3 g/dL (31.0-37.0); MCV 91.3 fL (80.0-100.0); Mean Platelet Volume 7.2; Monocytes # (A) 0.6 k/uL (0-1.0); Monocytes % (A) 6 %; Neutrophils # (A) 6.7 k/uL (1.3-7.7); Neutrophils % (A) 74 %; Platelet Count 432 k/uL (150-450); Poikilocytosis Slight; RBC 2.48 m/uL (3.80-5.40); RDW 15.9 % (11.5-15.5); WBC 9.2 k/uL (3.8-10.6)
[2020-11-25] MEDS: PANTOPRAZOLE 40 MG/10 ML VIAL IV SCH (08:48)
--- NOTE | 2020-11-25 10:16 | P.PN ---
Subjective Progress Note Date: 11/25/20 CHIEF COMPLAINT: Generalized weakness HISTORY OF PRESENT ILLNESS: Patient is being followed for an acute GI bleed with anemia. Patient reports that she is now having black tarry stools again. She had 3 lack tarry stools yesterday and 1 this morning. She has some cramping pain in her abdomen. Her abdomen is distended. She denies any nausea or vomiting. She is on regular diet. She did have a EGD with biopsy completed results showed gastritis. Patient is status post bronchoscopy for right lung m ass with biopsy. She's afebrile. WBC 9.2 hemoglobin 7.8 PHYSICAL EXAM: VITAL SIGNS: Reviewed. GENERAL: Well-developed in no acute distress. HEENT: No sclera icterus. Extraocular movements grossly intact. Moist buccal mucosa. Head is atraumatic, normocephalic. ABDOMEN: Distended. Mild diffuse tenderness NEUROLOGIC: Alert and oriented. Cranial nerves II through XII grossly intact. ASSESSMENT: 1. Acute GI bleed: patient has had both bright red blood per rectum as well as black tarry stools. Patient is status post EGD that showed gastritis. Colonoscopy not done due to patient unable to complete bowel prep 2. Acute blood loss anemia secondary to GI bleed 3. Hypotension 4. Right Lung mass followed by pulmonary service patient is status post bronchoscopy with biopsy 5. Weight loss PLAN: -Continue supportive care -Continue to monitor hemoglobin -Continue Protonix -Patient will need a colonoscopy at a later time Physician [facility] note has been reviewed by physician. Signing provider agrees with the documented findings, assessment, and plan of care. Objective - Vital Signs Vital signs: Vital Signs Temp 96.9 F L 11/25/20 08:00 Pulse 80 11/25/20 08:00 Resp 18 11/25/20 08:00 BP 90/52 11/25/20 08:00 Pulse Ox 95 11/25/20 08:00 Intake & Output 11/24/20 11/25/20 11/25/20 18:59 06:59 18:59 Intake Total 0 400 125 Output Total 1200 500 500 Balance -1200 -100 -375 Weight 55 kg Intake: IV 0 Oral 0 400 125 Output: Urine 500 Stool 1200 Urine/Stool Mix 500 Other: Voiding Method Bedpan Bedside Commode # Voids 1 # Bowel Movements 1 1 - Labs CBC & Chem 7: 11/25/20 07:39 11/23/20 02:02 Labs: Abnormal Lab Results - Last 24 Hours (Table) 11/24/20 11/25/20 Range/Units 11:09 07:39 WBC 12.9 H (3.8-10.6) k/uL RBC 2.71 L 2.48 L (3.80-5.40) m/uL Hgb 8.0 L 7.8 L (11.4-16.0) gm/dL Hct 24.9 L 22.6 L (34.0-46.0) % RDW 16.0 H 15.9 H (11.5-15.5) % Plt Count 509 H (150-450) k/uL Neutrophils # 10.1 H (1.3-7.7) k/uL Microbiology - Last 24 Hours (Table) 11/24/20 14:19 Gram Stain - Preliminary Bronchoalviolar Lavage - Right Bronchial Washings Culture - Preliminary 11/24/20 14:19 Fungal Culture - Preliminary Bronchoalviolar Lavage - Right 11/24/20 14:19 Acid Fast Bacilli Culture - Preliminary Bronchoalviolar Lavage - Right 11/21/20 18:59 Blood Culture - Preliminary Blood No Growth after 48 hours
[2020-11-25] MEDS: SENNOSIDES 8.6 MG TAB PO SCH (11:35)
[2020-11-25] MEDS: allopurinoL 100 MG TAB PO SCH (11:37)
[2020-11-25] MEDS: CHOLECALCIFEROL 1,000 UNIT TAB PO SCH (11:37)
--- NOTE | 2020-11-25 11:46 | P.PN ---
Subjective Progress Note Date: 11/25/20 Principal diagnosis: Lung mass, hemoptysis This is a 65-year-old female, at least a [id number]-oant smoker, patient is primarily a patient of Dr. Ayers, presented to the ER yesterday with at least one month history of generalized weakness, over 100 pound weight loss, and intermittent episodes of cough with blood-tinged sputum. Patient was also complaining of dark tarry stools started just the day of presentation to the ER hemoglobin on presentation was noted to be 7.1. WBC count was 11.8. Electrolytes are normal, renal profile is normal. She had positive stool occult bloods. She had negative PCR for covid 19. And she had a CT of the chest showing a large masslike consolidation in the anterior aspect of the right upper lobe with volume loss that apparently has progressed compared to old CT of the chest. Previous CT of the chest was in April of 2020. The findings on the CT of the chest are highly suspicious for bronchogenic carcinoma. After evaluating the patient, I felt that the patient should have bronchoscopy and transbronchial biopsy which will be arranged for and it will be done tomorrow. In the meantime the patient is being followed by other consultants for her positive Hemoccult stools, and she may require EGD and/or colonoscopy. Supposedly her last colonoscopy was in 2018, and she was found to have rectal and transverse colon polyps. The patient is seen today 11/23/2020 in follow-up on the selective care unit. She is currently awake and alert resting fairly comfortably in bed. She is drinking a colon prep currently. She was to undergo bronchoscopy with BAL and biopsies this morning. Now we will push it back in keep her nothing by mouth. She is maintaining good O2 saturations in the mid 90s on room air. She's been afebrile. Hemodynamically stable. She has received 2 units of packed red blood cells. Current hemoglobin 7.8. White count 14.0. Sodium 132. Potassium 3.7. Creatinine 0.64. Saavedra virus not detected. The patient is seen today 11/24/2020 in follow-up on the selective care unit. She is awake and alert in no acute distress. Denies any worsening shortness of breath, cough or congestion. Maintaining O2 saturations in the mid 90s on room air. She's afebrile. Hemodynamically stable. Yesterday she did undergo EGD with biopsy, attempted colonoscopy. EGD revealed evidence of gastritis. No active bleeding. Colonoscopy was not completed due to incomplete prep. Plan is for bronchoscopy with biopsy of a large masslike consolidation in the anterior aspect of the right upper lobe. She is status post 2 units of packed red blood cells this admission. Current hemoglobin 8.0. White count 12.9. Remains on Levaquin. IV Protonix. The patient seen today 11/25/2020 follow-up on selective care unit. She is resting comfortably in bed. Awake and alert in no acute distress. Maintaining good O2 saturations in the mid 90s on room air. She's afebrile. White count 9.2. Hemoglobin 7.8. She did undergo bronchoscopy with BAL and biopsies yesterday. Cultures are pending. Cytology pending. Suspect cancer. Remains on Levaquin. IV Protonix. Objective - Vital Signs Vital signs: Vital Signs Temp 96.9 F L 11/25/20 08:00 Pulse 80 11/25/20 08:00 Resp 18 11/25/20 08:00 BP 90/52 11/25/20 08:00 Pulse Ox 95 11/25/20 08:00 Intake & Output 11/24/20 11/25/20 11/25/20 18:59 06:59 18:59 Intake Total 0 400 125 Output Total 1200 500 500 Balance -1200 -100 -375 Weight 55 kg Intake: IV 0 Oral 0 400 125 Output: Urine 500 Stool 1200 Urine/Stool Mix 500 Other: Voiding Method Bedpan Bedside Commode # Voids 1 # Bowel Movements 1 1 - Exam General appearance: Revealed a pleasant 65-year-old female patient, looks frail and chronically ill, on room air, in no distress. Head exam: Atraumatic, normocephalic. Eye exam: PERRLA, EOMI, nonicteric. Pale conjunctivae. Neck exam: No neck masses no JVD no stridor. Respiratory exam: Diminished breath sound bilaterally no crackles or rhonchi or wheezes. Symmetrical chest expansion. Cardiovascular Exam: Distant S1 and S2, no S3 gallop. GI/Abdominal exam: Soft nontender no megaly no rebound no guarding. Rectal exam: Not performed Extremities exam: No clubbing edema or cyanosis. Neurological exam: Alert and oriented 3 no gross focal neurologic deficits. Psychiatric exam: Normal mood, affect and normal mental status examination Skin exam: No cyanosis, no rashes - Labs CBC & Chem 7: 11/25/20 07:39 11/23/20 02:02 Labs: Abnormal Lab Results - Last 24 Hours (Table) 11/24/20 11/25/20 Range/Units 11:09 07:39 WBC 12.9 H (3.8-10.6) k/uL RBC 2.71 L 2.48 L (3.80-5.40) m/uL Hgb 8.0 L 7.8 L (11.4-16.0) gm/dL Hct 24.9 L 22.6 L (34.0-46.0) % RDW 16.0 H 15.9 H (11.5-15.5) % Plt Count 509 H (150-450) k/uL Neutrophils # 10.1 H (1.3-7.7) k/uL Microbiology - Last 24 Hours (Table) 11/24/20 14:19 Gram Stain - Preliminary Bronchoalviolar Lavage - Right Bronchial Washings Culture - Preliminary 11/24/20 14:19 Fungal Culture - Preliminary Bronchoalviolar Lavage - Right 11/24/20 14:19 Acid Fast Bacilli Culture - Preliminary Bronchoalviolar Lavage - Right 11/21/20 18:59 Blood Culture - Preliminary Blood No Growth after 48 hours Assessment and Plan Assessment: 1 Hemoptysis secondary to right upper lobe mass, most likely secondary to bronchogenic carcinoma unless proven otherwise. Bronchoscopy with biopsies 11/24/2020. 2 Severe weight loss secondary to underlying malignancy unless proven otherwise. 3 Right upper lobe mass, considered malignant unless proven otherwise. 4 Acute blood loss anemia secondary to GI bleeding, being addressed by surgery on the case. Status post 2 units packed red blood cells, current hemoglobin 7.8 5 Tobacco dependence syndrome. 6 History of underlying COPD. 7 History of fibromyalgia. 8 Dyslipidemia. 9 History of rheumatoid arthritis. 10 History of obstructive sleep apnea syndrome. 11 History of colonic polyps. Plan: The patient was seen and evaluated by Dr. Yang Bronchoscopy with biopsies taken yesterday, pathology pending Hemoglobin stable, on a Protonix current hemoglobin 7.8. EGD revealed mild gastritis. Remains on Levaquin. We will continue to follow and make further recommendations based on her clinical status I, the cosigning physician, performed a history & physical examination of the patient. Lungs sounds are clear, diminished Maintaining good O2 saturations in the 90s on room air. I discussed the assessment and plan of care with my nurse practitioner, Laina Watts. I attest to the above note as dictated by her.
[2020-11-25] MEDS: FENOFIBRATE 160 MG TAB PO SCH (17:23)
[2020-11-25] MEDS: LEVOFLOXACIN 750MG-D5W PMX 750 MG in DEXTROSE/WATER 1 150ML.BAG IVPB SCH (20:22)
--- NOTE | 2020-11-25 22:38 | P.PN ---
Progress Note - Text Progress Note Date: 11/25/20 Chief Complaint: Black tarry stool History of presenting complaint: This is a 65-year-old patient of Dr. Underwood. Chronic stable medical conditions include history of brain aneurysm that was clipped, restless leg syndrome, chronic fibromyalgia, hyperlipidemia, COPD. Uses a pain pump for chronic low back pain. Does use a Rollator to get about. Patient been having hemoptysis for some time for close to a year and is due to follow-up with pulmonary. Patient now presents 1 day of black tarry stools. Has lost close to 100 pounds over the course of 1 year. Does feel tired and rundown. Denies any abdominal pain. No nausea vomiting. EGD done. Bronchoscopy showed right upper lung mass. Biopsy results pending. today-tired. On the liquid diet. Some shortness of breath. Oral intake fair Review of systems: Was done for constitutional, cardiovascular, GI, pulmonary. relevant finding as above Active Medications Allopurinol (Allopurinol 100 Mg Tab) 100 mg PO DAILY@1200 [facility] Last Admin: 11/25/20 11:37 Dose: 100 mg Documented by: Amitriptyline HCl (Amitriptyline Hcl 50 Mg Tab) 100 mg PO HS@0000 [facility] Last Admin: 11/25/20 00:16 Dose: 100 mg Documented by: Atorvastatin Calcium (Atorvastatin 10 Mg Tab) 10 mg PO HS@0000 [facility] Last Admin: 11/25/20 00:16 Dose: 10 mg Documented by: Baclofen (Baclofen 10 Mg Tab) 10 mg PO QID@00,06,12,18 [facility] Last Admin: 11/25/20 17:23 Dose: 10 mg Documented by: Calcium Polycarbophil (Calcium Polycarbophil 625 Mg Tab) 625 mg PO DAILY@1200 [facility] Last Admin: 11/25/20 11:38 Dose: 625 mg Documented by: Carvedilol (Carvedilol 3.125 Mg Tab) 3.125 mg PO BID@0000,1200 [facility] Last Admin: 11/25/20 11:37 Dose: Not Given Documented by: Cholecalciferol (Cholecalciferol 1,000 Unit Tab) 2,000 unit PO DAILY@1200 [facility] Last Admin: 11/25/20 11:37 Dose: 2,000 unit Documented by: Fenofibrate (Fenofibrate 160 Mg Tab) 160 mg PO DAILY@1800 [facility] Last Admin: 11/25/20 17:23 Dose: 160 mg Documented by: Folic Acid (Folic Acid 1 Mg Tab) 1 mg PO DAILY@0600 [facility] Last Admin: 11/25/20 05:42 Dose: 1 mg Documented by: Furosemide (Furosemide 20 Mg Tab) 20 mg PO DAILY@0600 [facility] Last Admin: 11/25/20 05:42 Dose: 20 mg Documented by: Levofloxacin 750 mg/ IV (Solution) 150 mls @ 100 mls/hr IVPB Q24H [facility] Last Admin: 11/25/20 20:22 Dose: 100 mls/hr Documented by: Lactated Ringer's (Lactated Ringers) 1,000 mls @ 20 mls/hr IV .Q24H [facility] Last Admin: 11/25/20 05:44 Dose: 20 mls/hr Documented by: Lactated Ringer's (Lactated Ringers) 1,000 mls @ 20 mls/hr IV .Q24H [facility] Last Admin: 11/25/20 22:12 Dose: Not Given Documented by: Magnesium Oxide (Magnesium Oxide 400 Mg Tab) 400 mg PO DAILY@0600 [facility] Last Admin: 11/25/20 05:42 Dose: 400 mg Documented by: Mirtazapine (Mirtazapine 15 Mg Tab) 15 mg PO HS@0000 [facility] Last Admin: 11/25/20 00:16 Dose: 15 mg Documented by: Miscellaneous Information (Pneumonia Protocol Utilized 1 Each [facility]) 1 each PO ONCE PRN PRN Reason: Per Protocol Naloxone HCl (Naloxone 0.4 Mg/Ml 1 Ml Vial) 0.2 mg IV Q2M PRN PRN Reason: Opioid Reversal Non-Formulary Medication (Dilaudid Pain Pump) 1 dose MISCELLANE DIRECTED [facility] Last Admin: 11/24/20 22:57 Dose: Not Given Documented by: Non-Formulary Medication (Naloxegol Oxalate [Movantik]) 12.5 mg PO DAILY@0600 [facility] Last Admin: 11/25/20 05:42 Dose: Not Given Documented by: Pantoprazole Sodium (Pantoprazole 40 Mg/10 Ml Vial) 40 mg IV DAILY [facility] Last Admin: 11/25/20 08:48 Dose: 40 mg Documented by: Ropinirole HCl (Ropinirole Hcl 1 Mg Tab) 3 mg PO HS@0000 [facility] Last Admin: 11/25/20 00:15 Dose: 3 mg Documented by: Jasmyn (Sennosides 8.6 Mg Tab) 8.6 mg PO DAILY@1200 [facility] Last Admin: 11/25/20 11:35 Dose: Not Given Documented by: Physical examination: VITAL SIGNS: 97.5, 75, 16, 100/62, 99% room air GENERAL: laying in bed, tired, awake EYES: Pupils equal. Conjunctiva pale HEENT: External appearance of nose and ears normal, oral cavity grossly normal. NECK: JVD not raised; masses not palpable. HEART: First and second heart sounds are normal; no edema. LUNGS: Respiratory rate increased; decreased breath sounds. ABDOMEN: Soft, some abdominal pain, liver spleen not palpable, no masses palpable. Pain pump PSYCH: AO 3, mood and affect a bit low INVESTIGATIONS, reviewed in the clinical context: November 25: White count 9.2 hemoglobin 7.8 November 24: White count 12.9 hemoglobin 8 White count 11.8 hemoglobin 7.1 platelets 463 potassium 4.4 creatinine 0.86 Stool occult blood positive Coronavirus is PCR-negative Chest x-ray film personally reviewed by me-right upper lung mass EKG tracing personally reviewed by me shows-normal sinus rhythm Chest CTA-masslike consolidation anterior aspect right upper lobe with volume loss increased compared to previous study Assessment: -Acute GI bleed with black tarry stools of one day duration. -EGD done negative for H. pylori -Status post bronchoscopy-right upper lobe lung mass noted. Bronchial brushings and on. -Intermittent hemoptysis for one year and patient was due to see a jersey knitter for a right lung mass which seems to progressed -Hyperlipidemia -Chronic fibromyalgia -History of brain aneurysm for which patient had clipping -COPD in an current smoker -Essential hypertension -Chronic pain, for which patient has a pain pump -Chronic gait dysfunction uses a wheeled walker -Dropped head syndrome -Acute anemia-blood loss from GI bleed-receive 2 units of blood Plan: Continue current medication treatment plan. On Levaquin. Discussed with the patient. Follow with surgery and pulmonology
[2020-11-25] MEDS: NON FORMULARY DRUG (Dilaudid Pain Pump 1 DOSE) MISCELLANE SCH (23:24)
[2020-11-26] MEDS: NALOXEGOL OXALATE 12.5 MG PO SCH (06:09)
[2020-11-26] MEDS: FOLIC ACID 1 MG TAB PO SCH (06:32)
[2020-11-26] MEDS: BACLOFEN 10 MG TAB PO SCH ×4 (06:32→23:30)
[2020-11-26] MEDS: MAGNESIUM OXIDE 400 MG TAB PO SCH (06:32)
[2020-11-26 08:00] LABS: Anisocytosis Slight; Basophils % (A) 0 %; Eosinophils % (A) 0 %; HCT 23.3 % (34.0-46.0); HGB 7.4 gm/dL (11.4-16.0); Hypochromasia Slight; Lymphocytes % (A) 25 %; MCH 29.7 pg (25.0-35.0); MCHC 31.6 g/dL (31.0-37.0); MCV 93.9 fL (80.0-100.0); Monocytes # (A) 0.6 k/uL (0-1.0); Monocytes % (A) 7 %; Neutrophils # (A) 5.4 k/uL (1.3-7.7); Neutrophils % (A) 67 %; Platelet Count 521 k/uL (150-450); Poikilocytosis Slight; RBC 2.49 m/uL (3.80-5.40); RDW 16.6 % (11.5-15.5); WBC 8.2 k/uL (3.8-10.6)
[2020-11-26 08:21] LABS: Toxic Granulation Present
[2020-11-26] MEDS: PANTOPRAZOLE 40 MG/10 ML VIAL IV SCH (09:24)
--- NOTE | 2020-11-26 11:37 | P.PN ---
Progress Note - Text Progress Note Date: 11/26/20 Patient is stable. Her hemoglobin is 7.7. There is been no evidence of any active GI bleed. Newly diagnosed lung cancer. Patient will continue receive supportive care.
--- NOTE | 2020-11-26 14:50 | P.PN ---
Subjective Progress Note Date: 11/26/20 Principal diagnosis: Lung mass, highly suspicious for bronchogenic carcinoma This is a 65-year-old female, at least a 07-iawr-bnuo smoker, patient is primarily a patient of Dr. Ayers, presented to the ER yesterday with at least one month history of generalized weakness, over 100 pound weight loss, and intermittent episodes of cough with blood-tinged sputum. Patient was also complaining of dark tarry stools started just the day of presentation to the ER hemoglobin on presentation was noted to be 7.1. WBC count was 11.8. Electrolytes are normal, renal profile is normal. She had positive stool occult bloods. She had negative PCR for covid 19. And she had a CT of the chest showing a large masslike consolidation in the anterior aspect of the right upper lobe with volume loss that apparently has progressed compared to old CT of the chest. Previous CT of the chest was in April of 2020. The findings on the CT of the chest are highly suspicious for bronchogenic carcinoma. After evaluating the patient, I felt that the patient should have bronchoscopy and transbronchial biopsy which will be arranged for and it will be done tomorrow. In the meantime the patient is being followed by other consultants for her positive Hemoccult stools, and she may require EGD and/or colonoscopy. Supposedly her last colonoscopy was in 2018, and she was found to have rectal and transverse colon polyps. The patient is seen today 11/23/2020 in follow-up on the selective care unit. She is currently awake and alert resting fairly comfortably in bed. She is drinking a colon prep currently. She was to undergo bronchoscopy with BAL and biopsies this morning. Now we will push it back in keep her nothing by mouth. She is maintaining good O2 saturations in the mid 90s on room air. She's been afebrile. Hemodynamically stable. She has received 2 units of packed red blood cells. Current hemoglobin 7.8. White count 14.0. Sodium 132. Potassium 3.7. Creatinine 0.64. Saavedra virus not detected. The patient is seen today 11/24/2020 in follow-up on the selective care unit. She is awake and alert in no acute distress. Denies any worsening shortness of breath, cough or congestion. Maintaining O2 saturations in the mid 90s on room air. She's afebrile. Hemodynamically stable. Yesterday she did undergo EGD with biopsy, attempted colonoscopy. EGD revealed evidence of gastritis. No active bleeding. Colonoscopy was not completed due to incomplete prep. Plan is for bronchoscopy with biopsy of a large masslike consolidation in the anterior aspect of the right upper lobe. She is status post 2 units of packed red blood cells this admission. Current hemoglobin 8.0. White count 12.9. Remains on Levaquin. IV Protonix. The patient seen today 11/25/2020 follow-up on selective care unit. She is resting comfortably in bed. Awake and alert in no acute distress. Maintaining good O2 saturations in the mid 90s on room air. She's afebrile. White count 9.2. Hemoglobin 7.8. She did undergo bronchoscopy with BAL and biopsies yesterday. Cultures are pending. Cytology pending. Suspect cancer. Remains on Levaquin. IV Protonix. Patient was reevaluated today on 11/26/2020, remains on selective, patient is quite comfortable, she is on room air, afebrile, no further episodes of hemoptysis, awaiting the final report from her bronchoscopy findings, patient underwent a bronchoscopy with BAL and multiple brushings and biopsies. The findings clinically are strongly suspicious for bronchogenic carcinoma involving the right upper lobe. However the pathology is pending. Objective - Vital Signs Vital signs: Vital Signs Temp 98.2 F 11/25/20 20:00 Pulse 71 11/26/20 03:21 Resp 16 11/26/20 03:21 BP 90/53 11/26/20 03:21 Pulse Ox 96 11/26/20 03:21 Intake & Output 11/25/20 11/26/20 11/26/20 18:59 06:59 18:59 Intake Total 521 360 Output Total 500 200 600 Balance 21 -200 -240 Weight 55 kg 56.5 kg Intake: IV 160 Lactated Ringers 1,000 ml 160 @ 20 mls/hr IV .Q24H [facility] Rx#:[id number] Oral 361 360 Output: Urine 500 200 600 Other: Voiding Method Bedside Commode Bedside Commode # Voids 1 - Exam General appearance: Revealed a pleasant 65-year-old female patient, on room air, in no distress. Head exam: Atraumatic, normocephalic. Eye exam: PERRLA, EOMI, nonicteric. Pale conjunctivae. Neck exam: No neck masses no JVD no stridor. Respiratory exam: Diminished breath sound bilaterally no crackles or rhonchi or wheezes. Symmetrical chest expansion. Cardiovascular Exam: Distant S1 and S2, no S3 gallop. GI/Abdominal exam: Soft nontender no megaly no rebound no guarding. Rectal exam: Not performed Extremities exam: No clubbing edema or cyanosis. Neurological exam: Alert and oriented 3 no gross focal neurologic deficits. Psychiatric exam: Normal mood, affect and normal mental status examination Skin exam: No cyanosis, no rashes - Labs CBC & Chem 7: 11/26/20 06:56 11/23/20 02:02 Labs: Abnormal Lab Results - Last 24 Hours (Table) 11/26/20 Range/Units 06:56 RBC 2.49 L (3.80-5.40) m/uL Hgb 7.4 L (11.4-16.0) gm/dL Hct 23.3 L (34.0-46.0) % RDW 16.6 H (11.5-15.5) % Plt Count 521 H (150-450) k/uL Microbiology - Last 24 Hours (Table) 11/24/20 14:19 Gram Stain - Preliminary Bronchoalviolar Lavage - Right Bronchial Washings Culture - Preliminary Presumptive Staph aureus 11/21/20 18:59 Blood Culture - Preliminary Blood No Growth after 72 hours 11/24/20 14:19 Acid Fast Bacilli Smear - Final Bronchoalviolar Lavage - Right Acid Fast Bacilli Culture - Preliminary Assessment and Plan Assessment: Impression: Hemoptysis secondary to right upper lobe mass, most likely secondary to bronchogenic carcinoma unless proven otherwise. Status post bronchoscopy, results of which are pending. Severe weight loss secondary to underlying malignancy unless for otherwise. Right upper lobe mass, considered malignant unless for otherwise. Acute blood loss anemia secondary to GI bleeding, being addressed by surgery on the case. Tobacco dependence syndrome. History of underlying COPD. History of fibromyalgia. Dyslipidemia. History of rheumatoid arthritis. History of obstructive sleep apnea syndrome. History of colonic polyps. Recommendation: Awaiting the final report on her bronchoscopy findings and biopsies, once available, oncology to evaluate, and discuss further treatment plan on outpatient basis. We'll continue to follow. Prognosis is definitely poor and guarded. Time with Patient: Less than 30
[2020-11-26] MEDS: carvediloL 3.125 MG TAB PO SCH ×2 (16:13→23:20)
[2020-11-26] MEDS: CHOLECALCIFEROL 1,000 UNIT TAB PO SCH (17:23)
[2020-11-26] MEDS: allopurinoL 100 MG TAB PO SCH (17:23)
[2020-11-26] MEDS: FENOFIBRATE 160 MG TAB PO SCH (17:24)
[2020-11-26] MEDS: LEVOFLOXACIN 750 MG TAB PO SCH (21:02)
--- NOTE | 2020-11-26 22:51 | P.PN ---
Progress Note - Text Progress Note Date: 11/26/20 Chief Complaint: Black tarry stool History of presenting complaint: This is a 65-year-old patient of Dr. Underwood. Chronic stable medical conditions include history of brain aneurysm that was clipped, restless leg syndrome, chronic fibromyalgia, hyperlipidemia, COPD. Uses a pain pump for chronic low back pain. Does use a Rollator to get about. Patient been having hemoptysis for some time for close to a year and is due to follow-up with pulmonary. Patient now presents 1 day of black tarry stools. Has lost close to 100 pounds over the course of 1 year. Does feel tired and rundown. Denies any abdominal pain. No nausea vomiting. EGD done. Bronchoscopy showed right upper lung mass. Biopsy results pending. Today-Oral intake fair. Pending biopsy results. Laying in bed. Review of systems: Was done for constitutional, cardiovascular, GI, pulmonary. relevant finding as above Active Medications Allopurinol (Allopurinol 100 Mg Tab) 100 mg PO DAILY@1200 [facility] Last Admin: 11/26/20 17:23 Dose: 100 mg Documented by: Amitriptyline HCl (Amitriptyline Hcl 50 Mg Tab) 100 mg PO HS@0000 [facility] Last Admin: 11/25/20 23:20 Dose: 100 mg Documented by: Atorvastatin Calcium (Atorvastatin 10 Mg Tab) 10 mg PO HS@0000 [facility] Last Admin: 11/25/20 23:19 Dose: 10 mg Documented by: Baclofen (Baclofen 10 Mg Tab) 10 mg PO QID@00,06,12,18 [facility] Last Admin: 11/26/20 17:23 Dose: 10 mg Documented by: Calcium Polycarbophil (Calcium Polycarbophil 625 Mg Tab) 625 mg PO DAILY@1200 [facility] Last Admin: 11/26/20 18:03 Dose: Not Given Documented by: Carvedilol (Carvedilol 3.125 Mg Tab) 3.125 mg PO BID@0000,1200 [facility] Last Admin: 11/26/20 16:13 Dose: Not Given Documented by: Cholecalciferol (Cholecalciferol 1,000 Unit Tab) 2,000 unit PO DAILY@1200 [facility] Last Admin: 11/26/20 17:23 Dose: 2,000 unit Documented by: Fenofibrate (Fenofibrate 160 Mg Tab) 160 mg PO DAILY@1800 [facility] Last Admin: 11/26/20 17:24 Dose: 160 mg Documented by: Folic Acid (Folic Acid 1 Mg Tab) 1 mg PO DAILY@0600 [facility] Last Admin: 11/26/20 06:32 Dose: 1 mg Documented by: Lactated Ringer's (Lactated Ringers) 1,000 mls @ 20 mls/hr IV .Q24H [facility] Last Admin: 11/25/20 22:12 Dose: Not Given Documented by: Levofloxacin (Levofloxacin 750 Mg Tab) 750 mg PO Q24H [facility] Last Admin: 11/26/20 21:02 Dose: 750 mg Documented by: Magnesium Oxide (Magnesium Oxide 400 Mg Tab) 400 mg PO DAILY@0600 [facility] Last Admin: 11/26/20 06:32 Dose: 400 mg Documented by: Mirtazapine (Mirtazapine 15 Mg Tab) 15 mg PO HS@0000 [facility] Last Admin: 11/25/20 23:20 Dose: 15 mg Documented by: Miscellaneous Information (Pneumonia Protocol Utilized 1 Each [facility] [place]) 1 each PO ONCE PRN PRN Reason: Per Protocol Naloxone HCl (Naloxone 0.4 Mg/Ml 1 Ml Vial) 0.2 mg IV Q2M PRN PRN Reason: Opioid Reversal Non-Formulary Medication (Dilaudid Pain Pump) 1 dose MISCELLANE DIRECTED [facility] Last Admin: 11/25/20 23:24 Dose: Not Given Documented by: Non-Formulary Medication (Naloxegol Oxalate [Movantik]) 12.5 mg PO DAILY@0600 [facility] Last Admin: 11/26/20 06:09 Dose: Not Given Documented by: Pantoprazole Sodium (Pantoprazole 40 Mg/10 Ml Vial) 40 mg IV DAILY [facility] Last Admin: 11/26/20 09:24 Dose: 40 mg Documented by: Ropinirole HCl (Ropinirole Hcl 1 Mg Tab) 3 mg PO HS@0000 [facility] Last Admin: 11/25/20 23:19 Dose: 3 mg Documented by: Physical examination: VITAL SIGNS: 97.4, 80, 14, 97.58, 96% room air GENERAL: Declining in bed, awake EYES: Pupils equal. Conjunctiva pale HEENT: External appearance of nose and ears normal, oral cavity grossly normal. NECK: JVD not raised; masses not palpable. HEART: First and second heart sounds are normal; no edema. LUNGS: Respiratory rate increased; decreased breath sounds. ABDOMEN: Soft, some abdominal pain, liver spleen not palpable, no masses palpable. Pain pump PSYCH: AO 3, mood and affect a bit low INVESTIGATIONS, reviewed in the clinical context: November 26: White count 8.2 hemoglobin 7.4 November 25: White count 9.2 hemoglobin 7.8 November 24: White count 12.9 hemoglobin 8 White count 11.8 hemoglobin 7.1 platelets 463 potassium 4.4 creatinine 0.86 Stool occult blood positive Coronavirus is PCR-negative Chest x-ray film personally reviewed by me-right upper lung mass EKG tracing personally reviewed by me shows-normal sinus rhythm Chest CTA-masslike consolidation anterior aspect right upper lobe with volume loss increased compared to previous study Assessment: -Acute GI bleed with black tarry stools of one day duration. -EGD done negative for H. pylori -Status post bronchoscopy-right upper lobe lung mass noted. Bronchial brushings and on. -Intermittent hemoptysis for one year and patient was due to see a automotive leasing sales representative for a right lung mass which seems to progressed -Hyperlipidemia -Chronic fibromyalgia -History of brain aneurysm for which patient had clipping -COPD in an current smoker -Essential hypertension -Chronic pain, for which patient has a pain pump -Chronic gait dysfunction uses a wheeled walker -Dropped head syndrome -Acute anemia-blood loss from GI bleed-receive 2 units of blood Plan: Continue current medication treatment plan. On Levaquin. Pending lung mass biopsy results.
[2020-11-26] MEDS: LACTATED RINGERS 1,000 ML IV SCH (23:08)
[2020-11-26] MEDS: NON FORMULARY DRUG (Dilaudid Pain Pump 1 DOSE) MISCELLANE SCH (23:09)
[2020-11-26] MEDS: MIRTAZAPINE 15 MG TAB PO SCH (23:29)
[2020-11-26] MEDS: AMITRIPTYLINE HCL 50 MG TAB PO SCH (23:30)
[2020-11-26] MEDS: ATORVASTATIN 10 MG TAB PO SCH (23:30)
[2020-11-26 23:49] LABS: Anisocytosis Slight; HCT 22.2 % (34.0-46.0); HGB 7.5 gm/dL (11.4-16.0); MCH 30.6 pg (25.0-35.0); MCHC 33.7 g/dL (31.0-37.0); MCV 90.8 fL (80.0-100.0); Mean Platelet Volume 6.9; Platelet Count 459 k/uL (150-450); Poikilocytosis Slight; RBC 2.45 m/uL (3.80-5.40); RDW 16.2 % (11.5-15.5); WBC 9.4 k/uL (3.8-10.6)
[2020-11-27] MEDS: NALOXEGOL OXALATE 12.5 MG PO SCH (04:59)
[2020-11-27] MEDS: FOLIC ACID 1 MG TAB PO SCH (05:04)
[2020-11-27] MEDS: MAGNESIUM OXIDE 400 MG TAB PO SCH (05:04)
[2020-11-27] MEDS: BACLOFEN 10 MG TAB PO SCH ×4 (05:04→23:19)
[2020-11-27 07:52] LABS: HCT 27.1 % (34.0-46.0); MCH 30.5 pg (25.0-35.0); MCHC 33.3 g/dL (31.0-37.0); MCV 91.7 fL (80.0-100.0); Mean Platelet Volume 7.3; Platelet Count 484 k/uL (150-450); Poikilocytosis Slight; RBC 2.96 m/uL (3.80-5.40); RDW 15.9 % (11.5-15.5); WBC 9.1 k/uL (3.8-10.6)
[2020-11-27 10:31] LABS: Lymphocytes # (M) 2.28 k/uL (1.0-4.8); Metamyelocytes # (M) 0.09 k/uL (0); Metamyelocytes % 1 %; Myelocytes # (M) 0.18 k/uL (0); Myelocytes % 2 %; Neutrophils # (M) 5.73 k/uL (1.3-7.7); Neutrophils % (M) 63 %; Nucleated Red Blood Cells 0 /100 WBC (0-0); Total Cells Counted 200
[2020-11-27 10:32] LABS: Poikilocytosis (M) Present
--- NOTE | 2020-11-27 10:56 | P.PN ---
Progress Note - Text Progress Note Date: 11/27/20 Patient's sleeping in bed. She appears to be roughly stable. There is been no evidence of GI bleed. Her hemoglobin is 9. On exam vessels [place]. Abdomen soft. Recent diagnosis lung cancer. Patient will be observed for GI bleed. We will follow with you.
[2020-11-27] MEDS: PANTOPRAZOLE 40 MG/10 ML VIAL IV SCH (12:23)
[2020-11-27] MEDS: carvediloL 3.125 MG TAB PO SCH ×2 (12:23→23:19)
[2020-11-27] MEDS: CHOLECALCIFEROL 1,000 UNIT TAB PO SCH (12:23)
[2020-11-27] MEDS: allopurinoL 100 MG TAB PO SCH (12:23)
--- NOTE | 2020-11-27 14:27 | P.PN ---
Subjective Progress Note Date: 11/27/20 Principal diagnosis: Lung mass, hemoptysis This is a 65-year-old female, at least a [id number] smoker, patient is primarily a patient of Dr. Ayers, presented to the ER yesterday with at least one month history of generalized weakness, over 100 pound weight loss, and intermittent episodes of cough with blood-tinged sputum. Patient was also complaining of dark tarry stools started just the day of presentation to the ER hemoglobin on presentation was noted to be 7.1. WBC count was 11.8. Electrolytes are normal, renal profile is normal. She had positive stool occult bloods. She had negative PCR for covid 19. And she had a CT of the chest showing a large masslike consolidation in the anterior aspect of the right upper lobe with volume loss that apparently has progressed compared to old CT of the chest. Previous CT of the chest was in April of 2020. The findings on the CT of the chest are highly suspicious for bronchogenic carcinoma. After evaluating the patient, I felt that the patient should have bronchoscopy and transbronchial biopsy which will be arranged for and it will be done tomorrow. In the meantime the patient is being followed by other consultants for her positive Hemoccult stools, and she may require EGD and/or colonoscopy. Supposedly her last colonoscopy was in 2018, and she was found to have rectal and transverse colon polyps. The patient is seen today 11/23/2020 in follow-up on the selective care unit. She is currently awake and alert resting fairly comfortably in bed. She is drinking a colon prep currently. She was to undergo bronchoscopy with BAL and biopsies this morning. Now we will push it back in keep her nothing by mouth. She is maintaining good O2 saturations in the mid 90s on room air. She's been afebrile. Hemodynamically stable. She has received 2 units of packed red blood cells. Current hemoglobin 7.8. White count 14.0. Sodium 132. Potassium 3.7. Creatinine 0.64. Saavedra virus not detected. The patient is seen today 11/24/2020 in follow-up on the selective care unit. She is awake and alert in no acute distress. Denies any worsening shortness of breath, cough or congestion. Maintaining O2 saturations in the mid 90s on room air. She's afebrile. Hemodynamically stable. Yesterday she did undergo EGD with biopsy, attempted colonoscopy. EGD revealed evidence of gastritis. No active bleeding. Colonoscopy was not completed due to incomplete prep. Plan is for bronchoscopy with biopsy of a large masslike consolidation in the anterior aspect of the right upper lobe. She is status post 2 units of packed red blood cells this admission. Current hemoglobin 8.0. White count 12.9. Remains on Levaquin. IV Protonix. The patient seen today 11/25/2020 follow-up on selective care unit. She is resting comfortably in bed. Awake and alert in no acute distress. Maintaining good O2 saturations in the mid 90s on room air. She's afebrile. White count 9.2. Hemoglobin 7.8. She did undergo bronchoscopy with BAL and biopsies yesterday. Cultures are pending. Cytology pending. Suspect cancer. Remains on Levaquin. IV Protonix. The patient is seen today 11/27/2020 follow-up on the selective care unit. She is awake and alert in no acute distress. Currently resting fairly comfortably in bed. Maintaining O2 saturation in the 90s on room air. She is status post 2 units packed red blood cells this admission. Current hemoglobin 9.0. She remains on IV Protonix. Bronchoscopy biopsies pending. Cultures were positive for Staphylococcus aureus. Currently on Levaquin. Objective - Vital Signs Vital signs: Vital Signs Temp 98.6 F 11/27/20 05:58 Pulse 81 11/27/20 06:48 Resp 16 11/27/20 06:48 BP 91/55 11/27/20 06:48 Pulse Ox 96 11/27/20 06:48 Intake & Output 11/26/20 11/27/20 11/27/20 18:59 06:59 18:59 Intake Total 597 310 597 Output Total 800 500 Balance -203 -190 597 Weight 58 kg Intake: Oral 597 597 Blood Product 310 Rc As-1 Unit 310 [id number] Output: Urine 800 500 Other: Voiding Method Bedside Commode Bedside Commode # Voids 1 - Exam General appearance: Revealed a pleasant 65-year-old female patient, looks frail and chronically ill, on room air, in no distress. Head exam: Atraumatic, normocephalic. Eye exam: PERRLA, EOMI, nonicteric. Pale conjunctivae. Neck exam: No neck masses no JVD no stridor. Respiratory exam: Diminished breath sound bilaterally no crackles or rhonchi or wheezes. Symmetrical chest expansion. Cardiovascular Exam: Distant S1 and S2, no S3 gallop. GI/Abdominal exam: Soft nontender no megaly no rebound no guarding. Rectal exam: Not performed Extremities exam: No clubbing edema or cyanosis. Neurological exam: Alert and oriented 3 no gross focal neurologic deficits. Psychiatric exam: Normal mood, affect and normal mental status examination Skin exam: No cyanosis, no rashes - Labs CBC & Chem 7: 11/27/20 07:12 11/23/20 02:02 Labs: Abnormal Lab Results - Last 24 Hours (Table) 11/26/20 11/26/20 11/27/20 Range/Units 23:30 23:30 07:12 RBC 2.45 L 2.96 L (3.80-5.40) m/uL Hgb 7.5 L 9.0 L D (11.4-16.0) gm/dL Hct 22.2 L 27.1 L (34.0-46.0) % RDW 16.2 H 15.9 H (11.5-15.5) % Plt Count 459 H 484 H (150-450) k/uL Metamyelocytes # (Man) 0.09 H (0) k/uL Myelocytes # (Manual) 0.18 H (0) k/uL Crossmatch See Detail Microbiology - Last 24 Hours (Table) 11/24/20 14:19 Gram Stain - Final Bronchoalviolar Lavage - Right Bronchial Washings Culture - Final Staphylococcus aureus 11/21/20 18:59 Blood Culture - Preliminary Blood No Growth after 96 hours Assessment and Plan Assessment: 1 Hemoptysis secondary to right upper lobe mass, most likely secondary to bronchogenic carcinoma unless proven otherwise. Bronchoscopy with biopsies 11/24/2020. Cultures positive for methicillin sensitive Staphylococcus aureus. 2 Severe weight loss secondary to underlying malignancy unless proven otherwise. 3 Right upper lobe mass, considered malignant unless proven otherwise. 4 Acute blood loss anemia secondary to GI bleeding, being addressed by surgery on the case. Status post 3 units packed red blood cells, current hemoglobin 9.0 5 Tobacco dependence syndrome. 6 History of underlying COPD. 7 History of fibromyalgia. 8 Dyslipidemia. 9 History of rheumatoid arthritis. 10 History of obstructive sleep apnea syndrome. 11 History of colonic polyps. Plan: The patient was seen and evaluated by Dr. Yang Proctoscopy wash cultures positive for MSSA, currently on Levaquin Pathology pending we'll go ahead and consult medical oncology Hemoglobin stable, on a Protonix current hemoglobin 9.0. EGD revealed mild gastritis. We will continue to follow and make further recommendations based on her clinical status I, the cosigning physician, performed a history & physical examination of the pa haroon. Lungs sounds are clear, diminished Maintaining good O2 saturations in the 90s on room air. I discussed the assessment and plan of care with my nurse practitioner, Laina Watts. I attest to the above note as dictated by her.
[2020-11-27] MEDS: FENOFIBRATE 160 MG TAB PO SCH (17:18)
[2020-11-27] MEDS: LACTATED RINGERS 1,000 ML IV SCH (20:30)
[2020-11-27] MEDS: LEVOFLOXACIN 750 MG TAB PO SCH (20:36)
[2020-11-27] MEDS: NON FORMULARY DRUG (Dilaudid Pain Pump 1 DOSE) MISCELLANE SCH (20:40)
--- NOTE | 2020-11-27 22:21 | P.PN ---
Progress Note - Text Progress Note Date: 11/27/20 Chief Complaint: Black tarry stool History of presenting complaint: This is a 65-year-old patient of Dr. Underwood. Chronic stable medical conditions include history of brain aneurysm that was clipped, restless leg syndrome, chronic fibromyalgia, hyperlipidemia, COPD. Uses a pain pump for chronic low back pain. Does use a Rollator to get about. Patient been having hemoptysis for some time for close to a year and is due to follow-up with pulmonary. Patient now presents 1 day of black tarry stools. Has lost close to 100 pounds over the course of 1 year. Does feel tired and rundown. Denies any abdominal pain. No nausea vomiting. EGD done. Bronchoscopy showed right upper lung mass. Biopsy results pending. Today-Oral intake fair. Comfortable in bed. Breathing stable. Review of systems: Was done for constitutional, cardiovascular, GI, pulmonary. relevant finding as above Active Medications Allopurinol (Allopurinol 100 Mg Tab) 100 mg PO DAILY@1200 [facility] Last Admin: 11/27/20 12:23 Dose: 100 mg Documented by: Amitriptyline HCl (Amitriptyline Hcl 50 Mg Tab) 100 mg PO HS@0000 [facility] Last Admin: 11/26/20 23:30 Dose: 100 mg Documented by: Atorvastatin Calcium (Atorvastatin 10 Mg Tab) 10 mg PO HS@0000 [facility] Last Admin: 11/26/20 23:30 Dose: 10 mg Documented by: Baclofen (Baclofen 10 Mg Tab) 10 mg PO QID@00,06,12,18 [facility] Last Admin: 11/27/20 17:18 Dose: 10 mg Documented by: Calcium Polycarbophil (Calcium Polycarbophil 625 Mg Tab) 625 mg PO DAILY@1200 [facility] Last Admin: 11/27/20 12:25 Dose: 625 mg Documented by: Carvedilol (Carvedilol 3.125 Mg Tab) 3.125 mg PO BID@0000,1200 [facility] Last Admin: 11/27/20 12:23 Dose: Not Given Documented by: Cholecalciferol (Cholecalciferol 1,000 Unit Tab) 2,000 unit PO DAILY@1200 [facility] Last Admin: 11/27/20 12:23 Dose: 2,000 unit Documented by: Fenofibrate (Fenofibrate 160 Mg Tab) 160 mg PO DAILY@1800 [facility] Last Admin: 11/27/20 17:18 Dose: 160 mg Documented by: Folic Acid (Folic Acid 1 Mg Tab) 1 mg PO DAILY@0600 [facility] Last Admin: 11/27/20 05:04 Dose: 1 mg Documented by: Lactated Ringer's (Lactated Ringers) 1,000 mls @ 20 mls/hr IV .Q24H [facility] Last Admin: 11/27/20 20:30 Dose: Not Given Documented by: Levofloxacin (Levofloxacin 750 Mg Tab) 750 mg PO Q24H [facility] Last Admin: 11/27/20 20:36 Dose: 750 mg Documented by: Magnesium Oxide (Magnesium Oxide 400 Mg Tab) 400 mg PO DAILY@0600 [facility] Last Admin: 11/27/20 05:04 Dose: 400 mg Documented by: Mirtazapine (Mirtazapine 15 Mg Tab) 15 mg PO HS@0000 [facility] Last Admin: 11/26/20 23:29 Dose: 15 mg Documented by: Miscellaneous Information (Pneumonia Protocol Utilized 1 Each [facility] [place]) 1 each PO ONCE PRN PRN Reason: Per Protocol Naloxone HCl (Naloxone 0.4 Mg/Ml 1 Ml Vial) 0.2 mg IV Q2M PRN PRN Reason: Opioid Reversal Non-Formulary Medication (Dilaudid Pain Pump) 1 dose MISCELLANE DIRECTED [facility] Last Admin: 11/27/20 20:40 Dose: Not Given Documented by: Non-Formulary Medication (Naloxegol Oxalate [Movantik]) 12.5 mg PO DAILY@0600 [facility] Last Admin: 11/27/20 04:59 Dose: Not Given Documented by: Pantoprazole Sodium (Pantoprazole 40 Mg/10 Ml Vial) 40 mg IV DAILY [facility] Last Admin: 11/27/20 12:23 Dose: 40 mg Documented by: Ropinirole HCl (Ropinirole Hcl 1 Mg Tab) 3 mg PO HS@0000 [facility] Last Admin: 11/26/20 23:29 Dose: 3 mg Documented by: Physical examination: VITAL SIGNS: 98.3, 100, 16, 113/68, 99% room air GENERAL: Propped up in bed, awake EYES: Pupils equal. Conjunctiva pale HEENT: External appearance of nose and ears normal, oral cavity grossly normal. NECK: JVD not raised; masses not palpable. HEART: First and second heart sounds are normal; no edema. LUNGS: Respiratory rate increased; decreased breath sounds. ABDOMEN: Soft, some abdominal pain, liver spleen not palpable, no masses palpable. Pain pump PSYCH: AO 3, mood and affect a bit low INVESTIGATIONS, reviewed in the clinical context: November 27: White count 9.1 hemoglobin 9 November 26: White count 8.2 hemoglobin 7.4 November 25: White count 9.2 hemoglobin 7.8 November 24: White count 12.9 hemoglobin 8 White count 11.8 hemoglobin 7.1 platelets 463 potassium 4.4 creatinine 0.86 Stool occult blood positive Coronavirus is PCR-negative Chest x-ray film personally reviewed by me-right upper lung mass EKG tracing personally reviewed by me shows-normal sinus rhythm Chest CTA-masslike consolidation anterior aspect right upper lobe with volume loss increased compared to previous study Assessment: -Acute GI bleed with black tarry stools of one day duration. -EGD done negative for H. pylori -Status post bronchoscopy-right upper lobe lung mass noted. Bronchial brushings results pending. -Intermittent hemoptysis for one year and patient was due to see a [employer] member other ranks for a right lung mass which seems to progressed -Hyperlipidemia -Chronic fibromyalgia -History of brain aneurysm for which patient had clipping -COPD in an current smoker -Essential hypertension -Chronic pain, for which patient has a pain pump -Chronic gait dysfunction uses a wheeled walker -Dropped head syndrome -Acute anemia-blood loss from GI bleed-receive 2 units of blood Plan: Continue current medication treatment plan. On Levaquin. Pending lung mass biopsy results. Discussed with patient.
[2020-11-27] MEDS: AMITRIPTYLINE HCL 50 MG TAB PO SCH (23:18)
[2020-11-27] MEDS: MIRTAZAPINE 15 MG TAB PO SCH (23:19)
[2020-11-27] MEDS: ATORVASTATIN 10 MG TAB PO SCH (23:19)
[2020-11-28] MEDS: NALOXEGOL OXALATE 12.5 MG PO SCH (05:31)
[2020-11-28] MEDS: FOLIC ACID 1 MG TAB PO SCH (05:33)
[2020-11-28] MEDS: MAGNESIUM OXIDE 400 MG TAB PO SCH (05:33)
[2020-11-28] MEDS: BACLOFEN 10 MG TAB PO SCH ×4 (05:33→21:04)
[2020-11-28] MEDS: PANTOPRAZOLE 40 MG/10 ML VIAL IV SCH (09:16)
[2020-11-28 09:17] LABS: HCT 28.3 % (34.0-46.0); HGB 9.6 gm/dL (11.4-16.0); Hypochromasia Slight; MCH 31.2 pg (25.0-35.0); MCHC 33.9 g/dL (31.0-37.0); MCV 92.2 fL (80.0-100.0); Mean Platelet Volume 7.1; Platelet Count 561 k/uL (150-450); Poikilocytosis Slight; RBC 3.07 m/uL (3.80-5.40); RDW 15.5 % (11.5-15.5); WBC 10.8 k/uL (3.8-10.6)
[2020-11-28] MEDS ORDERED: BARIUM SULFATE 450 ML ORAL.SUSP BOTTLE PO PRN (11:03)
[2020-11-28] MEDS ORDERED: methylPREDNISolone SOD SUCCI 125 MG/2 ML VIAL IV ONE (11:41)
[2020-11-28] MEDS ORDERED: diphenhydrAMINE 50 MG/ML 1 ML VIAL IVP ONE (11:41)
[2020-11-28] MEDS ORDERED: FAMOTIDINE 20 MG/2 ML VIAL IV ONE (11:41)
--- NOTE | 2020-11-28 12:47 | P.PN ---
Subjective Progress Note Date: 11/28/20 CHIEF COMPLAINT: Generalized weakness HISTORY OF PRESENT ILLNESS: Patient is being followed for an acute GI bleed with anemia. Patient still reporting some abdominal discomfort. Her abdominal distention is improved. She denies any nausea or vomiting. Her last bowel movement was on Saturday. No further evidence of GI bleed. She is on regular diet. She did have a EGD with biopsy completed results showed gastritis. Patient is status post bronchoscopy for right lung mass with biopsy. Biopsy result pending. She does still report some hemoptysis. She's afebrile. WBC 10.8 hemoglobin 9.6 patient evaluated by oncology they've ordered computed tomography scan of abdomen and pelvis and MRI of brain. PHYSICAL EXAM: VITAL SIGNS: Reviewed. GENERAL: Well-developed in no acute distress. HEENT: No sclera icterus. Extraocular movements grossly intact. Moist buccal mucosa. Head is atraumatic, normocephalic. ABDOMEN: Soft and nondistended Mild diffuse tenderness NEUROLOGIC: Alert and oriented. Cranial nerves II through XII grossly intact. ASSESSMENT: 1. Acute GI bleed: patient has had both bright red blood per rectum as well as black tarry stools. Patient is status post EGD that showed gastritis. Colonoscopy not done due to patient unable to complete bowel prep 2. Acute blood loss anemia secondary to GI bleed 3. Hypotension 4. Right Lung mass followed by pulmonary service patient is status post bronchoscopy with biopsy 5. Weight loss PLAN: -Continue supportive care -Continue to monitor hemoglobin -Continue Protonix -Patient will need a colonoscopy at a later time Physician Lump Room Supervisor note has been reviewed by physician. Signing provider agrees with the documented findings, assessment, and plan of care. Objective - Vital Signs Vital signs: Vital Signs Temp 96.8 F L 11/28/20 08:55 Pulse 85 11/28/20 08:55 Resp 16 11/28/20 08:55 BP 88/51 11/28/20 08:55 Pulse Ox 95 11/28/20 08:55 Intake & Output 11/27/20 11/28/20 11/28/20 18:59 06:59 18:59 Intake Total 1314 240 Output Total 700 540 900 Balance 614 -540 -660 Weight 59.9 kg Intake: Oral 1314 240 Output: Urine 700 540 900 Other: Voiding Method Bedside Commode Bedside Commode Bedside Commode # Voids 1 - Labs CBC & Chem 7: 11/28/20 08:33 11/23/20 02:02 Labs: Abnormal Lab Results - Last 24 Hours (Table) 11/28/20 Range/Units 08:33 WBC 10.8 H (3.8-10.6) k/uL RBC 3.07 L (3.80-5.40) m/uL Hgb 9.6 L (11.4-16.0) gm/dL Hct 28.3 L (34.0-46.0) % Plt Count 561 H (150-450) k/uL Microbiology - Last 24 Hours (Table) 11/21/20 18:59 Blood Culture - Preliminary Blood No Growth after 120 hours 11/24/20 14:19 Gram Stain - Final Bronchoalviolar Lavage - Right Bronchial Washings Culture - Final Staphylococcus aureus
--- NOTE | 2020-11-28 14:38 | P.PN ---
Subjective Progress Note Date: 11/28/20 Principal diagnosis: Hemoptysis This is a 65-year-old female, at least a 50-[id number]-ytzi smoker, patient is primarily a patient of Dr. Ayers, presented to the ER yesterday with at least one month history of generalized weakness, over 100 pound weight loss, and intermittent episodes of cough with blood-tinged sputum. Patient was also complaining of dark tarry stools started just the day of presentation to the ER hemoglobin on presentation was noted to be 7.1. WBC count was 11.8. Electrolytes are normal, renal profile is normal. She had positive stool occult bloods. She had negative PCR for covid 19. And she had a CT of the chest showing a large masslike consolidation in the anterior aspect of the right upper lobe with volume loss that apparently has progressed compared to old CT of the chest. Previous CT of the chest was in April of 2020. The findings on the CT of the chest are highly suspicious for bronchogenic carcinoma. After evaluating the patient, I felt that the patient should have bronchoscopy and transbronchial biopsy which will be arranged for and it will be done tomorrow. In the meantime the patient is being followed by other consultants for her positive Hemoccult stools, and she may require EGD and/or colonoscopy. Supposedly her last colo noscopy was in 2018, and she was found to have rectal and transverse colon polyps. The patient is seen today 11/23/2020 in follow-up on the selective care unit. She is currently awake and alert resting fairly comfortably in bed. She is drinking a colon prep currently. She was to undergo bronchoscopy with BAL and biopsies this morning. Now we will push it back in keep her nothing by mouth. She is maintaining good O2 saturations in the mid 90s on room air. She's been afebrile. Hemodynamically stable. She has received 2 units of packed red blood cells. Current hemoglobin 7.8. White count 14.0. Sodium 132. Potassium 3.7. Creatinine 0.64. Saavedra virus not detected. The patient is seen today 11/24/2020 in follow-up on the selective care unit. She is awake and alert in no acute distress. Denies any worsening shortness of breath, cough or congestion. Maintaining O2 saturations in the mid 90s on room air. She's afebrile. Hemodynamically stable. Yesterday she did undergo EGD with biopsy, attempted colonoscopy. EGD revealed evidence of gastritis. No active bleeding. Colonoscopy was not completed due to incomplete prep. Plan is for bronchoscopy with biopsy of a large masslike consolidation in the anterior aspect of the right upper lobe. She is status post 2 units of packed red blood cells this admission. Current hemoglobin 8.0. White count 12.9. Remains on Levaquin. IV Protonix. The patient seen today 11/25/2020 follow-up on selective care unit. She is re sting comfortably in bed. Awake and alert in no acute distress. Maintaining good O2 saturations in the mid 90s on room air. She's afebrile. White count 9.2. Hemoglobin 7.8. She did undergo bronchoscopy with BAL and biopsies yesterday. Cultures are pending. Cytology pending. Suspect cancer. Remains on Levaquin. IV Protonix. The patient is seen today 11/27/2020 follow-up on the selective care unit. She is awake and alert in no acute distress. Currently resting fairly comfortably in bed. Maintaining O2 saturation in the 90s on room air. She is status post 2 units packed red blood cells this admission. Current hemoglobin 9.0. She remains on IV Protonix. Bronchoscopy biopsies pending. Cultures were positive for Staphylococcus aureus. Currently on Levaquin. On 11/28/2020 patient seen in follow-up on selective care unit, she sits up in bed, breathing comfortably, room air pulse ox is 96%, no fever or chills, hemodynamically she's been stable, patient is status post bronchoscopy with biopsies on 11/24/2020, endobronchial biopsies of the right upper lobe, brushings from the right upper lobe and washings and lavage of the right upper lobe, cytology is still pending, BAL cultures showed MSSA, patient is currently on Levaquin for antibiotic coverage. Patient is status post EGD with biopsy and attentive colonoscopy, EGD revealed evidence of gastritis, no active bleeding. Colonoscopy was incomplete related to incomplete prep. Today's hemoglobin is 9.6. Hemoptysis is improved, no complaints of chest pain. Objective - Vital Signs Vital signs: Vital Signs Temp 96.9 F L 11/28/20 11:50 Pulse 84 11/28/20 11:50 Resp 18 11/28/20 11:50 BP 96/57 11/28/20 11:50 Pulse Ox 96 11/28/20 11:50 Intake & Output 11/27/20 11/28/20 11/28/20 18:59 06:59 18:59 Intake Total 1314 240 Output Total 700 540 900 Balance 067 -878 -068 Weight 59.9 kg Intake: Oral 1314 240 Output: Urine 700 540 900 Other: Voiding Method Bedside Commode Bedside Commode Bedside Commode # Voids 1 - Exam GENERAL EXAM: Alert, pleasant, 65-year-old white female, on room air, with pulse ox of 97% comfortable in no apparent distress. HEAD: Normocephalic/atraumatic. EYES: Normal reaction of pupils, equal size. Conjunctiva pink, sclera white. NOSE: Clear with pink turbinates. THROAT: No erythema or exudates. NECK: No masses, no JVD, no thyroid enlargement, no adenopathy. CHEST: No chest wall deformity. Symmetrical expansion. LUNGS: Equal air entry with no crackles, wheeze, rhonchi or dullness. CVS: Regular rate and rhythm, normal S1 and S2, no gallops, no murmurs, no rubs ABDOMEN: Soft, nontender. No hepatosplenomegaly, normal bowel sounds, no guarding or rigidity. EXTREMITIES: No clubbing, no edema, no cyanosis, 2+ pulses and upper and lower extremities. MUSCULOSKELETAL: Muscle strength and tone normal. SPINE: No scoliosis or deformity SKIN: No rashes CENTRAL NERVOUS SYSTEM: Alert and oriented -3. No focal deficits, tone is normal in all 4 extremities. PSYCHIATRIC: Alert and oriented -3. Appropriate affect. Intact judgment and insight. - Labs CBC & Chem 7: 11/28/20 08:33 11/23/20 02:02 Labs: Abnormal Lab Results - Last 24 Hours (Table) 11/28/20 Range/Units 08:33 WBC 10.8 H (3.8-10.6) k/uL RBC 3.07 L (3.80-5.40) m/uL Hgb 9.6 L (11.4-16.0) gm/dL Hct 28.3 L (34.0-46.0) % Plt Count 561 H (150-450) k/uL Microbiology - Last 24 Hours (Table) 11/21/20 18:59 Blood Culture - Preliminary Blood No Growth after 120 hours 11/24/20 14:19 Gram Stain - Final Bronchoalviolar Lavage - Right Bronchial Washings Culture - Final Staphylococcus aureus Assessment and Plan Plan: Assessment: #1. Sepsis secondary to right upper lobe mass, status post bronchoscopy with right upper lobe biopsies, BAL, washings and brushings, this was done in 11/19/2020, BAL cultures positive for MSSA, currently on Levaquin, biopsies are still pending #2. Severe weakness secondary to underlying malignancy unless proven otherwise #3. Right upper lobe mass, consider malignant unless proven otherwise #4. Acute blood loss anemia secondary to GI bleeding, status post EGD showing mild gastritis but no active bleeding, status post transfusion with 3 units of packed red blood cells, colonoscopy was Attempted related to poor prep #5. Tobacco dependence syndrome #6. History of fibromyalgia #7. History of underlying COPD #8. Dyslipidemia #9. History of rheumatoid arthritis #10. History of obstructive sleep apnea syndrome #11. History of colonic polyps Plan: Patient is doing well, she is on room air, hemoptysis is improving, continue current antibiotics, BAL culture showed MSSA, clinically patient is stable, from pulmonary perspective she could be considered for discharge home on oral antibiotics with outpatient follow-up in regards to biopsy results of the right upper lobe mass. I performed a history & physical examination of the patient and discussed their management with my nurse practitioner, Abbi Pulliam. I reviewed the nurse practitioner's note and agree with the documented findings and plan of care. Lung sounds are positive for diminished breath sounds. The findings and the impression was discussed with the patient. I attest to the documentation by the nurse practitioner. Time with Patient: Less than 30
[2020-11-28] MEDS ORDERED: RX INFO: IV CONTRAST WAS GIVEN 1 EACH MISC MISCELLANE PRN (15:25)
--- NOTE | 2020-11-28 16:30 | P.CONS ---
History of Present Illness - Reason for Consult Consult date: 11/28/20 anemia, lung mass Requesting physician: Laina Watts - Chief Complaint GI bleeding - History of Present Illness Ms. Kelsey is a very pleasant 65 yo female we have been asked to see re: lung mass, wt loss. Pt states she started the Keto diet and lost a bunch of weight last year but, when she quit, the weight kept coming off, she has lost about 100lbs. She noted "coughing up" blood, has Hx of smoking, since her teens, quit about 1 year ago. No sweats or chest pain. She noted blood in her stool. She has pain across the upper part of her abdomen, denies acute changes in bowel habits, nausea or vomiting. She has a pain pump for back pain. She has left sided weakness 2/2 stroke. She has no personal history of cancer, her family history is positive for NHL, pancreatic cancer and lung. She gets around with a wheeled walker. Review of Systems 14 point ROS is neg except as stated in HPI Past Medical History Past Medical History: COPD, CVA/TIA, Fibromyalgia, Hyperlipidemia, Hypertension, Osteoarthritis (OA), Renal Disease, Rheumatoid Arthritis (RA), Sleep Apnea/CPAP/BIPAP Additional Past Medical History / Comment(s): CVA (1992 & JANUARY 2018), Lt ARM WEAKNESS. HX BRAIN ANEURYSM. DROPPED HEAD SYNDROME-HEAD CROOKED, CONSTANT MORALES, GETTING INJ. HX RUPTURED BOWEL. KIDNEY DISEASE STAGE 3. HEMORRHOIDS. GOUT. NOT USING C-PAP MACHINE. HX OF COLON POLYPS. BACK PAIN: pain pump USES WHEELED WALKER. Right lung mass History of Any Multi-Drug Resistant Organisms: MRSA Year Discovered:: 06/05/13 MDRO Source:: BLADDER Past Surgical History: Bowel Resection, Breast Surgery, Section, Orthopedic Surgery, Tonsillectomy, Tubal Ligation Additional Past Surgical History / Comment(s): ARTIFICIAL LT FOOT TENDON CHILD; LATER HAD TENDONS ON LT FOOT CUT. D & C, BRAIN ANEURYSM REPAIR WITH COILS, LT BREAST LUMPECTOMY, LT EYE SURGERY. Past Anesthesia/Blood Transfusion Reactions: No Reported Reaction Additional Past Anesthesia/Blood Transfusion Reaction / Comm: ETHER CAUSED PONV Past Psychological History: Anxiety, Depression Smoking Status: Light tobacco smoker Past Alcohol Use History: None Reported Past Drug Use History: None Reported Additional Drug Use History / Comment(s): STATES CURRENT MARIJUANA USE FOR PAIN, 2X PER DAY OR LESS. - Past Family History Mother Family Medical History: CVA/TIA Father Family Medical History: Cancer Additional Family Medical History / Comment(s): BREAST CA. Sister(s) Family Medical History: Cancer Additional Family Medical History / Comment(s): LUNG CA Medications and Allergies Home Medications Medication Instructions Recorded Confirmed Type Fenofibrate 160 mg PO DAILY@1800 05/24/14 11/21/20 History Folic Acid 1 mg PO DAILY@0600 05/24/14 11/21/20 History Lovastatin [Mevacor] 40 mg PO HS@0000 05/24/14 11/21/20 History Cholecalciferol [Vitamin D3 (25 2,000 unit PO DAILY@1200 04/04/16 11/21/20 Hi story Mcg = 1000 Iu)] EPINEPHrine (Auto Inject) [Epipen] 0.3 mg IM ONCE PRN 04/04/16 11/21/20 History allopurinoL [Zyloprim] 100 mg PO DAILY@1200 04/04/16 11/21/20 History rOPINIRole HCL [Requip] 3 mg PO HS@0000 02/13/18 11/21/20 History Dilaudid Pain Pump 1 dose INTRATHECA DIRECTED 07/21/19 11/21/20 History Magnesium Oxide [Mag-Ox] 400 mg PO DAILY@0607/21/19 11/21/20 History Naloxegol Oxalate [Movantik] 12.5 mg PO DAILY@0600 07/21/19 11/21/20 History Albuterol Sulfate [Proair Hfa] 1 - 2 puff INHALATION RT-Q4H PRN 11/21/20 11/21/20 History Amitriptyline HCl [Elavil] 100 mg PO HS@0000 11/21/20 11/21/20 History Aspirin EC [Ecotrin Low Dose] 81 mg PO DAILY@119911/21/20 11/21/20 History Baclofen [Lioresal] 10 mg PO QID@00,06,12,18 11/21/20 11/21/20 History Biotin 10,000 mcg PO DAILY@0600 11/21/20 11/21/20 History Calcium Polycarbophil [Fiber-Lax] 625 mg PO DAILY@1200 11/21/20 11/21/20 History Carvedilol [Coreg] 3.125 mg PO BID@0000,1200 11/21/20 11/21/20 History Mirtazapine [Remeron] 15 mg PO HS@0000 11/21/20 11/21/20 History Mirtazapine [Remeron] 15 mg PO HS@0000 11/21/20 11/21/20 History Multivit-Min/Iron/Folic/Lutein 1 tab PO DAILY@1800 11/21/20 11/21/20 History [Centrum Silver Women Tablet] Sennosides [Senna] 8.6 mg PO DAILY@1200 11/21/20 11/21/20 History Allergies Allergy/AdvReac Type Severity Reaction Status Date / Time morphine Allergy Unknown Hallucinati Verified 11/21/20 19:15 ons acetaminophen Allergy Unknown Verified 11/21/20 19:15 [From Darvocet-N 100] bupropion [From Wellbutrin] Allergy Unknown Verified 11/21/20 19:15 caffeine [From Norgesic] Allergy Anaphylaxis Verified 11/21/20 19:15 cefaclor [From Ceclor] Allergy Unknown Verified 11/21/20 19:15 divalproex sodium Allergy Unknown Verified 11/21/20 19:15 [From Depakote] doxycycline Allergy Unknown Verified 11/21/20 19:15 Iodine and Iodide Containing Allergy Rash/Hives Verified 11/21/20 19:15 Produc ketorolac tromethamine Allergy Unknown Verified 11/21/20 19:15 [From Toradol] lorazepam [From Ativan] Allergy Rash/Hives Verified 11/21/20 19:15 naproxen Allergy Unknown Verified 11/21/20 19:15 orphenadrine [From Norgesic] Allergy Anaphylaxis Verified 11/21/20 19:15 orphenadrine citrate Allergy Unknown Verified 11/21/20 19:15 [From Norgesic] Penicillins Allergy Unknown Verified 11/21/20 19:15 phenytoin sodium Allergy Unknown Verified 11/21/20 19:15 [From Dilantin] phenytoin sodium extended Allergy Unknown Verified 11/21/20 19:15 [From Dilantin] pregabalin [From Lyrica] Allergy Unknown Verified 11/21/20 19:15 propoxyphene HCl Allergy Unknown Verified 11/21/20 19:15 [From Darvon] propoxyphene napsylate Allergy Unknown Verified 11/21/20 19:15 [From Darvocet-N 100] Sulfa (Sulfonamide Allergy Unknown Verified 11/21/20 19:15 Antibiotics) trazodone Allergy Unknown Verified 11/21/20 19:15 venom-honey bee Allergy Unknown Verified 11/21/20 19:15 [bee venom (honey bee)] venom-wasp Allergy Anaphylaxis Verified 11/21/20 19:15 adhesive AdvReac "rips off Verified 11/21/20 19:15 skin" adhesive tape AdvReac "rips off Verified 11/21/20 19:15 skin" ketorolac [From Toradol] AdvReac Unknown Verified 11/21/20 19:15 phenytoin [From Dilantin] AdvReac Unknown Verified 11/21/20 19:15 propoxyphene [From Darvon] AdvReac Unknown Verified 11/21/20 19:15 tramadol AdvReac Unknown Verified 11/21/20 19:15 UNCOATED ASPIRIN AdvReac Unknown Uncoded 11/21/20 19:15 Physical Exam Vitals: Vital Signs Temp Pulse Resp BP BP Pulse Ox 11/28/20 08:55 96.8 F L 85 16 88/51 95 11/28/20 04:00 79 16 93/53 96 11/28/20 00:00 84 16 87/50 96 11/27/20 20:00 86 16 98/56 96 11/27/20 16:00 98.3 F 103 H 16 113/68 99 11/27/20 14:00 100 16 11/27/20 12:00 97.6 F 100 16 96/57 98 Intake and Output 11/27/20 11/28/20 11/28/20 22:59 06:59 14:59 Intake Total 717 240 Output Total 700 540 900 Balance 31 -719 -971 Intake: Oral 717 240 Output: Urine 700 540 900 Other: Voiding Method Bedside Commode Bedside Commode Bedside Commode # Voids 1 Weight 59.9 kg - Constitutional General appearance: cooperative, no acute distress, thin - EENT Eyes: anicteric sclerae, edentulous ENT: hearing grossly normal, normal oropharynx - Neck Neck: no lymphadenopathy - Respiratory congested cough Respiratory: bilateral: diminished, rales (few scattered) - Cardiovascular Rhythm: regular Heart sounds: normal: S1, S2 Abnormal Heart Sounds: no systolic murmur, no diastolic murmur, no rub, no S3 Gallop, no S4 Gallop, no click, no other leg Peripheral Edema: bilateral: None - Gastrointestinal General gastrointestinal: soft Localized gastrointestinal: tender: diffuse (upper aspect of abd) - Neurologic Neurologic: focal deficits - Musculoskeletal Musculoskeletal: left sided weakness - Psychiatric Psychiatric: A&O x's 3, appropriate affect, intact judgment & insight Results CBC & Chem 7: 11/28/20 08:33 11/23/20 02:02 Labs: Abnormal Lab Results - Last 24 Hours (Table) 11/28/20 Range/Units 08:33 WBC 10.8 H (3.8-10.6) k/uL RBC 3.07 L (3.80-5.40) m/uL Hgb 9.6 L (11.4-16.0) gm/dL Hct 28.3 L (34.0-46.0) % Plt Count 561 H (150-450) k/uL Microbiology - Last 24 Hours (Table) 11/21/20 18:59 Blood Culture - Preliminary Blood No Growth after 120 hours 11/24/20 14:19 Gram Stain - Final Bronchoalviolar Lavage - Right Bronchial Washings Culture - Final Staphylococcus aureus Chest x-ray: report reviewed CT scan - chest: report reviewed Assessment and Plan (1) Lung mass Narrative/Plan: Washings pathology reported after pt seen. She is s/p bronch/bx/washing. It was discussed with her the concerning findings on scans, she is aware that it is most likely a lung cancer. MRI brain ordered-pt only able to do at her Neurologists [facility]. CT brain with contrast is acceptable. CT AP for staging and c/o abd pain Will f/u in AM Current Visit: Yes Status: Acute Priority: High Code(s): R91.8 - OTHER NONSPECIFIC ABNORMAL FINDING OF LUNG FIELD SNOMED Code(s): 583586404 (2) GI bleed Narrative/Plan: Pt c/o blood in stool. EGD showed gastritis, colonoscopy could not be done due to poor prep. Due to pt abd c/o, CT AP ordered-also for staging purposes. Current Visit: Yes Status: Acute Priority: High Code(s): K92.2 - GASTROINTESTINAL HEMORRHAGE, UNSPECIFIED SNOMED Code(s): 02034912 (3) Hemoptysis Current Visit: Yes Status: Acute Priority: High Code(s): R04.2 - HEMOPTYSIS SNOMED Code(s): 44959040 Plan: Attests: I have performed H&P and developed impression and plan of care. Discussed with dictator. Agree with dictation, documented as a scribe.
--- NOTE | 2020-11-28 16:31 | CT ---
EXAMINATION TYPE: CT brain w con DATE OF EXAM: 11/28/2020 COMPARISON: CT brain July 21, 2019 HISTORY: cancer staging, newly diagnosed lung cancer CT DLP: 1125 mGycm. Automated Exposure Control for Dose Reduction was Utilized. TECHNIQUE: CT scan of the head is performed with IV Contrast, patient injected with 100 mL of Isovu e 300. FINDINGS: Postcontrast images show no suspicious enhancing intraparenchymal mass. Aneurysm clip with adjacent artifact left suprasellar level is redemonstrated. Ventricles and sulci stable in size. Old infarct right external capsule and basal ganglia axial images 14 through 18 is redemonstrated. The gl obes are intact and the visualized sinuses are clear. IMPRESSION: No suspicious enhancing masses to suggest metastatic disease.
--- NOTE | 2020-11-28 16:36 | CT ---
EXAMINATION TYPE: CT abdomen pelvis w con DATE OF EXAM: 11/28/2020 HISTORY: abd pain, lung mass, newly diagnosed lung cancer. CT DLP: 1085.8mGycm Automated Exposure Control for Dose Reduction was Utilized. CONTRAST: CT scan of the abdomen and pelvis is performed with IV Contrast, patient injected with 100 mL of Isov ue 300. COMPARISON: None. FINDINGS: LUNG BASES: Small nonsimple right pleural fluid collection with associated compressive atelectasis. A symmetric skin thickening in the right breast. Moderate subcutaneous edema felt present bilaterally. Correlate clinically. LIVER/GB: Gallbladder not seen and presumed surgically absent. PANCREAS: No significant abnormality is seen. SPLEEN: No significant abnormality is seen. ADRENALS: No significant abnormality is seen. KIDNEYS: Symmetric cortical medullary uptake and excretion without hydronephrosis seen bilaterally. BOWEL: Suboptimal evaluation as patient has very little intra-abdominal fat. Oral contrast reaches le micah of the transverse colon. [id number] gas-distended stomach. Mild contrast-filled prominence of duodenum. No suspicious small bowel dilatation. Moderate to severe diffuse colonic fecal prominenc e. UTERUS/ADNEXA: No gross abnormality seen. LYMPH NODES: No greater than 1cm abdominal or pelvic lymph nodes are appreciated. OSSEOUS STRUCTURES: Focal spur disc L5-S1 level. OTHER: Brielle severe diffuse soft tissue anasarca bilaterally. Overlying subcutaneous defibrillator or stimulator device left midabdomen causes streak artifact limiting evaluation at this level. Fairly severe calcified plaque of the abdominal aorta extends into branch vessels. IMPRESSION: Moderate to severe diffuse colonic fecal stasis. Severe diffuse soft tissue anasarca. No suspicious mass or adenopathy to suggest metastatic disease.
[2020-11-28] MEDS: carvediloL 3.125 MG TAB PO SCH ×2 (17:14→21:04)
[2020-11-28] MEDS: FENOFIBRATE 160 MG TAB PO SCH (17:14)
[2020-11-28] MEDS: CHOLECALCIFEROL 1,000 UNIT TAB PO SCH (17:14)
[2020-11-28] MEDS: allopurinoL 100 MG TAB PO SCH (17:14)
[2020-11-28] MEDS: NON FORMULARY DRUG (Dilaudid Pain Pump 1 DOSE) MISCELLANE SCH (21:00)
[2020-11-28] MEDS: MIRTAZAPINE 15 MG TAB PO SCH (21:04)
[2020-11-28] MEDS: AMITRIPTYLINE HCL 50 MG TAB PO SCH (21:04)
[2020-11-28] MEDS: ATORVASTATIN 10 MG TAB PO SCH (21:04)
[2020-11-28] MEDS: LEVOFLOXACIN 750 MG TAB PO SCH (21:04)
--- NOTE | 2020-11-28 21:07 | P.PN ---
Progress Note - Text Progress Note Date: 11/28/20 Chief Complaint: Black tarry stool History of presenting complaint: This is a 65-year-old patient of Dr. Underwood. Chronic stable medical conditions include history of brain aneurysm that was clipped, restless leg syndrome, chronic fibromyalgia, hyperlipidemia, COPD. Uses a pain pump for chronic low back pain. Does use a Rollator to get about. Patient been having hemoptysis for some time for close to a year and is due to follow-up with pulmonary. Patient now presents 1 day of black tarry stools. Has lost close to 100 pounds over the course of 1 year. Does feel tired and rundown. Denies any abdominal pain. No nausea vomiting. EGD done. Bronchoscopy showed right upper lung mass. 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 Comfortable in bed. Breathing stable. Review of systems: Was done for constitutional, cardiovascular, GI, pulmonary. relevant finding as above Active Medications Allopurinol (Allopurinol 100 Mg Tab) 100 mg PO DAILY@1200 [facility] Last Admin: 11/27/20 12:23 Dose: 100 mg Documented by: Amitriptyline HCl (Amitriptyline Hcl 50 Mg Tab) 100 mg PO HS@0000 [facility] Last Admin: 11/26/20 23:30 Dose: 100 mg Documented by: Atorvastatin Calcium (Atorvastatin 10 Mg Tab) 10 mg PO HS@0000 [facility] Last Admin: 11/26/20 23:30 Dose: 10 mg Documented by: Baclofen (Baclofen 10 Mg Tab) 10 mg PO QID@00,06,12,18 [facility] Last Admin: 11/27/20 17:18 Dose: 10 mg Documented by: Calcium Polycarbophil (Calcium Polycarbophil 625 Mg Tab) 625 mg PO DAILY@1200 [facility] Last Admin: 11/27/20 12:25 Dose: 625 mg Documented by: Carvedilol (Carvedilol 3.125 Mg Tab) 3.125 mg PO BID@0000,1200 [facility] Last Admin: 11/27/20 12:23 Dose: Not Given Documented by: Cholecalciferol (Cholecalciferol 1,000 Unit Tab) 2,000 unit PO DAILY@1200 [facility] Last Admin: 11/27/20 12:23 Dose: 2,000 unit Documented by: Fenofibrate (Fenofibrate 160 Mg Tab) 160 mg PO DAILY@1800 [facility] Last Admin: 11/27/20 17:18 Dose: 160 mg Documented by: Folic Acid (Folic Acid 1 Mg Tab) 1 mg PO DAILY@0600 [facility] Last Admin: 11/27/20 05:04 Dose: 1 mg Documented by: Lactated Ringer's (Lactated Ringers) 1,000 mls @ 20 mls/hr IV .Q24H [facility] Last Admin: 11/27/20 20:30 Dose: Not Given Documented by: Levofloxacin (Levofloxacin 750 Mg Tab) 750 mg PO Q24H [facility] Last Admin: 11/27/20 20:36 Dose: 750 mg Documented by: Magnesium Oxide (Magnesium Oxide 400 Mg Tab) 400 mg PO DAILY@0600 [facility] Last Admin: 11/27/20 05:04 Dose: 400 mg Documented by: Mirtazapine (Mirtazapine 15 Mg Tab) 15 mg PO HS@0000 [facility] Last Admin: 11/26/20 23:29 Dose: 15 mg Documented by: Miscellaneous Information (Pneumonia Protocol Utilized 1 [facility]) 1 each PO ONCE PRN PRN Reason: Per Protocol Naloxone HCl (Naloxone 0.4 Mg/Ml 1 Ml Vial) 0.2 mg IV Q2M PRN PRN Reason: Opioid Reversal Non-Formulary Medication (Dilaudid Pain Pump) 1 dose MISCELLANE DIRECTED [facility] Last Admin: 11/27/20 20:40 Dose: Not Given Documented by: Non-Formulary Medication (Naloxegol Oxalate [Movantik]) 12.5 mg PO DAILY@0600 [facility] Last Admin: 11/27/20 04:59 Dose: Not Given Documented by: Pantoprazole Sodium (Pantoprazole 40 Mg/10 Ml Vial) 40 mg IV DAILY [facility] Last Admin: 11/27/20 12:23 Dose: 40 mg Documented by: Ropinirole HCl (Ropinirole Hcl 1 Mg Tab) 3 mg PO HS@0000 [facility] Last Admin: 11/26/20 23:29 Dose: 3 mg Documented by: Physical examination: VITAL SIGNS: 98.3, 100, 16, 113/68, 99% room air GENERAL: Propped up in bed, awake EYES: Pupils equal. Conjunctiva pale HEENT: External appearance of nose and ears normal, oral cavity grossly normal. NECK: JVD not raised; masses not palpable. HEART: First and second heart sounds are normal; no edema. LUNGS: Respiratory rate increased; decreased breath sounds. ABDOMEN: Soft, some abdominal pain, liver spleen not palpable, no masses palpable. Pain pump PSYCH: AO 3, mood and affect a bit low INVESTIGATIONS, reviewed in the clinical context: November 28: Computed tomography scan of the brain-no enhancing masses Computed tomography scan of the abdomen and pelvis-fairly severe diffuse soft tissue anasarca bilaterally. Moderate to severe colonic fecal stasis. No obvious evidence of metastatic disease November 27: White count 9.1 hemoglobin 9 November 26: White count 8.2 hemoglobin 7.4 November 25: White count 9.2 hemoglobin 7.8 November 24: White count 12.9 hemoglobin 8 White count 11.8 hemoglobin 7.1 platelets 463 potassium 4.4 creatinine 0.86 Stool occult blood positive Coronavirus is PCR-negative Chest x-ray film personally reviewed by me-right upper lung mass EKG tracing personally reviewed by me shows-normal sinus rhythm Chest CTA-masslike consolidation anterior aspect right upper lobe with volume loss increased compared to previous study Assessment: -Acute GI bleed with black tarry stools of one day duration. -EGD done negative for H. pylori -Status post bronchoscopy-right upper lobe lung mass-invasive moderately differentiated squamous cell carcinoma -Intermittent hemoptysis for one year and patient was due to see a calcine furnace tender for a right lung mass which seems to progressed -Hyperlipidemia -Chronic fibromyalgia -History of brain aneurysm for which patient had clipping -COPD in an current smoker -Essential hypertension -Chronic pain, for which patient has a pain pump -Chronic gait dysfunction uses a wheeled walker -Dropped head syndrome -Acute anemia-blood loss from GI bleed-receive 2 units of blood Plan: Continue current medication treatment plan. Seen by oncology. Discussed with patient. Oral intake fair.
[2020-11-29] MEDS: NALOXEGOL OXALATE 12.5 MG PO SCH (06:02)
[2020-11-29] MEDS: MAGNESIUM OXIDE 400 MG TAB PO SCH (06:09)
[2020-11-29] MEDS: BACLOFEN 10 MG TAB PO SCH ×4 (06:09→21:26)
[2020-11-29] MEDS: FOLIC ACID 1 MG TAB PO SCH (06:09)
[2020-11-29] MEDS: PANTOPRAZOLE 40 MG/10 ML VIAL IV SCH (08:16)
[2020-11-29 08:43] LABS: Basophils % (A) 0 %; Eosinophils % (A) 0 %; HCT 29.2 % (34.0-46.0); HGB 9.7 gm/dL (11.4-16.0); Hypochromasia Slight; Lymphocytes # (A) 1.4 k/uL (1.0-4.8); Lymphocytes % (A) 11 %; MCH 31.2 pg (25.0-35.0); MCHC 33.3 g/dL (31.0-37.0); MCV 93.6 fL (80.0-100.0); Monocytes # (A) 0.4 k/uL (0-1.0); Monocytes % (A) 3 %; Neutrophils # (A) 10.8 k/uL (1.3-7.7); Neutrophils % (A) 85 %; Platelet Count 584 k/uL (150-450); Poikilocytosis Slight; RBC 3.12 m/uL (3.80-5.40); RDW 15.4 % (11.5-15.5); WBC 12.7 k/uL (3.8-10.6)
[2020-11-29] MEDS: LACTATED RINGERS 1,000 ML IV SCH (10:01)
--- NOTE | 2020-11-29 10:34 | P.PN ---
Subjective Progress Note Date: 11/29/20 Principal diagnosis: GI bleeding, pneumonia In follow-up today patient states that she had a very large bowel movement yesterday and that did help some of her abdominal discomfort. She brings up today that she "blood for 31 days" from the vaginal area. She has not seen a ANATOMICAL EMBALMER. She has no other physical complaints, 10 point review of systems.-year-old workup as well as the pathology. Objective - Vital Signs Vital signs: Vital Signs Temp 98.4 F 11/29/20 08:12 Pulse 88 11/29/20 08:12 Resp 18 11/29/20 08:12 BP 97/54 11/29/20 08:12 Pulse Ox 97 11/29/20 08:12 Intake & Output 11/28/20 11/29/20 11/29/20 18:59 06:59 18:59 Intake Total 360 462 Output Total 1605 119 5372 Balance -1040 360 -869 Weight 60.1 kg Intake: Oral 360 462 Output: Urine 2293 273 7555 Other: Voiding Method Bedside Commode Bedside Commode Bedside Commode # Voids 1 # Bowel Movements 1 - Constitutional General appearance: Present: cooperative, no acute distress, thin - EENT Eyes: Present: anicteric sclerae, EOMI ENT: Present: hearing grossly normal - Respiratory Details: Respirations even and unlabored at rest - Integumentary Integumentary: Present: pale - Musculoskeletal Musculoskeletal Comment(s): Kyphosis, decreased range of motion of the extremity joints, patient almost has slight degree of contractures - Psychiatric Psychiatric: Present: A&O x's 3, appropriate affect, intact judgment & insight - Labs CBC & Chem 7: 11/29/20 08:05 11/23/20 02:02 Labs: Abnormal Lab Results - Last 24 Hours (Table) 11/29/20 Range/Units 08:05 WBC 12.7 H (3.8-10.6) k/uL RBC 3.12 L (3.80-5.40) m/uL Hgb 9.7 L (11.4-16.0) gm/dL Hct 29.2 L (34.0-46.0) % Plt Count 584 H (150-450) k/uL Neutrophils # 10.8 H (1.3-7.7) k/uL Microbiology - Last 24 Hours (Table) 11/21/20 18:59 Blood Culture - Final Blood No Growth after 144 hours - Imaging and Cardiology CT scan - abdomen: report reviewed CT Scan - head: report reviewed CT scan - pelvis: report reviewed Assessment and Plan (1) Lung mass Narrative/Plan: Dr. Colon reviewed with pt that the CT of the brain and abdomen and pelvis are negative for metastatic disease. Discussed positive biopsy results from the lung. 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 At this time, it appears that the patient has local disease and could possibly be a surgical candidate. Recommendation is for staging PET scan in the outpatient setting. She would be referred to a Surgeon thereafter if appropriate. If the PET scan showed evidence of metastatic disease then pt would not be a candidate for surgery. Explained that if her disease is surgical, that is the patient's best chance at cure. Other option would also include definitive combination chemotherapy/radiation therapy. All of the patient's questions were answered. She wants to continue forward with completing workup Current Visit: Yes Status: Acute Priority: High Code(s): R91.8 - OTHER NONSPECIFIC ABNORMAL FINDING OF LUNG FIELD SNOMED Code(s): 371605924 (2) GI bleed Narrative/Plan: Pt c/o blood in stool. EGD showed gastritis, colonoscopy could not be done due to poor prep. No acute findings on CT AP for pt c/o. She did have large BM with improvement in symptoms. Current Visit: Yes Status: Acute Priority: High Code(s): K92.2 - GASTROINTESTINAL HEMORRHAGE, UNSPECIFIED SNOMED Code(s): 53570189 (3) Hemoptysis Current Visit: Yes Status: Acute Priority: High Code(s): R04.2 - HEMOPTYSIS SNOMED Code(s): 82979164 Plan: Patient brought up today that she had bleeding from the vagina about a month. Will consult ANATOMICAL EMBALMER to evaluate the patient. Suspect possibly a prolapsed uterus or bladder. Treatment of comorbidities will be useful, especially if the patient plans on pursuing any type of malignancy treatment. Doctor attests: I performed a history and physical examination of this patient, developed impression and plan of care. Discussed with dictator. I agree with dictators note, documented as a scribe.
[2020-11-29] MEDS: allopurinoL 100 MG TAB PO SCH (11:26)
[2020-11-29] MEDS: carvediloL 3.125 MG TAB PO SCH ×2 (11:26→21:26)
[2020-11-29] MEDS: CHOLECALCIFEROL 1,000 UNIT TAB PO SCH (11:26)
--- NOTE | 2020-11-29 12:29 | P.PN ---
Subjective Progress Note Date: 11/29/20 Principal diagnosis: Hemoptysis This is a 65-year-old female, at least a [id number] smoker, patient is primarily a patient of Dr. Ayers, presented to the ER yesterday with at least one month history of generalized weakness, over 100 pound weight loss, and intermittent episodes of cough with blood-tinged sputum. Patient was also complaining of dark tarry stools started just the day of presentation to the ER hemoglobin on presentation was noted to be 7.1. WBC count was 11.8. Electrolytes are normal, renal profile is normal. She had positive stool occult bloods. She had negative PCR for covid 19. And she had a CT of the chest showing a large masslike consolidation in the anterior aspect of the right upper lobe with volume loss that apparently has progressed compared to old CT of the chest. Previous CT of the chest was in April of 2020. The findings on the CT of the chest are highly suspicious for bronchogenic carcinoma. After evaluating the patient, I felt that the patient should have bronchoscopy and transbronchial biopsy which will be arranged for and it will be done tomorrow. In the meantime the patient is being followed by other consultants for her positive Hemoccult stools, and she may require EGD and/or colonoscopy. Supposedly her last colo noscopy was in 2018, and she was found to have rectal and transverse colon polyps. The patient is seen today 11/23/2020 in follow-up on the selective care unit. She is currently awake and alert resting fairly comfortably in bed. She is drinking a colon prep currently. She was to undergo bronchoscopy with BAL and biopsies this morning. Now we will push it back in keep her nothing by mouth. She is maintaining good O2 saturations in the mid 90s on room air. She's been afebrile. Hemodynamically stable. She has received 2 units of packed red blood cells. Current hemoglobin 7.8. White count 14.0. Sodium 132. Potassium 3.7. Creatinine 0.64. Saavedra virus not detected. The patient is seen today 11/24/2020 in follow-up on the selective care unit. She is awake and alert in no acute distress. Denies any worsening shortness of breath, cough or congestion. Maintaining O2 saturations in the mid 90s on room air. She's afebrile. Hemodynamically stable. Yesterday she did undergo EGD with biopsy, attempted colonoscopy. EGD revealed evidence of gastritis. No active bleeding. Colonoscopy was not completed due to incomplete prep. Plan is for bronchoscopy with biopsy of a large masslike consolidation in the anterior aspect of the right upper lobe. She is status post 2 units of packed red blood cells this admission. Current hemoglobin 8.0. White count 12.9. Remains on Levaquin. IV Protonix. The patient seen today 11/25/2020 follow-up on selective care unit. She is re sting comfortably in bed. Awake and alert in no acute distress. Maintaining good O2 saturations in the mid 90s on room air. She's afebrile. White count 9.2. Hemoglobin 7.8. She did undergo bronchoscopy with BAL and biopsies yesterday. Cultures are pending. Cytology pending. Suspect cancer. Remains on Levaquin. IV Protonix. The patient is seen today 11/27/2020 follow-up on the selective care unit. She is awake and alert in no acute distress. Currently resting fairly comfortably in bed. Maintaining O2 saturation in the 90s on room air. She is status post 2 units packed red blood cells this admission. Current hemoglobin 9.0. She remains on IV Protonix. Bronchoscopy biopsies pending. Cultures were positive for Staphylococcus aureus. Currently on Levaquin. On 11/28/2020 patient seen in follow-up on selective care unit, she sits up in bed, breathing comfortably, room air pulse ox is 96%, no fever or chills, hemodynamically she's been stable, patient is status post bronchoscopy with biopsies on 11/24/2020, endobronchial biopsies of the right upper lobe, brushings from the right upper lobe and washings and lavage of the right upper lobe, cytology is still pending, BAL cultures showed MSSA, patient is currently on Levaquin for antibiotic coverage. Patient is status post EGD with biopsy and attentive colonoscopy, EGD revealed evidence of gastritis, no active bleeding. Colonoscopy was incomplete related to incomplete prep. Today's hemoglobin is 9.6. Hemoptysis is improved, no complaints of chest pain. On 11/29/2020 patient seen in follow-up on selective care unit, she is awake and alert, oriented times, denies any acute distress, her breathing has improved, she has not had any hemoptysis, no couplets or chest pain, her right upper lobe biopsies came back positive for squamous cell carcinoma. Medical oncology has been consulted, her brain CT was negative for evidence of metastases. CT of the abdomen and pelvis showed small right pleural fluid collection with associated compressive atelectasis, moderate to severe diffuse colonic fecal stasis, but no suspicious mass or adenopathy to suggest metastatic disease. Clinically has been stable. Surgical referral is being considered for possibility of surgical resection, and patient will need an outpatient staging PET scan. Patient has been having large BMs, she status post EGD which showed gastritis, patient could not have the colonoscopy related to poor prep. BAL culture showed MSSA, patient has been on Levaquin, she has had no fever or chills, she is breathing comfortably right now. Objective - Vital Signs Vital signs: Vital Signs Temp 98.3 F 11/29/20 11:24 Pulse 97 11/29/20 11:24 Resp 18 11/29/20 11:24 BP 114/55 11/29/20 11:24 Pulse Ox 95 11/29/20 11:24 Intake & Output 11/28/20 11/29/20 11/29/20 18:59 06:59 18:59 Intake Total 360 462 Output Total 6925 323 5303 Balance -1046 -360 -9203 Weight 60.1 kg Intake: Oral 360 462 Output: Urine 8902 821 2400 Other: Voiding Method Bedside Commode Bedside Commode Bedside Commode # Voids 1 # Bowel Movements 1 - Exam GENERAL EXAM: Alert, pleasant, 65-year-old white female, on room air, with pulse ox of 97% comfortable in no apparent distress. HEAD: Normocephalic/atraumatic. EYES: Normal reaction of pupils, equal size. Conjunctiva pink, sclera white. NOSE: Clear with pink turbinates. THROAT: No erythema or exudates. NECK: No masses, no JVD, no thyroid enlargement, no adenopathy. CHEST: No chest wall deformity. Symmetrical expansion. LUNGS: Equal air entry with no crackles, wheeze, rhonchi or dullness. CVS: Regular rate and rhythm, normal S1 and S2, no gallops, no murmurs, no rubs ABDOMEN: Soft, nontender. No hepatosplenomegaly, normal bowel sounds, no guarding or rigidity. EXTREMITIES: No clubbing, no edema, no cyanosis, 2+ pulses and upper and lower extremities. MUSCULOSKELETAL: Muscle strength and tone normal. SPINE: No scoliosis or deformity SKIN: No rashes CENTRAL NERVOUS SYSTEM: Alert and oriented -3. No focal deficits, tone is no rmal in all 4 extremities. PSYCHIATRIC: Alert and oriented -3. Appropriate affect. Intact judgment and insight. - Labs CBC & Chem 7: 11/29/20 08:05 11/23/20 02:02 Labs: Abnormal Lab Results - Last 24 Hours (Table) 11/29/20 Range/Units 08:05 WBC 12.7 H (3.8-10.6) k/uL RBC 3.12 L (3.80-5.40) m/uL Hgb 9.7 L (11.4-16.0) gm/dL Hct 29.2 L (34.0-46.0) % Plt Count 584 H (150-450) k/uL Neutrophils # 10.8 H (1.3-7.7) k/uL Microbiology - Last 24 Hours (Table) 11/21/20 18:59 Blood Culture - Final Blood No Growth after 144 hours Assessment and Plan Plan: Assessment: #1. Hemoptysis and evidence of right upper lobe mass on presentation #2. Squamous cell carcinoma, diagnosed via biopsies of the right upper lobe mass on 11/24/2020, new diagnosis, CT brain and CT of abdomen and pelvis showing no evidence of distant metastasis, patient still needs outpatient PET scan #3. MSSA pneumonia, currently on Levaquin #4. Severe weakness secondary to underlying malignancy unless proven otherwise #5. Right upper lobe mass, consider malignant unless proven otherwise #6. Acute blood loss anemia secondary to GI bleeding, status post EGD showing mild gastritis but no active bleeding, status post transfusion with 3 units of packed red blood cells, colonoscopy was Attempted related to poor prep #7. Tobacco dependence syndrome #8. History of fibromyalgia #9. History of underlying COPD #10. Dyslipidemia #11. History of rheumatoid arthritis #12. History of obstructive sleep apnea syndrome #13. History of colonic polyps Plan: Continue current medical treatment, continue current antibiotics, clinically patient is stable, medical oncology is following, radiation oncology should also be consulted, continue bronchodilators, hemoptysis has improved, vital signs have been stable, we'll continue to follow. I performed a history & physical examination of the patient and discussed their management with my nurse practitioner, Abbi Pulliam. I reviewed the nurse practitioner's note and agree with the documented findings and plan of care. Lung sounds are positive for diminished breath sounds. The findings and the impression was discussed with the patient. I attest to the documentation by the nurse practitioner. Time with Patient: Less than 30
[2020-11-29 12:46] VITALS: BMI 21.4
--- NOTE | 2020-11-29 13:03 | P.PN ---
Subjective Progress Note Date: 11/29/20 CHIEF COMPLAINT: Generalized weakness HISTORY OF PRESENT ILLNESS: Patient is being followed for an acute GI bleed with anemia. Patient still reporting some abdominal discomfort. Patient reports having bowel movement that was more green in color. No evidence of active bleeding. She denies any nausea or vomiting. She is on regular diet. She did have a EGD with biopsy completed results showed gastritis. Patient is status post bronchoscopy for right lung mass with biopsy. Biopsy results of right upper lobe lung mass was positive for squamous cell carcinoma. She is followed by oncology. She had a computed tomography scan of the brain which was negative for any evidence of metastatic disease. Computed tomography scan of the abdomen and pelvis showed moderate to severe diffuse colonic fecal stasis. Severe diffuse soft tissue anasarca. No suspicious mass or adenopathy to suggest metastatic disease. And oncology service has ordered a PET scan outpatient for staging. Afebrile WBC 12.7 hemoglobin 9.7 PHYSICAL EXAM: VITAL SIGNS: Reviewed. GENERAL: Well-developed in no acute distress. HEENT: No sclera icterus. Extraocular movements grossly intact. Moist buccal mucosa. Head is atraumatic, normocephalic. ABDOMEN: Soft and nondistended Mild diffuse tenderness NEUROLOGIC: Alert and oriented. Cranial nerves II through XII grossly intact. ASSESSMENT: 1. Acute GI bleed: patient has had both bright red blood per rectum as well as black tarry stools. Now resolved. Patient is status post EGD that showed gastritis. Colonoscopy not done due to patient unable to complete bowel prep 2. Acute blood loss anemia secondary to GI bleed 3. Right Lung mass biopsy result positive for squamous cell carcinoma PLAN: -Continue supportive care -Continue oncology workup -Continue to monitor hemoglobin -Continue Protonix -Patient will need a colonoscopy at a later time Physician Executive Account Manager note has been reviewed by physician. Signing provider agrees with the documented findings, assessment, and plan of care. Objective - Vital Signs Vital signs: Vital Signs Temp 98.3 F 11/29/20 11:24 Pulse 97 11/29/20 11:24 Resp 18 11/29/20 11:24 BP 114/55 11/29/20 11:24 Pulse Ox 95 11/29/20 11:24 Intake & Output 11/28/20 11/29/20 11/29/20 18:59 06:59 18:59 Intake Total 360 462 Output Total 0928 033 0524 Balance -1040 -360 -1338 Weight 60.1 kg 60.1 kg Intake: Oral 360 462 Output: Urine 6941 450 1624 Other: Voiding Method Bedside Commode Bedside Commode Bedside Commode # Voids 1 # Bowel Movements 1 - Labs CBC & Chem 7: 11/29/20 08:05 11/23/20 02:02 Labs: Abnormal Lab Results - Last 24 Hours (Table) 11/29/20 Range/Units 08:05 WBC 12.7 H (3.8-10.6) k/uL RBC 3.12 L (3.80-5.40) m/uL Hgb 9.7 L (11.4-16.0) gm/dL Hct 29.2 L (34.0-46.0) % Plt Count 584 H (150-450) k/uL Neutrophils # 10.8 H (1.3-7.7) k/uL Microbiology - Last 24 Hours (Table) 11/21/20 18:59 Blood Culture - Final Blood No Growth after 144 hours
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
[2020-11-29] MEDS: FENOFIBRATE 160 MG TAB PO SCH (17:11)
--- NOTE | 2020-11-29 19:24 | US ---
EXAMINATION TYPE: US pelvic complete DATE OF EXAM: 11/29/2020 COMPARISON: CT 11/28/20 CLINICAL HISTORY: vaginal bleeding. Pt states on/off vaginal bleeding, recent heavy bleeding 1 month ago, pt states LMP approx 17 yrs ago TECHNIQUE: Transabdominal (TA). Transabdominal sonographic images of the pelvis were acquired. Tra nsvaginal not performed, pt unable to tolerate TV, too painful Date of LMP: 17 yrs ago EXAM MEASUREMENTS: Uterus: 6.4 x 1.9 x 2.2 cm Endometrial Stripe: 0.3 cm Pt unable to lie flat, difficult to scan pt in position 1. Uterus: Very limited views due to overlying bowel Appeared wnl 2. Endometrium: Visualized portions of believed endo appeared wnl 3. Right Ovary: Obscured by overlying bowel gas 4. Left Ovary: Obscured by overlying bowel gas 5. Bilateral Adnexa: Obscured by bowel 6. Posterior cul-de-sac: wnl Limited views of pelvis show no abnormality to account for symptoms IMPRESSION: Limited sonographic evaluation of the pelvis. No significant abnormality
--- NOTE | 2020-11-29 20:20 | P.PN ---
Progress Note - Text Progress Note Date: 11/29/20 Chief Complaint: Black tarry stool History of presenting complaint: This is a 65-year-old patient of Dr. Underwood. Chronic stable medical conditions include history of brain aneurysm that was clipped, restless leg syndrome, chronic fibromyalgia, hyperlipidemia, COPD. Uses a pain pump for chronic low back pain. Does use a Rollator to get about. Patient been having hemoptysis for some time for close to a year and is due to follow-up with pulmonary. Patient now presents 1 day of black tarry stools. Has lost close to 100 pounds over the course of 1 year. Does feel tired and rundown. Denies any abdominal pain. No nausea vomiting. EGD done. Bronchoscopy showed right upper lung mass. 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 Comfortable in bed. Breathing stable.complaining of some vaginal bleeding. Has had for some time. FOUNDRY PATTERNMAKER consulted. Review of systems: Was done for constitutional, cardiovascular, GI, pulmonary. relevant finding as above Active Medications Allopurinol (Allopurinol 100 Mg Tab) 100 mg PO DAILY@1200 [facility] Last Admin: 11/29/20 11:26 Dose: 100 mg Documented by: Amitriptyline HCl (Amitriptyline Hcl 50 Mg Tab) 100 mg PO HS@0000 [facility] Last Admin: 11/28/20 21:04 Dose: 100 mg Documented by: Atorvastatin Calcium (Atorvastatin 10 Mg Tab) 10 mg PO HS@0000 [facility] Last Admin: 11/28/20 21:04 Dose: 10 mg Documented by: Baclofen (Baclofen 10 Mg Tab) 10 mg PO QID@00,06,12,18 [facility] Last Admin: 11/29/20 17:11 Dose: 10 mg Documented by: Calcium Polycarbophil (Calcium Polycarbophil 625 Mg Tab) 625 mg PO DAILY@1200 [facility] Last Admin: 11/29/20 11:26 Dose: 625 mg Documented by: Carvedilol (Carvedilol 3.125 Mg Tab) 3.125 mg PO BID@0000,1200 [facility] Last Admin: 11/29/20 11:26 Dose: 3.125 mg Documented by: Cholecalciferol (Cholecalciferol 1,000 Unit Tab) 2,000 unit PO DAILY@1200 [facility] Last Admin: 11/29/20 11:26 Dose: 2,000 unit Documented by: Fenofibrate (Fenofibrate 160 Mg Tab) 160 mg PO DAILY@1800 [facility] Last Admin: 11/29/20 17:11 Dose: 160 mg Documented by: Folic Acid (Folic Acid 1 Mg Tab) 1 mg PO DAILY@0600 [facility] Last Admin: 11/29/20 06:09 Dose: 1 mg Documented by: Lactated Ringer's (Lactated Ringers) 1,000 mls @ 20 mls/hr IV .Q24H [facility] Last Admin: 11/29/20 10:01 Dose: Not Given Documented by: Levofloxacin (Levofloxacin 750 Mg Tab) 750 mg PO Q24H [facility] Last Admin: 11/28/20 21:04 Dose: 750 mg Documented by: Magnesium Oxide (Magnesium Oxide 400 Mg Tab) 400 mg PO DAILY@0600 [facility] Last Admin: 11/29/20 06:09 Dose: 400 mg Documented by: Mirtazapine (Mirtazapine 15 Mg Tab) 15 mg PO HS@0000 [facility] Last Admin: 11/28/20 21:04 Dose: 15 mg Documented by: Miscellaneous Information (Pneumonia Protocol Utilized 1 Each Misc) 1 each PO ONCE PRN PRN Reason: Per Protocol Miscellaneous Information (Rx Info: Iv Contrast Was Given 1 Each Misc) 1 each MISCELLANE DAILY PRN PRN Reason: Per Protocol Stop: 11/30/20 15:25 Naloxone HCl (Naloxone 0.4 Mg/Ml 1 Ml Vial) 0.2 mg IV Q2M PRN PRN Reason: Opioid Reversal Non-Formulary Medication (Dilaudid Pain Pump) 1 dose MISCELLANE DIRECTED [facility] Last Admin: 11/28/20 21:00 Dose: Not Given Documented by: Non-Formulary Medication (Naloxegol Oxalate [Movantik]) 12.5 mg PO DAILY@0600 [facility] Last Admin: 11/29/20 06:02 Dose: Not Given Documented by: Pantoprazole Sodium (Pantoprazole 40 Mg/10 Ml Vial) 40 mg IV DAILY [facility] Last Admin: 11/29/20 08:16 Dose: 40 mg Documented by: Ropinirole HCl (Ropinirole Hcl 1 Mg Tab) 3 mg PO HS@0000 [facility] Last Admin: 11/28/20 21:03 Dose: 3 mg Documented by: Physical examination: VITAL SIGNS: 98.3, 97, 18, 114/55, 95% room air GENERAL: Propped up in bed, awake EYES: Pupils equal. Conjunctiva pale HEENT: External appearance of nose and ears normal, oral cavity grossly normal. NECK: JVD not raised; masses not palpable. HEART: First and second heart sounds are normal; no edema. LUNGS: Respiratory rate increased; decreased breath sounds. ABDOMEN: Soft, some abdominal pain, liver spleen not palpable, no masses palpable. Pain pump PSYCH: AO 3, mood and affect a bit low INVESTIGATIONS, reviewed in the clinical context: November 29: White count 12.7 hemoglobin 9.7 Pelvic ultrasound: Unremarkable, limited views. November 28:white count 10.8 hemoglobin 9.6 Computed tomography scan of the brain-no enhancing masses Computed tomography scan of the abdomen and pelvis-fairly severe diffuse soft tissue anasarca bilaterally. Moderate to severe colonic fecal stasis. No obvious evidence of metastatic disease November 27: White count 9.1 hemoglobin 9 November 26: White count 8.2 hemoglobin 7.4 November 25: White count 9.2 hemoglobin 7.8 November 24: White count 12.9 hemoglobin 8 White count 11.8 hemoglobin 7.1 platelets 463 potassium 4.4 creatinine 0.86 Stool occult blood positive Coronavirus is PCR-negative Chest x-ray film personally reviewed by me-right upper lung mass EKG tracing personally reviewed by me shows-normal sinus rhythm Chest CTA-masslike consolidation anterior aspect right upper lobe with volume loss increased compared to previous study Assessment: -Acute GI bleed with black tarry stools of one day duration. -EGD done negative for H. pylori -Status post bronchoscopy-right upper lobe lung mass-invasive moderately differentiated squamous cell carcinoma. For outpatient PET scan. -Intermittent hemoptysis for one year and patient was due to see a senior architect/design manager for a right lung mass which seems to progressed -Hyperlipidemia -Chronic fibromyalgia -History of brain aneurysm for which patient had clipping -COPD in an current smoker -Essential hypertension -Chronic pain, for which patient has a pain pump -Chronic gait dysfunction uses a wheeled walker -Dropped head syndrome -Acute anemia-blood loss from GI bleed-receive 2 units of blood- -Intermittent vaginal bleeding. Follow-up with her spring encaser Dr. Garner Plan: patient will be discharged tomorrow. Outpatient PET scan. Follow-up with FOUNDRY PATTERNMAKER.
[2020-11-29] MEDS: LEVOFLOXACIN 750 MG TAB PO SCH (21:26)
[2020-11-29] MEDS: MIRTAZAPINE 15 MG TAB PO SCH (21:26)
[2020-11-29] MEDS: ATORVASTATIN 10 MG TAB PO SCH (21:26)
[2020-11-29] MEDS: AMITRIPTYLINE HCL 50 MG TAB PO SCH (21:26)
[2020-11-29] MEDS: NON FORMULARY DRUG (Dilaudid Pain Pump 1 DOSE) MISCELLANE SCH (21:27)
[2020-11-29 23:07] VITALS: RESP 16; TEMP 97.7
[2020-11-30] MEDS: LACTATED RINGERS 1,000 ML IV SCH (00:12)
[2020-11-30] MEDS: FOLIC ACID 1 MG TAB PO SCH (05:37)
[2020-11-30] MEDS: BACLOFEN 10 MG TAB PO SCH ×2 (05:37→13:39)
[2020-11-30] MEDS: MAGNESIUM OXIDE 400 MG TAB PO SCH (05:37)
[2020-11-30] MEDS: NALOXEGOL OXALATE 12.5 MG PO SCH (05:38)
[2020-11-30] MEDS: PANTOPRAZOLE 40 MG/10 ML VIAL IV SCH (08:08)
[2020-11-30 08:19] VITALS: BP 96/61; PULSE 77
--- NOTE | 2020-11-30 11:53 | P.PN ---
Subjective Progress Note Date: 11/30/20 CHIEF COMPLAINT: Generalized weakness HISTORY OF PRESENT ILLNESS: Patient is being followed for an acute GI bleed with anemia. Patient still reporting some abdominal discomfort. Patient reports having bowel movement. No evidence of active bleeding. She denies any nausea or vomiting. She is on regular diet. She did have a EGD with biopsy completed results showed gastritis. Patient is status post bronchoscopy for right lung mass. Biopsy results of right upper lobe lung mass was positive for squamous cell carcinoma. She is followed by oncology. She had a computed tomography scan of the brain which was negative for any evidence of metastatic disease. Computed tomography scan of the abdomen and pelvis showed moderate to severe diffuse colonic fecal stasis. Severe diffuse soft tissue anasarca. No suspicious mass or adenopathy to suggest metastatic disease. And oncology service has ordered a PET scan outpatient for staging. Patient seen by MOTOR VEHICLE LICENSE CLERK service regarding vaginal bleeding. She'll follow-up outpatient. Afebrile no new labs. Per patient she is being discharged today. PHYSICAL EXAM: VITAL SIGNS: Reviewed. GENERAL: Well-developed in no acute distress. HEENT: No sclera icterus. Extraocular movements grossly intact. Moist buccal mucosa. Head is atraumatic, normocephalic. ABDOMEN: Soft and nondistended Mild diffuse tenderness NEUROLOGIC: Alert and oriented. Cranial nerves II through XII grossly intact. ASSESSMENT: 1. Acute GI bleed: patient has had both bright red blood per rectum as well as black tarry stools. Now resolved. Patient is status post EGD that showed gastritis. Colonoscopy not done due to patient unable to complete bowel prep 2. Acute blood loss anemia secondary to GI bleed 3. Right Lung mass biopsy result positive for squamous cell carcinoma PLAN: -Patient can be discharged home from surgical standpoint -We'll patient follow-up with Dr. Richardson in 1 week -Continue supportive care -Continue oncology workup -Continue Protonix -Patient will need a colonoscopy at a later time Physician [facility] note has been reviewed by physician. Signing provider agrees with the documented findings, assessment, and plan of care. Objective - Vital Signs Vital signs: Vital Signs Temp 97.7 F 11/30/20 08:00 Pulse 77 11/30/20 08:10 Resp 16 11/30/20 08:10 BP 96/61 11/30/20 08:00 Pulse Ox 97 11/30/20 08:00 Intake & Output 11/29/20 11/30/20 11/30/20 18:59 06:59 18:59 Intake Total 1242 300 Output Total 1800 850 Balance -558 300 -850 Weight 60.1 kg 58.5 kg Intake: Oral 1242 300 Output: Urine 1800 450 Stool 400 Other: Voiding Method Bedside Commode Bedside Commode Bedside Commode # Voids 1 1 - Labs CBC & Chem 7: 11/29/20 08:05 11/23/20 02:02
[2020-11-30] MEDS: carvediloL 3.125 MG TAB PO SCH (13:39)
[2020-11-30] MEDS: allopurinoL 100 MG TAB PO SCH (13:39)
[2020-11-30] MEDS: CHOLECALCIFEROL 1,000 UNIT TAB PO SCH (13:39)
--- NOTE | 2020-11-30 14:43 | P.PN ---
Subjective Progress Note Date: 11/30/20 Principal diagnosis: GI bleeding, pneumonia, new diagnosis of squamous cell non-small cell lung cancer In follow-up today patient is preparing for discharge. She has no new compl aints today, her chronic complaints are stable. Objective - Vital Signs Vital signs: Vital Signs Temp 97.7 F 11/30/20 08:00 Pulse 77 11/30/20 08:10 Resp 16 11/30/20 08:10 BP 96/61 11/30/20 08:00 Pulse Ox 97 11/30/20 08:00 Intake & Output 11/29/20 11/30/20 11/30/20 18:59 06:59 18:59 Intake Total 1242 300 420 Output Total 1800 850 Balance -558 300 -430 Weight 60.1 kg 58.5 kg Intake: Oral 1242 300 420 Output: Urine 1800 450 Stool 400 Other: Voiding Method Bedside Commode Bedside Commode Bedside Commode # Voids 1 2 - Constitutional General appearance: Present: cooperative, thin - EENT Eyes: Present: anicteric sclerae, EOMI - Respiratory Respiratory: bilateral: diminished - Cardiovascular Heart sounds: normal: S1, S2 - Peripheral edema leg Peripheral Edema: right: Trace, left: 2+ (Secondary to stroke, chronic per patient, has had Dopplers) - Gastrointestinal Gastrointestinal Comment(s): Pain pump left lower quadrant - Neurologic Neurologic Comment(s): Left-sided weakness secondary to CVA - Psychiatric Psychiatric: Present: A&O x's 3, appropriate affect, intact judgment & insight - Labs CBC & Chem 7: 11/29/20 08:05 11/23/20 02:02 Assessment and Plan (1) Squamous cell lung cancer Narrative/Plan: New Diagnosis. Workup so far no evidence of metastases. PET scan for staging going to be scheduled outpatient. F/U with Dr. Colon afterwards. Patient has been seen by Radiation Oncology for evaluation and recs. Patient will be sent for Surgical referral based on staging. No molecular studies at this time as pt is not confirmed stage IV. Will request if staging changes. Patient states that she needs medical professional support contacting senior transportation if she needs rides to appointments without a two-week noticed. She gave his contact information for the same. Current Visit: Yes Status: Acute Priority: High Code(s): C34.90 - MALIGNANT NEOPLASM OF UNSP PART OF UNSP BRONCHUS OR LUNG SNOMED Code(s): 366880598 (2) GI bleed Narrative/Plan: Pt c/o blood in stool. EGD showed gastritis, colonoscopy could not be done due to poor prep. Occult positive. Hgb is stable but, she has had 3 units of blood. Cont to monitor CBC in outpatient setting No acute findings on CT AP for pt c/o. She did have large BM during admit with improvement in symptoms. Current Visit: Yes Status: Acute Priority: High Code(s): K92.2 - GASTROINTESTINAL HEMORRHAGE, UNSPECIFIED SNOMED Code(s): 72038324 Plan: Patient brought up today that she had bleeding from the vagina for about a month. She was seen by TOGGLE PRESS OPERATOR, with a slightly different story given, she wouldn't let him examine her. Vaginal ultrasound was done with no findings for patient's complaints. Patient will follow-up with her TOGGLE PRESS OPERATOR outpatient. Treatment of comorbidities will be useful, especially if the patient plans on pursuing any type of malignancy treatment.
--- NOTE | 2020-11-30 16:19 | P.PN ---
Subjective Progress Note Date: 11/30/20 Principal diagnosis: Hemoptysis This is a 65-year-old female, at least a [id number] smoker, patient is primarily a patient of Dr. Ayers, presented to the ER yesterday with at least one month history of generalized weakness, over 100 pound weight loss, and intermittent episodes of cough with blood-tinged sputum. Patient was also complaining of dark tarry stools started just the day of presentation to the ER hemoglobin on presentation was noted to be 7.1. WBC count was 11.8. Electrolytes are normal, renal profile is normal. She had positive stool occult bloods. She had negative PCR for covid 19. And she had a CT of the chest showing a large masslike consolidation in the anterior aspect of the right upper lobe with volume loss that apparently has progressed compared to old CT of the chest. Previous CT of the chest was in April of 2020. The findings on the CT of the chest are highly suspicious for bronchogenic carcinoma. After evaluating the patient, I felt that the patient should have bronchoscopy and transbronchial biopsy which will be arranged for and it will be done tomorrow. In the meantime the patient is being followed by other consultants for her positive Hemoccult stools, and she may require EGD and/or colonoscopy. Supposedly her last colo noscopy was in 2018, and she was found to have rectal and transverse colon polyps. The patient is seen today 11/23/2020 in follow-up on the selective care unit. She is currently awake and alert resting fairly comfortably in bed. She is drinking a colon prep currently. She was to undergo bronchoscopy with BAL and biopsies this morning. Now we will push it back in keep her nothing by mouth. She is maintaining good O2 saturations in the mid 90s on room air. She's been afebrile. Hemodynamically stable. She has received 2 units of packed red blood cells. Current hemoglobin 7.8. White count 14.0. Sodium 132. Potassium 3.7. Creatinine 0.64. Saavedra virus not detected. The patient is seen today 11/24/2020 in follow-up on the selective care unit. She is awake and alert in no acute distress. Denies any worsening shortness of breath, cough or congestion. Maintaining O2 saturations in the mid 90s on room air. She's afebrile. Hemodynamically stable. Yesterday she did undergo EGD with biopsy, attempted colonoscopy. EGD revealed evidence of gastritis. No active bleeding. Colonoscopy was not completed due to incomplete prep. Plan is for bronchoscopy with biopsy of a large masslike consolidation in the anterior aspect of the right upper lobe. She is status post 2 units of packed red blood cells this admission. Current hemoglobin 8.0. White count 12.9. Remains on Levaquin. IV Protonix. The patient seen today 11/25/2020 follow-up on selective care unit. She is re sting comfortably in bed. Awake and alert in no acute distress. Maintaining good O2 saturations in the mid 90s on room air. She's afebrile. White count 9.2. Hemoglobin 7.8. She did undergo bronchoscopy with BAL and biopsies yesterday. Cultures are pending. Cytology pending. Suspect cancer. Remains on Levaquin. IV Protonix. The patient is seen today 11/27/2020 follow-up on the selective care unit. She is awake and alert in no acute distress. Currently resting fairly comfortably in bed. Maintaining O2 saturation in the 90s on room air. She is status post 2 units packed red blood cells this admission. Current hemoglobin 9.0. She remains on IV Protonix. Bronchoscopy biopsies pending. Cultures were positive for Staphylococcus aureus. Currently on Levaquin. On 11/28/2020 patient seen in follow-up on selective care unit, she sits up in bed, breathing comfortably, room air pulse ox is 96%, no fever or chills, hemodynamically she's been stable, patient is status post bronchoscopy with biopsies on 11/24/2020, endobronchial biopsies of the right upper lobe, brushings from the right upper lobe and washings and lavage of the right upper lobe, cytology is still pending, BAL cultures showed MSSA, patient is currently on Levaquin for antibiotic coverage. Patient is status post EGD with biopsy and attentive colonoscopy, EGD revealed evidence of gastritis, no active bleeding. Colonoscopy was incomplete related to incomplete prep. Today's hemoglobin is 9.6. Hemoptysis is improved, no complaints of chest pain. On 11/29/2020 patient seen in follow-up on selective care unit, she is awake and alert, oriented times, denies any acute distress, her breathing has improved, she has not had any hemoptysis, no couplets or chest pain, her right upper lobe biopsies came back positive for squamous cell carcinoma. Medical oncology has been consulted, her brain CT was negative for evidence of metastases. CT of the abdomen and pelvis showed small right pleural fluid collection with associated compressive atelectasis, moderate to severe diffuse colonic fecal stasis, but no suspicious mass or adenopathy to suggest metastatic disease. Clinically has been stable. Surgical referral is being considered for possibility of surgical resection, and patient will need an outpatient staging PET scan. Patient has been having large BMs, she status post EGD which showed gastritis, patient could not have the colonoscopy related to poor prep. BAL culture showed MSSA, patient has been on Levaquin, she has had no fever or chills, she is breathing comfortably right now. On 11/30/2020 patient seen in follow-up on medical floor, she is resting comfortably in bed, remains on room air, denies any acute distress, lung sounds reveal some diffuse wheezes, patient denies any more hemoptysis since admission. She's had no fever or chills, room air pulse ox 97%, breathing is nonlabored, her bronchial lavage cultures came back positive for MSSA, and biopsies of the right upper lobe mass were positive for squamous cell carcinoma. Medical oncology is following, clinically stable, patient was on Levaquin for antibiotic coverage, she is being discharged home today with outpatient follow-up with medical oncology team, and she will need to follow-up with Dr. Yang in the office Objective - Vital Signs Vital signs: Vital Signs Temp 97.7 F 11/30/20 08:00 Pulse 77 11/30/20 08:10 Resp 16 11/30/20 08:10 BP 96/61 11/30/20 08:00 Pulse Ox 97 11/30/20 08:00 Intake & Output 11/29/20 11/30/20 11/30/20 18:59 06:59 18:59 Intake Total 1242 300 420 Output Total 1800 850 Balance -558 300 -430 Weight 60.1 kg 58.5 kg Intake: Oral 1242 300 420 Output: Urine 1800 450 Stool 400 Other: Voiding Method Bedside Commode Bedside Commode Bedside Commode # Voids 1 2 - Exam GENERAL EXAM: Alert, pleasant, 65-year-old white female, on room air, with pulse ox of 97% comfortable in no apparent distress. HEAD: Normocephalic/atraumatic. EYES: Normal reaction of pupils, equal size. Conjunctiva pink, sclera white. NOSE: Clear with pink turbinates. THROAT: No erythema or exudates. NECK: No masses, no JVD, no thyroid enlargement, no adenopathy. CHEST: No chest wall deformity. Symmetrical expansion. LUNGS: Equal air entry with no crackles, wheeze, rhonchi or dullness. CVS: Regular rate and rhythm, normal S1 and S2, no gallops, no murmurs, no rubs ABDOMEN: Soft, nontender. No hepatosplenomegaly, normal bowel sounds, no guarding or rigidity. EXTREMITIES: No clubbing, no edema, no cyanosis, 2+ pulses and upper and lower extremities. MUSCULOSKELETAL: Muscle strength and tone normal. SPINE: No scoliosis or deformity SKIN: No rashes CENTRAL NERVOUS SYSTEM: Alert and oriented -3. No focal deficits, tone is normal in all 4 extremities. PSYCHIATRIC: Alert and oriented -3. Appropriate affect. Intact judgment and insight. - Labs CBC & Chem 7: 11/29/20 08:05 11/23/20 02:02 Assessment and Plan Plan: Assessment: #1. Hemoptysis and evidence of right upper lobe mass on presentation #2. Squamous cell carcinoma, diagnosed via biopsies of the right upper lobe mass on 11/24/2020, new diagnosis, CT brain and CT of abdomen and pelvis showing no evidence of distant metastasis, patient still needs outpatient PET scan #3. MSSA pneumonia, currently on Levaquin #4. Severe weakness secondary to underlying malignancy unless proven otherwise #5. Right upper lobe mass, consider malignant unless proven otherwise #6. Acute blood loss anemia secondary to GI bleeding, status post EGD showing mild gastritis but no active bleeding, status post transfusion with 3 units of packed red blood cells, colonoscopy was Attempted related to poor prep #7. Tobacco dependence syndrome #8. History of fibromyalgia #9. History of underlying COPD #10. Dyslipidemia #11. History of rheumatoid arthritis #12. History of obstructive sleep apnea syndrome #13. History of colonic polyps Plan: Clinically patient remains stable, no fever or chills, bronchial cultures were positive for MSSA, patient can complete outpatient course of oral Levaquin, no fever or chills, no acute events overnight, no worsening dyspnea, from pulmonary perspective patient is stable for discharge home today and she will need outpatient follow-up with Dr. Farris in the office in 7-10 days as well as the medical oncology team. I performed a history & physical examination of the patient and discussed their management with my nurse practitioner, Abbi Pulliam. I reviewed the nurse practitioner's note and agree with the documented findings and plan of care. Lung sounds are positive for diminished breath sounds. The findings and the impression was discussed with the patient. I attest to the documentation by the nurse practitioner. Time with Patient: Less than 30
--- NOTE | 2020-12-01 10:02 | P.CONS ---
History of Present Illness - Reason for Consult Consult date: 11/30/20 lung cancer, hemoptysis Requesting physician: Butch Colon - Chief Complaint weakness, cough - History of Present Illness The patient is a 65-year-old female presenting with what is likely a locally advanced squamous cell carcinoma of the right upper lung. She presented with chief complaint of hemoptysis, weakness and progressive weight loss. The patient presented to the ER on November 21 secondary to increased weakness, and hemoptysis. She explained that she has lost approximately 100 pounds over the past year which she attributes initially to a diet and then subsequently to poor appetite. While in the ER she had a CTA of the chest performed which revealed a 5 x 4 cm right perihilar mass with narrowing of the right upper lobe bronchus and right sided tracheal deviation. There were some patchy nodular infiltrates in the right mid and lower lung also noted. She underwent bronchoscopy on December 04 which revealed a friable-appearing abnormal mucosa involving the right upper lobe bronchus extending to the right mainstem and right middle lobe bronchus. Biopsy of these areas was consistent with moderately differentiated squamous cell carcinoma. She underwent a CT scan of the brain with contrast on November 28 which was unremarkable, as well as a CT scan of the abdomen and pelvis. This study revealed severe anasarca, fecal stasis, but no evidence of distant metastatic disease. The patient reports that the current time she continues to have cough, but is feeling a little less short of breath. She has some mild chest discomfort with coughing, and does not feel she is bringing up much blood at this time. Of note, the patient has multiple medical comorbidities including history of prior stroke, chronic kidney disease, chronic low back pain with pain pump inserted. Review of Systems Constitutional: Denies chills, Denies fever Eyes: denies blurred vision Ears, nose, mouth and throat: Denies headache Cardiovascular: Reports chest pain, Reports dyspnea on exertion Respiratory: Reports cough, Reports dyspnea, Reports hemoptysis Gastrointestinal: Denies abdominal pain Genitourinary: Denies flank pain Musculoskeletal: Reports muscle weakness Neurological: Denies ataxia, Denies confusion, Denies convulsions Psychiatric: Denies anxiety, Denies confusion Past Medical History Past Medical History: COPD, CVA/TIA, Fibromyalgia, Hyperlipidemia, Hypertension, Osteoarthritis (OA), Renal Disease, Rheumatoid Arthritis (RA), Sleep Apnea/CPAP/BIPAP Additional Past Medical History / Comment(s): CVA (1992 & JANUARY 2018), Lt ARM WEAKNESS. HX BRAIN ANEURYSM. DROPPED HEAD SYNDROME-HEAD CROOKED, CONSTANT MORALES, GETTING INJ. HX RUPTURED BOWEL. KIDNEY DISEASE STAGE 3. HEMORRHOIDS. GOUT. NOT USING C-PAP MACHINE. HX OF COLON POLYPS. BACK PAIN: pain pump USES WHEELED WALKER. Right lung mass History of Any Multi-Drug Resistant Organisms: MRSA Year Discovered:: 06/05/13 MDRO Source:: BLADDER Past Surgical History: Bowel Resection, Breast Surgery, Section, Orthopedic Surgery, Tonsillectomy, Tubal Ligation Additional Past Surgical History / Comment(s): ARTIFICIAL LT FOOT TENDON CHILD; LATER HAD TENDONS ON LT FOOT CUT. D & C, BRAIN ANEURYSM REPAIR WITH COILS, LT BREAST LUMPECTOMY, LT EYE SURGERY. Past Anesthesia/Blood Transfusion Reactions: No Reported Reaction Additional Past Anesthesia/Blood Transfusion Reaction / Comm: ETHER CAUSED PONV Past Psychological History: Anxiety, Depression Smoking Status: Light tobacco smoker Past Alcohol Use History: None Reported Past Drug Use History: None Reported Additional Drug Use History / Comment(s): STATES CURRENT MARIJUANA USE FOR PAIN, 2X PER DAY OR LESS. - Past Family History Mother Family Medical History: CVA/TIA Father Family Medical History: Cancer Additional Family Medical History / Comment(s): BREAST CA. Sister(s) Family Medical History: Cancer Additional Family Medical History / Comment(s): LUNG CA Medications and Allergies Home Medications Medication Instructions Recorded Confirmed Type Fenofibrate 160 mg PO DAILY@1800 05/24/14 11/21/20 History Folic Acid 1 mg PO DAILY@0600 05/24/14 11/21/20 History Lovastatin [Mevacor] 40 mg PO HS@0000 05/24/14 11/21/20 History Cholecalciferol [Vitamin D3 (25 2,000 unit PO DAILY@1200 04/04/16 11/21/20 History Mcg = 1000 Iu)] EPINEPHrine (Auto Inject) [Epipen] 0.3 mg IM ONCE PRN 04/04/16 11/21/20 History allopurinoL [Zyloprim] 100 mg PO DAILY@1200 04/04/16 11/21/20 History rOPINIRole HCL [Requip] 3 mg PO HS@0000 02/13/18 11/21/20 History Dilaudid Pain Pump 1 dose INTRATHECA DIRECTED 07/21/19 11/21/20 History Magnesium Oxide [Mag-Ox] 400 mg PO DAILY@0600 07/21/19 11/21/20 History Naloxegol Oxalate [Movantik] 12.5 mg PO DAILY@0600 07/21/19 11/21/20 History Albuterol Sulfate [Proair Hfa] 1 - 2 puff INHALATION RT-Q4H PRN 11/21/20 11/21/20 History Amitriptyline HCl [Elavil] 100 mg PO HS@0000 11/21/20 11/21/20 History Aspirin EC [Ecotrin Low Dose] 81 mg PO DAILY@1200 11/21/20 11/21/20 History Baclofen [Lioresal] 10 mg PO QID@00,06,12,18 11/21/20 11/21/20 History Biotin 10,000 mcg PO DAILY@0600 11/21/20 11/21/20 History Calcium Polycarbophil [Fiber-Lax] 625 mg PO DAILY@1200 11/21/20 11/21/20 History Carvedilol [Coreg] 3.125 mg PO BID@0000,1200 11/21/20 11/21/20 History Mirtazapine [Remeron] 15 mg PO HS@0000 11/21/20 11/21/20 History Multivit-Min/Iron/Folic/Lutein 1 tab PO DAILY@1800 11/21/20 11/21/20 History [Centrum Silver Women Tablet] Sennosides [Senna] 8.6 mg PO DAILY@1200 11/21/20 11/21/20 History Levofloxacin [Levaquin] 750 mg PO Q24H #3 tab 11/30/20 Rx Allergies Allergy/AdvReac Type Severity Reaction Status Date / Time morphine Allergy Unknown Hallucinati Verified 11/21/20 19:15 ons acetaminophen Allergy Unknown Verified 11/21/20 19:15 [From Darvocet-N 100] bupropion [From Wellbutrin] Allergy Unknown Verified 11/21/20 19:15 caffeine [From Norgesic] Allergy Anaphylaxis Verified 11/21/20 19:15 cefaclor [From Ceclor] Allergy Unknown Verified 11/21/20 19:15 divalproex sodium Allergy Unknown Verified 11/21/20 19:15 [From Depakote] doxycycline Allergy Unknown Verified 11/21/20 19:15 Iodine and Iodide Containing Allergy Rash/Hives Verified 11/21/20 19:15 Produc ketorolac tromethamine Allergy Unknown Verified 11/21/20 19:15 [From Toradol] lorazepam [From Ativan] Allergy Rash/Hives Verified 11/21/20 19:15 naproxen Allergy Unknown Verified 11/21/20 19:15 orphenadrine [From Norgesic] Allergy Anaphylaxis Verified 11/21/20 19:15 orphenadrine citrate Allergy Unknown Verified 11/21/20 19:15 [From Norgesic] Penicillins Allergy Unknown Verified 11/21/20 19:15 phenytoin sodium Allergy Unknown Verified 11/21/20 19:15 [From Dilantin] phenytoin sodium extended Allergy Unknown Verified 11/21/20 19:15 [From Dilantin] pregabalin [From Lyrica] Allergy Unknown Verified 11/21/20 19:15 propoxyphene HCl Allergy Unknown Verified 11/21/20 19:15 [From Darvon] propoxyphene napsylate Allergy Unknown Verified 11/21/20 19:15 [From Darvocet-N 100] Sulfa (Sulfonamide Allergy Unknown Verified 11/21/20 19:15 Antibiotics) trazodone Allergy Unknown Verified 11/21/20 19:15 venom-honey bee Allergy Unknown Verified 11/21/20 19:15 [bee venom (honey bee)] venom-wasp Allergy Anaphylaxis Verified 11/21/20 19:15 adhesive AdvReac "rips off Verified 11/21/20 19:15 skin" adhesive tape AdvReac "rips off Verified 11/21/20 19:15 skin" ketorolac [From Toradol] AdvReac Unknown Verified 11/21/20 19:15 phenytoin [From Dilantin] AdvReac Unknown Verified 11/21/20 19:15 propoxyphene [From Darvon] AdvReac Unknown Verified 11/21/20 19:15 tramadol AdvReac Unknown Verified 11/21/20 19:15 UNCOATED ASPIRIN AdvReac Unknown Uncoded 11/21/20 19:15 Physical Exam - Constitutional General appearance: no acute distress - EENT Eyes: EOMI, PERRLA - Neck Neck: no lymphadenopathy - Respiratory Respiratory: right: diminished, left: CTA - Cardiovascular Rhythm: regular - Integumentary Integumentary: no calor, no cyanotic - Neurologic Neurologic: CNII-XII intact - Musculoskeletal Musculoskeletal: generalized weakness - Psychiatric Psychiatric: A&O x's 3, appropriate affect, intact judgment & insight Results CBC & Chem 7: 11/29/20 08:05 11/23/20 02:02 CT scan - abdomen: report reviewed, image reviewed CT scan - chest: report reviewed, image reviewed CT Scan - head: report reviewed, image reviewed CT scan - pelvis: report reviewed, image reviewed Assessment and Plan Assessment: The patient is a 65-year-old female presenting with what is likely a locally advanced squamous cell carcinoma of the right upper lung. She presented with chief complaint of hemoptysis, weakness and progressive weight loss. Plan: 1. New lung cancer diagnosis: I discussed with the patient that I would recommend she first undergo PET/CT for staging purposes. Although her CT imaging did not reveal clear evidence of distant disease, considering her delayed presentation and profound weight loss I am concerned about the possibility of metastatic disease. The patient has significant medical comorbidities, and would likely not be a good candidate for surgical resection provided this is found to be localized disease. She will need outpatient follow-up with myself and medical oncology. 2. Hemoptysis: The patient reports this seems to have decreased since her hospitalization. I explained that there may be a role for radiotherapy regardless of her ultimate staging to help decrease bleeding. I'm recommending the patient return to clinic next week for a repeat evaluation. She was counseled to return to the emergency room urgently if the symptoms return or worsen. Time with Patient: Greater than 30
--- NOTE | 2020-12-02 00:03 | P.DS ---
Providers Date of admission: 11/21/20 18:56 Expected date of discharge: 11/30/20 Attending physician: Abdirizak Ferrera Consults: 11/21/20 18:57 Consult Physician Routine Consulting Provider: Jayro Yang Consult Reason/Comments: Pneumonia, review CT Do you want consulting provider notified?: Yes 11/22/20 10:37 Consult Physician Routine Consulting Provider: Joel Richardson Consult Reason/Comments: abdominal pain,melena, known to you Do you want consulting provider notified?: Yes 11/27/20 14:27 Consult Physician Routine Consulting Provider: Butch Colon Consult Reason/Comments: Bronchogenic carcinoma Do you want consulting provider notified?: Yes 11/29/20 10:35 Consult Physician Routine Consulting Provider: Tammie Delaney Consult Reason/Comments: vaginal bleeding, lower pelvic discomfot Do you want consulting provider notified?: Yes 11/29/20 12:27 Consult Physician Routine Consulting Provider: Bassem Katz Consult Reason/Comments: squamous cell carcinoma of the lung Do you want consulting provider notified?: Yes Primary care physician: [facility] Course: Chief Complaint: Black tarry stool History of presenting complaint: This is a 65-year-old patient of Dr. Underwood. Chronic stable medical conditions include history of brain aneurysm that was clipped, restless leg syndrome, chronic fibromyalgia, hyperlipidemia, COPD. Uses a pain pump for chronic low back pain. Does use a Rollator to get about. Patient been having hemoptysis for some time for close to a year and is due to follow-up with pulmonary. Patient now presents 1 day of black tarry stools. Has lost close to 100 pounds over the course of 1 year. Does feel tired and rundown. Denies any abdominal pain. No nausea vomiting. EGD done. Bronchoscopy showed right upper lung mass. Biopsy-invasive moderately differentiated squamous cell carcinoma. EGD-showed gastritis. Patient have a PET scan as an outpatient and follow with oncology. Today-Oral intake fair. Comfortable in bed. Breathing stable.complaining of some vaginal bleeding. Has had for some time. Seen by Dr. June. Follow-up as an outpatient.. She will also follow up with radiation oncologist. Consultation: Maddi Kazt from radiation oncology Dr. Yang in partners from pulmonary Dr. Colon from oncology Dr. Turpin from GI Dr. Richardson from general surgery Physical examination: VITAL SIGNS: 97.7, 77, 16, 96/61, 97% on room air GENERAL: Propped up in bed, awake EYES: Pupils equal. Conjunctiva pale HEENT: External appearance of nose and ears normal, oral cavity grossly normal. NECK: JVD not raised; masses not palpable. HEART: First and second heart sounds are normal; no edema. LUNGS: Respiratory rate increased; decreased breath sounds. ABDOMEN: Soft, some abdominal pain, liver spleen not palpable, no masses palpable. Pain pump PSYCH: AO 3, mood and affect a bit low INVESTIGATIONS, reviewed in the clinical context: November 29: White count 12.7 hemoglobin 9.7 Pelvic ultrasound: Unremarkable, limited views. November 28:white count 10.8 hemoglobin 9.6 Computed tomography scan of the brain-no enhancing masses Computed tomography scan of the abdomen and pelvis-fairly severe diffuse soft tissue anasarca bilaterally. Moderate to severe colonic fecal stasis. No obvious evidence of metastatic disease November 27: White count 9.1 hemoglobin 9 November 26: White count 8.2 hemoglobin 7.4 November 25: White count 9.2 hemoglobin 7.8 November 24: White count 12.9 hemoglobin 8 White count 11.8 hemoglobin 7.1 platelets 463 potassium 4.4 creatinine 0.86 Stool occult blood positive Coronavirus is PCR-negative Chest x-ray film personally reviewed by me-right upper lung mass EKG tracing personally reviewed by me shows-normal sinus rhythm Chest CTA-masslike consolidation anterior aspect right upper lobe with volume loss increased compared to previous study Assessment: -Acute GI bleed with black tarry stools of one day duration. Possibly from gas tritis -EGD done negative for H. pylori -Status post bronchoscopy-right upper lobe lung mass-invasive moderately differentiated squamous cell carcinoma. For outpatient PET scan. -Intermittent hemoptysis for one year and patient was due to see a yard stocker for a right lung mass which seems to progressed -Hyperlipidemia -Chronic fibromyalgia -History of brain aneurysm for which patient had clipping -COPD in an current smoker -Essential hypertension -Chronic pain, for which patient has a pain pump -Chronic gait dysfunction uses a wheeled walker -Dropped head syndrome -Acute anemia-blood loss from GI bleed-receive 2 units of blood- -Intermittent vaginal bleeding. Follow-up with her telephone worker Dr. Garner or Dr. Ortiz locally Disposition: Home Patient Condition at Discharge: Stable Plan - Discharge Summary Discharge Rx Participant: No New Discharge Prescriptions: New Levofloxacin [Levaquin] 750 mg PO Q24H #3 tab Continue Fenofibrate 160 mg PO DAILY@1800 Lovastatin [Mevacor] 40 mg PO HS@0000 Folic Acid 1 mg PO DAILY@0600 Cholecalciferol [Vitamin D3 (25 Mcg = 1000 Iu)] 2,000 unit PO DAILY@1200 EPINEPHrine (Auto Inject) [Epipen] 0.3 mg IM ONCE PRN PRN Reason: Allergic Reaction allopurinoL [Zyloprim] 100 mg PO DAILY@1200 rOPINIRole HCL [Requip] 3 mg PO HS@0000 Dilaudid Pain Pump 1 dose INTRATHECA DIRECTED Magnesium Oxide [Mag-Ox] 400 mg PO DAILY@0600 Naloxegol Oxalate [Movantik] 12.5 mg PO DAILY@0600 Multivit-Min/Iron/Folic/Lutein [Centrum Silver Women Tablet] 1 tab PO DAILY@1800 Carvedilol [Coreg] 3.125 mg PO BID@0000,1200 Mirtazapine [Remeron] 15 mg PO HS@0000 Amitriptyline HCl [Elavil] 100 mg PO HS@0000 Baclofen [Lioresal] 10 mg PO QID@00,06,12,18 Sennosides [Senna] 8.6 mg PO DAILY@1200 Calcium Polycarbophil [Fiber-Lax] 625 mg PO DAILY@1200 Biotin 10,000 mcg PO DAILY@0600 Aspirin EC [Ecotrin Low Dose] 81 mg PO DAILY@1200 Albuterol Sulfate [Proair Hfa] 1 - 2 puff INHALATION RT-Q4H PRN PRN Reason: Shortness Of Breath Discontinued Mirtazapine [Remeron] 15 mg PO HS@0000 Discharge Medication List Fenofibrate 160 mg PO DAILY@1800 05/24/14 [History] Folic Acid 1 mg PO DAILY@0600 05/24/14 [History] Lovastatin [Mevacor] 40 mg PO HS@0000 05/24/14 [History] Cholecalciferol [Vitamin D3 (25 Mcg = 1000 Iu)] 2,000 unit PO DAILY@1200 04/04/16 [History] EPINEPHrine (Auto Inject) [Epipen] 0.3 mg IM ONCE PRN 04/04/16 [History] allopurinoL [Zyloprim] 100 mg PO DAILY@1200 04/04/16 [History] rOPINIRole HCL [Requip] 3 mg PO HS@0000 02/13/18 [History] Dilaudid Pain Pump 1 dose INTRATHECA DIRECTED 07/21/19 [History] Magnesium Oxide [Mag-Ox] 400 mg PO DAILY@0600 07/21/19 [History] Naloxegol Oxalate [Movantik] 12.5 mg PO DAILY@0607/21/19 [History] Albuterol Sulfate [Proair Hfa] 1 - 2 puff INHALATION RT-Q4H PRN 11/21/20 [History] Amitriptyline HCl [Elavil] 100 mg PO HS@0000 11/21/20 [History] Aspirin EC [Ecotrin Low Dose] 81 mg PO DAILY@1200 11/21/20 [History] Baclofen [Lioresal] 10 mg PO QID@00,06,12,18 11/21/20 [History] Biotin 10,000 mcg PO DAILY@0600 11/21/20 [History] Calcium Polycarbophil [Fiber-Lax] 625 mg PO DAILY@1200 11/21/20 [History] Carvedilol [Coreg] 3.125 mg PO BID@0000,1200 11/21/20 [History] Mirtazapine [Remeron] 15 mg PO HS@0000 11/21/20 [History] Multivit-Min/Iron/Folic/Lutein [Centrum Silver Women Tablet] 1 tab PO DAILY@1800 11/21/20 [History] Sennosides [Senna] 8.6 mg PO DAILY@1200 11/21/20 [History] Levofloxacin [Levaquin] 750 mg PO Q24H #3 tab 11/30/20 [Rx] Follow up Appointment(s)/Referral(s): Jayro Yang MD [STAFF PHYSICIAN] - 12/09/20 2:15 pm Jim Ortiz DO [Doctor of Osteopathic Medicine] - 12/13/20 1:30 pm [facility], [NON-STAFF] - Harsh Underwood DO [Primary Care Provider] - 12/07/20 11:45 am Joel Richardson MD [STAFF PHYSICIAN] - 01/21/21 3:00 pm Patient Instructions/Handouts: Viral Pneumonia (DC), Gastrointestinal Bleeding (DC) Activity/Diet/Wound Care/Special Instructions: Per Francesca Acuna NP please schedule patient for MRI as an out patient with Dr King's office. Re: Lung cancer staging. Note: patient does have pain pump. Discharge Disposition: HOME SELF-CARE
--- NOTE | 2020-12-05 23:09 | CDI ---
Documentation Clarification Form Date: 12/06/2020 From: Vignesh Bui Phone: If you have a question about this query, please contact Jane Valdez Vp Product Management at [phone] between 8am and 5pm. Admit Date: 11/21/2020 06:56:00 PM Patient Name: Kirti Kelsey Visit Number: [id number] Discharge Date: 11/30/2020 02:41:00 PM ATTENTION: The Clinical Documentation Specialists (CDI) and [facility] Coding Staff appreciate your assistance in clarifying documentation. Please respond to the clarification below the line at the bottom and electronically sign. The CDI & [facility] Coding staff will review the response and follow-up if needed. Please note: Queries are made part of the Legal Health Record. If you have any questions, please contact the author of this message via ITS. Dr. Abdirizak Ferrera MD., The patient presented with the GI hemorrhage, Pneumonia, Sepsis History/Risk Factors: COPD, CVA/TIA, Fibromyalgia, Hyperlipidemia, Hypertension, WBC :14.0 Blood cultures: NG 144 Vitals signs on admission: Temperature 98.9 F Pulse Rate 99 94 92 Respiraory 16 16 16 Rate Blood Pressure 107/49 100/53 104/54 O2 Sat by Pulse 99 95 98 Oximetry Other Clinical Indicators: Right lung cancer, Gastritis with bleeding Treatment: antibiotics, IV fluids Antibiotics:Levaquin ED stated " Sepsis, Gi hemorrhage and lung mass" 11/28 Dr. Cj Bryan DO stated "Sepsis secondary to right upper lobe mass, status post bronchoscopy with right upper lobe biopsies, BAL, washings and brushings, this was done in 11/19/2020, BAL cultures positive for MSSA, currently on Levaquin, biopsies are still pending". In your professional opinion, please clarify if these findings signify one of the following conditions, Condition Sepsis ruled out Sepsis Other, please specify Unable to determine Sepsis ruled out MTDD
== END 2020-11-30 14:41 | disposition home or self-care (01) | DRG 166 ==
LOC: EC 14:49 → 3SCARD 18:56 → 4SSUR 11-30 00:14
PROVIDERS: ADMIT Hospitalist; ATTEND Hospitalist
PROC: 30233N1 Transfusion of Nonautologous Red Blood Cells into Peripheral Vein, Percutaneous Approach (ICD-10-PCS; 2020-11-23)
PROC: 0DB78ZX Excision of Stomach, Pylorus, Via Natural or Artificial Opening Endoscopic, Diagnostic (ICD-10-PCS; 2020-11-23 13:55)
PROC: 0BDC8ZX Extraction of Right Upper Lung Lobe, Via Natural or Artificial Opening Endoscopic, Diagnostic (ICD-10-PCS; principal; 2020-11-24 07:30)
PROC: 0B9C8ZX Drainage of Right Upper Lung Lobe, Via Natural or Artificial Opening Endoscopic, Diagnostic (ICD-10-PCS; principal; 2020-11-24 07:30)
PROC: 0BBC8ZX Excision of Right Upper Lung Lobe, Via Natural or Artificial Opening Endoscopic, Diagnostic (ICD-10-PCS; principal; 2020-11-24 07:30)
DX: C34.11 Malignant neoplasm of upper lobe, right bronchus or lung (principal); K29.71 Gastritis, unspecified, with bleeding; J15.211 Pneumonia due to Methicillin susceptible Staphylococcus aureus; J44.0 Chronic obstructive pulmonary disease with (acute) lower respiratory infection; R04.2 Hemoptysis; J98.11 Atelectasis; D62 Acute posthemorrhagic anemia; F17.210 Nicotine dependence, cigarettes, uncomplicated; F41.9 Anxiety disorder, unspecified; F32.9 Major depressive disorder, single episode, unspecified; G25.81 Restless legs syndrome; G89.4 Chronic pain syndrome; E78.5 Hyperlipidemia, unspecified; Z20.822 Contact with and (suspected) exposure to COVID-19; M06.9 Rheumatoid arthritis, unspecified; N18.30 Chronic kidney disease, stage 3 unspecified; I12.9 Hypertensive chronic kidney disease with stage 1 through stage 4 chronic kidney disease, or unspecified chronic kidney disease; M79.7 Fibromyalgia; R26.9 Unspecified abnormalities of gait and mobility; R63.4 Abnormal weight loss; G47.33 Obstructive sleep apnea (adult) (pediatric); K63.5 Polyp of colon; F12.90 Cannabis use, unspecified, uncomplicated; Z79.82 Long term (current) use of aspirin; Z79.899 Other long term (current) drug therapy; Z91.030 Bee allergy status; Z91.041 Radiographic dye allergy status; Z88.5 Allergy status to narcotic agent; Z88.2 Allergy status to sulfonamides; Z88.8 Allergy status to other drugs, medicaments and biological substances; Z91.09 Other allergy status, other than to drugs and biological substances; Z80.0 Family history of malignant neoplasm of digestive organs; Z80.1 Family history of malignant neoplasm of trachea, bronchus and lung; Z98.891 History of uterine scar from previous surgery; Z90.89 Acquired absence of other organs; Z90.49 Acquired absence of other specified parts of digestive tract; Z98.51 Tubal ligation status; Z98.890 Other specified postprocedural states; Z80.3 Family history of malignant neoplasm of breast; Z82.3 Family history of stroke; Z87.19 Personal history of other diseases of the digestive system; Z86.73 Personal history of transient ischemic attack (TIA), and cerebral infarction without residual deficits; Z85.118 Personal history of other malignant neoplasm of bronchus and lung; Z86.14 Personal history of Methicillin resistant Staphylococcus aureus infection; Z68.20 Body mass index [BMI] 20.0-20.9, adult
CPT/HCPCS: 31623; 31624; 31628; 36415; 43239; 45378; 70460; 71046; 71275; 74177; 76856; 80048; 80053; 82272; 83605; 84484; 85025; 85027; 85379; 85610; 85730; 86850; 86900; 86901; 86920; 87040; 87070; 87077; 87102; 87116; 87186; 87205; 87206; 87635; 88104; 88108; 88305; 93005; 96365; 96375; 96376; 99291

== ENCOUNTER → 2021-01-06 | Outpatient (CLI) | payer MEDICARE, OTHER ==
--- NOTE | 2021-01-10 06:49 | PE ---
EXAMINATION TYPE: PET CT fusion skull to thigh DATE OF EXAM: 01/06/2021 COMPARISON: CTA chest November 21, 2020. CT abdomen and pelvis November 28, 2020 HISTORY: Right-sided squamous cell lung cancer on biopsy December 22, 2020 TECHNIQUE: Following the intravenous administration of 11.66 mCi of F-18 FDG, whole body images are performed from the skull base to the midthigh. Images are reviewed on the computer in the coronal, a xial, and sagittal planes. Reconstructed rotating images are created on independent workstation and reviewed on the computer. A localization and attenuation correction CT is performed in conjunction with the PET scan. Blood glucose level equals 125. SCAN: Initial Scan FINDINGS: SKULL BASE AND NECK: No areas of abnormal hypermetabolic uptake. CHEST, MEDIASTINUM, AND HILAR REGION: Background Mild to moderate underlying emphysematous change red emonstrated. Redemonstration of right-sided volume loss due to right suprahilar mass encasing and veena rowing the right upper lobe bronchus, difficult to accurately measure due to postobstructive atelecta sis extending superiorly and anteriorly with obvious right-sided volume loss redemonstrated. It measu res approximately 4.7 x 2.8 cm axial image 81. Max SUV is 5.88. No additional suspicious parenchymal nodules or masses. No suspicious hypermetabolic thoracic adenopa thy. ABDOMEN AND PELVIS: Patient has little intra-abdominal fat. No adrenal masses. Mild hypermetabolic up take right pelvis axial image 208 appears to correspond to low dense 2.7 x 1.8 cm lesion axial image 206. Max SUV is 4.27. No definitive suspicious lesion on recent CT abdomen pelvis study to correspond to this area. No definitive bladder diverticulum. Minimal bladder uptake. No additional areas of abn ormal hypermetabolic uptake. OSSEOUS STRUCTURES: No definitive areas of abnormal hypermetabolic uptake. OTHER CT: Artifact from aneurysm clip suprasellar region. Exaggerated spinal curvature. Multilevel fa cet arthropathy. Three-vessel severe coronary artery calcification. Severe calcified plaque abdominal aorta extends into iliac branch vessels. Moderate fecal colonic pro minence and colonic surgical sutures redemonstrated. Improved diffuse soft tissue anasarca noted. Sti mulator device seen anterior pelvic wall noted. Gluteal round calcifications presumed injection granu herminia. Exaggerated curvature of spine on sagittal images. Slight scoliotic curvature on the coronal images. Multilevel spurring in the spine. IMPRESSION: Demonstration of known right hilar neoplasm with right-sided volume loss. Nonspecific rig ht pelvic uptake. Consider pelvic ultrasound correlation or follow-up. No metastatic disease otherwis e seen.
== END | disposition home or self-care (01) ==
LOC: RADPETMAIN 10:54
PROVIDERS: ATTEND Internal Medicine Hematology & Oncology
DX: C34.11 Malignant neoplasm of upper lobe, right bronchus or lung (principal); R93.89 Abnormal findings on diagnostic imaging of other specified body structures
CPT/HCPCS: 78815; A9552

== ENCOUNTER 2021-01-07 17:15 | Emergency (ER) | payer MEDICARE, OTHER ==
[2021-01-07 17:21] VITALS: TEMP 98.5
--- NOTE | 2021-01-07 18:07 | XR ---
EXAMINATION TYPE: XR chest 2V DATE OF EXAM: 01/07/2021 COMPARISON: 11/22/2020 HISTORY: Short of breath TECHNIQUE: 2 views FINDINGS: There is consolidation and atelectasis in the right upper lobe with significant shift of he art and mediastinum to the right side. Left lung is clear. Heart size is normal. There is no heart fa ilure. Bony thorax is intact. IMPRESSION: Consolidation and atelectasis right upper lobe that appears to have progressed compared t o old exam.
[2021-01-07 18:11] LABS: Potassium 3.8 mmol/L (3.5-5.1)
[2021-01-07 18:12] LABS: Calcium 10.2 mg/dL (8.4-10.2)
--- NOTE | 2021-01-07 18:18 | ED ---
General Adult HPI - General Chief complaint: Recheck/Abnormal Lab/Rx Stated complaint: altered Time Seen by Provider: 01/07/21 17:22 Source: patient Mode of arrival: EMS Limitations: no limitations - History of Present Illness Initial comments: Patient is a 65-year-old female, currently diagnosed with lung cancer, presenting to the emergency department via EMS for trouble breathing after setting off a bug fogger in her apartment. Patient states she has noticed spiders and a specific room in her apartment and set off 2 different blood foggers earlier and then self another one. Patient states then she went to the room and had trouble catching her breath. She states currently she feels back to her normal self. EMS was concerned because they saw blood in her sputum but patient states that this is her normal. She is diagnosed with lung cancer and normally has a little bit of blood in her sputum. She states the blood is a normal amount, no increased amount. She denies any chest pain at this time, she does have shortness of breath but states it's her normal shortness of breath and she feels back to her baseline. She denies any fever or chills, no nausea or vomiting, no abdominal pain. She has no further complaints. Patient states she did not really want to come in to the ER. Upon arrival to the ER, her vital signs are normal. - Related Data Home Medications Medication Instructions Recorded Confirmed Fenofibrate 160 mg PO DAILY@1800 05/24/14 11/21/20 Folic Acid 1 mg PO DAILY@0600 05/24/14 11/21/20 Lovastatin [Mevacor] 40 mg PO HS@0000 05/24/14 11/21/20 Cholecalciferol [Vitamin D3 (25 2,000 unit PO DAILY@1200 04/04/16 11/21/20 Mcg = 1000 Iu)] EPINEPHrine (Auto Inject) [Epipen] 0.3 mg IM ONCE PRN 04/04/16 11/21/20 allopurinoL [Zyloprim] 100 mg PO DAILY@1200 04/04/16 11/21/20 rOPINIRole HCL [Requip] 3 mg PO HS@0000 02/13/18 11/21/20 Dilaudid Pain Pump 1 dose INTRATHECA DIRECTED 07/21/19 11/21/20 Magnesium Oxide [Mag-Ox] 400 mg PO DAILY@0600 07/21/19 11/21/20 Naloxegol Oxalate [Movantik] 12.5 mg PO DAILY@0600 07/21/19 11/21/20 Albuterol Sulfate [Proair Hfa] 1 - 2 puff INHALATION RT-Q4H PRN 11/21/20 11/21/20 Amitriptyline HCl [Elavil] 100 mg PO HS@0000 11/21/20 11/21/20 Aspirin EC [Ecotrin Low Dose] 81 mg PO DAILY@1200 11/21/20 11/21/20 Baclofen [Lioresal] 10 mg PO QID@00,06,12,18 11/21/20 11/21/20 Biotin 10,000 mcg PO DAILY@0600 11/21/20 11/21/20 Calcium Polycarbophil [Fiber-Lax] 625 mg PO DAILY@1200 11/21/20 11/21/20 Carvedilol [Coreg] 3.125 mg PO BID@0000,1200 11/21/20 11/21/20 Mirtazapine [Remeron] 15 mg PO HS@0000 11/21/20 11/21/20 Multivit-Min/Iron/Folic/Lutein 1 tab PO DAILY@1800 11/21/20 11/21/20 [Centrum Silver Women Tablet] Sennosides [Senna] 8.6 mg PO DAILY@1200 11/21/20 11/21/20 Previous Rx's Medication Instructions Recorded Levofloxacin [Levaquin] 750 mg PO Q24H #3 tab 11/30/20 Allergies Allergy/AdvReac Type Severity Reaction Status Date / Time morphine Allergy Unknown Hallucinati Verified 01/07/21 18:32 ons acetaminophen Allergy Unknown Verified 01/07/21 18:32 [From Darvocet-N 100] bupropion [From Wellbutrin] Allergy Unknown Verified 01/07/21 18:32 caffeine [From Norgesic] Allergy Anaphylaxis Verified 01/07/21 18:32 cefaclor [From Ceclor] Allergy Unknown Verified 01/07/21 18:32 divalproex sodium Allergy Unknown Verified 01/07/21 18:32 [From Depakote] doxycycline Allergy Unknown Verified 01/07/21 18:32 Iodine and Iodide Containing Allergy Rash/Hives Verified 01/07/21 18:32 Produc ketorolac tromethamine Allergy Unknown Verified 01/07/21 18:32 [From Toradol] lorazepam [From Ativan] Allergy Rash/Hives Verified 01/07/21 18:32 naproxen Allergy Unknown Verified 01/07/21 18:32 orphenadrine [From Norgesic] Allergy Anaphylaxis Verified 01/07/21 18:32 orphenadrine citrate Allergy Unknown Verified 01/07/21 18:32 [From Norgesic] Penicillins Allergy Unknown Verified 01/07/21 18:32 phenytoin sodium Allergy Unknown Verified 01/07/21 18:32 [From Dilantin] phenytoin sodium extended Allergy Unknown Verified 01/07/21 18:32 [From Dilantin] pregabalin [From Lyrica] Allergy Unknown Verified 01/07/21 18:32 propoxyphene HCl Allergy Unknown Verified 01/07/21 18:32 [From Darvon] propoxyphene napsylate Allergy Unknown Verified 01/07/21 18:32 [From Darvocet-N 100] Sulfa (Sulfonamide Allergy Unknown Verified 01/07/21 18:32 Antibiotics) trazodone Allergy Unknown Verified 01/07/21 18:32 venom-honey bee Allergy Unknown Verified 01/07/21 18:32 [bee venom (honey bee)] venom-wasp Allergy Anaphylaxis Verified 01/07/21 18:32 adhesive AdvReac "rips off Verified 01/07/21 18:32 skin" adhesive tape AdvReac "rips off Verified 01/07/21 18:32 skin" ketorolac [From Toradol] AdvReac Unknown Verified 01/07/21 18:32 phenytoin [From Dilantin] AdvReac Unknown Verified 01/07/21 18:32 propoxyphene [From Darvon] AdvReac Unknown Verified 01/07/21 18:32 tramadol AdvReac Unknown Verified 01/07/21 18:32 UNCOATED ASPIRIN AdvReac Unknown Uncoded 11/21/20 19:15 Review of Systems ROS Statement: Those systems with pertinent positive or pertinent negative responses have been documented in the HPI. ROS Other: All systems not noted in ROS Statement are negative. Past Medical History Past Medical History: COPD, CVA/TIA, Fibromyalgia, Hyperlipidemia, Hypertension, Osteoarthritis (OA), Renal Disease, Rheumatoid Arthritis (RA), Sleep Apnea/CPAP/BIPAP Additional Past Medical History / Comment(s): CVA (1992 & JANUARY 2018), Lt ARM WEAKNESS. HX BRAIN ANEURYSM. DROPPED HEAD SYNDROME-HEAD CROOKED, CONSTANT MORALES, GETTING INJ. HX RUPTURED BOWEL. KIDNEY DISEASE STAGE 3. HEMORRHOIDS. GOUT. NOT USING C-PAP MACHINE. HX OF COLON POLYPS. BACK PAIN: pain pump USES WHEELED WALKER. Right lung mass History of Any Multi-Drug Resistant Organisms: MRSA Date of last positivie culture/infection: 06/05/13 MDRO Source:: BLADDER Past Surgical History: Bowel Resection, Breast Surgery, Section, Orthopedic Surgery, Tonsillectomy, Tubal Ligation Additional Past Surgical History / Comment(s): ARTIFICIAL LT FOOT TENDON CHILD; LATER HAD TENDONS ON LT FOOT CUT. D & C, BRAIN ANEURYSM REPAIR WITH COILS, LT BREAST LUMPECTOMY, LT EYE SURGERY. Past Anesthesia/Blood Transfusion Reactions: No Reported Reaction Additional Past Anesthesia/Blood Transfusion Reaction / Comment(s): ETHER CAUSED PONV Past Psychological History: Anxiety, Depression Smoking Status: Light tobacco smoker Past Alcohol Use History: None Reported Past Drug Use History: None Reported - Past Family History Mother Family Medical History: CVA/TIA Father Family Medical History: Cancer Additional Family Medical History / Comment(s): BREAST CA. Sister(s) Family Medical History: Cancer Additional Family Medical History / Comment(s): LUNG CA General Exam - General Exam Comments Initial Comments: GENERAL: Patient is well-developed and well-nourished. Patient is nontoxic and in no acute distress. HEAD: Atraumatic, normocephalic. EYES: Pupils equal round and reactive to light, extraocular movements intact, sclera anicteric, conjunctiva are normal. Eyelids were unremarkable. ENT: TMs normal, nares patent, oropharynx clear without exudates. Moist mucous membranes. NECK: Normal range of motion, supple without lymphadenopathy or JVD. LUNGS: Unlabored respirations. Patient has scattered wheezes throughout all lung hicks. HEART: Regular rate and rhythm without murmurs, rubs or gallops. ABDOMEN: Soft, nontender, normoactive bowel sounds. No guarding, no rebound. No masses appreciated. : Deferred MUSCULOSKELETAL: Normal extremities with adequate strength and normal range of motion, no pitting or edema. No clubbing or cyanosis. NEUROLOGICAL: Patient is alert and oriented x 3. Motor and sensory are also intact. Cranial nerves II through XII grossly intact. Symmetrical smile. Normal speech, normal gait. PSYCH: Normal mood, normal affect. SKIN: Warm, Dry, normal turgor, no rashes or lesions noted. Limitations: no limitations Course Vital Signs 01/07/21 17:18 Temperature 98.5 F Pulse Rate 89 Respiratory 16 Rate Blood Pressure 121/68 O2 Sat by Pulse 98 Oximetry Medical Decision Making - Medical Decision Making Patient is a 75-year-old female, current lung cancer, presenting via EMS with complaints of mild shortness of breath after she set off some bug bombs in her house. Upon arrival, she is in no acute distress, she states she feels like her normal self. Her vital signs are stable upon arrival. She does have scattered wheezes throughout however patient states that is her normal, she currently has lung cancer. Chest x-ray today shows consolidation and atelectasis right upper lobe. Comparing to previous x-ray on 11/22/2020, does appeared stable, slightly progressed. Labs show a normal carbon monoxide, BNP is also at her baseline. Patient states still smokes. Patient on reexamination continues to feel at her baseline. She is requesting to go home. Patient will call her granddaughter to pick her up. Patient will be discharged home. Recommended to not go back into the room with the smoke bombs. Follow-up with her regular doctor. She is in agreement with this plan and care. Return parameters were discussed with the patient she verbalized understanding. Case discussed Dr. Tolbert. - Lab Data Result diagrams: 01/07/21 17:45 Lab Results 01/07/21 01/07/21 Range/Units 17:45 17:45 Carbon Monoxide, Quant 9.5 (<10.0) % Sodium 134 L (137-145) mmol/L Potassium 3.8 (3.5-5.1) mmol/L Chloride 93 L (98-107) mmol/L Carbon Dioxide 35 H (22-30) mmol/L Anion Gap 6 mmol/L BUN 15 (7-17) mg/dL Creatinine 1.12 H (0.52-1.04) mg/dL Est GFR (CKD-EPI)AfAm 59 (>60 ml/min/1.73 sqM) Est GFR (CKD-EPI)NonAf 51 (>60 ml/min/1.73 sqM) Glucose 112 H (74-99) mg/dL Calcium 10.2 (8.4-10.2) mg/dL Disposition Clinical Impression: Shortness of breath Disposition: HOME SELF-CARE Condition: Stable Instructions (If sedation given, give patient instructions): Normal Exam (ED) Additional Instructions: Please return to the Emergency Department if symptoms worsen or any other concerns. Do not go back into room until smoke is gone. Please follow up with your regular doctor. Is patient prescribed a controlled substance at d/c from ED?: No Referrals: Harsh Underwood DO [Primary Care Provider] - 1-2 days
[2021-01-07 18:57] VITALS: BP 133/72; PULSE 78; RESP 18
== END 2021-01-07 19:41 | disposition home or self-care (01) ==
LOC: EC 17:15
DX: C34.90 Malignant neoplasm of unspecified part of unspecified bronchus or lung (principal); R44.1 Visual hallucinations; F41.9 Anxiety disorder, unspecified; F32.9 Major depressive disorder, single episode, unspecified; J44.9 Chronic obstructive pulmonary disease, unspecified; F17.200 Nicotine dependence, unspecified, uncomplicated; M79.7 Fibromyalgia; E78.5 Hyperlipidemia, unspecified; I10 Essential (primary) hypertension; M19.90 Unspecified osteoarthritis, unspecified site; M06.9 Rheumatoid arthritis, unspecified; G47.33 Obstructive sleep apnea (adult) (pediatric); Z79.82 Long term (current) use of aspirin; Z79.899 Other long term (current) drug therapy; Z88.0 Allergy status to penicillin; Z88.1 Allergy status to other antibiotic agents; Z88.2 Allergy status to sulfonamides; Z88.5 Allergy status to narcotic agent; Z88.6 Allergy status to analgesic agent; Z88.8 Allergy status to other drugs, medicaments and biological substances; Z91.041 Radiographic dye allergy status; Z91.048 Other nonmedicinal substance allergy status; Z91.038 Other insect allergy status; Z91.030 Bee allergy status; Z99.89 Dependence on other enabling machines and devices; Z86.14 Personal history of Methicillin resistant Staphylococcus aureus infection; Z90.49 Acquired absence of other specified parts of digestive tract; Z90.89 Acquired absence of other organs; Z98.51 Tubal ligation status; Z86.73 Personal history of transient ischemic attack (TIA), and cerebral infarction without residual deficits; Z80.1 Family history of malignant neoplasm of trachea, bronchus and lung; Z80.3 Family history of malignant neoplasm of breast
CPT/HCPCS: 36415; 71046; 80048; 82375; 99285

== ENCOUNTER 2021-01-08 09:34 | Emergency (ER) | payer MEDICARE, OTHER ==
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
[2021-01-08 10:14] LABS: Basophils % (A) 1 %; Eosinophils # (A) 0.1 k/uL (0-0.7); Eosinophils % (A) 2 %; HCT 38.9 % (34.0-46.0); HGB 12.3 gm/dL (11.4-16.0); Lymphocytes # (A) 1.8 k/uL (1.0-4.8); Lymphocytes % (A) 27 %; MCHC 31.6 g/dL (31.0-37.0); MCV 88.7 fL (80.0-100.0); Mean Platelet Volume 7.5; Monocytes # (A) 0.4 k/uL (0-1.0); Monocytes % (A) 6 %; Neutrophils # (A) 4.1 k/uL (1.3-7.7); Neutrophils % (A) 62 %; Platelet Count 350 k/uL (150-450); RBC 4.38 m/uL (3.80-5.40); RDW 14.2 % (11.5-15.5); WBC 6.5 k/uL (3.8-10.6)
[2021-01-08 10:25] LABS: Albumin 3.7 g/dL (3.5-5.0); Calcium 9.5 mg/dL (8.4-10.2); Potassium 3.9 mmol/L (3.5-5.1); Total Bilirubin 0.5 mg/dL (0.2-1.3); Total Protein 7.3 g/dL (6.3-8.2)
--- NOTE | 2021-01-08 10:32 | CT ---
EXAMINATION TYPE: CT brain wo con DATE OF EXAM: 01/08/2021 COMPARISON: 11/28/2020 HISTORY: Altered mental status CT DLP: 1051.[address] of the brain was performed. The ventricles, basal cisterns and sulci overlying the cerebral convexities demonstrate mild enlargem ent. Left suprasellar aneurysm clips redemonstrated. Remote and far right external capsule and basal ganglia. There is no evidence for intracranial hemorrhage or sulcal effacement. There is decreased attenuation about the periventricular white matter and deep white matter of both c erebral hemispheres, compatible with chronic small vessel ischemia. Differential diagnosis does inclu de demyelination. No mass effects are seen.No midline shift. Osseous calvarium is intact. If symptoms persist consider MRI. IMPRESSION: 1. Age related atrophic and chronic small vessel ischemic change without acute intracranial process s een at this time.
[2021-01-08 12:26] LABS: Appearance,Urine Clear (Clear); Bacteria,Urine Rare /hpf; Bilirubin,Urine Negative (Negative); Blood,Urine Negative (Negative); Color,Urine Light Yellow; Glucose,Urine (UA) Negative (Negative); Hyaline Casts,Urine 1 /lpf (0-2); Ketones,Urine Negative (Negative); Leukocyte Esterase,Urine Moderate (Negative); Mucus,Urine Rare /hpf; Nitrite,Urine Negative (Negative); PH, Urine 6.5 (5.0-8.0); Protein,Urine Negative (Negative); RBC,Urine 1 /hpf (0-5); Specific Gravity,Urine 1.005 (1.001-1.035); Squamous Epithelial Cell,Urine <1 /hpf (0-4); Urobilinogen,Urine <2.0 mg/dL (<2.0); WBC,Urine 10 /hpf (0-5)
[2021-01-08 12:34] LABS: Amphetamine Screen,Urine Not Detected (NotDetected); Barbiturate Screen,Urine Not Detected (NotDetected); Benzodiazepines Screen,Urine Not Detected (NotDetected); Cocaine Screen,Urine Not Detected (NotDetected); Methadone Screen, Urine Not Detected (NotDetected); Opiate Screen,Urine Detected (NotDetected); Oxycodone Screen, Urine Not Detected (NotDetected); Phencyclidine Screen,Urine Not Detected (NotDetected); Tricyclic Antidepressant,Urine Detected (NotDetected); Urn Cannabinoid Scrn Not Detected (NotDetected)
[2021-01-08] MEDS: ZIPRASIDONE 20 MG VIAL IM PRN (21:09)
[2021-01-09] MEDS: MIRTAZAPINE 15 MG TAB PO SCH (00:31)
[2021-01-09] MEDS: carvediloL 3.125 MG TAB PO SCH (00:31)
[2021-01-09] MEDS: AMITRIPTYLINE HCL 50 MG TAB PO SCH (00:32)
[2021-01-09] MEDS: ATORVASTATIN 10 MG TAB PO SCH (00:32)
[2021-01-09] MEDS: BACLOFEN 10 MG TAB PO PRN (03:19)
[2021-01-09] MEDS ORDERED: NICOTINE 14MG/24HR PATCH TRANSDERM STA (07:19)
[2021-01-09] MEDS: MAGNESIUM OXIDE 400 MG TAB PO SCH (08:27)
[2021-01-09] MEDS: FUROSEMIDE 20 MG TAB PO SCH (11:24)
[2021-01-09] MEDS: ASPIRIN 81 MG PO SCH (23:50)
[2021-01-09] MEDS: allopurinoL 100 MG TAB PO SCH (23:50)
[2021-01-10] MEDS: ATORVASTATIN 10 MG TAB PO SCH ×2 (00:20→23:28)
[2021-01-10] MEDS: AMITRIPTYLINE HCL 50 MG TAB PO SCH ×2 (00:21→23:28)
[2021-01-10] MEDS: MIRTAZAPINE 15 MG TAB PO SCH ×2 (00:24→23:27)
[2021-01-10] MEDS: carvediloL 3.125 MG TAB PO SCH ×4 (00:24→23:28)
[2021-01-10] MEDS: ZIPRASIDONE 20 MG VIAL IM PRN (05:20)
[2021-01-10] MEDS: MAGNESIUM OXIDE 400 MG TAB PO SCH (08:16)
[2021-01-10] MEDS: FUROSEMIDE 20 MG TAB PO SCH (08:21)
--- NOTE | 2021-01-10 12:02 | P.CON ---
Consult Note - . Consult date: 01/10/21 Assessment/Plan:: Clinical Problems: Major neurocognitive disorder with behavioral disturbances Interim history: I reviewed the medical record, attempted to interview the patient and discussed her treatment with the EPS nurse. She is a 65-year-old female brought to the emergency department on 01/08/2021 by the police after she called the police times and and made delusional statements such as steroid bug bombs in her apartment. We recommended transfer to a geropsychiatric unit. She has been in the ER since awaiting placement. I evaluated to determine whether there is an alternative to a [facility]. She was unable to provide a coherent explanation of the reason for her presentation to the ED. According to the sitter she is able to attend to her ADLs without assistance. Mental status exam: She presented as a thin pleasant elderly woman who made eye contact and appeared to attend to the interview. She had a blunted facial expression. She is alert and oriented to person only. She had no abnormality of psychomotor activity. She is not restless, agitated or aggressive. Her gait was slow and steady. Her speech was spontaneous with increased rate but normal volume. Her affect was blunted. She did not express any clear suicidal or homicidal ideation. Her speech was grossly disorganized, incoherent and much time nonsense. She did not appear to be responding to internal stimuli. Assessment: He is severely mentally ill with benefit from inpatient treatment. Unfortunately, she has not been admitted a geropsychiatric Hospital due to her multiple medical problems. Plan: continue to process her placement in a psychiatric hospital
[2021-01-10] MEDS: allopurinoL 100 MG TAB PO SCH (14:11)
[2021-01-10] MEDS: ASPIRIN 81 MG PO SCH (14:11)
[2021-01-10] MEDS: BACLOFEN 10 MG TAB PO PRN (14:13)
[2021-01-11] MEDS: ZIPRASIDONE 20 MG VIAL IM PRN (03:09)
[2021-01-11] MEDS: MAGNESIUM OXIDE 400 MG TAB PO SCH ×2 (09:31→09:32)
[2021-01-11] MEDS: FUROSEMIDE 20 MG TAB PO SCH (09:31)
[2021-01-11] MEDS: allopurinoL 100 MG TAB PO SCH (12:38)
[2021-01-11 18:03] VITALS: BP 138/65; PULSE 81; RESP 20; TEMP 98.1
== END 2021-01-11 17:50 | disposition home or self-care (01) ==
LOC: EC 09:34
DX: F29 Unspecified psychosis not due to a substance or known physiological condition (principal); F41.9 Anxiety disorder, unspecified; F32.9 Major depressive disorder, single episode, unspecified; F17.200 Nicotine dependence, unspecified, uncomplicated; J44.9 Chronic obstructive pulmonary disease, unspecified; E78.5 Hyperlipidemia, unspecified; M19.90 Unspecified osteoarthritis, unspecified site; G47.33 Obstructive sleep apnea (adult) (pediatric); M06.9 Rheumatoid arthritis, unspecified; N18.30 Chronic kidney disease, stage 3 unspecified; I12.9 Hypertensive chronic kidney disease with stage 1 through stage 4 chronic kidney disease, or unspecified chronic kidney disease; Z20.822 Contact with and (suspected) exposure to COVID-19; Z79.82 Long term (current) use of aspirin; Z79.899 Other long term (current) drug therapy; Z88.0 Allergy status to penicillin; Z88.1 Allergy status to other antibiotic agents; Z88.2 Allergy status to sulfonamides; Z88.5 Allergy status to narcotic agent; Z88.6 Allergy status to analgesic agent; Z88.8 Allergy status to other drugs, medicaments and biological substances; Z91.030 Bee allergy status; Z91.048 Other nonmedicinal substance allergy status; Z91.041 Radiographic dye allergy status; Z86.14 Personal history of Methicillin resistant Staphylococcus aureus infection; Z90.49 Acquired absence of other specified parts of digestive tract; Z98.51 Tubal ligation status; Z86.73 Personal history of transient ischemic attack (TIA), and cerebral infarction without residual deficits; Z80.3 Family history of malignant neoplasm of breast; Z80.1 Family history of malignant neoplasm of trachea, bronchus and lung
CPT/HCPCS: 99285 ×2; 96372 ×2; 82075; 36415; 93005 ×2; 80053; 82375; 85025; 81001; 80306; 87635; 70450; S4990; J3486 ×3

== ENCOUNTER → 2021-06-09 | Outpatient (CLI) | payer MEDICARE, OTHER ==
--- NOTE | 2021-06-09 16:04 | PE ---
Nuclear medicine PET/CT HISTORY: C 34.01, right lung cancer, subsequent Patient received 13.2 mCi F-18 FDG intravenously, delayed scanning was performed the base to the mid thighs. Localization and attenuation correction CT scan was performed. Correlation to prior nuclear medicine PET/CT 01/06/2021 Chest and neck: At the soft tissues of the posterior left upper chest there is a focus of hypermetabo lic uptake, small soft tissue nodule is suspected, SUV is 2.8 and was 1.7 on prior. The right upper l obe the previously identified uptake in the abnormal density previously showed SUV of 5.5 but now french ws only mild uptake at 2.1 SUV, there may be some postobstructive atelectatic changes on there is mar ked improvement overall in the previously identified uptake. Loss is present in the right hemithorax. There are coronary artery calcifications. No pleural or pericardial effusion. ABDOMEN: Within the subcutaneous soft tissues in the right hemiabdomen, right lower quadrant focus of uptake is present which measures SUV 2.9 which was not seen on prior. There is no retroperitoneal ad enopathy, no evident liver mass. There is no ascites. There is a large generator over the left lower quadrant level. There is some streak artifact present. Postop changes are noted to be bowel. No addit ional abnormal uptake evident. Osseous structures show no uptake. Degenerative disc changes and facet arthropathy noted the lower rosalba mbar spine. IMPRESSION: Uptake in the soft tissues the left back, right lower quadrant as described, subcutaneous nodules due to metastasis is not excluded. Marked improvement in the right upper lobe as compared to prior exam.
== END | disposition home or self-care (01) ==
LOC: RADPETMAIN 09:59
PROVIDERS: ATTEND Nurse Practitioner
DX: C34.01 Malignant neoplasm of right main bronchus (principal)
CPT/HCPCS: 78815; A9552